=== PATIENT | female | born 1995 | race Caucasian/White ===

== ENCOUNTER 2016-12-03 21:33 | Emergency (ER) | payer BC ==
[2016-12-03] MEDS ORDERED: Ketorolac 60 MG/2 ML SDV IM ONE (21:40)
--- NOTE | 2016-12-03 21:54 | EDM.PDOC ---
ED HPI Trauma - General Chief Complaint: Upper Extremity Injury/Pain Stated Complaint: POSS DISLOCATED L SHOULDER Time Seen by Provider: 12/03/16 21:54 Source: Reports: Patient History Limitations: Reports: No limitations - History of Present Illness INITIAL COMMENTS - FREE TEXT/NARRATIVE: History of present illness: [21-year-old female comes in complaining of acute pain in left shoulder. Patient indicates she was cleaning her bedroom and spontaneously she felt her arm dislocate and now is very painful in the axilla area and into her chest wall. She is certain it's dislocated in February to have it x-rayed.] Review of systems: As per history of present illness and below otherwise all systems reviewed and negative. Past medical history: As per history of present illness and as reviewed below otherwise noncontributory. Surgical history: As per history of present illness and as reviewed below otherwise noncontributory. Social history: No reported history of drug or alcohol abuse. Family history: As per history of present illness and as reviewed below otherwise noncontributory. Physical exam: HEENT: Atraumatic, normocephalic, pupils reactive, negative for conjunctival pallor or scleral icterus, mucous membranes moist, throat clear, neck supple, nontender, trachea midline. Lungs: Clear to auscultation, breath sounds equal bilaterally, chest nontender. Heart: S1S2, regular, negative for clicks, rubs, or JVD. Abdomen: Soft, nondistended, nontender. Negative for masses or hepatosplenomegaly. Negative for costovertebral tenderness. Pelvis: Stable nontender. Genitourinary: Deferred. Rectal: Deferred. Extremities: Atraumatic, negative for cords or calf pain. Neurovascular unremarkable. Neuro: Awake, alert, oriented. Cranial nerves II through XII unremarkable. Cerebellum unremarkable. Motor and sensory unremarkable throughout. Exam nonfocal. Diagnostics: [X-ray] Therapeutics: [] Impression: [Shoulder pain] Plan: [Muscle relaxers anti-inflammatories] Definitive disposition and diagnosis as appropriate pending reevaluation and review of above. Allergies/ADRs: Allergies No Known Allergies Allergy (Verified 12/03/16 21:35) Home Medications: Ambulatory Orders medroxyPROGESTERone [Depo-Provera Contraceptive] 150 mg IM ASDIRECTED 04/23/15 [ Confirmed 07/08/15] Ketorolac [Toradol] 10 mg PO Q6H 07/08/15 [Confirmed 07/08/15] Past Medical History - Past Health History Medical/Surgical History: Denies Medical/Surgical History - Past Surgical History Female Surgical History: Reports: section Other Musculoskeletal Surgeries/Procedures:: right bunionectomy Social & Family History - Tobacco Use Smoking Status *Q: Current Every Day Smoker Years of Tobacco use: 8 Packs/Tins Daily: 0.4 Used Tobacco, but Quit: No Second Hand Smoke Exposure: Yes - Alcohol Use Days Per Week of Alcohol Use: 0 - Recreational Drug Use Recreational Drug Use: No Review of Systems - Review of Systems Review Of Systems: See Below (See history of present illness) Trauma Exam - Physical Exam Exam: See Below (History of present illness) Course - Vital Signs Last Recorded V/S: Last Vital Signs Temp 37.1 C 12/03/16 21:36 Pulse 120 H 12/03/16 21:36 Resp 16 12/03/16 21:36 BP 125/75 12/03/16 21:36 Pulse Ox 99 12/03/16 21:36 - Orders/Labs/Meds Orders: Active Orders 24 hr Category Date Time Status Shoulder Comp Lt [CR] Stat Exams 12/03/16 21:39 Ordered Meds: Medications Discontinued Medications Generic Name Dose Route Start Last Admin Trade Name Irasema PRN Reason Stop Dose Admin Ketorolac Tromethamine 60 mg 12/03/16 21:40 12/03/16 22:15 Toradol IM 12/03/16 21:41 60 mg ONETIME ONE Administration Departure - Departure Time of Disposition: 22:31 Disposition: Home, Self-Care 01 Condition: good Clinical Impression: Shoulder pain, left Forms: ED Department Discharge Additional Instructions: The following information is given to patients seen in the emergency department who are being discharged to home. This information is to outline your options for follow-up care. We provide all patients seen in our emergency department with a follow-up referral. The need for follow-up, as well as the timing and circumstances, are variable depending upon the specifics of your emergency department visit. If you don't have a primary care physician on staff, we will provide you with a referral. We always advise you to contact your personal physician following an emergency department visit to inform them of the circumstance of the visit and for follow-up with them and/or the need for any referrals to a consulting specialist. The emergency department will also refer you to a specialist when appropriate. This referral assures that you have the opportunity for follow-up care with a specialist. All of these measure are taken in an effort to provide you with optimal care, which includes your follow-up. Under all circumstances we always encourage you to contact your private physician who remains a resource for coordinating your care. When calling for follow-up care, please make the office aware that this follow-up is from your recent emergency room visit. If for any reason you are refused follow-up, please contact the [facility] Emergency Department at and asked to speak to the emergency department charge nurse. Take medication as directed Followup with primary care provider one to 2 day Return to ED as needed as discussed - My Orders Last 24 Hours: My Active Orders 12/03/16 21:39 Shoulder Comp Lt [CR] Stat - Assessment/Plan Last 24 Hours: My Active Orders 12/03/16 21:39 Shoulder Comp Lt [CR] Stat
[2016-12-04 01:05] VITALS: BP 119/71
--- NOTE | 2016-12-04 11:17 | CR ---
EXAM DATE: 12/03/16 PATIENT'S AGE: 21 Patient: LENA CUMMINS Facility: [place], [place] Site . Site : 1995 Study: XRay Shoulder Left [id number] 10:08:47 PM Ordering Physician: Doctor Sierra Final Report: INDICATION: shoulder pain x2 days TECHNIQUE: Shoulder radiograph 2 views left COMPARISON: None FINDINGS: Bones: Alignment is normal. No acute fractures or aggressive bone lesions identified. Joint spaces: The glenohumeral joint is unremarkable in appearance. The acromioclavicular (AC) joint is unremarkable. No radiographic evidence of a shoulder effusion is seen. Soft tissues: The visualized hemithorax is unremarkable. No radiopaque foreign bodies are seen. IMPRESSION: 1. No acute osseous injuries are noted. Dictated by: Arnold Arce MD @ 12/03/2016 22:24:51 (Electronic Signature) Report Signed by Proxy and Original Signed Document filed in the Medical Record. MTDD
== END 2016-12-03 22:46 | disposition home or self-care (01) ==
LOC: MW.ED 21:33
DX: M25.512 Pain in left shoulder (principal); F17.210 Nicotine dependence, cigarettes, uncomplicated
CPT/HCPCS: 73030; 96372; 99283; J1885

== ENCOUNTER 2020-06-02 19:33 | Emergency (ER) | payer BC, OTHER ==
[2020-06-02] MEDS ORDERED: Diphtheria,Pertussis(Acell),Tetanus Vaccine 0.5 ML Syringe IM ONE (19:56)
[2020-06-02] MEDS ORDERED: Diazepam 2 MG Tab PO ONE (19:57)
[2020-06-02] MEDS ORDERED: Bacitracin Oint 1 GM U/D Packet TOP ONE (20:02)
--- NOTE | 2020-06-02 20:17 | EDM.PDOCBH ---
ED HPI GENERAL MEDICAL PROBLEM - General Chief Complaint: Behavioral/Psych Stated Complaint: suicidal ideation Time Seen by Provider: 06/02/20 19:36 - History of Present Illness INITIAL COMMENTS - FREE TEXT/NARRATIVE: HISTORY AND PHYSICAL: History of present illness: This 24-year old female with a past medical history of previous opioid dependence, depression, anxiety and cutting behavior in the distant past presents emergency department after being locked out from her home and having difficulty with her boyfriend/roommate. The Police Department has brought her to the emergency department on a mental health/legal hold for evaluation because she is a danger to herself. Per the report of the border police and the patient it appears that she was locked out of the house today and has had several days of struggle. The border police showed me the text messages from the mother where the patient has made clear and distinct self harming threats. She states for the last several weeks she has been contemplating suicide and decided to try it today. The cutting behavior was done today after she had difficulties with her roommate. She denies any overdose. After she began cutting herself she states she decided she did not want to . She has an unstable home environment where she may not be welcome back. She is not welcome at her home with her mother per her report. She no longer has custody of her child. Given all of these factors, the direct self harming behavior, the statements to her mother recorded in text message to the border police, I feel the patient is a danger to herself and will require admission to the hospital for psychiatric care. Review of systems: A 10-point review of systems, other than pertinent positives and negatives as stated per HPI, is otherwise negative. Past medical history: As per history of present illness and as reviewed below otherwise noncontributory. Surgical history: As per history of present illness and as reviewed below otherwise noncontributory. Social history: No reported history of drug or alcohol abuse. Family history: As per history of present illness and as reviewed below otherwise noncontributory. Physical exam: VITAL SIGNS: Reviewed. GENERAL: Intermittently crying. Her left forearm has several hesitation cat that are superficial and do not require repair HEAD: No signs of head trauma. EYES: Pupils are equal. Extraocular motions intact. EARS: Hearing grossly intact. MOUTH: Oropharynx is normal. NECK: No adenopathy, no JVD. CHEST: Chest with clear breath sounds bilaterally. No wheezes, rales, or rhonchi. CARDIAC: Regular rate and rhythm. Normal S1 and S2, without murmurs, gallops, or rubs. VASCULAR: Peripheral pulses normal and equal in all extremities. ABDOMEN: Soft, without detectable tenderness. No sign of distention. No rebound or guarding, and no masses palpated. MUSCULOSKELETAL: Good range of motion of all major joints. Extremities without clubbing, cyanosis or edema. NEUROLOGIC EXAM: Alert and oriented x 3. No focal sensory or motor deficits. Speech normal. Follows commands. PSYCHIATRIC: Intermittently crying. Feeling depressed. SKIN: Multiple hesitation cat. They do not require repair. Distal neurovascular function is intact. Initial Differential Diagnosis & Plan: Depression, suicide, hesitation cat, self harming behavior I have completed the application for evaluation and emergency admission ([id number]) [place] Suicide Severity Rating Scale (C-SSRS Screener) from [employer] on 06/02/2020 RESULT SUMMARY: High risk Immediate notification of physician and/or behavioral health and patient safety precautions INPUTS: Select most severe in the past month > 4 = 4. Active suicidal ideation with some intent to act, without specific plan Select most severe in lifetime > 3 = 3. Aborted attempt or self-interrupted attempt (takes steps toward suicide attempt but stops self before engaging in actual self-destructive behavior) Was this behavior within the past three months? > 1 = Yes For part 2 she could also receive a score of 4. Either way the patient has high risk. Definitive disposition and diagnosis as appropriate pending reevaluation and review of above. - Related Data Allergies Allergy/AdvReac Type Severity Reaction Status Date / Time No Known Allergies Allergy Verified 06/02/20 19:55 Home Meds: Home Meds . [No Known Home Meds] 06/02/20 [History] Past Medical History - Past Health History Medical/Surgical History: Denies Medical/Surgical History Psychiatric History: Reports: Anxiety, Depression - Infectious Disease History Infectious Disease History: Reports: Chicken Pox - Past Surgical History Female Surgical History: Reports: Section Other Musculoskeletal Surgeries/Procedures:: right bunionectomy Social & Family History - Tobacco Use Tobacco Use Status *Q: Current Every Day Tobacco User Years of Tobacco use: 10 Packs/Tins Daily: 0.5 - Recreational Drug Use Recreational Drug Use: Yes Recreational Drug Type: Reports: Heroin Recreational Drug Use Frequency: Not Used In Over 6 Months ED ROS GENERAL - Review of Systems Review Of Systems: See Below (noted) ED EXAM, BEHAVIORAL HEALTH - Physical Exam Exam: See Below (noted) #1 Interpretation EKG Interpretation Comments: 12 lead EKG interpretation Obtained: June 02, 2020 at 2018 hrs. Rhythm: Sinus Rate: 96 [place]: Normal Intervals: Normal ST/T Segments: No acute ischemic changes Interpretation: Sinus Rhythm COURSE, BEHAVIORAL HEALTH COMP - Course Vital Signs: Last Vital Signs Temp Pulse 95 06/02/20 19:45 Resp 17 06/02/20 19:45 BP 136/102 H 06/02/20 19:45 Pulse Ox 99 06/02/20 19:45 Orders, Labs, Meds: Active Orders 24 hr Category Date Time Status EKG Documentation Completion [RC] STAT Care 06/02/20 19:56 Active Vaccines to be Administered [RC] PER UNIT ROUTINE Care 06/02/20 19:56 Active Regular Diet [DIET] Diet 06/03/20 Breakfast Active COMPREHENSIVE METABOLIC PN,CMP [CHEM] Stat Lab 06/02/20 20:18 Received CORONAVIRUS COVID-19 PCR PHL Stat Lab 06/02/20 19:58 Ordered DRUG SCREEN, URINE [URCHEM] Stat Lab 06/02/20 20:51 Ordered ETHANOL BLOOD MEDICAL [CHEM] Stat Lab 06/02/20 20:18 Received HCG QUALITATIVE,URINE [URCHEM] Stat Lab 06/02/20 20:51 Ordered UA W/MICROSCOPIC [URIN] Stat Lab 06/02/20 20:51 Ordered Laboratory Tests 06/02/20 Range/Units 20:18 WBC 15.58 H (4.0-11.0) K/uL RBC 4.35 (4.30-5.90) M/uL Hgb 13.5 (12.0-16.0) g/dL Hct 38.5 (36.0-46.0) % MCV 88.5 (80.0-98.0) fL MCH 31.0 (27.0-32.0) pg MCHC 35.1 (31.0-37.0) g/dL RDW Std Deviation 40.2 (28.0-62.0) fl RDW Coeff of Idalmis 13 (11.0-15.0) % Plt Count 295 (150-400) K/uL MPV 9.10 (7.40-12.00) fL Neut % (Auto) 74.4 (48.0-80.0) % Lymph % (Auto) 15.8 L (16.0-40.0) % [place] % (Auto) 9.2 (0.0-15.0) % Eos % (Auto) 0.4 (0.0-7.0) % Baso % (Auto) 0.2 (0.0-1.5) % Neut # (Auto) 11.6 H (1.4-5.7) K/uL Lymph # (Auto) 2.5 H (0.6-2.4) K/uL [place] # (Auto) 1.4 H (0.0-0.8) K/uL Eos # (Auto) 0.1 (0.0-0.7) K/uL Baso # (Auto) 0.0 (0.0-0.1) K/uL Nucleated RBC % 0.0 /100WBC Nucleated RBCs # 0 K/uL Medications Discontinued Medications Generic Name Dose Route Start Last Admin Trade Name Freq PRN Reason Stop Dose Admin Bacitracin 1 dose 06/02/20 20:02 06/02/20 20:11 Bacitracin Oint 1 Gm TOP 06/02/20 20:03 1 dose ONETIME ONE Administration Diazepam 10 mg 06/02/20 19:57 Valium PO 06/02/20 19:58 ONETIME ONE Diphtheria/Tetanus/Acell Pertussis 0.5 ml 06/02/20 19:56 Adacel IM 06/02/20 19:57 .ONCE ONE Medical Clearance: 06/02/20 20:55 Accepted at [facility]. There is no stigmata of illicit drug use. The patient is not significantly tachycardic. She does not have track cat on her upper extremities. She does not have any signs or symptoms of delirium or encephalopathy. I feel she is medically fit for psychiatric admission. Covid testing given pandemic COVID-19 in the area. This is secondary to disposition requirement not because of symptoms. Other labs as a courtesy to the admitting facility. Dr. Garcia, psychiatry, is excepting. We will arrange for transfer via BLS ambulance My diagnostic impression: 1. Suicidal ideations with suicidal gesture 2. History of depressive disorder 3. History of anxiety disorder 4. Unstable social/home situation 5. Recovering narcotic dependence Departure - Departure Time of Disposition: 20:57 Disposition: DC/Tfer to Psych Hosp/Unit 65 Clinical Impression: Self-harm - Discharge Information *PRESCRIPTION DRUG MONITORING PROGRAM REVIEWED*: Not Applicable *COPY OF PRESCRIPTION DRUG MONITORING REPORT IN PATIENT JOAQUIN: Not Applicable Instructions: Self-Harming Behavior Information Referrals: PCP,None [Primary Care Provider] - Forms: ED Department Discharge Sepsis Event Note (ED) - Evaluation Sepsis Screening Result: No Definite Risk - Focused Exam Vital Signs: Vital Signs Pulse Resp BP Pulse Ox 06/02/20 19:45 95 17 136/102 H 99 - My Orders Last 24 Hours: My Active Orders 06/02/20 19:56 EKG Documentation Completion [RC] STAT Vaccines to be Administered [RC] PER UNIT ROUTINE 06/02/20 19:58 CORONAVIRUS COVID-19 PCR PHL Stat 06/02/20 20:18 COMPREHENSIVE METABOLIC PN,CMP [CHEM] Stat ETHANOL BLOOD MEDICAL [CHEM] Stat 06/02/20 20:51 DRUG SCREEN, URINE [URCHEM] Stat HCG QUALITATIVE,URINE [URCHEM] Stat UA W/MICROSCOPIC [URIN] Stat 06/03/20 Breakfast Regular Diet [DIET] - Assessment/Plan Last 24 Hours: My Active Orders 06/02/20 19:56 EKG Documentation Completion [RC] STAT Vaccines to be Administered [RC] PER UNIT ROUTINE 06/02/20 19:58 CORONAVIRUS COVID-19 PCR PHL Stat 06/02/20 20:18 COMPREHENSIVE METABOLIC PN,CMP [CHEM] Stat ETHANOL BLOOD MEDICAL [CHEM] Stat 06/02/20 20:51 DRUG SCREEN, URINE [URCHEM] Stat HCG QUALITATIVE,URINE [URCHEM] Stat UA W/MICROSCOPIC [URIN] Stat 06/03/20 Breakfast Regular Diet [DIET]
[2020-06-02 21:13] LABS: CARBON DIOXIDE,CO2 21.6 mmol/L (21.0-32.0); CHLORIDE,CL 104 mmol/L (98-107); POTASSIUM,K 4.5 mmol/L (3.5-5.1); SODIUM,NA 137 mmol/L (136-145)
[2020-06-02 21:24] LABS: BLOOD UREA NITROGEN,BUN 17 mg/dL (7.0-18.0); GLUCOSE RANDOM 89 mg/dL (74-106)
[2020-06-02 21:35] VITALS: BP 130/84; PULSE 101
[2020-06-02] MEDS ORDERED: Haloperidol Lactate 5 MG/ML SDV IM ONE (21:48)
[2020-06-02] MEDS ORDERED: Haloperidol Lactate 5 MG/ML SDV ONE (21:50)
== END 2020-06-02 22:52 ==
LOC: MW.ED 19:33
DX: R45.851 Suicidal ideations (principal); F17.210 Nicotine dependence, cigarettes, uncomplicated; Z20.828 Contact with and (suspected) exposure to other viral communicable diseases
CPT/HCPCS: 36415; 80053; 80305; 80307; 81001; 81025; 85025; 87635; 93005; 96372; 99285; A9270; J1630; 93010; U0002

== ENCOUNTER 2021-02-26 00:23 | Inpatient (IN) | payer SELFPAY ==
[2021-02-26] MEDS ORDERED: Sodium Chloride 0.9% 10 ML Syringe FLUSH PRN (02:00)
[2021-02-26] MEDS ORDERED: Oxytocin/0.9 % Sodium Chloride 30 UNIT/500 ML BAG IV SCH (02:00)
[2021-02-26] MEDS ORDERED: Lactated Ringers 1,000 ML IV SCH (02:00)
[2021-02-26] MEDS ORDERED: Sodium Chloride 0.9% 2.5 ML Syringe FLUSH PRN (02:00)
[2021-02-26] MEDS ORDERED: Sodium Chloride 0.9% 10 ML SDV IV PRN (02:00)
[2021-02-26] MEDS ORDERED: Citric Acid/Sodium Citrate Solution 30 ML Cup PO ONE (02:00)
--- NOTE | 2021-02-26 02:13 | PCM.LDHP ---
L&D History of Present Illness - General Date of Service: 02/26/21 Admit Problem/Dx: Patient Status Order with Admit Dx/Problem 02/26/21 01:05 Patient Status [ADT] Routine Admission Diagnosis/Problem Admission Diagnosis/Problem 02/26/21 02:15 Elisa is a 25 yo at ~ 37+3 weeks gestation (UMM(LMP) 03/16/2021) with C/O LOF since 02/24/2021 am and onset of spontaneous painful contractions ~ 2 hours ago. Amnisure upon arrival positive. Reports adequate movement. Denies vaginal bleeding. C/O "bad swelling to my leg and feet", 2-3+ pitting edema BLE and labia. H/O primary LTCS 2012 re: failure to descend with pushing once complete dilation met. Otherwise unremarkable. Pertinent hx includes: tachycardia and murmur treated with labetolol ([id number]), anxiety, THC use night (last used 1 night ago), no care this . Ax: amoxicillin. See medical, surgical, social, medication history. Source of Information: Patient History Limitations: Reports: No Limitations - History of Present Illness Location, : Reports: Abdomen, Lower back Quality: Reports: Sharp Severity: Moderate Pain Score: 5 Improves with: Reports: Movement Worsens with: Reports: Immobilization Associated Symptoms: Reports: vaginal fluid, moderate amount - Related Data Allergies/Adverse Reactions: Allergies Allergy/AdvReac Type Severity Reaction Status Date / Time amoxicillin Allergy Difficulty Verified 02/26/21 01:19 Breathing Home Medications: Home Meds Pnv #30/Iron Carb&Aspg/Fa/Om3 [OB Complete with DHA Softgel] 02/26/21 [History] Past Medical History - Past Health History Medical/Surgical History: Denies Medical/Surgical History HEENT History: Reports: None Cardiovascular History: Reports: Heart Murmur, Other (See Below) (Tachycardia) Respiratory History: Reports: None Gastrointestinal History: Reports: None Genitourinary History: Reports: None : 2 Para: 1 LMP (Approximate): Other OB/BYN History: H/O PCS re: failure to descend with pushing Musculoskeletal History: Reports: None Neurological History: Reports: None Psychiatric History: Reports: Anxiety, Depression Endocrine/Metabolic History: Reports: None Hematologic History: Reports: None Immunologic History: Reports: None Oncologic (Cancer) History: Reports: None Dermatologic History: Reports: None - Infectious Disease History Infectious Disease History: Reports: Chicken Pox - Past Surgical History Female Surgical History: Reports: Section (Primary LTCS re: failure to descend with pushing) Other Musculoskeletal Surgeries/Procedures:: right bunionectomy Social & Family History - Family History Family Medical History: No Pertinent Family History - Tobacco Use Tobacco Use Status *Q: Current Every Day Tobacco User Tobacco Use Within Last Twelve Months: Cigarettes Packs/Tins Daily: 0.5 - Caffeine Use Caffeine Use: Reports: None - Alcohol Use Alcohol Use History: No - Recreational Drug Use Recreational Drug Use: Yes Drug Use in Last 12 Months: Yes Recreational Drug Type: Reports: Marijuana/Hashish (THC daily) Recreational Drug Use Frequency: Daily Recreational Drug Last Use: "Last night" H&P Review of Systems - Review of Systems: Review Of Systems: Comprehensive ROS is negative, except as noted in HPI. General: Reports: No Symptoms HEENT: Reports: No Symptoms Pulmonary: Reports: No Symptoms Cardiovascular: Reports: No Symptoms Gastrointestinal: Reports: No Symptoms Genitourinary: Reports: No Symptoms Musculoskeletal: Reports: No Symptoms Skin: Reports: No Symptoms Psychiatric: Reports: No Symptoms Neurological: Reports: No Symptoms Hematologic/Lymphatic: Reports: No Symptoms Immunologic: Reports: No Symptoms L&D Exam - Exam Exam: See Below - Vital Signs Vital Signs: VSS, afebrile. Hypertensive 140s-150s/80s-90s. Weight: 165 lb - OB Specific Fundal Height In cm: 38 Contraction Duration (sec): 40-90 Contraction Frequency (min): 1-4 Contraction Intensity: Moderate Movement: Active Heart Tones: Present Heart Tones per Min: 120 Heart Rate (FHR) Variability: Moderate (6-25 bmp) Presentation: Vertex (via handheld TAUS) - Bennett Score Bennett Score Cervix Position: Midposition Bennett Score Consistency: Soft Bennett Score Effacement: 31-50% Bennett Score Dilation: 1-2 cm Bennett Score Infant's Station: -1 ,0 Bennett Score Total: 7 - Exam General: Alert, Oriented, Cooperative, Mild Distress HEENT: Conjunctiva Clear, Hearing Intact, Mucosa Moist & Rock, Normal Nasal Septum, Posterior Pharynx Clear, PERRLA Neck: Supple, Trachea Midline Lungs: Clear to Auscultation, Normal Respiratory Effort Cardiovascular: Regular Rate, Regular Rhythm GI/Abdominal Exam: Normal Bowel Sounds, Soft, Non-Tender, No Organomegaly, No Distention Rectal Exam: Deferred Genitourinary: Normal external exam, Normal bimanual exam, Enlarged uterus (Gravid uterus), Vaginal discharge (+ clear amniotic fluid leakage) Back Exam: Normal Inspection, Full Range of Motion Extremities: Normal Inspection, Normal Range of Motion, Non-Tender, No Pedal Edema, Normal Capillary Refill Skin: Warm, Dry, Intact Neurological: Cranial Nerves Intact, Reflexes Equal Bilateral Psychiatric: Alert, Normal Affect, Normal Mood - Patient Data Lab Results Last 24 hrs: Laboratory Results - last 24 hr 02/26/21 Range/Units 00:50 Membrane Rupture POSITIVE - Problem List (1) Uterine contractions SNOMED Code(s): 453751080 ICD Code: O47.9 - FALSE LABOR, UNSPECIFIED Status: Acute Priority: High Current Visit: Yes (2) 37 weeks gestation of SNOMED Code(s): 84172838 ICD Code: Z3A.37 - 37 WEEKS GESTATION OF Status: Acute Priority: High Current Visit: Yes (3) H/O section SNOMED Code(s): 673951691 ICD Code: Z98.891 - HISTORY OF UTERINE SCAR FROM PREVIOUS SURGERY Status: Acute Priority: High Current Visit: Yes Problem List Initiated/Reviewed/Updated: Yes Orders Last 24hrs: Active Orders 24 hr Category Date Time Status Patient Status [ADT] Routine ADT 02/26/21 01:05 Active Non Stress Test [RC] PER UNIT ROUTINE Care 02/26/21 01:05 Active Notify Provider Vital Signs [RC] PRN Care 02/26/21 02:04 Active Procedure Site Prep Instruct [RC] ASDIRECTED Care 02/26/21 02:01 Active Up ad Jackie [RC] ASDIRECTED Care 02/26/21 01:05 Active Vaginal Exam [RC] Click to Edit Care 02/26/21 01:05 Active Verify Patient Consent Obtain [RC] ASDIRECTED Care 02/26/21 02:01 Active Vital Signs [RC] PER UNIT ROUTINE Care 02/26/21 01:05 Active Nothing Per Oral Diet [DIET] Diet 02/26/21 Dinner Active CBC W/O DIFF,HEMOGRAM [HEME] Stat Lab 02/26/21 02:00 Ordered COMPREHENSIVE METABOLIC PN,CMP [CHEM] Stat Lab 02/26/21 02:00 Ordered DRUG SCREEN, URINE [URCHEM] Urgent Lab 02/26/21 02:00 Ordered GROUP B STREP BY PCR [MOLEC] Routine Lab 02/26/21 02:06 Ordered HEPATITIS B SURFACE AG [CHEM] Routine Lab 02/26/21 02:07 Ordered HEPATITIS C ANTIBODY [CHEM] Routine Lab 02/26/21 02:07 Ordered HIV12 AG/AB 4TH GEN W/REFLEX [CHEM] Routine Lab 02/26/21 02:05 Ordered RPR (SYPHILIS SERO) W/ RFLX [REF] Routine Lab 02/26/21 02:01 Ordered RUBELLA ANTIBODY IGG [CHEM] Routine Lab 02/26/21 02:07 Ordered TYPE AND SCREEN [BBK] Routine Lab 02/26/21 02:01 Ordered Citric Acid/Sodium Citrate [Bicitra Solution] Med 02/26/21 02:00 Once 30 ml PO ONETIME ONE Lactated Ringers [Ringers, Lactated] 1,000 ml Med 02/26/21 02:00 Ordered IV BOLUS Oxytocin/0.9 % Sodium Chloride [Oxytocin 30 Unit/500 ML Med 02/26/21 02:00 Ordered -NS] 30 unit in 500 ml IV TITRATE Sodium Chloride 0.9% [Normal Saline] Med 02/26/21 02:00 Ordered 10 ml IV ASDIRECTED PRN Sodium Chloride 0.9% [Saline Flush] Med 02/26/21 02:00 Ordered 10 ml FLUSH ASDIRECTED PRN Sodium Chloride 0.9% [Saline Flush] Med 02/26/21 02:00 Ordered 2.5 ml FLUSH ASDIRECTED PRN Peripheral IV Insertion Adult [OM.PC] Routine Oth 02/26/21 02:01 Ordered Schedule Procedure [COMM] Per Unit Routine Oth 02/26/21 02:01 Ordered Resuscitation Status Routine Resus Stat 02/26/21 01:02 Ordered Medication Orders Citric Acid/Sodium Citrate (Citric Acid/Sodium Citrate Solution 30 Ml Cup) 30 ml PO ONETIME ONE Stop: 02/26/21 02:01 Lactated Ringer's (Ringers, Lactated) 1,000 mls @ 500 mls/hr IV BOLUS KATHERINE Oxytocin/Sodium Chloride (Oxytocin 30 Unit/500 Ml-Ns) 30 unit in 500 mls @ 250 mls/hr IV TITRATE KATHERINE Sodium Chloride (Sodium Chloride 0.9% 10 Ml Syringe) 10 ml FLUSH ASDIRECTED PRN PRN Reason: Keep Vein Open Sodium Chloride (Sodium Chloride 0.9% 2.5 Ml Syringe) 2.5 ml FLUSH ASDIRECTED PRN PRN Reason: Keep Vein Open Sodium Chloride (Sodium Chloride 0.9% 10 Ml Sdv) 10 ml IV ASDIRECTED PRN PRN Reason: IV Use Assessment/Plan Comment:: Patient presents today with C/O LOF and uterine contractions, + amnisure, vandana every 1-4 min, moderate in intensity, no care. SVE 2/50/- 1, soft, mid-position. Vertex via handheld TAUS. Fundal heights consistent with LMP ~ 37-38 wks gestation. Discussed RBAs of repeat LTCS given all patient factors, not a candidate for TOLAC. Patient verbally consents to repeat LTCS. Dr. Stokes called repeat LTCS ~2:05 am. Anesthesia team called. Operative, anesthesia, and blood consents signed. Pre-op checklist in progress. Plan to administer 2 grams cefazolin IV maria esther-operatively. Patient continues to verbalizes agreement with POC, no questions comments or concerns at this time.
[2021-02-26] MEDS ORDERED: Tranexamic Acid 1,000 MG in Sodium Chloride 0.9% 100 ML IV PRN ×2 (02:31→04:08)
[2021-02-26] MEDS ORDERED: Lidocaine 1% 50 ML MDV INJECT PRN (02:31)
[2021-02-26] MEDS ORDERED: Carboprost Tromethamine 250 MCG/1 ML Amp IM PRN (02:31)
[2021-02-26] MEDS ORDERED: Water For Irrigation,Sterile 1,000 ML Container IRR PRN (02:31)
[2021-02-26] MEDS ORDERED: Misoprostol 200 MCG Tab PO PRN (02:31)
[2021-02-26] MEDS ORDERED: Nalbuphine 10 MG/1 ML Vial IVPUSH PRN ×2 (02:31→04:18)
[2021-02-26] MEDS ORDERED: Methylergonovine 0.2 MG/1 ML Amp IM PRN ×2 (02:31→04:08)
[2021-02-26] MEDS ORDERED: Butorphanol 1 MG/ML SDV IVPUSH PRN (02:31)
[2021-02-26] MEDS ORDERED: fentaNYL 100 MCG/2 ML SDV ONE (02:44)
[2021-02-26] MEDS ORDERED: Morphine PF 10 MG/10 ML SDV ONE (02:45)
[2021-02-26 03:10] LABS: BLOOD UREA NITROGEN,BUN 18 mg/dL (7.0-18.0); CARBON DIOXIDE,CO2 17.4 mmol/L (21.0-32.0); CHLORIDE,CL 107 mmol/L (98-107); GLUCOSE RANDOM 69 mg/dL (74-106); POTASSIUM,K 4.7 mmol/L (3.5-5.1); SODIUM,NA 139 mmol/L (136-145)
[2021-02-26] MEDS ORDERED: Ondansetron 4 MG/2 ML SDV ONE (03:27)
[2021-02-26] MEDS ORDERED: Oxytocin 10 Units/1 ML SDV ONE (03:27)
[2021-02-26] MEDS ORDERED: Ketorolac 30 MG/ML SDV ONE (03:27)
[2021-02-26] MEDS ORDERED: ceFAZolin 1 GM Vial ONE (03:44)
[2021-02-26] MEDS ORDERED: Sodium Chloride 0.9% 20 ML ONE (03:44)
[2021-02-26] MEDS ORDERED: Misoprostol 200 MCG Tab RECTAL PRN (04:08)
[2021-02-26] MEDS ORDERED: Ondansetron 4 MG/2 ML SDV IVPUSH PRN ×2 (04:08→04:18)
[2021-02-26] MEDS ORDERED: Lanolin 100% Cream 7 GM Tube TOP PRN (04:08)
[2021-02-26] MEDS ORDERED: Oxytocin 10 Units/1 ML SDV IM PRN (04:08)
[2021-02-26] MEDS ORDERED: Bisacodyl 10 MG Supp RECTAL PRN (04:08)
--- NOTE | 2021-02-26 04:12 | PCM.OPNOTE ---
- General Post-Op/Procedure Note Date of Surgery/Procedure: 02/26/21 Operative Procedure(s): Repeat C/section, IUP term Post-Op Diagnosis: Same Anesthesia Technique: Spinal Primary Surgeon: Chuckie Stokes Licensed Life And Health Agent: Shama Burgos EBL in mLs: 650 Complications: None Condition: Good
[2021-02-26 04:13] LABS: HIV12 AG/AB 4TH GEN W/REFLEX < 0.1 INDEX (<1.0)
[2021-02-26] MEDS ORDERED: fentaNYL 100 MCG/2 ML SDV IVPUSH PRN (04:18)
[2021-02-26] MEDS ORDERED: Naloxone 0.4 MG/ML Syringe IVPUSH PRN (04:18)
[2021-02-26] MEDS ORDERED: diphenhydrAMINE 50 MG/ML SDV IVPUSH PRN (04:18)
[2021-02-26] MEDS ORDERED: ePHEDrine 50 MG/ML SDV IVPUSH PRN (04:18)
[2021-02-26] MEDS ORDERED: Acetaminophen/oxyCODONE 325-5 MG Tab PO PRN (04:18)
--- NOTE | 2021-02-26 04:18 | PCM.PREANE ---
Preanesthetic Assessment - Anesthesia/Transfusion/Family Hx Anesthesia History: Prior Anesthesia Without Reaction Family History of Anesthesia Reaction: No - Review of Systems General: No Symptoms Pulmonary: No Symptoms Cardiovascular: No Symptoms Gastrointestinal: No Symptoms Neurological: No Symptoms Other: Reports: None - Physical Assessment NPO Status Date: 02/26/21 NPO Status Time: 00:00 Height: 5 ft 3 in Weight: 165 lb ASA Class: 3 Mental Status: Alert & Oriented x3 Airway Class: Mallampati = 3 Dentition: Reports: Normal Dentition ROM/Head Extension: Full Lungs: Clear to Auscultation, Normal Respiratory Effort Cardiovascular: Regular Rate, Regular Rhythm - Lab Values: Laboratory Last Values WBC 19.94 K/uL (4.0-11.0) H 02/26/21 02:20 RBC 3.36 M/uL (4.30-5.90) L 02/26/21 02:20 Hgb 10.2 g/dL (12.0-16.0) L 02/26/21 02:20 Hct 29.2 % (36.0-46.0) L 02/26/21 02:20 MCV 86.9 fL (80.0-98.0) 02/26/21 02:20 MCH 30.4 pg (27.0-32.0) 02/26/21 02:20 MCHC 34.9 g/dL (31.0-37.0) 02/26/21 02:20 RDW Std Deviation 41.3 fl (28.0-62.0) 02/26/21 02:20 RDW Coeff of Idalmis 13 % (11.0-15.0) 02/26/21 02:20 Plt Count 232 K/uL (150-400) 02/26/21 02:20 MPV 10.10 fL (7.40-12.00) 02/26/21 02:20 Nucleated RBC % 0.0 /100WBC 02/26/21 02:20 Nucleated RBCs # 0 K/uL 02/26/21 02:20 Sodium 139 mmol/L (136-145) 02/26/21 02:20 Potassium 4.7 mmol/L (3.5-5.1) 02/26/21 02:20 Chloride 107 mmol/L (98-107) 02/26/21 02:20 Carbon Dioxide 17.4 mmol/L (21.0-32.0) L 02/26/21 02:20 BUN 18 mg/dL (7.0-18.0) 02/26/21 02:20 Creatinine 0.9 mg/dL (0.6-1.0) 02/26/21 02:20 Est Cr Clr Drug Dosing 78.36 mL/min 02/26/21 02:20 Estimated GFR (MDRD) > 60.0 ml/min 02/26/21 02:20 Glucose 69 mg/dL (74-106) L 02/26/21 02:20 Calcium 7.9 mg/dL (8.5-10.1) L 02/26/21 02:20 Total Bilirubin 0.3 mg/dL (0.2-1.0) 02/26/21 02:20 AST 45 IU/L (15-37) H 02/26/21 02:20 ALT 33 IU/L (14-63) 02/26/21 02:20 Alkaline Phosphatase 226 U/L (46-116) H 02/26/21 02:20 Total Protein 5.6 g/dL (6.4-8.2) L 02/26/21 02:20 Albumin 2.2 g/dL (3.4-5.0) L 02/26/21 02:20 Globulin 3.4 g/dL (2.6-4.0) 02/26/21 02:20 Albumin/Globulin Ratio 0.7 (0.9-1.6) L 02/26/21 02:20 Membrane Rupture POSITIVE 02/26/21 00:50 Urine Opiates Screen NEGATIVE (NEGATIVE) 02/26/21 03:10 Ur Oxycodone Screen NEGATIVE (NEGATIVE) 02/26/21 03:10 Urine Methadone Screen NEGATIVE (NEGATIVE) 02/26/21 03:10 Ur Barbiturates Screen NEGATIVE (NEGATIVE) 02/26/21 03:10 Ur Phencyclidine Scrn NEGATIVE (NEGATIVE) 02/26/21 03:10 Ur Amphetamine Screen POSITIVE (NEGATIVE) 02/26/21 03:10 U Methamphetamines Scrn POSITIVE (NEGATIVE) 02/26/21 03:10 U Benzodiazepines Scrn NEGATIVE (NEGATIVE) 02/26/21 03:10 U Cocaine Metab Screen NEGATIVE (NEGATIVE) 02/26/21 03:10 U Marijuana (THC) Screen POSITIVE (NEGATIVE) 02/26/21 03:10 Hep Bs Antigen Index < 0.1 INDEX (<1.0) 02/26/21 02:20 Hep C Ab Index (BONNIE) 0.02 INDEX (<0.8) 02/26/21 02:20 HIV 1&2 Ag/Ab, 4th Gen < 0.1 INDEX (<1.0) 02/26/21 02:20 Rubella IgG Ab Index 305.1 IU/mL 02/26/21 02:20 SARS-CoV-2 RNA (SUSAN) NEGATIVE (NEGATIVE) 02/26/21 02:08 - Allergies Allergies/Adverse Reactions: Allergies Allergy/AdvReac Type Severity Reaction Status Date / Time amoxicillin Allergy Difficulty Verified 02/26/21 01:19 Breathing - Blood Blood Available: Yes Product(s) Available: PRBC - Anesthesia Plan Pre-Op Medication Ordered: None - Acknowledgements Anesthesia Type Planned: Spinal Pt an Appropriate Candidate for the Planned Anesthesia: Yes Alternatives and Risks of Anesthesia Discussed w Pt/Guardian: Yes Pt/Guardian Understands and Agrees with Anesthesia Plan: Yes PreAnesthesia Questionnaire - Past Health History Medical/Surgical History: Denies Medical/Surgical History HEENT History: Reports: None Cardiovascular History: Reports: Heart Murmur, Other (See Below) (Tachycardia) Respiratory History: Reports: None Gastrointestinal History: Reports: None Genitourinary History: Reports: None Other OB/BYN History: H/O PCS re: failure to descend with pushing Musculoskeletal History: Reports: None Neurological History: Reports: None Psychiatric History: Reports: Anxiety, Depression Endocrine/Metabolic History: Reports: None Hematologic History: Reports: None Immunologic History: Reports: None Oncologic (Cancer) History: Reports: None Dermatologic History: Reports: None - Infectious Disease History Infectious Disease History: Reports: Chicken Pox - Past Surgical History Female Surgical History: Reports: Section (Primary LTCS re: failure to descend with pushing) Other Musculoskeletal Surgeries/Procedures:: right bunionectomy - SUBSTANCE USE Tobacco Use Status *Q: Current Every Day Tobacco User Tobacco Use Within Last Twelve Months: Cigarettes Recreational Drug Use History: Yes Recreational Drug Type: Reports: Marijuana/Hashish (THC daily) Recreational Drug Last Use: "Last night" - HOME MEDS Home Medications: Home Meds Pnv #30/Iron Carb&Aspg/Fa/Om3 [OB Complete with DHA Softgel] 02/26/21 [History] - CURRENT (IN HOUSE) MEDS Current Meds: Current Medications Bisacodyl (Bisacodyl 10 Mg Supp) 10 mg RECTAL ONETIME PRN PRN Reason: Constipation Butorphanol Tartrate (Butorphanol 1 Mg/Ml Sdv) 1 mg IVPUSH Q1H PRN PRN Reason: Pain (severe 7-10) Carboprost Tromethamine (Carboprost Tromethamine 250 Mcg/1 Ml Amp) 250 mcg IM ASDIRECTED PRN PRN Reason: Post Hemorrhage Diphenhydramine HCl (Diphenhydramine 50 Mg/Ml Sdv) 25 mg IVPUSH Q6H PRN PRN Reason: Itching or Nausea Docusate Sodium (Docusate Sodium 100 Mg Cap) 100 mg PO BID KATHERINE Emollient Ointment (Lanolin 100% Cream 7 Gm Tube) 0 gm TOP ASDIRECTED PRN PRN Reason: Sore Nipples Lactated Ringer's (Ringers, Lactated) 1,000 mls @ 500 mls/hr IV BOLUS [facility] Oxytocin/Sodium Chloride (Oxytocin 30 Unit/500 Ml-Ns) 30 unit in 500 mls @ 250 mls/hr IV TITRATE KATHERINE Lactated Ringer's (Ringers, Lactated) 1,000 mls @ 150 mls/hr IV ASDIRECTED [facility] Tranexamic Acid 1,000 mg/ (Sodium Chloride) 110 mls @ 660 mls/hr IV ONETIME PRN PRN Reason: Bleeding Lactated Ringer's (Ringers, Lactated) 1,000 mls @ 125 mls/hr IV ASDIRECTED [facility] Tranexamic Acid 1,000 mg/ (Sodium Chloride) 110 mls @ 660 mls/hr IV ONETIME PRN PRN Reason: Bleeding Ibuprofen (Ibuprofen 800 Mg Tab) 800 mg PO Q8H PRN PRN Reason: mild pain or fever Ketorolac Tromethamine (Ketorolac 30 Mg/Ml Sdv) 30 mg IVPUSH Q6H [facility] Stop: 02/27/21 04:01 Lidocaine HCl (Lidocaine 1% 50 Ml Mdv) 50 ml INJECT ONETIME PRN PRN Reason: Laceration repair Methylergonovine Maleate (Methylergonovine 0.2 Mg/1 Ml Amp) 0.2 mg IM ASDIRECTED PRN PRN Reason: Post Hemorrhage Methylergonovine Maleate (Methylergonovine 0.2 Mg/1 Ml Amp) 0.2 mg IM ONETIME PRN PRN Reason: Excessive Vaginal Bleeding Misoprostol (Misoprostol 200 Mcg Tab) 200 mcg PO ONETIME PRN PRN Reason: Post Hemorrhage Misoprostol (Misoprostol 200 Mcg Tab) 1,000 mcg RECTAL ONETIME PRN PRN Reason: excessive bleeding Nalbuphine HCl (Nalbuphine 10 Mg/1 Ml Vial) 10 mg IVPUSH Q1H PRN PRN Reason: Pain (severe 7-10) Ondansetron HCl (Ondansetron 4 Mg/2 Ml Sdv) 4 mg IVPUSH Q4H PRN PRN Reason: Nausea/Vomiting Oxycodone/Acetaminophen (Acetaminophen/Oxycodone 325-5 Mg Tab) 1 tab PO Q4H PRN PRN Reason: Pain (severe 7-10) Oxycodone/Acetaminophen (Acetaminophen/Oxycodone 325-5 Mg Tab) 2 tab PO Q4H PRN PRN Reason: Pain (severe 7-10) Oxytocin (Oxytocin 10 Units/1 Ml Sdv) 10 unit IM ASDIRECTED PRN PRN Reason: Excessive Vaginal Bleeding Sodium Chloride (Sodium Chloride 0.9% 10 Ml Syringe) 10 ml FLUSH ASDIRECTED PRN PRN Reason: Keep Vein Open Sodium Chloride (Sodium Chloride 0.9% 2.5 Ml Syringe) 2.5 ml FLUSH ASDIRECTED PRN PRN Reason: Keep Vein Open Sodium Chloride (Sodium Chloride 0.9% 10 Ml Sdv) 10 ml IV ASDIRECTED PRN PRN Reason: IV Use Sterile Water (Water For Irrigation,Sterile 1,000 Ml Container) 1,000 ml IRR ASDIRECTED PRN PRN Reason: delivery Discontinued Medications Cefazolin Sodium (Cefazolin 1 Gm Vial) Confirm Administered Dose 2 gm .ROUTE .STK-MED ONE Stop: 02/26/21 03:45 Citric Acid/Sodium Citrate (Citric Acid/Sodium Citrate Solution 30 Ml Cup) 30 ml PO ONETIME ONE Stop: 02/26/21 02:01 Fentanyl (Fentanyl 100 Mcg/2 Ml Sdv) Confirm Administered Dose 100 mcg .ROUTE .STK-MED ONE Stop: 02/26/21 02:45 Sodium Chloride (Normal Saline) Confirm Administered Dose 20 mls @ as directed .ROUTE .Chomp-MED ONE Stop: 02/26/21 03:45 Ketorolac Tromethamine (Ketorolac 30 Mg/Ml Sdv) Confirm Administered Dose 30 mg .ROUTE .STBevii-MED ONE Stop: 02/26/21 03:28 Miscellaneous Medication (Phenylephrine Hcl In 0.9% Nacl 1 Mg/10 Ml Syringe) Confirm Administered Dose 1 mg .ROUTE .STBevii-MED ONE Stop: 02/26/21 03:28 Morphine Sulfate (Morphine Pf 10 Mg/10 Ml Sdv) Confirm Administered Dose 10 mg .ROUTE .STBevii-MED ONE Stop: 02/26/21 02:46 Ondansetron HCl (Ondansetron 4 Mg/2 Ml Sdv) Confirm Administered Dose 4 mg .ROUTE .STBevii-MED ONE Stop: 02/26/21 03:28 Oxytocin (Oxytocin 10 Units/1 Ml Sdv) Confirm Administered Dose 30 unit .ROUTE .Chomp-MED ONE Stop: 02/26/21 03:28
[2021-02-26] MEDS ORDERED: Octyl 2-Cyanoacrylate 1 Tube ONE (05:02)
[2021-02-26] MEDS: Lactated Ringers 1,000 ML IV SCH ×3 (05:37→14:43)
--- NOTE | 2021-02-26 06:22 | OR ---
SURGEON: Chuckie Stokes MD DATE OF PROCEDURE: 02/26/2021 PREOPERATIVE DIAGNOSES: Intrauterine , term, and previous section; no care in this ; prolonged rupture of the membrane. POSTOPERATIVE DIAGNOSES: Intrauterine , term, and previous section; no care in this ; prolonged rupture of the membrane. OPERATION PERFORMED: Repeat low transverse section. PRIMARY SURGEON: Chuckie Stokes MD RESPOOLER: Shama Burgos, certified nurse direct entry midwife. ANESTHESIA: Spinal. ESTIMATED BLOOD LOSS: 650 mL. COMPLICATION: None. FINDING: Male fetus, score reported to be 8 and 9. The weight is not available. Normal uterus, tubes, and ovaries. INDICATION FOR SURGERY: This patient is 25. She had a previous section in 2012 for failure to progress. The patient had no care in this and she is term according to a yearly ultrasound done by an clinic. According to her, she had a spontaneous rupture of the membrane 36 to 48 hours earlier, and when she presented to Labor and Delivery, she was vandana. She was afebrile. However, this prolonged rupture of the membrane is concerning. PROCEDURE IN DETAIL: The patient was brought to the OR. After adequate level of spinal anesthesia with a Malhotra catheter in the bladder, the patient properly identified, and the patient was prepped and draped in sterile fashion as usual. Low transverse Pfannenstiel skin incision done. Mica fascia, rectus fascia were opened in direction of the incision. The 2 recti muscles and the peritoneal cavity was entered. Bladder flap was raised in the usual manner pushing the bladder away from the lower uterine segment. Low transverse uterine incision was done, extended manually with the hand. Fetus was in a vertex position, delivered, and cried immediately. The amniotic fluid smelled, probably indicative of chorioamnionitis. The stator winder was notified of that. She was present at the time of the delivery. The placenta delivered spontaneous, complete, and intact. The segment of the tube was sent for a drug screen and possible culture, and then after that, repair of the lower uterine segment was done with 2-0 Vicryl continuous interlocking in 2 layers. Reperitonealization done with 2-0 Vicryl continuous and then the peritoneal cavity evacuated from all blood and blood clot and closed with 3-0 Vicryl continuous. The rectus fascia was closed with #1 PDS double strand continuous. The Mica fascia with 3-0 Vicryl continuous. The skin closed with 3-0 Vicryl on a Axel needle in a subcuticular fashion. Instrument and sponge count was correct. The patient tolerated the procedure well, went to recovery room in stable general condition. LYNN / HEENA /[id number]
[2021-02-26] MEDS: Ketorolac 30 MG/ML SDV IVPUSH SCH ×4 (06:29→22:42)
[2021-02-26] MEDS: Docusate Sodium 100 MG Cap PO SCH ×2 (10:00→22:41)
[2021-02-26] MEDS ORDERED: Clindamycin Phosphate in D5W 900 MG in Premix Bag 1 BAG IV SCH ×2 (15:30)
[2021-02-26] MEDS: Clindamycin Phosphate in D5W 600 MG in Premix Bag 1 BAG IV SCH ×4 (16:19→22:48)
[2021-02-26] MEDS: Hydrochlorothiazide 12.5 MG Cap PO SCH (22:41)
[2021-02-27] MEDS: Lactated Ringers 1,000 ML IV SCH ×2 (02:00→12:54)
[2021-02-27] MEDS: Ketorolac 30 MG/ML SDV IVPUSH SCH (04:10)
[2021-02-27] MEDS: Clindamycin Phosphate in D5W 600 MG in Premix Bag 1 BAG IV SCH ×8 (04:17→20:30)
--- NOTE | 2021-02-27 04:31 | PCM.PNPP ---
- General Info Date of Service: 02/27/21 Admission Dx/Problem (Free Text): Patient Status Order with Admit Dx/Problem 02/26/21 01:05 Patient Status [ADT] Routine Admission Diagnosis/Problem Admission Diagnosis/Problem 02/26/21 02:15 Elisa is a 25 yo current PPD1 s/p repeat LTCS at ~ 37+3 weeks gestation ([facility](LMP) 03/16/2021) without care. A neg/ Rh pos; RhoGam declined by patient last night, "I have never needed that before...". RI, GBS neg. Ax: amoxicillin. Elevation of WBCs noted upon admission, prolonged ROM x 2 days noted. Blanche-operative antibiotics administered. Clindamycin 600 mg IV q [address] Stokes yesterday. Patient C/O severe pain 10/10 and irritability not alleviated with PO/IV analgesias. Severe itching and scratching behaviors noted upon exam, likely related to medication SEs and/or methamphetamine withdrawal. Continued C/O "really bad swelling to my leg and feet", 2-3+ pitting edema BLE and labia. Tachycardia and low urine output noted yesterday evening, EBL ~600 ml during LTCS yesterday; 1000 ml IV LR bolus completed yesterday followed by 12.5 mg HCTZ PO once for BLE pitting edema. Ample clear, yellow urine noted from mendez catheter. Tachycardia and mild hypertension noted, VSs otherwise stable. Plan to repeat CBC, CMP this am, collection pending. Pertinent hx includes: tachycardia and murmur treated with labetolol ([id number]), anxiety, THC use night (last used 1 night ago), methamphetamine use 2 days ago. Social/case work consulted, visited with patient last night, plan still pending. Early US completed in at [facility] as patient was considering at that time; procedure not completed. Otherwise no care this . Ax: amoxicillin. See medical, surgical, social, medication history. Pain Score: 10 (Patient experiencing irritability and hypersensitivity) - Review of Systems General: Reports: No Symptoms HEENT: Reports: No Symptoms Pulmonary: Reports: No Symptoms Cardiovascular: Reports: No Symptoms Gastrointestinal: Reports: No Symptoms Genitourinary: Reports: No Symptoms Musculoskeletal: Reports: No Symptoms Skin: Reports: No Symptoms Neurological: Reports: No Symptoms Psychiatric: Reports: No Symptoms - General Info Date of Service: 02/27/21 - Patient Data Vital Signs - Most Recent: Last Vital Signs Temp 96.7 F L 02/27/21 00:20 Pulse 117 H 02/27/21 02:00 Resp 21 H 02/27/21 02:00 BP 152/81 H 02/27/21 00:20 Pulse Ox 100 02/27/21 02:00 Weight - Most Recent: 165 lb I&O - Last 24 Hours: Intake & Output 02/26/21 02/26/21 02/27/21 14:59 22:59 06:59 Intake Total 1979 Output Total 200 Balance 1978 - Lab Results - Last 24 Hours: Laboratory Results - last 24 hr 02/26/21 02/26/21 02/26/21 Range/Units 02:00 02:20 03:10 Ur Random Creatinine 303.5 mg/dL U Random Total Protein 129.2 H (<11.9) mg/dL Protein/Creatinin Ratio 0.4 Group B Strep (PCR) NEGATIVE (NEGATIVE) Blood Type A NEGATIVE Antibody Screen NEGATIVE Screen (NEGATIVE) RhIG Candidate? Rhogam Indicated 02/26/21 Range/Units 05:00 Ur Random Creatinine mg/dL U Random Total Protein (<11.9) mg/dL Protein/Creatinin Ratio Group B Strep (PCR) (NEGATIVE) Blood Type Antibody Screen Screen NEGATIVE (NEGATIVE) RhIG Candidate? YES Rhogam Indicated YES, BABY RH POS H Med Orders - Current: Current Medications Bisacodyl (Bisacodyl 10 Mg Supp) 10 mg RECTAL ONETIME PRN PRN Reason: Constipation Butorphanol Tartrate (Butorphanol 1 Mg/Ml Sdv) 1 mg IVPUSH Q1H PRN PRN Reason: Pain (severe 7-10) Carboprost Tromethamine (Carboprost Tromethamine 250 Mcg/1 Ml Amp) 250 mcg IM ASDIRECTED PRN PRN Reason: Post Hemorrhage Diphenhydramine HCl (Diphenhydramine 50 Mg/Ml Sdv) 25 mg IVPUSH Q6H PRN PRN Reason: Itching or Nausea Diphenhydramine HCl (Diphenhydramine 50 Mg/Ml Sdv) 12.5 mg IVPUSH Q2H PRN PRN Reason: Itching Docusate Sodium (Docusate Sodium 100 Mg Cap) 100 mg PO BID [facility] Last Admin: 02/26/21 22:41 Dose: 100 mg Documented by: Emollient Ointment (Lanolin 100% Cream 7 Gm Tube) 0 gm TOP ASDIRECTED PRN PRN Reason: Sore Nipples Ephedrine Sulfate (Ephedrine 50 Mg/Ml Sdv) 10 mg IVPUSH Q5M PRN PRN Reason: Hypotension Fentanyl (Fentanyl 100 Mcg/2 Ml Sdv) 50 mcg IVPUSH Q1H PRN PRN Reason: Pain (severe 7-10) Hydrochlorothiazide (Hydrochlorothiazide 12.5 Mg Cap) 12.5 mg PO BEDTIME [facility] Last Admin: 02/26/21 22:41 Dose: 12.5 mg Documented by: Lactated Ringer's (Ringers, Lactated) 1,000 mls @ 500 mls/hr IV BOLUS [facility] Last Admin: 02/26/21 02:20 Dose: 500 mls/hr Documented by: Oxytocin/Sodium Chloride (Oxytocin 30 Unit/500 Ml-Ns) 30 unit in 500 mls @ 250 mls/hr IV TITRATE [facility] Lactated Ringer's (Ringers, Lactated) 1,000 mls @ 150 mls/hr IV ASDIRECTED [facility] Tranexamic Acid 1,000 mg/ (Sodium Chloride) 110 mls @ 660 mls/hr IV ONETIME PRN PRN Reason: Bleeding Lactated Ringer's (Ringers, Lactated) 1,000 mls @ 125 mls/hr IV ASDIRECTED [facility] Last Admin: 02/27/21 02:00 Dose: 125 mls/hr Documented by: Tranexamic Acid 1,000 mg/ (Sodium Chloride) 110 mls @ 660 mls/hr IV ONETIME PRN PRN Reason: Bleeding Clindamycin Phosphate 600 mg/ (Premix) 50 mls @ 100 mls/hr IV Q6H [facility] Last Admin: 02/27/21 04:17 Dose: 100 mls/hr Documented by: Ibuprofen (Ibuprofen 800 Mg Tab) 800 mg PO Q8H PRN PRN Reason: mild pain or fever Lidocaine HCl (Lidocaine 1% 50 Ml Mdv) 50 ml INJECT ONETIME PRN PRN Reason: Laceration repair Methylergonovine Maleate (Methylergonovine 0.2 Mg/1 Ml Amp) 0.2 mg IM ASDIRECTED PRN PRN Reason: Post Hemorrhage Methylergonovine Maleate (Methylergonovine 0.2 Mg/1 Ml Amp) 0.2 mg IM ONETIME PRN PRN Reason: Excessive Vaginal Bleeding Misoprostol (Misoprostol 200 Mcg Tab) 200 mcg PO ONETIME PRN PRN Reason: Post Hemorrhage Misoprostol (Misoprostol 200 Mcg Tab) 1,000 mcg RECTAL ONETIME PRN PRN Reason: excessive bleeding Nalbuphine HCl (Nalbuphine 10 Mg/1 Ml Vial) 10 mg IVPUSH Q1H PRN PRN Reason: Pain (severe 7-10) Nalbuphine HCl (Nalbuphine 10 Mg/1 Ml Vial) 5 mg IVPUSH ASDIRECTED PRN PRN Reason: Itching Ondansetron HCl (Ondansetron 4 Mg/2 Ml Sdv) 4 mg IVPUSH Q4H PRN PRN Reason: Nausea/Vomiting Ondansetron HCl (Ondansetron 4 Mg/2 Ml Sdv) 4 mg IVPUSH Q6H PRN PRN Reason: Nausea Oxycodone/Acetaminophen (Acetaminophen/Oxycodone 325-5 Mg Tab) 1 tab PO Q4H PRN PRN Reason: Pain (severe 7-10) Oxycodone/Acetaminophen (Acetaminophen/Oxycodone 325-5 Mg Tab) 2 tab PO Q4H PRN PRN Reason: Pain (severe 7-10) Oxycodone/Acetaminophen (Acetaminophen/Oxycodone 325-5 Mg Tab) 2 tab PO Q6H PRN PRN Reason: Pain (moderate 4-6) Last Admin: 02/26/21 06:53 Dose: 2 tab Documented by: Oxytocin (Oxytocin 10 Units/1 Ml Sdv) 10 unit IM ASDIRECTED PRN PRN Reason: Excessive Vaginal Bleeding Sodium Chloride (Sodium Chloride 0.9% 10 Ml Syringe) 10 ml FLUSH ASDIRECTED PRN PRN Reason: Keep Vein Open Sodium Chloride (Sodium Chloride 0.9% 2.5 Ml Syringe) 2.5 ml FLUSH ASDIRECTED PRN PRN Reason: Keep Vein Open Sodium Chloride (Sodium Chloride 0.9% 10 Ml Sdv) 10 ml IV ASDIRECTED PRN PRN Reason: IV Use Sterile Water (Water For Irrigation,Sterile 1,000 Ml Container) 1,000 ml IRR ASDIRECTED PRN PRN Reason: delivery Discontinued Medications Cefazolin Sodium (Cefazolin 1 Gm Vial) Confirm Administered Dose 2 gm .ROUTE .STK-MED ONE Stop: 02/26/21 03:45 Citric Acid/Sodium Citrate (Citric Acid/Sodium Citrate Solution 30 Ml Cup) 30 ml PO ONETIME ONE Stop: 02/26/21 02:01 Last Admin: 02/26/21 05:17 Dose: Not Given Documented by: Fentanyl (Fentanyl 100 Mcg/2 Ml Sdv) Confirm Administered Dose 100 mcg .ROUTE .STK-MED ONE Stop: 02/26/21 02:45 Sodium Chloride (Normal Saline) Confirm Administered Dose 20 mls @ as directed .ROUTE .STK-MED ONE Stop: 02/26/21 03:45 Clindamycin Phosphate 600 mg/ (Sodium Chloride) 54 mls @ 100 mls/hr IV Q6H KATHERINE Clindamycin Phosphate 900 mg/ (Premix) 75 mls @ 150 mls/hr IV Q6H KATHERINE Ketorolac Tromethamine (Ketorolac 30 Mg/Ml Sdv) Confirm Administered Dose 30 mg .ROUTE .STK-MED ONE Stop: 02/26/21 03:28 Ketorolac Tromethamine (Ketorolac 30 Mg/Ml Sdv) 30 mg IVPUSH Q6H [facility] Stop: 02/27/21 04:01 Last Admin: 02/27/21 04:10 Dose: 30 mg Documented by: Miscellaneous Medication (Phenylephrine Hcl In 0.9% Nacl 1 Mg/10 Ml Syringe) Confirm Administered Dose 1 mg .ROUTE .STK-MED ONE Stop: 02/26/21 03:28 Morphine Sulfate (Morphine Pf 10 Mg/10 Ml Sdv) Confirm Administered Dose 10 mg .ROUTE .STK-MED ONE Stop: 02/26/21 02:46 Naloxone HCl (Naloxone 0.4 Mg/Ml Syringe) 0.1 mg IVPUSH ONETIME PRN PRN Reason: Respiratory Depression Stop: 02/27/21 04:19 Octyl Cyanoacrylate (Octyl 2-Cyanoacrylate 1 Tube) Confirm Administered Dose 1 applic .ROUTE .STK-MED ONE Stop: 02/26/21 05:03 Ondansetron HCl (Ondansetron 4 Mg/2 Ml Sdv) Confirm Administered Dose 4 mg .ROUTE .STK-MED ONE Stop: 02/26/21 03:28 Oxytocin (Oxytocin 10 Units/1 Ml Sdv) Confirm Administered Dose 30 unit .ROUTE .STK-MED ONE Stop: 02/26/21 03:28 - Interaction Infant Disposition, : [place] to Nursery Infant Interaction: Not Interacting Feeding: Bottle Fed Support Person: Significant Other (Not present at bedside.) - Recovery Exam Fundal Tone: Firm Fundal Level: 2 Fingerbreadths Below Umbilicus Fundal Placement: Midline Lochia Amount: Small Lochia Color: Rubra/Red Perineum Description: Intact, Minimal Bruising/Swelling Episiotomy/Laceration: None Bladder Status: Nonpalpable, Indwelling Catheter in Place Urinary Elimination: Indwelling Catheter - Exam General: Alert, Oriented, Cooperative, Moderate Distress, Lethargic HEENT: Pupils Equal, Pupils Reactive, Mucous Membr. Moist/[place] Neck: Supple Lungs: Clear to Auscultation, Normal Respiratory Effort Cardiovascular: Regular Rate, Regular Rhythm GI/Abdominal Exam: Normal Bowel Sounds, Soft, No Organomegaly, Distended, Tender Extremities: Normal Inspection, Normal Range of Motion, Non-Tender, Normal Capillary Refill, Pedal Edema (Bilateral 1-2+ pitting edema) Skin: Warm, Dry, Intact Wound/Incisions: Dressing Dry and Intact (Dressing partly removed, patient not well tolerated. Incision appears clean, dry, approximated.) Neurological: No New Focal Deficit Psy/Mental Status: Alert, Normal Affect, Normal Mood - Problem List & Annotations (1) Status post repeat low transverse section SNOMED Code(s): 186742621, 98725589, 121457980, 241673781, 165739743 Code(s): Z98.891 - HISTORY OF UTERINE SCAR FROM PREVIOUS SURGERY Status: Acute Priority: High Current Visit: Yes (2) Elevated WBC count SNOMED Code(s): 726370410, 082187822 Code(s): D72.829 - ELEVATED WHITE BLOOD CELL COUNT, UNSPECIFIED Status: Acute Priority: High Current Visit: Yes (3) Methamphetamine abuse SNOMED Code(s): 266143468 Code(s): F15.10 - OTHER STIMULANT ABUSE, UNCOMPLICATED Status: Acute Priority: High Current Visit: Yes - Problem List Review Problem List Initiated/Reviewed/Updated: Yes - My Orders Last 24 Hours: My Active Orders 02/26/21 04:51 Consult to Case Management/Mechanic Helper [CONS] Routine 02/26/21 05:00 SCREEN [BBK] Routine RH IMMUNE GLOBULIN [BBK] Routine RHIG WORKUP, [BBK] Routine 02/26/21 Dinner Nothing Per Oral Diet [DIET] 02/26/21 21:00 hydroCHLOROthiazide 12.5 mg PO BEDTIME 02/27/21 05:00 CMP [COMPREHENSIVE METABOLIC PN,CMP] [CHEM] Routine - Plan Plan:: Continue with inpatient route of care. [place] care is exclusively in nursery, + methamphetamines and THC with prolonged ROM; bottle fed, IV antibiotics infusing. Social/case work at bedside for consult yesterday evening per RN, discussed POC for mom and baby including substance abuse treatment routes and adoption; considering. Discussed importance of IS and ambulation post-surgery. BLE SCDs in place at this time, plan to elevate BLE and continue to hydrate adequately; plan to ambulate 3-5 times per day. Once ambulation well achieved, plan to D/C mendez catheter. May consider repeat 12.5 HCTZ this afternoon. CBC/CMP to be drawn at 5 am today, collection pending. Continue clindamycin 600 mg IV q 6 hours. Discussed RBAs of RhoGam administration, plan to administer RhoGam today. LTCS incision dressing clean, dry, and intact; partially removed to view incision, patient not well tolerated. Dr. Stokes to present to bedside this am for assessment and management. Patient verbalized understanding, no questions at this time.
[2021-02-27 07:31] LABS: CARBON DIOXIDE,CO2 19.5 mmol/L (21.0-32.0); POTASSIUM,K 4.3 mmol/L (3.5-5.1)
[2021-02-27] MEDS: Acetaminophen/oxyCODONE 325-5 MG Tab PO PRN ×2 (08:09→23:35)
[2021-02-27] MEDS: Docusate Sodium 100 MG Cap PO SCH ×2 (08:09→20:15)
[2021-02-27] MEDS ORDERED: Furosemide 20 MG/2 ML VIAL IVPUSH ONE (09:01)
[2021-02-27] MEDS ORDERED: Ibuprofen 800 MG Tab PO PRN (10:00)
--- NOTE | 2021-02-27 12:19 | PCM.PR.CLI ---
Central Line Insertion - Central Line Insertion Site: internal jugular (L) Prep: CDC/MBT Guidelines, Sterile Drapes, Chlorhexidine Lumen: triple Gauge: 7Fr Local Anesthesia - Lidocaine (Xylocaine): 1% Plain Local Anesthetic Volume: 5cc Ultrasound guided: No Micropuncture kit used: No CL Complications: No Secured with suture: Yes Post placement confirmation: CXR, all ports aspirated, all ports flushed CXR post-procedure: no pneumothorax Dressing applied: by provider, chlorhexidine disc used, op-site dressing Central line comment: Left IJ placed under sterile conditions using seldinger technique and 22g finder needle. No complications. All ports flushed easily and catheter was secured at 15cm depth
--- NOTE | 2021-02-27 12:53 | PN ---
THC Physician - Brief Progress MdscQTOPTURYH08/18/2021 12:51[facility] Lonny donohue, [place] - ROBIN (WILDER) - ROBIN PLATALENA CUMMINSLisaDate of Service 02/27/2021 12:51HPI/Sharee nts of Note eICU Admission [id number] PPD2 with PMH of substance abuse including THC and amphetamin es. History obtained from review of EMR, limited as admitting team documentation as for reason for IC U transfer not available during time of evaluation.Camera exam: Laying in bed. Vitals monitor reviewe d. eICU Recommendations:Should clinical presentation (tachycardia, scratching behaviors) be attribute d to methamphetamine intoxication:Suggest initial management of agitation, tachycardia, hypertension, or hyperthermia with IV benzodiazepines, such as lorazepam (2-4 mg) or diazepam (5-10 mg) q 8-10min as needed. Should patient remain agitated despite the above, consider use of adjunctive antipsychotic therapy (ie haloperidol 5-10mg IV if QTc within normal limits) Should patient have hypertension refr actory to benzodiazepine therapy, consider use of vasodilator therapy (ie nitroglycerin)Avoid beta bl ockers for management of tachycardia or hypertensionUncertain as to utility of concomitant IV fluid a nd diuretic administration, defer this to bedside service.Defer antibiotics to bedside service, consi jaciel infectious work up including urinalysis, CXR, blood cultures (if not already done)Suggest EKG to determine underlying rhythm of tachycardiaDVT and GI prophylaxis as appropriate.Thank you for allowin g us to participate in the care of this patient.Unless otherwise specified, defer implementation of a dg recommendations to discretion of bedside provider. Please do not hesitate to contact the eICU se rvice for questions, clarification, or assistance with implementation.The above note transcribed with the assistance of dictation software. Please excuse any errors.Interventions Major-Arrhythmia - eval uation and management, Delirium, psychosis, severe agitation - evaluation and managementElectronicall y Signed by: TRUDI GIFFORD) on 02/27/2021 12:53
--- NOTE | 2021-02-27 13:36 | CR ---
Indication: Central line confirmation. Technique: AP portable view of the chest. Comparison: None Findings: A left internal jugular central venous catheter is identified with the tip overlying the distal SVC. The heart is normal in size. Coarse interstitial opacities are identified bilaterally. Impression: Left internal jugular central venous catheter with the tip overlying the distal SVC Dictated by Selena Capps MD @ 02/27/2021 1:35:[address] Selena Capps @ Feb 27 2021 1:35PM
[2021-02-27] MEDS: ceFAZolin 1 GM in Premix Bag 1 BAG IV SCH ×2 (13:52→21:30)
--- NOTE | 2021-02-27 17:43 | PCM.PNPP ---
- General Info Date of Service: 02/27/21 Functional Status: Reports: Pain Controlled - Review of Systems General: Reports: No Symptoms HEENT: Reports: No Symptoms Pulmonary: Reports: No Symptoms Cardiovascular: Reports: No Symptoms Gastrointestinal: Reports: No Symptoms Genitourinary: Reports: No Symptoms Musculoskeletal: Reports: No Symptoms Skin: Reports: No Symptoms Neurological: Reports: No Symptoms Psychiatric: Reports: No Symptoms - General Info Date of Service: 02/27/21 - Patient Data Vital Signs - Most Recent: Last Vital Signs Temp 36.6 C 02/27/21 16:31 Pulse 102 H 02/27/21 16:31 Resp 14 02/27/21 16:31 BP 140/83 02/27/21 16:31 Pulse Ox 100 02/27/21 15:04 Weight - Most Recent: 74.843 kg I&O - Last 24 Hours: Intake & Output 02/27/21 02/27/21 02/27/21 06:59 14:59 22:59 Intake Total 925 15 282 Output Total 650 1000 1700 Balance 275 -[phone] -[id number] Lab Results - Last 24 Hours: Laboratory Results - last 24 hr 02/26/21 02/26/21 02/26/21 Range/Units 02:00 02:20 05:00 WBC (4.0-11.0) K/uL RBC (4.30-5.90) M/uL Hgb (12.0-16.0) g/dL Hct (36.0-46.0) % MCV (80.0-98.0) fL MCH (27.0-32.0) pg MCHC (31.0-37.0) g/dL RDW Std Deviation (28.0-62.0) fl RDW Coeff of Idalmis (11.0-15.0) % Plt Count (150-400) K/uL MPV (7.40-12.00) fL Nucleated RBC % /100WBC Nucleated RBCs # K/uL Sodium (136-145) mmol/L Potassium (3.5-5.1) mmol/L Chloride (98-107) mmol/L Carbon Dioxide (21.0-32.0) mmol/L BUN (7.0-18.0) mg/dL Creatinine (0.6-1.0) mg/dL Est Cr Clr Drug Dosing mL/min Estimated GFR (MDRD) ml/min Glucose (74-106) mg/dL Lactic Acid (0.4-2.0) mmol/L Calcium (8.5-10.1) mg/dL Total Bilirubin (0.2-1.0) mg/dL AST (15-37) IU/L ALT (14-63) IU/L Alkaline Phosphatase (46-116) U/L Total Protein (6.4-8.2) g/dL Albumin (3.4-5.0) g/dL Globulin (2.6-4.0) g/dL Albumin/Globulin Ratio (0.9-1.6) Group B Strep (PCR) NEGATIVE (NEGATIVE) Blood Type A NEGATIVE Antibody Screen NEGATIVE Crossmatch See Detail See Detail 02/27/21 02/27/21 02/27/21 Range/Units 06:46 06:46 12:17 WBC 15.94 H (4.0-11.0) K/uL RBC 2.32 L (4.30-5.90) M/uL Hgb 6.8 L (12.0-16.0) g/dL Hct 20.2 L (36.0-46.0) % MCV 87.1 (80.0-98.0) fL MCH 29.3 (27.0-32.0) pg MCHC 33.7 (31.0-37.0) g/dL RDW Std Deviation 43.4 (28.0-62.0) fl RDW Coeff of Idalmis 14 (11.0-15.0) % Plt Count 179 (150-400) K/uL MPV 9.10 (7.40-12.00) fL Nucleated RBC % 0.0 /100WBC Nucleated RBCs # 0 K/uL Sodium 135 L (136-145) mmol/L Potassium 4.3 (3.5-5.1) mmol/L Chloride 104 (98-107) mmol/L Carbon Dioxide 19.5 L (21.0-32.0) mmol/L BUN 15 (7.0-18.0) mg/dL Creatinine 1.2 H (0.6-1.0) mg/dL Est Cr Clr Drug Dosing 58.77 mL/min Estimated GFR (MDRD) 54.3 ml/min Glucose 67 L (74-106) mg/dL Lactic Acid 0.9 (0.4-2.0) mmol/L Calcium 7.1 L (8.5-10.1) mg/dL Total Bilirubin 0.3 (0.2-1.0) mg/dL AST 43 H (15-37) IU/L ALT 28 (14-63) IU/L Alkaline Phosphatase 142 H (46-116) U/L Total Protein 4.7 L (6.4-8.2) g/dL Albumin 1.6 L (3.4-5.0) g/dL Globulin 3.1 (2.6-4.0) g/dL Albumin/Globulin Ratio 0.5 L (0.9-1.6) Group B Strep (PCR) (NEGATIVE) Blood Type Antibody Screen Crossmatch Med Orders - Current: Current Medications Bisacodyl (Bisacodyl 10 Mg Supp) 10 mg RECTAL ONETIME PRN PRN Reason: Constipation Butorphanol Tartrate (Butorphanol 1 Mg/Ml Sdv) 1 mg IVPUSH Q1H PRN PRN Reason: Pain (severe 7-10) Carboprost Tromethamine (Carboprost Tromethamine 250 Mcg/1 Ml Amp) 250 mcg IM ASDIRECTED PRN PRN Reason: Post Hemorrhage Diphenhydramine HCl (Diphenhydramine 50 Mg/Ml Sdv) 25 mg IVPUSH Q6H PRN PRN Reason: Itching or Nausea Diphenhydramine HCl (Diphenhydramine 50 Mg/Ml Sdv) 12.5 mg IVPUSH Q2H PRN PRN Reason: Itching Docusate Sodium (Docusate Sodium 100 Mg Cap) 100 mg PO BID [facility] Last Admin: 02/27/21 08:09 Dose: 100 mg Documented by: Emollient Ointment (Lanolin 100% Cream 7 Gm Tube) 0 gm TOP ASDIRECTED PRN PRN Reason: Sore Nipples Ephedrine Sulfate (Ephedrine 50 Mg/Ml Sdv) 10 mg IVPUSH Q5M PRN PRN Reason: Hypotension Fentanyl (Fentanyl 100 Mcg/2 Ml Sdv) 50 mcg IVPUSH Q1H PRN PRN Reason: Pain (severe 7-10) Hydrochlorothiazide (Hydrochlorothiazide 12.5 Mg Cap) 12.5 mg PO BEDTIME [facility] Last Admin: 02/26/21 22:41 Dose: 12.5 mg Documented by: Lactated Ringer's (Ringers, Lactated) 1,000 mls @ 500 mls/hr IV BOLUS [facility] Last Admin: 02/26/21 02:20 Dose: 500 mls/hr Documented by: Oxytocin/Sodium Chloride (Oxytocin 30 Unit/500 Ml-Ns) 30 unit in 500 mls @ 250 mls/hr IV TITRATE [facility] Lactated Ringer's (Ringers, Lactated) 1,000 mls @ 150 mls/hr IV ASDIRECTED [facility] Last Admin: 02/27/21 12:54 Dose: 150 mls/hr Documented by: Tranexamic Acid 1,000 mg/ (Sodium Chloride) 110 mls @ 660 mls/hr IV ONETIME PRN PRN Reason: Bleeding Lactated Ringer's (Ringers, Lactated) 1,000 mls @ 125 mls/hr IV ASDIRECTED [facility] Last Infusion: 02/27/21 09:10 Dose: 150 mls/hr Documented by: Tranexamic Acid 1,000 mg/ (Sodium Chloride) 110 mls @ 660 mls/hr IV ONETIME PRN PRN Reason: Bleeding Clindamycin Phosphate 600 mg/ (Premix) 50 mls @ 100 mls/hr IV Q6H [facility] Last Admin: 02/27/21 14:59 Dose: 100 mls/hr Documented by: Cefazolin Sodium/Dextrose 1 gm (/ Premix) 50 mls @ 100 mls/hr IV Q8H [facility] Last Admin: 02/27/21 13:52 Dose: 100 mls/hr Documented by: Ibuprofen (Ibuprofen 800 Mg Tab) 800 mg PO Q8H PRN PRN Reason: mild pain or fever Lidocaine HCl (Lidocaine 1% 50 Ml Mdv) 50 ml INJECT ONETIME PRN PRN Reason: Laceration repair Methylergonovine Maleate (Methylergonovine 0.2 Mg/1 Ml Amp) 0.2 mg IM ASDIRECTED PRN PRN Reason: Post Hemorrhage Methylergonovine Maleate (Methylergonovine 0.2 Mg/1 Ml Amp) 0.2 mg IM ONETIME PRN PRN Reason: Excessive Vaginal Bleeding Misoprostol (Misoprostol 200 Mcg Tab) 200 mcg PO ONETIME PRN PRN Reason: Post Hemorrhage Misoprostol (Misoprostol 200 Mcg Tab) 1,000 mcg RECTAL ONETIME PRN PRN Reason: excessive bleeding Morphine Sulfate (Morphine 4 Mg/Ml Syringe) 4 mg IVPUSH Q4H PRN PRN Reason: Pain (moderate 4-6) Nalbuphine HCl (Nalbuphine 10 Mg/1 Ml Vial) 10 mg IVPUSH Q1H PRN PRN Reason: Pain (severe 7-10) Nalbuphine HCl (Nalbuphine 10 Mg/1 Ml Vial) 5 mg IVPUSH ASDIRECTED PRN PRN Reason: Itching Ondansetron HCl (Ondansetron 4 Mg/2 Ml Sdv) 4 mg IVPUSH Q4H PRN PRN Reason: Nausea/Vomiting Ondansetron HCl (Ondansetron 4 Mg/2 Ml Sdv) 4 mg IVPUSH Q6H PRN PRN Reason: Nausea Oxycodone/Acetaminophen (Acetaminophen/Oxycodone 325-5 Mg Tab) 1 tab PO Q4H PRN PRN Reason: Pain (severe 7-10) Oxycodone/Acetaminophen (Acetaminophen/Oxycodone 325-5 Mg Tab) 2 tab PO Q4H PRN PRN Reason: Pain (severe 7-10) Last Admin: 02/27/21 08:09 Dose: 2 tab Documented by: Oxytocin (Oxytocin 10 Units/1 Ml Sdv) 10 unit IM ASDIRECTED PRN PRN Reason: Excessive Vaginal Bleeding Sodium Chloride (Sodium Chloride 0.9% 10 Ml Syringe) 10 ml FLUSH ASDIRECTED PRN PRN Reason: Keep Vein Open Sodium Chloride (Sodium Chloride 0.9% 2.5 Ml Syringe) 2.5 ml FLUSH ASDIRECTED PRN PRN Reason: Keep Vein Open Sodium Chloride (Sodium Chloride 0.9% 10 Ml Sdv) 10 ml IV ASDIRECTED PRN PRN Reason: IV Use Sterile Water (Water For Irrigation,Sterile 1,000 Ml Container) 1,000 ml IRR ASDIRECTED PRN PRN Reason: delivery Discontinued Medications Cefazolin Sodium (Cefazolin 1 Gm Vial) Confirm Administered Dose 2 gm .ROUTE .STK-MED ONE Stop: 02/26/21 03:45 Citric Acid/Sodium Citrate (Citric Acid/Sodium Citrate Solution 30 Ml Cup) 30 ml PO ONETIME ONE Stop: 02/26/21 02:01 Last Admin: 02/26/21 05:17 Dose: Not Given Documented by: Fentanyl (Fentanyl 100 Mcg/2 Ml Sdv) Confirm Administered Dose 100 mcg .ROUTE .STK-MED ONE Stop: 02/26/21 02:45 Furosemide (Furosemide 20 Mg/2 Ml Vial) 40 mg IVPUSH NOW ONE Stop: 02/27/21 09:02 Last Admin: 02/27/21 09:17 Dose: 40 mg Documented by: Sodium Chloride (Normal Saline) Confirm Administered Dose 20 mls @ as directed .ROUTE .STK-[facility] ONE Stop: 02/26/21 03:45 Clindamycin Phosphate 600 mg/ (Sodium Chloride) 54 mls @ 100 mls/hr IV Q6H KATHERINE Clindamycin Phosphate 900 mg/ (Premix) 75 mls @ 150 mls/hr IV Q6H [facility] Ketorolac Tromethamine (Ketorolac 30 Mg/Ml Sdv) Confirm Administered Dose 30 mg .ROUTE .STK-MED ONE Stop: 02/26/21 03:28 Ketorolac Tromethamine (Ketorolac 30 Mg/Ml Sdv) 30 mg IVPUSH Q6H [facility] Stop: 02/27/21 04:01 Last Admin: 02/27/21 04:10 Dose: 30 mg Documented by: Miscellaneous Medication (Phenylephrine Hcl In 0.9% Nacl 1 Mg/10 Ml Syringe) Confirm Administered Dose 1 mg .ROUTE .STK-MED ONE Stop: 02/26/21 03:28 Morphine Sulfate (Morphine Pf 10 Mg/10 Ml Sdv) Confirm Administered Dose 10 mg .ROUTE .STK-MED ONE Stop: 02/26/21 02:46 Naloxone HCl (Naloxone 0.4 Mg/Ml Syringe) 0.1 mg IVPUSH ONETIME PRN PRN Reason: Respiratory Depression Stop: 02/27/21 04:19 Octyl Cyanoacrylate (Octyl 2-Cyanoacrylate 1 Tube) Confirm Administered Dose 1 applic .ROUTE .STK-MED ONE Stop: 02/26/21 05:03 Ondansetron HCl (Ondansetron 4 Mg/2 Ml Sdv) Confirm Administered Dose 4 mg .ROUTE .STK-MED ONE Stop: 02/26/21 03:28 Oxycodone/Acetaminophen (Acetaminophen/Oxycodone 325-5 Mg Tab) 2 tab PO Q6H PRN PRN Reason: Pain (moderate 4-6) Last Admin: 02/26/21 06:53 Dose: 2 tab Documented by: Oxytocin (Oxytocin 10 Units/1 Ml Sdv) Confirm Administered Dose 30 unit .ROUTE .STK-MED ONE Stop: 02/26/21 03:28 - Interaction Disposition, : to Nursery Interaction: Not Interacting Feeding: Bottle Fed Infant Support Person: Significant Other (Not present at bedside.) - Recovery Exam Fundal Tone: Firm Fundal Level: At Umbilicus Fundal Placement: Midline Lochia Amount: Scant, Small Lochia Color: Rubra/Red Perineum Description: Intact, Minimal Bruising/Swelling Episiotomy/Laceration: None Bladder Status: Indwelling Catheter in Place Urinary Elimination: Indwelling Catheter - Exam General: Alert, Oriented HEENT: Pupils Equal Neck: Supple Lungs: Clear to Auscultation, Normal Respiratory Effort Cardiovascular: Regular Rate, Regular Rhythm GI/Abdominal Exam: Normal Bowel Sounds, Soft, Non-Tender, No Organomegaly, No Distention, No Abnormal Bruit, No Mass, Pelvis Stable Extremities: Normal Inspection, Normal Range of Motion, Non-Tender, No Pedal Edema, Normal Capillary Refill Skin: Warm, Dry, Intact Wound/Incisions: Healing Well Neurological: No New Focal Deficit Psy/Mental Status: Alert, Normal Affect, Normal Mood - Problem List Review Problem List Initiated/Reviewed/Updated: Yes - My Orders Last 24 Hours: My Active Orders 02/27/21 09:02 Transfuse PRBC [Transfuse Red Blood Cells] [COMM] Stat 02/27/21 10:00 Ibuprofen [Motrin] 800 mg PO Q8H PRN 02/27/21 11:48 Cardiac Monitoring [RC] Q8H 02/27/21 11:50 Admission Status [Patient Status] [ADT] Routine 02/27/21 12:00 Morphine 4 mg IVPUSH Q4H PRN 02/27/21 14:00 ceFAZolin [Ancef 1 GM/50 ML] 1 gm Premix Bag 1 bag IV Q8H - Assessment Assessment:: S/P C/section with prolong rapture of thev membranes complicated with Endometritis and Anemia. I am planinng to start her on antibiotic, have Anesthesia place a central line for blood transfusion. I am also given the Pt. Larix. - Plan Plan:: Continue with inpatient route of care. care is exclusively in nursery, + methamphetamines and THC with prolonged ROM; bottle fed, IV antibiotics infusing. Social/case work at bedside for consult yesterday evening per RN, discussed POC for mom and baby including substance abuse treatment routes and adoption; considering. Discussed importance of IS and ambulation post-surgery. BLE SCDs in place at this time, plan to elevate BLE and continue to hydrate adequately; plan to ambulate 3-5 times per day. Once ambulation well achieved, plan to D/C mendez catheter. May consider repeat 12.5 HCTZ this afternoon. CBC/CMP to be drawn at 5 am today, collection pending. Continue clindamycin 600 mg IV q 6 hours. Discussed RBAs of RhoGam administration, plan to administer RhoGam today. LTCS incision dressing clean, dry, and intact; partially removed to view incision, patient not well tolerated. Dr. Stokes to present to bedside this am for assessment and management. Patient verbalized understanding, no questions at this time.
[2021-02-27] MEDS: Hydrochlorothiazide 12.5 MG Cap PO SCH (20:15)
[2021-02-27] MEDS: Morphine 4 MG/ML Syringe IVPUSH PRN (20:15)
[2021-02-27] MEDS ORDERED: Hydrochlorothiazide 12.5 MG Cap PO SCH (21:00)
[2021-02-28] MEDS: Lactated Ringers 1,000 ML IV SCH ×3 (01:45→08:15)
[2021-02-28] MEDS: Clindamycin Phosphate in D5W 600 MG in Premix Bag 1 BAG IV SCH ×8 (03:19→20:37)
[2021-02-28] MEDS: ceFAZolin 1 GM in Premix Bag 1 BAG IV SCH ×3 (05:01→21:06)
[2021-02-28 05:55] LABS: CARBON DIOXIDE,CO2 23.1 mmol/L (21.0-32.0)
[2021-02-28] MEDS: Acetaminophen/oxyCODONE 325-5 MG Tab PO PRN ×3 (08:13→19:59)
[2021-02-28] MEDS: Docusate Sodium 100 MG Cap PO SCH ×2 (08:14→20:47)
[2021-02-28] MEDS ORDERED: Lactated Ringers 1,000 ML IV SCH (08:45)
--- NOTE | 2021-02-28 11:10 | PCM.PNPP ---
- General Info Date of Service: 02/28/21 Functional Status: Reports: Pain Controlled - Review of Systems General: Reports: No Symptoms HEENT: Reports: No Symptoms Pulmonary: Reports: No Symptoms Cardiovascular: Reports: No Symptoms Gastrointestinal: Reports: No Symptoms, Abdominal Pain Genitourinary: Reports: No Symptoms Musculoskeletal: Reports: No Symptoms Skin: Reports: No Symptoms Neurological: Reports: No Symptoms Psychiatric: Reports: No Symptoms - General Info Date of Service: 02/28/21 - Patient Data Vital Signs - Most Recent: Last Vital Signs Temp 37.0 C 02/28/21 08:00 Pulse 103 H 02/28/21 06:58 Resp 13 02/28/21 11:00 BP 145/95 H 02/28/21 11:00 Pulse Ox 93 L 02/28/21 11:00 Weight - Most Recent: 74.843 kg I&O - Last 24 Hours: Intake & Output 02/27/21 02/28/21 02/28/21 22:59 06:59 14:59 Intake Total 622 1544 30 Output Total 1700 1300 200 Balance -1078 244 -170 Lab Results - Last 24 Hours: Laboratory Results - last 24 hr 02/26/21 02/26/21 02/27/21 Range/Units 02:20 05:00 12:17 WBC (4.0-11.0) K/uL RBC (4.30-5.90) M/uL Hgb (12.0-16.0) g/dL Hct (36.0-46.0) % MCV (80.0-98.0) fL MCH (27.0-32.0) pg MCHC (31.0-37.0) g/dL RDW Std Deviation (28.0-62.0) fl RDW Coeff of Idalmis (11.0-15.0) % Plt Count (150-400) K/uL MPV (7.40-12.00) fL Add Manual Diff Neutrophils % (Manual) (48.0-80.0) % Band Neutrophils % % Lymphocytes % (Manual) (16.0-40.0) % Monocytes % (Manual) (0.0-15.0) % Eosinophils % (Manual) (0.0-7.0) % Metamyelocytes % % Nucleated RBC % /100WBC Absolute Seg Neuts (1.4-5.7) Band Neutrophils # Lymphocytes # (Manual) (0.6-2.4) Monocytes # (Manual) (0.0-0.8) Eosinophils # (Manual) (0.0-0.7) Absolute Metamyelocyte Nucleated RBCs # K/uL Sodium (136-145) mmol/L Potassium (3.5-5.1) mmol/L Chloride (98-107) mmol/L Carbon Dioxide (21.0-32.0) mmol/L BUN (7.0-18.0) mg/dL Creatinine (0.6-1.0) mg/dL Est Cr Clr Drug Dosing mL/min Estimated GFR (MDRD) ml/min Glucose (74-106) mg/dL Lactic Acid 0.9 (0.4-2.0) mmol/L Calcium (8.5-10.1) mg/dL Total Bilirubin (0.2-1.0) mg/dL AST (15-37) IU/L ALT (14-63) IU/L Alkaline Phosphatase (46-116) U/L Total Protein (6.4-8.2) g/dL Albumin (3.4-5.0) g/dL Globulin (2.6-4.0) g/dL Albumin/Globulin Ratio (0.9-1.6) Blood Type A NEGATIVE Antibody Screen NEGATIVE Screen NEGATIVE (NEGATIVE) RhIG Candidate? YES Rhogam Indicated YES, BABY RH POS H Crossmatch See Detail See Detail 02/27/21 02/28/21 02/28/21 Range/Units 20:03 05:10 05:10 WBC 17.16 H 15.58 H (4.0-11.0) K/uL RBC 2.90 L 2.76 L (4.30-5.90) M/uL Hgb 8.8 L 8.2 L (12.0-16.0) g/dL Hct 24.9 L 23.4 L (36.0-46.0) % MCV 85.9 84.8 (80.0-98.0) fL MCH 30.3 29.7 (27.0-32.0) pg MCHC 35.3 35.0 (31.0-37.0) g/dL RDW Std Deviation 43.8 45.6 (28.0-62.0) fl RDW Coeff of Idalmis 14 15 (11.0-15.0) % Plt Count 185 182 (150-400) K/uL MPV 9.30 9.50 (7.40-12.00) fL Add Manual Diff YES YES Neutrophils % (Manual) 84 H 77 (48.0-80.0) % Band Neutrophils % 5 15 % Lymphocytes % (Manual) 5 L 3 L (16.0-40.0) % Monocytes % (Manual) 4 4 (0.0-15.0) % Eosinophils % (Manual) 1 1 (0.0-7.0) % Metamyelocytes % 1 % Nucleated RBC % 0.0 0.1 /100WBC Absolute Seg Neuts 14.4 H 12.0 H (1.4-5.7) Band Neutrophils # 0.9 2.3 Lymphocytes # (Manual) 0.9 0.5 L (0.6-2.4) Monocytes # (Manual) 0.7 0.6 (0.0-0.8) Eosinophils # (Manual) 0.2 0.2 (0.0-0.7) Absolute Metamyelocyte 0.2 Nucleated RBCs # 0 0 K/uL Sodium (136-145) mmol/L Potassium (3.5-5.1) mmol/L Chloride (98-107) mmol/L Carbon Dioxide (21.0-32.0) mmol/L BUN (7.0-18.0) mg/dL Creatinine (0.6-1.0) mg/dL Est Cr Clr Drug Dosing mL/min Estimated GFR (MDRD) ml/min Glucose (74-106) mg/dL Lactic Acid 0.7 (0.4-2.0) mmol/L Calcium (8.5-10.1) mg/dL Total Bilirubin (0.2-1.0) mg/dL AST (15-37) IU/L ALT (14-63) IU/L Alkaline Phosphatase (46-116) U/L Total Protein (6.4-8.2) g/dL Albumin (3.4-5.0) g/dL Globulin (2.6-4.0) g/dL Albumin/Globulin Ratio (0.9-1.6) Blood Type Antibody Screen Screen (NEGATIVE) RhIG Candidate? Rhogam Indicated Crossmatch 02/28/21 Range/Units 05:10 WBC (4.0-11.0) K/uL RBC (4.30-5.90) M/uL Hgb (12.0-16.0) g/dL Hct (36.0-46.0) % MCV (80.0-98.0) fL MCH (27.0-32.0) pg MCHC (31.0-37.0) g/dL RDW Std Deviation (28.0-62.0) fl RDW Coeff of Idalmis (11.0-15.0) % Plt Count (150-400) K/uL MPV (7.40-12.00) fL Add Manual Diff Neutrophils % (Manual) (48.0-80.0) % Band Neutrophils % % Lymphocytes % (Manual) (16.0-40.0) % Monocytes % (Manual) (0.0-15.0) % Eosinophils % (Manual) (0.0-7.0) % Metamyelocytes % % Nucleated RBC % /100WBC Absolute Seg Neuts (1.4-5.7) Band Neutrophils # Lymphocytes # (Manual) (0.6-2.4) Monocytes # (Manual) (0.0-0.8) Eosinophils # (Manual) (0.0-0.7) Absolute Metamyelocyte Nucleated RBCs # K/uL Sodium 139 (136-145) mmol/L Potassium 4.0 (3.5-5.1) mmol/L Chloride 103 (98-107) mmol/L Carbon Dioxide 23.1 (21.0-32.0) mmol/L BUN 18 (7.0-18.0) mg/dL Creatinine 1.3 H (0.6-1.0) mg/dL Est Cr Clr Drug Dosing 54.25 mL/min Estimated GFR (MDRD) 49.5 ml/min Glucose 63 L (74-106) mg/dL Lactic Acid (0.4-2.0) mmol/L Calcium 7.2 L (8.5-10.1) mg/dL Total Bilirubin 0.3 (0.2-1.0) mg/dL AST 39 H (15-37) IU/L ALT 25 (14-63) IU/L Alkaline Phosphatase 148 H (46-116) U/L Total Protein 4.3 L (6.4-8.2) g/dL Albumin 1.5 L (3.4-5.0) g/dL Globulin 2.8 (2.6-4.0) g/dL Albumin/Globulin Ratio 0.5 L (0.9-1.6) Blood Type Antibody Screen Screen (NEGATIVE) RhIG Candidate? Rhogam Indicated Crossmatch Med Orders - Current: Current Medications Bisacodyl (Bisacodyl 10 Mg Supp) 10 mg RECTAL ONETIME PRN PRN Reason: Constipation Butorphanol Tartrate (Butorphanol 1 Mg/Ml Sdv) 1 mg IVPUSH Q1H PRN PRN Reason: Pain (severe 7-10) Carboprost Tromethamine (Carboprost Tromethamine 250 Mcg/1 Ml Amp) 250 mcg IM ASDIRECTED PRN PRN Reason: Post Hemorrhage Diphenhydramine HCl (Diphenhydramine 50 Mg/Ml Sdv) 25 mg IVPUSH Q6H PRN PRN Reason: Itching or Nausea Diphenhydramine HCl (Diphenhydramine 50 Mg/Ml Sdv) 12.5 mg IVPUSH Q2H PRN PRN Reason: Itching Docusate Sodium (Docusate Sodium 100 Mg Cap) 100 mg PO BID [facility] Last Admin: 02/28/21 08:14 Dose: 100 mg Documented by: Emollient Ointment (Lanolin 100% Cream 7 Gm Tube) 0 gm TOP ASDIRECTED PRN PRN Reason: Sore Nipples Ephedrine Sulfate (Ephedrine 50 Mg/Ml Sdv) 10 mg IVPUSH Q5M PRN PRN Reason: Hypotension Fentanyl (Fentanyl 100 Mcg/2 Ml Sdv) 50 mcg IVPUSH Q1H PRN PRN Reason: Pain (severe 7-10) Hydrochlorothiazide (Hydrochlorothiazide 12.5 Mg Cap) 12.5 mg PO BEDTIME [facility] Last Admin: 02/27/21 20:15 Dose: 12.5 mg Documented by: Lactated Ringer's (Ringers, Lactated) 1,000 mls @ 500 mls/hr IV BOLUS [facility] Last Admin: 02/26/21 02:20 Dose: 500 mls/hr Documented by: Oxytocin/Sodium Chloride (Oxytocin 30 Unit/500 Ml-Ns) 30 unit in 500 mls @ 250 mls/hr IV TITRATE [facility] Tranexamic Acid 1,000 mg/ (Sodium Chloride) 110 mls @ 660 mls/hr IV ONETIME PRN PRN Reason: Bleeding Tranexamic Acid 1,000 mg/ (Sodium Chloride) 110 mls @ 660 mls/hr IV ONETIME PRN PRN Reason: Bleeding Clindamycin Phosphate 600 mg/ (Premix) 50 mls @ 100 mls/hr IV Q6H [facility] Last Admin: 02/28/21 09:22 Dose: 100 mls/hr Documented by: Cefazolin Sodium/Dextrose 1 gm (/ Premix) 50 mls @ 100 mls/hr IV Q8H [facility] Last Admin: 02/28/21 05:01 Dose: 100 mls/hr Documented by: Lactated Ringer's (Ringers, Lactated) 1,000 mls @ 50 mls/hr IV ASDIRECTED [facility] Ibuprofen (Ibuprofen 800 Mg Tab) 800 mg PO Q8H PRN PRN Reason: mild pain or fever Lidocaine HCl (Lidocaine 1% 50 Ml Mdv) 50 ml INJECT ONETIME PRN PRN Reason: Laceration repair Methylergonovine Maleate (Methylergonovine 0.2 Mg/1 Ml Amp) 0.2 mg IM ASDIRECTED PRN PRN Reason: Post Hemorrhage Methylergonovine Maleate (Methylergonovine 0.2 Mg/1 Ml Amp) 0.2 mg IM ONETIME PRN PRN Reason: Excessive Vaginal Bleeding Misoprostol (Misoprostol 200 Mcg Tab) 200 mcg PO ONETIME PRN PRN Reason: Post Hemorrhage Misoprostol (Misoprostol 200 Mcg Tab) 1,000 mcg RECTAL ONETIME PRN PRN Reason: excessive bleeding Morphine Sulfate (Morphine 4 Mg/Ml Syringe) 4 mg IVPUSH Q4H PRN PRN Reason: Pain (moderate 4-6) Last Admin: 02/27/21 20:15 Dose: 4 mg Documented by: Nalbuphine HCl (Nalbuphine 10 Mg/1 Ml Vial) 10 mg IVPUSH Q1H PRN PRN Reason: Pain (severe 7-10) Nalbuphine HCl (Nalbuphine 10 Mg/1 Ml Vial) 5 mg IVPUSH ASDIRECTED PRN PRN Reason: Itching Ondansetron HCl (Ondansetron 4 Mg/2 Ml Sdv) 4 mg IVPUSH Q4H PRN PRN Reason: Nausea/Vomiting Ondansetron HCl (Ondansetron 4 Mg/2 Ml Sdv) 4 mg IVPUSH Q6H PRN PRN Reason: Nausea Oxycodone/Acetaminophen (Acetaminophen/Oxycodone 325-5 Mg Tab) 1 tab PO Q4H PRN PRN Reason: Pain (severe 7-10) Oxycodone/Acetaminophen (Acetaminophen/Oxycodone 325-5 Mg Tab) 2 tab PO Q4H PRN PRN Reason: Pain (severe 7-10) Last Admin: 02/28/21 08:13 Dose: 2 tab Documented by: Oxytocin (Oxytocin 10 Units/1 Ml Sdv) 10 unit IM ASDIRECTED PRN PRN Reason: Excessive Vaginal Bleeding Sodium Chloride (Sodium Chloride 0.9% 10 Ml Syringe) 10 ml FLUSH ASDIRECTED PRN PRN Reason: Keep Vein Open Sodium Chloride (Sodium Chloride 0.9% 2.5 Ml Syringe) 2.5 ml FLUSH ASDIRECTED PRN PRN Reason: Keep Vein Open Sodium Chloride (Sodium Chloride 0.9% 10 Ml Sdv) 10 ml IV ASDIRECTED PRN PRN Reason: IV Use Sterile Water (Water For Irrigation,Sterile 1,000 Ml Container) 1,000 ml IRR ASDIRECTED PRN PRN Reason: delivery Discontinued Medications Cefazolin Sodium (Cefazolin 1 Gm Vial) Confirm Administered Dose 2 gm .ROUTE .STK-MED ONE Stop: 02/26/21 03:45 Citric Acid/Sodium Citrate (Citric Acid/Sodium Citrate Solution 30 Ml Cup) 30 ml PO ONETIME ONE Stop: 02/26/21 02:01 Last Admin: 02/26/21 05:17 Dose: Not Given Documented by: Fentanyl (Fentanyl 100 Mcg/2 Ml Sdv) Confirm Administered Dose 100 mcg .ROUTE .STK-MED ONE Stop: 02/26/21 02:45 Furosemide (Furosemide 20 Mg/2 Ml Vial) 40 mg IVPUSH NOW ONE Stop: 02/27/21 09:02 Last Admin: 02/27/21 09:17 Dose: 40 mg Documented by: Lactated Ringer's (Ringers, Lactated) 1,000 mls @ 150 mls/hr IV ASDIRECTED KATHERINE Last Infusion: 02/28/21 08:50 Dose: 50 mls/hr Documented by: Sodium Chloride (Normal Saline) Confirm Administered Dose 20 mls @ as directed .ROUTE .STK-MED ONE Stop: 02/26/21 03:45 Lactated Ringer's (Ringers, Lactated) 1,000 mls @ 125 mls/hr IV ASDIRECTED [facility] Last Infusion: 02/28/21 01:00 Dose: Infused Documented by: Clindamycin Phosphate 600 mg/ (Sodium Chloride) 54 mls @ 100 mls/hr IV Q6H [facility] Clindamycin Phosphate 900 mg/ (Premix) 75 mls @ 150 mls/hr IV Q6H [facility] Ketorolac Tromethamine (Ketorolac 30 Mg/Ml Sdv) Confirm Administered Dose 30 mg .ROUTE .STK-MED ONE Stop: 02/26/21 03:28 Ketorolac Tromethamine (Ketorolac 30 Mg/Ml Sdv) 30 mg IVPUSH Q6H [facility] Stop: 02/27/21 04:01 Last Admin: 02/27/21 04:10 Dose: 30 mg Documented by: Miscellaneous Medication (Phenylephrine Hcl In 0.9% Nacl 1 Mg/10 Ml Syringe) Confirm Administered Dose 1 mg .ROUTE .STK-MED ONE Stop: 02/26/21 03:28 Morphine Sulfate (Morphine Pf 10 Mg/10 Ml Sdv) Confirm Administered Dose 10 mg .ROUTE .STK-MED ONE Stop: 02/26/21 02:46 Naloxone HCl (Naloxone 0.4 Mg/Ml Syringe) 0.1 mg IVPUSH ONETIME PRN PRN Reason: Respiratory Depression Stop: 02/27/21 04:19 Octyl Cyanoacrylate (Octyl 2-Cyanoacrylate 1 Tube) Confirm Administered Dose 1 applic .ROUTE .STK-MED ONE Stop: 02/26/21 05:03 Ondansetron HCl (Ondansetron 4 Mg/2 Ml Sdv) Confirm Administered Dose 4 mg .ROUTE .STK-MED ONE Stop: 02/26/21 03:28 Oxycodone/Acetaminophen (Acetaminophen/Oxycodone 325-5 Mg Tab) 2 tab PO Q6H PRN PRN Reason: Pain (moderate 4-6) Last Admin: 02/26/21 06:53 Dose: 2 tab Documented by: Oxytocin (Oxytocin 10 Units/1 Ml Sdv) Confirm Administered Dose 30 unit .ROUTE .STK-MED ONE Stop: 02/26/21 03:28 - Interaction Infant Disposition, : to Nursery Interaction: Not Interacting Feeding: Bottle Fed Infant Support Person: Significant Other (Not present at bedside.) - Recovery Exam Fundal Tone: Firm Fundal Level: 1 Fingerbreadths Below Umbilicus Fundal Placement: Midline Lochia Amount: Scant Lochia Color: Rubra/Red Perineum Description: Intact, Minimal Bruising/Swelling Episiotomy/Laceration: None Bladder Status: Indwelling Catheter in Place Urinary Elimination: Indwelling Catheter - Exam General: Alert, Oriented HEENT: Pupils Equal Neck: Supple Lungs: Clear to Auscultation, Normal Respiratory Effort Cardiovascular: Regular Rate, Regular Rhythm GI/Abdominal Exam: Normal Bowel Sounds, Soft, Non-Tender, No Organomegaly, No Distention, No Abnormal Bruit, No Mass, Pelvis Stable Extremities: Normal Inspection, Normal Range of Motion, Non-Tender, No Pedal Edema, Normal Capillary Refill Skin: Warm, Dry, Intact Wound/Incisions: Healing Well Neurological: No New Focal Deficit Psy/Mental Status: Alert, Normal Affect, Normal Mood - Problem List Review Problem List Initiated/Reviewed/Updated: Yes - My Orders Last 24 Hours: My Active Orders 02/27/21 11:48 Cardiac Monitoring [RC] Q8H 02/27/21 11:50 Admission Status [Patient Status] [ADT] Routine 02/27/21 12:00 Morphine 4 mg IVPUSH Q4H PRN 02/27/21 14:00 ceFAZolin [Ancef 1 GM/50 ML] 1 gm Premix Bag 1 bag IV Q8H 02/28/21 Breakfast Clear Liquid Diet [DIET] 02/28/21 08:45 Lactated Ringers [Ringers, Lactated] 1,000 ml IV ASDIRECTED - Assessment Assessment:: S/P C/section with prolong rapture of thev membranes complicated with Endometritis and Anemia. I am planinng to start her on antibiotic, have Anesthesia place a central line for blood transfusion. I am also given the Pt. Larix. 02/28/21 The patient condition is improving she is continued to be afebrile her heart rate is coming down she continued to diurese her leg and hand edema is decreasing. Her hemoglobin improved to 8.6 after 2 units of blood transfusion her white count is trending down. Abdominal examination is the abdomen is less tender, was present and the patient is passing day's and she is expressed her desire to have some food I'm planning to start her on liquid diet today. Her IV fluid intake is diminished to 50 mL per hour to keep the vein open to continue the IV antibiotic. Head endometritis is resolving her white count is trending down we will continue the IV antibiotic finding to keep her in the unit tomorrow. - Plan Plan:: Continue with inpatient route of care. [facility] care is exclusively in nursery, + methamphetamines and THC with prolonged ROM; bottle fed, IV antibiotics infusing. Social/case work at bedside for consult yesterday evening per RN, discussed POC for mom and baby including substance abuse treatment routes and adoption; considering. Discussed importance of IS and ambulation post-surgery. BLE SCDs in place at this time, plan to elevate BLE and continue to hydrate adequately; plan to ambulate 3-5 times per day. Once ambulation well achieved, plan to D/C mendez catheter. May consider repeat 12.5 HCTZ this afternoon. CBC/CMP to be drawn at 5 am today, collection pending. Continue clindamycin 600 mg IV q 6 hours. Discussed RBAs of RhoGam administration, plan to administer RhoGam today. LTCS incision dressing clean, dry, and intact; partially removed to view incision, patient not well tolerated. Dr. Stokes to present to bedside this am for assessment and management. Patient verbalized understanding, no questions at this time. 02/28/21 IV antibiotic start her on liquid diet today the patient is passing gas and she have a good bowel sounds planning to keep her in the intensive care for another day
[2021-02-28 14:07] LABS: C.TRACHOMATIS BY TMA Negative (Negative); N.GONORRHOEAE BY TMA Negative (Negative)
[2021-02-28] MEDS: Labetalol 100 MG Tab PO SCH (14:25)
[2021-02-28] MEDS: Hydrochlorothiazide 12.5 MG Cap PO SCH (20:00)
[2021-02-28] MEDS: Morphine 4 MG/ML Syringe IVPUSH PRN (21:31)
[2021-03-01] MEDS: Acetaminophen/oxyCODONE 325-5 MG Tab PO PRN ×4 (00:12→19:52)
[2021-03-01] MEDS: Morphine 4 MG/ML Syringe IVPUSH PRN ×2 (03:21→23:24)
[2021-03-01] MEDS: Clindamycin Phosphate in D5W 600 MG in Premix Bag 1 BAG IV SCH ×6 (03:21→15:53)
[2021-03-01] MEDS: ceFAZolin 1 GM in Premix Bag 1 BAG IV SCH ×2 (05:00→14:00)
[2021-03-01] MEDS ORDERED: Lactated Ringers 1,000 ML IV SCH (08:30)
[2021-03-01] MEDS: Labetalol 100 MG Tab PO SCH (08:48)
[2021-03-01] MEDS: Docusate Sodium 100 MG Cap PO SCH ×2 (08:48→20:00)
[2021-03-01] MEDS: Albuterol/Ipratropium 3.0-0.5 MG/3 ML Neb Soln NEB PRN ×2 (09:27→17:14)
--- NOTE | 2021-03-01 10:07 | CR ---
HISTORY: Hypoxia. TECHNIQUE: Portable frontal view of the chest. COMPARISON: Chest x-ray 02/27/2021. FINDINGS: Left IJ central venous catheter is unchanged. Moderately extensive bilateral airspace consolidation has progressed. No moderate or large pleural effusion. No pneumothorax. Cardiomediastinal silhouette is unchanged. IMPRESSION: Progression of bilateral airspace disease. Dictated by Jose Ho MD @ 03/01/2021 10:05:[address] Jose Ho @ Mar 01 2021 10:05AM
--- NOTE | 2021-03-01 10:23 | PN ---
THC Physician - Brief Progress [id number]/20/2021 10:20[facility] Andino Lonny donohue, KIRBY - ROBIN (WILDER) - ROBIN LENA MILLERLisaDate of Service 03/01/2021 10:20HPI/Sharee nts of Note eICU Progress [id number] admitted for tachycardia and respiratory failure post- in the setting of methamphetamine and substance use. Peripartum course had been complicated by prolonged ru pture of membranes with suspected endometritis and anemia. History obtained primarily from review of EMR, as well as discussion with bedside physician Dr. Stokes, and bedside RN over telephone.Notable ev ents: Course has been complicated by worsening oxygen requirements - from review of meds patient was on 2L at around 7AM saturating 90%, now on 8L simple mask. Per discussion with bedside RN I/O - 2900/ 2175 (per report oral fluids 1650 intake, rest is IV meds). CXR demonstrates bilateral infiltrates mo re pronounced in lower lung horn, suggestive of pulmonary edema.Camera exam: Sitting in chair. Mer ls monitor reviewed.eICU Recommendations:CXR demonstrates bilateral infiltrates, given history I susp ect likely related to pulmonary edema. Given reports of lower extremity swelling in the setting of me thamphetamine use I wonder if there may be a cardiogenic component (ie heart failure, endocarditis) - accordingly will order TTE, EKG (to assess underlying rhythm), BNP (recognizing it may be elevated p urely from impaired GFR), troponin, ABG, magnesium.Would obtain daily weights, will change diet to so dium restrictedGiven ANISH and reported history of diuresis, intravascular volume status is unclear to me - will order urine lytes, would hold diuretics in interim and monitor urine output. Reasonable to continue mendez given ANISH and uncertain fluid status. Will given history of methamphetamine use will t rial a small dose of lorazepam and assess effects on hemodynamics and heart rate. Per discussion with RN patient had already received labetalol, which likely explains downtrend in heart rate to 90s on m y exam. Leukocytosis likely explained by recent and endometritis - defer antibiotic selecti on to Ob service, I believe current regimen is likely adequate. Blood cultures order placed, patient meets positive SIRS criteria, defer label of sepsis to bedside service.DVT and GI prophylaxis as appr opriate.Thank you for allowing us to participate in the care of this patient.Unless otherwise specifi ed, defer implementation of above recommendations to discretion of bedside provider. Please do not he sitate to contact the eICU service for questions, clarification, or assistance with implementation.Th e above note transcribed with the assistance of dictation software. Please excuse any errors.Interven tions Major-Arrhythmia - evaluation and management, Infection - evaluation and management, Respirator y failure - evaluation and management 10: 22
[2021-03-01] MEDS ORDERED: LORazepam 2 MG/ML SDV IVPUSH ONE (11:14)
--- NOTE | 2021-03-01 11:16 | PN ---
THC Physician - Brief Progress [id number]/20/2021 11:16[facility] jayde MinsterKIRBY - ROBIN (WILDER) - LENA GEORGEDate of Service 03/01/2021 11:16HPI/Sharee nts of Note eICU Update NoteNotified oxygenation improved, now on 3Lpm nasal cannula. Will hold off o n ABG.Interventions Major-Respiratory failure - evaluation and management
[2021-03-01] MEDS ORDERED: Magnesium Sulfate/Water 2 GM in Premix Bag 1 BAG IV ONE (11:24)
--- NOTE | 2021-03-01 11:26 | PN ---
THC Physician - Brief Progress [id number]/20/2021 11:25[facility] jayde Rogers, [place] - ROBIN (WILDER) - LENA GEORGEDate of Service 03/01/2021 11:25HPI/Sharee nts of Note eICU Update NoteTroponin noted to be elevated, likely related to demand ischemia given ta chycardia (rather than ACS), will order repeat.Magnesium replacement ordered.Interventions Major-Elec trolyte abnormality - evaluation and managementElectronically Signed by: TRUDI GIFFORD) on 02/11 11:25
[2021-03-01] MEDS ORDERED: Furosemide 40 MG/4 ML VIAL IVPUSH ONE (15:42)
--- NOTE | 2021-03-01 16:33 | PCM.CONS ---
H&P History of Present Illness - General Date of Service: 03/01/21 Admit Problem/Dx: Patient Status Order with Admit Dx/Problem 02/26/21 01:05 Patient Status [ADT] Routine Admission Diagnosis/Problem Admission Diagnosis/Problem 02/26/21 02:15 Elisa is a 25 yo current PPD1 s/p repeat LTCS at ~ 37+3 weeks gestation ([facility]) 03/16/2021) without care. A neg/ Rh pos; RhoGam declined by patient last night, "I have never needed that before...". RI, GBS neg. Ax: amoxicillin. Elevation of WBCs noted upon admission, prolonged ROM x 2 days noted. Blanche-operative antibiotics administered. Clindamycin 600 mg IV q [address] Stokes yesterday. Patient C/O severe pain 10/10 and irritability not alleviated with PO/IV analgesias. Severe itching and scratching behaviors noted upon exam, likely related to medication SEs and/or methamphetamine withdrawal. Continued C/O "really bad swelling to my leg and feet", 2-3+ pitting edema BLE and labia. Tachycardia and low urine output noted yesterday evening, EBL ~600 ml during LTCS yesterday; 1000 ml IV LR bolus completed yesterday followed by 12.5 mg HCTZ PO once for BLE pitting edema. Ample clear, yellow urine noted from mendez catheter. Tachycardia and mild hypertension noted, VSs otherwise stable. Plan to repeat CBC, CMP this am, collection pending. Pertinent hx includes: tachycardia and murmur treated with labetolol ([id number]), anxiety, THC use night (last used 1 night ago), methamphetamine use 2 days ago. Social/case work consulted, visited with patient last night, plan still pending. Early US completed in at [facility] as patient was considering at that time; procedure not completed. Otherwise no care this . Ax: amoxicillin. See medical, surgical, social, medication history. - History of Present Illness Initial Comments - Free Text/Narative: Patient is a 25-year-old female who was originally admitted for section, patient had history of prolonged rupture of membranes with no care. She has history of methamphetamine abuse and reportedly had used meth just before coming to the hospital. Postop patient's hemoglobin dropped and she received blood transfusions. Over the next 2 days patient started having generalized swelling which was getting worse. Her oxygen requirement also sign ificantly got higher from 2L to 8 L via simple mask. Chest x-ray showed bilateral airspace opacities concerning for pulmonary edema. Patient received some as needed Lasix doses. Eventually the oxygen requirement did come down. 2D echo was obtained which showed significant LV dysfunction with left ventricular ejection fraction of 30 to 35%. The mitral valve is normal in structure, there was moderate mitral valve regurgitation visualized, the tricuspid valve is also normal in structure there is trace tricuspid valve regurgitation visualized. The right ventricular systolic pressure was not able to be determined. Patient was also started on IV antibiotics , IV cefazolin and IV clindamycin due to concerns of endometritis causing sepsis due to prolonged rupture of membranes. Central line was also placed, blood cultures were drawn this morning, patient also had elevated troponin which was attributed to type II leak, repeat troponin was negative, BNP was elevated. Patient received another dose of Lasix 40 mg today which resulted in adequate urine output further decrease in oxygen requirement. Currently patient is still in sepsis with elevated white count as well as intermittent tachycardia, she had generalized anasarca with 3+ pitting edema. She is also undergoing opioid withdrawal with irritability, itching and anxiety. Internal medicine was consulted secondary to patient's complex medical condition. Incisional Pain Score (Numeric/FACES): 8 - Related Data Allergies/Adverse Reactions: Allergies Allergy/AdvReac Type Severity Reaction Status Date / Time amoxicillin Allergy Difficulty Verified 02/26/21 01:19 Breathing Home Medications: Home Meds Pnv #30/Iron Carb&Aspg/Fa/Om3 [OB Complete with DHA Softgel] 02/26/21 [History] Past Medical History - Past Health History Medical/Surgical History: Denies Medical/Surgical History HEENT History: Reports: None Cardiovascular History: Reports: Heart Murmur, Other (See Below) (Tachycardia) Respiratory History: Reports: None Gastrointestinal History: Reports: None Genitourinary History: Reports: None Other OB/BYN History: H/O PCS re: failure to descend with pushing Musculoskeletal History: Reports: None Neurological History: Reports: None Psychiatric History: Reports: Anxiety, Depression Endocrine/Metabolic History: Reports: None Hematologic History: Reports: None Immunologic History: Reports: None Oncologic (Cancer) History: Reports: None Dermatologic History: Reports: None - Infectious Disease History Infectious Disease History: Reports: Chicken Pox - Past Surgical History Female Surgical History: Reports: Section (Primary LTCS re: failure to descend with pushing) Other Musculoskeletal Surgeries/Procedures:: right bunionectomy Social & Family History - Family History Family Medical History: No Pertinent Family History - Tobacco Use Tobacco Use Status *Q: Current Every Day Tobacco User Years of Tobacco use: 13 Packs/Tins Daily: 0.5 Second Hand Smoke Exposure: Yes - Caffeine Use Caffeine Use: Reports: None - Recreational Drug Use Recreational Drug Use: Yes Drug Use in Last 12 Months: Yes Recreational Drug Type: Reports: Marijuana/Hashish (THC daily) Recreational Drug Use Frequency: Daily Recreational Drug Last Use: "Last night" H&P Review of Systems - Review of Systems: Review Of Systems: See Below General: Reports: Malaise, Weakness, Fatigue. Denies: Fever, Chills HEENT: Denies: Contact Lenses, Dysphasia Pulmonary: Denies: Shortness of Breath, Wheezing Cardiovascular: Reports: Dyspnea on Exertion, Orthopnea. Denies: Chest Pain, Palpitations Gastrointestinal: Reports: Abdominal Pain, Flatus. Denies: Anorexia, Black Stool, Constipation, Diarrhea, Decreased Appetite, Distension, Melena, Mucous in Stool, Nausea Genitourinary: Denies: Dysuria, Frequency, Burning Musculoskeletal: Denies: Neck Pain, Shoulder Pain Skin: Denies: Cyanosis, Jaundice, Mottled Psychiatric: Denies: Confusion, Depression Neurological: Denies: Confusion, Dizziness Hematologic/Lymphatic: Denies: Anemia, Easy Bleeding Exam - Exam Exam: See Below - Vital Signs Vital Signs: Last Vital Signs Temp 37 C 03/01/21 14:00 Pulse 119 H 03/01/21 08:48 Resp 24 H 03/01/21 16:00 BP 156/111 H 03/01/21 16:00 Pulse Ox 91 L 03/01/21 16:00 Weight: 74.843 kg - Exam Quality Assessment: Supplemental Oxygen Neck: Supple Lungs: Normal Respiratory Effort, Crackles, Rales Cardiovascular: Regular Rate, Tachycardia, Diastolic Murmur GI/Abdominal Exam: Normal Bowel Sounds, Soft, Tender - Patient Data Lab Results Last 24 hrs: Laboratory Results - last 24 hr 03/01/21 03/01/21 03/01/21 Range/Units 05:25 10:40 10:40 WBC 15.83 H (4.0-11.0) K/uL RBC 2.92 L (4.30-5.90) M/uL Hgb 8.6 L (12.0-16.0) g/dL Hct 24.5 L (36.0-46.0) % MCV 83.9 (80.0-98.0) fL MCH 29.5 (27.0-32.0) pg MCHC 35.1 (31.0-37.0) g/dL RDW Std Deviation 45.7 (28.0-62.0) fl RDW Coeff of Idalmis 15 (11.0-15.0) % Plt Count 219 (150-400) K/uL MPV 9.40 (7.40-12.00) fL Add Manual Diff YES Neutrophils % (Manual) 88 H (48.0-80.0) % Band Neutrophils % 1 % Lymphocytes % (Manual) 4 L (16.0-40.0) % Monocytes % (Manual) 5 (0.0-15.0) % Eosinophils % (Manual) 1 (0.0-7.0) % Myelocytes % 1 % Nucleated RBC % 0.0 /100WBC Absolute Seg Neuts 13.9 H (1.4-5.7) Band Neutrophils # 0.2 Lymphocytes # (Manual) 0.6 (0.6-2.4) Monocytes # (Manual) 0.8 (0.0-0.8) Eosinophils # (Manual) 0.2 (0.0-0.7) Absolute Myelocytes 0.2 Nucleated RBCs # 0 K/uL Magnesium 1.7 L (1.8-2.4) mg/dL Troponin I 0.093 H* (0.000-0.056) ng/mL B-Natriuretic Peptide 1164 H (<100) PG/ML Ur Random Creatinine mg/dL Ur Random Sodium (40.0-220.0) mmol/L 03/01/21 Range/Units 11:30 WBC (4.0-11.0) K/uL RBC (4.30-5.90) M/uL Hgb (12.0-16.0) g/dL Hct (36.0-46.0) % MCV (80.0-98.0) fL MCH (27.0-32.0) pg MCHC (31.0-37.0) g/dL RDW Std Deviation (28.0-62.0) fl RDW Coeff of Idalmis (11.0-15.0) % Plt Count (150-400) K/uL MPV (7.40-12.00) fL Add Manual Diff Neutrophils % (Manual) (48.0-80.0) % Band Neutrophils % % Lymphocytes % (Manual) (16.0-40.0) % Monocytes % (Manual) (0.0-15.0) % Eosinophils % (Manual) (0.0-7.0) % Myelocytes % % Nucleated RBC % /100WBC Absolute Seg Neuts (1.4-5.7) Band Neutrophils # Lymphocytes # (Manual) (0.6-2.4) Monocytes # (Manual) (0.0-0.8) Eosinophils # (Manual) (0.0-0.7) Absolute Myelocytes Nucleated RBCs # K/uL Magnesium (1.8-2.4) mg/dL Troponin I (0.000-0.056) ng/mL B-Natriuretic Peptide (<100) PG/ML Ur Random Creatinine 98.9 mg/dL Ur Random Sodium 45.0 (40.0-220.0) mmol/L Result Diagrams: 03/01/21 05:25 02/28/21 05:10 Sepsis Event Note - Evaluation Sepsis Screening Result: Sepsis Risk - Focused Exam Vital Signs: Vital Signs Temp Pulse Resp BP BP Pulse Ox 03/01/21 16:00 24 H 156/111 H 91 L 03/01/21 15:00 21 H 156/105 H 91 L 03/01/21 14:00 37 C 21 H 152/101 H 91 L 03/01/21 13:00 18 144/100 H 92 L 03/01/21 12:00 36.9 C 18 142/99 H 93 L 03/01/21 11:00 16 125/82 91 L 03/01/21 10:00 12 127/86 91 L 03/01/21 09:00 30 H 151/100 H 89 L 03/01/21 08:48 119 H 156/103 H 03/01/21 08:00 37.1 C 26 H 161/100 H 83 L 03/01/21 07:00 19 153/105 H 90 L 03/01/21 06:00 18 140/94 H 94 L 03/01/21 04:58 15 143/95 H 93 L Consult PN Assessment/Plan Procedures: Procedures ASSAY THYROID STIM HORMONE (02/29/16) C-REACTIVE PROTEIN (07/07/15) COMPLETE CBC AUTOMATED (02/29/16) COMPLETE CBC W/AUTO DIFF WBC (06/02/20) COMPREHEN METABOLIC PANEL (06/02/20) CT ABD & PELV W/CONTRAST (07/07/15) CULTURE OTHR SPECIMN AEROBIC (03/03/14) DRAINAGE OF SKIN ABSCESS (03/03/14) DRUG TEST PRSMV CHEM ANLYZR (06/02/20) DRUG TEST PRSMV DIR OPT OBS (06/02/20) ELECTROCARDIOGRAM TRACING (06/02/20) EMERGENCY DEPT VISIT (06/02/20) EMERGENCY DEPT VISIT (12/03/16) EMERGENCY DEPT VISIT (07/08/15) EMERGENCY DEPT VISIT (07/07/15) EMERGENCY DEPT VISIT (06/01/15) EMERGENCY DEPT VISIT (02/16/15) EMERGENCY DEPT VISIT (09/10/14) EMERGENCY DEPT VISIT (03/03/14) HYDRATE IV INFUSION ADD-ON (07/07/15) ROUTINE VENIPUNCTURE (06/02/20) SARS-COV-2 COVID-19 AMP PRB (06/02/20) THER/PROPH/DIAG INJ IV PUSH (07/07/15) THER/PROPH/DIAG INJ SC/IM (06/02/20) TX/PRO/DX INJ NEW DRUG ADDON (07/07/15) TX/PRO/DX INJ SAME DRUG LOCOMOTIVE INSPECTOR (07/07/15) URINALYSIS AUTO W/SCOPE (06/02/20) URINE TEST (06/02/20) X-RAY EXAM OF FOOT (02/11/15) X-RAY EXAM OF SHOULDER (12/03/16) (1) Sepsis SNOMED Code(s): 35515896 Code(s): A41.9 - SEPSIS, UNSPECIFIED ORGANISM Current Visit: Yes (2) Prolonged rupture of membranes SNOMED Code(s): 02060367 Code(s): O42.90 - MIRIAN ROM, 7TH0 BETW RUPT & ONST LABR, UNSP WEEKS OF GEST Current Visit: Yes (3) Cardiomyopathy SNOMED Code(s): 82459646 Code(s): I42.9 - CARDIOMYOPATHY, UNSPECIFIED Current Visit: Yes (4) Drug abuse, amphetamine type SNOMED Code(s): 75329786 Code(s): F15.10 - OTHER STIMULANT ABUSE, UNCOMPLICATED Current Visit: Yes (5) Anxiety SNOMED Code(s): 41557365 Code(s): F41.9 - ANXIETY DISORDER, UNSPECIFIED Current Visit: Yes (6) Status post repeat low transverse section SNOMED Code(s): 200775381, 68287757, 933619616, 190110650, 745412315 Code(s): Z98.891 - HISTORY OF UTERINE SCAR FROM PREVIOUS SURGERY Priority: High Current Visit: Yes (7) Acute systolic heart failure SNOMED Code(s): 417985379 Code(s): I50.21 - ACUTE SYSTOLIC (CONGESTIVE) HEART FAILURE Current Visit: Yes (8) Acute respiratory failure with hypoxia SNOMED Code(s): 07667467, 257593467 Code(s): J96.01 - ACUTE RESPIRATORY FAILURE WITH HYPOXIA Current Visit: Yes Problem List Initiated/Reviewed/Updated: Yes My Orders Last 24 Hours: My Active Orders 03/01/21 16:30 Meropenem [Merrem] 1 gm Sodium Chloride 0.9% [Normal Saline] 100 ml IV Q8H Metoprolol Tartrate [Lopressor] 25 mg PO Q12H Pharmacy to Dose - Vancomycin See Dose Instructions .XX ASDIRECTED 03/02/21 05:11 MAGNESIUM [CHEM] AM PHOSPHORUS [CHEM] AM 03/02/21 09:00 lisinopriL [Prinivil] 5 mg PO DAILY Plan: 25-year-old female currently admitted in ICU secondary to sepsis, acute systolic heart failure resulting in acute hypoxic respiratory failure Continue supportive care with oxygen to keep pulse ox more than 92% Patient is currently in acute CHF exacerbation, underlying cardiomyopathy could be secondary to patient's history of drug abuse Patient already received IV Lasix today with a good urinary output, will continue IV Lasix based on patient's volume status assessment daily After patient's renal status is optimized patient needs to be started on appropriate cardiac regimen including a beta-rodriguez, PHILOMENA inhibitor and daily Lasix Patient is in sepsis, will broaden the coverage with IV vancomycin and Zosyn until sepsis resolves We will follow up on blood cultures If white count does not improve will obtain a CAT scan of the abdomen IV Ativan as needed for withdrawal symptoms, anxiety every 4 hours Continue IV Benadryl for itching Patient is having significant abdominal pain at the site of section, currently on oral opioids Patient will need a close follow-up with cardiology upon discharge Encourage incentive spirometry Continue duo nebs as needed Out of bed to chair as tolerated
[2021-03-01] MEDS: Meropenem Premix 1 GM in Premix Bag 1 BAG IV SCH ×2 (16:48→23:50)
[2021-03-01] MEDS ORDERED: Furosemide 40 MG in Sodium Chloride 0.9% 50 ML IV SCH (17:15)
[2021-03-01] MEDS ORDERED: Metoprolol Tartrate 25 MG Tab PO SCH (21:00)
[2021-03-01] MEDS ORDERED: Furosemide 20 MG/2 ML VIAL IVPUSH ONE (23:39)
[2021-03-02] MEDS: LORazepam 2 MG/ML SDV IVPUSH PRN ×3 (00:13→21:20)
[2021-03-02] MEDS ORDERED: LORazepam 2 MG/ML SDV IVPUSH ONE (00:14)
--- NOTE | 2021-03-02 01:03 | PCM.SN.2 ---
- Free Text/Narrative Note: patients oxygen requirement went up this evening, she was put on simple mask 8ls. Nurse was unable to wean her off, patient continued to be tachycardic, tachypneic, given worsening hypoxia, tachycardia, recent and surgery, patient is high risk for PE. Willl order CTA chest and add CT abdomen as patient is c/o new right uppper quad pain. Will start on Bipap if patient tolerates, 20 mg IV lasix May need IV Ativan for agitation sec. to opioid withdrawal will continue to monitor closely
--- NOTE | 2021-03-02 02:16 | CT ---
For Patients: As a result of the Cures Act, medical imaging exams and procedure reports are released immediately into your electronic medical record. You may view this report before your referring provider. If you have questions, please contact your health care provider. INDICATION: Hypoxia, tachycardia TECHNIQUE: CT chest without i.v. contrast. Coronal and sagittal reformats were obtained. COMPARISON: 07/07/2015 FINDINGS: Moderate to severe image quality degradation noted due to beam hardening artifacts from scanning with the arms by the patient`s side. Cardiovascular: The heart has an unremarkable appearance and size. The pulmonary arteries are unremarkable in appearance. No sign of aneurysm seen in the thoracic aorta. The presence of aortic dissection cannot be evaluated without the use of intravenous contrast. And left IJ line is present with the tip in the SVC. Mediastinum: No mass or adenopathy seen. Lung: Severe nodular airspace consolidation with air bronchograms are present bilaterally. Mild central ground-glass opacities are present within the lower lobes. Pleura and pericardium: Large bilateral pleural effusions are present with the right slightly larger than the left. No significant pericardial effusion is present. Chest wall and axilla: No mass or adenopathy seen. Bone: Unremarkable for age. IMPRESSIONS: 1. Large bilateral pleural effusions are present with the right slightly larger than the left. 2. Severe nodular airspace consolidation with air bronchograms are present bilaterally. Mild central ground-glass opacities are present within the lower lobes. The differential diagnosis includes pulmonary edema or bronchopneumonia. Dictated by Arnold Arce MD @ 03/02/2021 2:15:35 AM Please note that all CT scans at this facility use dose modulation, iterative reconstruction, and/or weight-based dosing when appropriate to reduce radiation dose to as low as reasonably achievable. Dictated by: Arnold Arce MD @ 03/02/2021 02:15:40 (Electronically Signed)
--- NOTE | 2021-03-02 02:22 | CT ---
For Patients: As a result of the Century Cures Act, medical imaging exams and procedure reports are released immediately into your electronic medical record. You may view this report before your referring provider. If you have questions, please contact your health care provider. INDICATION: Right upper quadrant pain TECHNIQUE: CT Abdomen with i.v. contrast. Coronal and sagittal reformats were obtained. CONTRAST: 100 mL Omnipaque 350 COMPARISON: 07/07/2015 FINDINGS: Moderate to severe image quality degradation noted due to beam hardening artifacts from scanning with the arms by the patient`s side. Lower chest: Bilateral pleural effusions, ground-glass infiltrates, perihilar consolidation seen. Liver: Unremarkable. Spleen: Unremarkable. Pancreas: Unremarkable. Gallbladder: Mild nonspecific gallbladder distention is present with trace layering densities which may be due to sludge or gallstones. Kidney: There punctate intrarenal stones present within the right kidney and left lower pole with no evidence of ureteral obstruction or calculi seen in the visualized ureters. Adrenal: Unremarkable. Bowel: Unremarkable. The appendix is not identified. Vascular: Unremarkable. Lymph: Unremarkable. Peritoneum: Unremarkable. No pneumoperitoneum is seen. No significant ascites is noted. Soft tissue: There is heterogeneous enlargement of the left rectus abdominus muscle noted and contains scattered foci of gas. The inferior margin of the hematoma is not included but at its largest extent, it measures 10.3 x 3.8 cm. Moderate subcutaneous edema is present within the abdominal wall. Bone: Unremarkable for age. Miscellaneous: A large heterogeneous uterus is partially visualized which may be related to recent state. IMPRESSIONS: 1. There is heterogeneous enlargement of the left rectus abdominus muscle noted and contains scattered foci of gas. This may be due to a rectus sheath hematoma with gas from recent surgery. 2. Mild nonspecific gallbladder distention is present with trace layering densities which may be due to sludge or gallstones. 3. Bilateral pleural effusions, ground-glass infiltrates, perihilar consolidation seen. Findings may be due to pulmonary edema but clinical correlation is recommended to exclude amniotic fluid emboli. Dictated by Arnold Arce MD @ 03/02/2021 2:21:33 AM Please note that all CT scans at this facility use dose modulation, iterative reconstruction, and/or weight-based dosing when appropriate to reduce radiation dose to as low as reasonably achievable. Dictated by: Arnold Arce MD @ 03/02/2021 02:21:44 (Electronically Signed)
[2021-03-02 06:50] LABS: BLOOD UREA NITROGEN,BUN 12 mg/dL (7.0-18.0); CHLORIDE,CL 103 mmol/L (98-107); GLUCOSE RANDOM 83 mg/dL (74-106); POTASSIUM,K 3.7 mmol/L (3.5-5.1); SODIUM,NA 138 mmol/L (136-145)
[2021-03-02] MEDS: Meropenem Premix 1 GM in Premix Bag 1 BAG IV SCH ×2 (08:29→15:50)
[2021-03-02] MEDS ORDERED: Lisinopril 5 MG Tab PO SCH (09:00)
[2021-03-02] MEDS ORDERED: Furosemide 40 MG/4 ML VIAL IVPUSH SCH (09:00)
--- NOTE | 2021-03-02 09:25 | PCM.PNPP ---
- General Info Date of Service: 03/01/21 Functional Status: Reports: Pain Controlled - Review of Systems General: Reports: No Symptoms HEENT: Reports: No Symptoms Pulmonary: Reports: No Symptoms Cardiovascular: Reports: No Symptoms Gastrointestinal: Reports: No Symptoms Genitourinary: Reports: No Symptoms Musculoskeletal: Reports: No Symptoms Skin: Reports: No Symptoms Neurological: Reports: No Symptoms Psychiatric: Reports: No Symptoms - General Info Date of Service: 03/01/21 - Patient Data Vital Signs - Most Recent: Last Vital Signs Temp 37.0 C 03/02/21 06:00 Pulse 116 H 03/02/21 01:00 Resp 25 H 03/02/21 08:00 BP 145/99 H 03/02/21 08:00 Pulse Ox 98 03/02/21 08:00 Weight - Most Recent: 78.063 kg I&O - Last 24 Hours: Intake & Output 03/01/21 03/02/21 03/02/21 22:59 06:59 14:59 Intake Total 580 0 0 Output Total 3400 2700 950 Balance -2820 -2700 -950 Lab Results - Last 24 Hours: Laboratory Results - last 24 hr 03/01/21 03/01/21 03/01/21 Range/Units 10:40 10:40 11:30 WBC (4.0-11.0) K/uL RBC (4.30-5.90) M/uL Hgb (12.0-16.0) g/dL Hct (36.0-46.0) % MCV (80.0-98.0) fL MCH (27.0-32.0) pg MCHC (31.0-37.0) g/dL RDW Std Deviation (28.0-62.0) fl RDW Coeff of Idalmis (11.0-15.0) % Plt Count (150-400) K/uL MPV (7.40-12.00) fL Add Manual Diff Neutrophils % (Manual) (48.0-80.0) % Band Neutrophils % % Lymphocytes % (Manual) (16.0-40.0) % Monocytes % (Manual) (0.0-15.0) % Nucleated RBC % /100WBC Absolute Seg Neuts (1.4-5.7) Band Neutrophils # Lymphocytes # (Manual) (0.6-2.4) Monocytes # (Manual) (0.0-0.8) Nucleated RBCs # K/uL Sodium (136-145) mmol/L Potassium (3.5-5.1) mmol/L Chloride (98-107) mmol/L Carbon Dioxide (21.0-32.0) mmol/L BUN (7.0-18.0) mg/dL Creatinine (0.6-1.0) mg/dL Est Cr Clr Drug Dosing mL/min Estimated GFR (MDRD) ml/min Glucose (74-106) mg/dL Calcium (8.5-10.1) mg/dL Phosphorus (2.6-4.7) mg/dL Magnesium 1.7 L (1.8-2.4) mg/dL Total Bilirubin (0.2-1.0) mg/dL AST (15-37) IU/L ALT (14-63) IU/L Alkaline Phosphatase (46-116) U/L Troponin I 0.093 H* (0.000-0.056) ng/mL B-Natriuretic Peptide 1164 H (<100) PG/ML Total Protein (6.4-8.2) g/dL Albumin (3.4-5.0) g/dL Globulin (2.6-4.0) g/dL Albumin/Globulin Ratio (0.9-1.6) Ur Random Creatinine 98.9 mg/dL Ur Random Sodium 45.0 (40.0-220.0) mmol/L Ur Urea Nitrogen Conc mg/dL 03/01/21 03/01/21 03/02/21 Range/Units 11:30 16:30 05:50 WBC 23.04 H (4.0-11.0) K/uL RBC 3.25 L (4.30-5.90) M/uL Hgb 9.6 L (12.0-16.0) g/dL Hct 27.2 L (36.0-46.0) % MCV 83.7 (80.0-98.0) fL MCH 29.5 (27.0-32.0) pg MCHC 35.3 (31.0-37.0) g/dL RDW Std Deviation 45.6 (28.0-62.0) fl RDW Coeff of Idalmis 15 (11.0-15.0) % Plt Count 262 (150-400) K/uL MPV 9.10 (7.40-12.00) fL Add Manual Diff YES Neutrophils % (Manual) 80 (48.0-80.0) % Band Neutrophils % 10 % Lymphocytes % (Manual) 8 L (16.0-40.0) % Monocytes % (Manual) 2 (0.0-15.0) % Nucleated RBC % 0.0 /100WBC Absolute Seg Neuts 18.4 H (1.4-5.7) Band Neutrophils # 2.3 Lymphocytes # (Manual) 1.8 (0.6-2.4) Monocytes # (Manual) 0.5 (0.0-0.8) Nucleated RBCs # 0 K/uL Sodium (136-145) mmol/L Potassium (3.5-5.1) mmol/L Chloride (98-107) mmol/L Carbon Dioxide (21.0-32.0) mmol/L BUN (7.0-18.0) mg/dL Creatinine (0.6-1.0) mg/dL Est Cr Clr Drug Dosing mL/min Estimated GFR (MDRD) ml/min Glucose (74-106) mg/dL Calcium (8.5-10.1) mg/dL Phosphorus (2.6-4.7) mg/dL Magnesium (1.8-2.4) mg/dL Total Bilirubin (0.2-1.0) mg/dL AST (15-37) IU/L ALT (14-63) IU/L Alkaline Phosphatase (46-116) U/L Troponin I < 0.050 (0.000-0.056) ng/mL B-Natriuretic Peptide (<100) PG/ML Total Protein (6.4-8.2) g/dL Albumin (3.4-5.0) g/dL Globulin (2.6-4.0) g/dL Albumin/Globulin Ratio (0.9-1.6) Ur Random Creatinine mg/dL Ur Random Sodium (40.0-220.0) mmol/L Ur Urea Nitrogen Conc 389 mg/dL 03/02/21 03/02/21 03/02/21 Range/Units 05:50 05:50 05:50 WBC (4.0-11.0) K/uL RBC (4.30-5.90) M/uL Hgb (12.0-16.0) g/dL Hct (36.0-46.0) % MCV (80.0-98.0) fL MCH (27.0-32.0) pg MCHC (31.0-37.0) g/dL RDW Std Deviation (28.0-62.0) fl RDW Coeff of Idalmis (11.0-15.0) % Plt Count (150-400) K/uL MPV (7.40-12.00) fL Add Manual Diff Neutrophils % (Manual) (48.0-80.0) % Band Neutrophils % % Lymphocytes % (Manual) (16.0-40.0) % Monocytes % (Manual) (0.0-15.0) % Nucleated RBC % /100WBC Absolute Seg Neuts (1.4-5.7) Band Neutrophils # Lymphocytes # (Manual) (0.6-2.4) Monocytes # (Manual) (0.0-0.8) Nucleated RBCs # K/uL Sodium 138 (136-145) mmol/L Potassium 3.7 (3.5-5.1) mmol/L Chloride 103 (98-107) mmol/L Carbon Dioxide 23.0 (21.0-32.0) mmol/L BUN 12 (7.0-18.0) mg/dL Creatinine 1.1 H (0.6-1.0) mg/dL Est Cr Clr Drug Dosing 64.11 mL/min Estimated GFR (MDRD) > 60.0 ml/min Glucose 83 (74-106) mg/dL Calcium 7.6 L (8.5-10.1) mg/dL Phosphorus 5.0 H (2.6-4.7) mg/dL Magnesium 1.8 (1.8-2.4) mg/dL Total Bilirubin 0.6 (0.2-1.0) mg/dL AST 25 (15-37) IU/L ALT 14 (14-63) IU/L Alkaline Phosphatase 155 H (46-116) U/L Troponin I (0.000-0.056) ng/mL B-Natriuretic Peptide 2364 H (<100) PG/ML Total Protein 5.2 L (6.4-8.2) g/dL Albumin 1.4 L (3.4-5.0) g/dL Globulin 3.8 (2.6-4.0) g/dL Albumin/Globulin Ratio 0.4 L (0.9-1.6) Ur Random Creatinine mg/dL Ur Random Sodium (40.0-220.0) mmol/L Ur Urea Nitrogen Conc mg/dL Med Orders - Current: Current Medications Albuterol/Ipratropium (Albuterol/Ipratropium 3.0-0.5 Mg/3 Ml Neb Soln) 3 ml NEB Q4HRRT PRN PRN Reason: Wheezing Last Admin: 03/01/21 17:14 Dose: 3 ml Documented by: Bisacodyl (Bisacodyl 10 Mg Supp) 10 mg RECTAL ONETIME PRN PRN Reason: Constipation Diphenhydramine HCl (Diphenhydramine 50 Mg/Ml Sdv) 25 mg IVPUSH Q6H PRN PRN Reason: Itching or Nausea Docusate Sodium (Docusate Sodium 100 Mg Cap) 100 mg PO BID [facility] Last Admin: 03/01/21 20:00 Dose: 100 mg Documented by: Furosemide (Furosemide 40 Mg/4 Ml Vial) 40 mg IVPUSH DAILY [facility] Tranexamic Acid 1,000 mg/ (Sodium Chloride) 110 mls @ 660 mls/hr IV ONETIME PRN PRN Reason: Bleeding Meropenem/Sodium Chloride 1 gm (/ Premix) 50 mls @ 100 mls/hr IV Q8H [facility] Last Admin: 03/02/21 08:29 Dose: 100 mls/hr Documented by: Vancomycin HCl 1.25 gm/ Sodium (Chloride) 250 mls @ 166.667 mls/hr IV Q12H [facility] Last Admin: 03/02/21 04:00 Dose: 166.667 mls/hr Documented by: Ibuprofen (Ibuprofen 800 Mg Tab) 800 mg PO Q8H PRN PRN Reason: mild pain or fever Lorazepam (Lorazepam 2 Mg/Ml Sdv) 1 mg IVPUSH Q4H PRN PRN Reason: Withdrawal Symptoms Last Admin: 03/02/21 00:13 Dose: 1 mg Documented by: Methylergonovine Maleate (Methylergonovine 0.2 Mg/1 Ml Amp) 0.2 mg IM ONETIME PRN PRN Reason: Excessive Vaginal Bleeding Morphine Sulfate (Morphine 2 Mg/Ml Syringe) 2 mg IVPUSH Q4H PRN PRN Reason: Pain (moderate 4-6) Nalbuphine HCl (Nalbuphine 10 Mg/1 Ml Vial) 10 mg IVPUSH Q1H PRN PRN Reason: Pain (severe 7-10) Ondansetron HCl (Ondansetron 4 Mg/2 Ml Sdv) 4 mg IVPUSH Q4H PRN PRN Reason: Nausea/Vomiting Oxycodone/Acetaminophen (Acetaminophen/Oxycodone 325-5 Mg Tab) 1 tab PO Q4H PRN PRN Reason: Pain (severe 7-10) Oxycodone/Acetaminophen (Acetaminophen/Oxycodone 325-5 Mg Tab) 2 tab PO Q4H PRN PRN Reason: Pain (severe 7-10) Last Admin: 03/01/21 19:52 Dose: 2 tab Documented by: Sodium Chloride (Sodium Chloride 0.9% 10 Ml Syringe) 10 ml FLUSH ASDIRECTED PRN PRN Reason: Keep Vein Open Sodium Chloride (Sodium Chloride 0.9% 2.5 Ml Syringe) 2.5 ml FLUSH ASDIRECTED PRN PRN Reason: Keep Vein Open Vancomycin HCl (Pharmacy To Dose - Vancomycin) 0 dose .XX ASDIRECTED KATHERINE Discontinued Medications Butorphanol Tartrate (Butorphanol 1 Mg/Ml Sdv) 1 mg IVPUSH Q1H PRN PRN Reason: Pain (severe 7-10) Carboprost Tromethamine (Carboprost Tromethamine 250 Mcg/1 Ml Amp) 250 mcg IM ASDIRECTED PRN PRN Reason: Post Hemorrhage Cefazolin Sodium (Cefazolin 1 Gm Vial) Confirm Administered Dose 2 gm .ROUTE .STK-MED ONE Stop: 02/26/21 03:45 Citric Acid/Sodium Citrate (Citric Acid/Sodium Citrate Solution 30 Ml Cup) 30 ml PO ONETIME ONE Stop: 02/26/21 02:01 Last Admin: 02/26/21 05:17 Dose: Not Given Documented by: Diphenhydramine HCl (Diphenhydramine 50 Mg/Ml Sdv) 12.5 mg IVPUSH Q2H PRN PRN Reason: Itching Emollient Ointment (Lanolin 100% Cream 7 Gm Tube) 0 gm TOP ASDIRECTED PRN PRN Reason: Sore Nipples Ephedrine Sulfate (Ephedrine 50 Mg/Ml Sdv) 10 mg IVPUSH Q5M PRN PRN Reason: Hypotension Fentanyl (Fentanyl 100 Mcg/2 Ml Sdv) Confirm Administered Dose 100 mcg .ROUTE .K-MED ONE Stop: 02/26/21 02:45 Fentanyl (Fentanyl 100 Mcg/2 Ml Sdv) 50 mcg IVPUSH Q1H PRN PRN Reason: Pain (severe 7-10) Furosemide (Furosemide 20 Mg/2 Ml Vial) 40 mg IVPUSH NOW ONE Stop: 02/27/21 09:02 Last Admin: 02/27/21 09:17 Dose: 40 mg Documented by: Furosemide (Furosemide 40 Mg/4 Ml Vial) 40 mg IVPUSH NOW ONE Stop: 03/01/21 15:43 Last Admin: 03/01/21 15:53 Dose: 40 mg Documented by: Furosemide (Furosemide 20 Mg/2 Ml Vial) 20 mg IVPUSH NOW ONE Stop: 03/01/21 23:40 Last Admin: 03/01/21 23:50 Dose: 20 mg Documented by: Hydrochlorothiazide (Hydrochlorothiazide 12.5 Mg Cap) 12.5 mg PO BEDTIME KATHERINE Last Admin: 02/28/21 20:00 Dose: 12.5 mg Documented by: Lactated Ringer's (Ringers, Lactated) 1,000 mls @ 500 mls/hr IV BOLUS [facility] Last Admin: 02/26/21 02:20 Dose: 500 mls/hr Documented by: Oxytocin/Sodium Chloride (Oxytocin 30 Unit/500 Ml-Ns) 30 unit in 500 mls @ 250 mls/hr IV TITRATE KATHERINE Lactated Ringer's (Ringers, Lactated) 1,000 mls @ 150 mls/hr IV ASDIRECTED [facility] Last Infusion: 02/28/21 08:50 Dose: 50 mls/hr Documented by: Sodium Chloride (Normal Saline) Confirm Administered Dose 20 mls @ as directed .ROUTE .STK-MED ONE Stop: 02/26/21 03:45 Lactated Ringer's (Ringers, Lactated) 1,000 mls @ 125 mls/hr IV ASDIRECTED [facility] Last Infusion: 02/28/21 01:00 Dose: Infused Documented by: Tranexamic Acid 1,000 mg/ (Sodium Chloride) 110 mls @ 660 mls/hr IV ONETIME PRN PRN Reason: Bleeding Clindamycin Phosphate 600 mg/ (Sodium Chloride) 54 mls @ 100 mls/hr IV Q6H [facility] Clindamycin Phosphate 900 mg/ (Premix) 75 mls @ 150 mls/hr IV Q6H [facility] Clindamycin Phosphate 600 mg/ (Premix) 50 mls @ 100 mls/hr IV Q6H [facility] Last Admin: 03/01/21 15:53 Dose: 100 mls/hr Documented by: Cefazolin Sodium/Dextrose 1 gm (/ Premix) 50 mls @ 100 mls/hr IV Q8H [facility] Last Admin: 03/01/21 14:00 Dose: 100 mls/hr Documented by: Lactated Ringer's (Ringers, Lactated) 1,000 mls @ 50 mls/hr IV ASDIRECTED [facility] Last Infusion: 03/01/21 08:30 Dose: 10 mls/hr Documented by: Lactated Ringer's (Ringers, Lactated) 1,000 mls @ 10 mls/hr IV ASDIRECTED [facility] Magnesium Sulfate 2 gm/ Premix 50 mls @ 12.5 mls/hr IV ONETIME ONE Stop: 03/01/21 15:23 Last Admin: 03/01/21 11:43 Dose: 12.5 mls/hr Documented by: Furosemide 40 mg/ Sodium (Chloride) 54 mls @ 100 mls/hr IV Q12H [facility] Last Admin: 03/01/21 17:30 Dose: Not Given Documented by: Ketorolac Tromethamine (Ketorolac 30 Mg/Ml Sdv) Confirm Administered Dose 30 mg .ROUTE .STK-MED ONE Stop: 02/26/21 03:28 Ketorolac Tromethamine (Ketorolac 30 Mg/Ml Sdv) 30 mg IVPUSH Q6H [facility] Stop: 02/27/21 04:01 Last Admin: 02/27/21 04:10 Dose: 30 mg Documented by: Labetalol HCl (Labetalol 100 Mg Tab) 200 mg PO DAILY [facility] Last Admin: 03/01/21 08:48 Dose: 200 mg Documented by: Lidocaine HCl (Lidocaine 1% 50 Ml Mdv) 50 ml INJECT ONETIME PRN PRN Reason: Laceration repair Lisinopril (Lisinopril 5 Mg Tab) 5 mg PO DAILY [facility] Lorazepam (Lorazepam 2 Mg/Ml Sdv) 1 mg IVPUSH ONETIME ONE Stop: 03/01/21 11:15 Last Admin: 03/01/21 11:44 Dose: 1 mg Documented by: Lorazepam (Lorazepam 2 Mg/Ml Sdv) 2 mg IVPUSH ONETIME ONE Stop: 03/02/21 00:15 Last Admin: 03/02/21 00:25 Dose: 2 mg Documented by: Metoprolol Tartrate (Metoprolol Tartrate 25 Mg Tab) 25 mg PO BID [facility] Miscellaneous Medication (Phenylephrine Hcl In 0.9% Nacl 1 Mg/10 Ml Syringe) Confirm Administered Dose 1 mg .ROUTE .STK-MED ONE Stop: 02/26/21 03:28 Misoprostol (Misoprostol 200 Mcg Tab) 200 mcg PO ONETIME PRN PRN Reason: Post Hemorrhage Misoprostol (Misoprostol 200 Mcg Tab) 1,000 mcg RECTAL ONETIME PRN PRN Reason: excessive bleeding Morphine Sulfate (Morphine Pf 10 Mg/10 Ml Sdv) Confirm Administered Dose 10 mg .ROUTE .STK-MED ONE Stop: 02/26/21 02:46 Morphine Sulfate (Morphine 4 Mg/Ml Syringe) 4 mg IVPUSH Q4H PRN PRN Reason: Pain (moderate 4-6) Last Admin: 03/01/21 23:24 Dose: 4 mg Documented by: Nalbuphine HCl (Nalbuphine 10 Mg/1 Ml Vial) 5 mg IVPUSH ASDIRECTED PRN PRN Reason: Itching Naloxone HCl (Naloxone 0.4 Mg/Ml Syringe) 0.1 mg IVPUSH ONETIME PRN PRN Reason: Respiratory Depression Stop: 02/27/21 04:19 Octyl Cyanoacrylate (Octyl 2-Cyanoacrylate 1 Tube) Confirm Administered Dose 1 applic .ROUTE .STK-MED ONE Stop: 02/26/21 05:03 Ondansetron HCl (Ondansetron 4 Mg/2 Ml Sdv) Confirm Administered Dose 4 mg .ROUTE .STK-MED ONE Stop: 02/26/21 03:28 Ondansetron HCl (Ondansetron 4 Mg/2 Ml Sdv) 4 mg IVPUSH Q6H PRN PRN Reason: Nausea Oxycodone/Acetaminophen (Acetaminophen/Oxycodone 325-5 Mg Tab) 2 tab PO Q6H PRN PRN Reason: Pain (moderate 4-6) Last Admin: 02/26/21 06:53 Dose: 2 tab Documented by: Oxytocin (Oxytocin 10 Units/1 Ml Sdv) Confirm Administered Dose 30 unit .ROUTE .STK-MED ONE Stop: 02/26/21 03:28 Oxytocin (Oxytocin 10 Units/1 Ml Sdv) 10 unit IM ASDIRECTED PRN PRN Reason: Excessive Vaginal Bleeding Sterile Water (Water For Irrigation,Sterile 1,000 Ml Container) 1,000 ml IRR ASDIRECTED PRN PRN Reason: delivery - Interaction Infant Disposition, : to Nursery Interaction: Not Interacting Feeding: Bottle Fed Infant Support Person: Significant Other (Not present at bedside.) - Recovery Exam Fundal Tone: Firm Fundal Level: 2 Fingerbreadths Below Umbilicus Fundal Placement: Midline Lochia Amount: Scant Lochia Color: Rubra/Red Perineum Description: Intact, Minimal Bruising/Swelling Episiotomy/Laceration: None Bladder Status: Indwelling Catheter in Place Urinary Elimination: Indwelling Catheter - Exam General: Alert, Oriented HEENT: Pupils Equal Neck: Supple Lungs: Clear to Auscultation, Normal Respiratory Effort Cardiovascular: Regular Rate, Regular Rhythm GI/Abdominal Exam: Normal Bowel Sounds, Soft, Non-Tender, No Organomegaly, No Distention, No Abnormal Bruit, No Mass, Pelvis Stable Extremities: Normal Inspection, Normal Range of Motion, Non-Tender, No Pedal Edema, Normal Capillary Refill Skin: Warm, Dry, Intact Wound/Incisions: Healing Well Neurological: No New Focal Deficit Psy/Mental Status: Alert, Normal Affect, Normal Mood - Problem List Review Problem List Initiated/Reviewed/Updated: Yes - My Orders Last 24 Hours: My Active Orders 03/01/21 09:20 Albuterol/Ipratropium [DuoNeb 3.0-0.5 MG/3 ML] 3 ml NEB Q4HRRT PRN 03/01/21 09:21 RT Aerosol Therapy [RC] ASDIRECTED 03/01/21 15:29 Consult to Physician [CONS] Routine 03/01/21 15:31 Notify Provider Consults [RC] ASDIRECTED - Assessment Assessment:: S/P C/section with prolong rapture of thev membranes complicated with Endometritis and Anemia. I am planinng to start her on antibiotic, have Anesthesia place a central line for blood transfusion. I am also given the Pt. Larix. 02/28/21 The patient condition is improving she is continued to be afebrile her heart rate is coming down she continued to diurese her leg and hand edema is decreasing. Her hemoglobin improved to 8.6 after 2 units of blood transfusion her white count is trending down. Abdominal examination is the abdomen is less tender, was present and the patient is passing day's and she is expressed her desire to have some food I'm planning to start her on liquid diet today. Her IV fluid intake is diminished to 50 mL per hour to keep the vein open to continue the IV antibiotic. Head endometritis is resolving her white count is trending down we will continue the IV antibiotic finding to keep her in the unit tomorrow. 03/01/21 The patient according to the echocardiograms and chest x-ray she is in pulmonary edema and most likely in a congestive heart failure due to her F amphetamine abuse I consulted with the hospitalist and the eICU photographic laboratory technician and is to give her diuretic to diurese the patient and his her issue is the mostly is medical now I am going to 2 minutes the hospitalist and the EEG ICU photographic laboratory technician sap basis consultant to manage a patient at this time. - Plan Plan:: Continue with inpatient route of care. [place] care is exclusively in nursery, + methamphetamines and THC with prolonged ROM; bottle fed, IV antibiotics infusing. Social/case work at bedside for consult yesterday evening per RN, discussed POC for mom and baby including substance abuse treatment routes and adoption; considering. Discussed importance of IS and ambulation post-surgery. BLE SCDs in place at this time, plan to elevate BLE and continue to hydrate adequately; plan to ambulate 3-5 times per day. Once ambulation well achieved, plan to D/C mendez catheter. May consider repeat 12.5 HCTZ this afternoon. CBC/CMP to be drawn at 5 am today, collection pending. Continue clindamycin 600 mg IV q 6 hours. Discussed RBAs of RhoGam administration, plan to administer RhoGam today. LTCS incision dressing clean, dry, and intact; partially removed to view incision, patient not well tolerated. Dr. Stokes to present to bedside this am for assessment and management. Patient verbalized understanding, no questions at this time. 02/28/21 IV antibiotic start her on liquid diet today the patient is passing gas and she have a good bowel sounds planning to keep her in the intensive care for another day
[2021-03-02] MEDS: Docusate Sodium 100 MG Cap PO SCH ×2 (09:35→20:23)
[2021-03-02] MEDS: Acetaminophen/oxyCODONE 325-5 MG Tab PO PRN ×3 (09:35→21:07)
[2021-03-02] MEDS: Azithromycin 500 MG in Sodium Chloride 0.9% 250 ML IV SCH (09:57)
--- NOTE | 2021-03-02 13:08 | PN ---
THC Physician - Brief Progress [id number]/21/2021 13:06[facility] Lonny Ramirez, KIRBY - OANHN [facility] - MWN SHERLYNLENA CUMMINSLisaDate of Service 03/02/2021 13:06HPI/Sharee nts of Note eICU Progress [id number] admitted for respiratory failure and tachycardia post-. Histo ry obtained primarily from review of EMR.Notable events: Was placed on BPAP overnight due to worsenin g hypoxia, now on room air. Hospitalist service consulted, antibiotics broadened.Camera exam: SItting in chair. Vitals monitor reviewed.eICU Recommendations:Agree with broadening of antibioticsGiven per sistent tachycardia, I believe CTA chest is reasonable to rule out VTEDiuresis to target euvolemiaSho uld patient deteriorate/fail to improve reasonable to transfer to higher level of care for thoracente sis, cardiology evaluationeICU will continue to follow and assist as desiredDVT and GI prophylaxis as appropriate.Thank you for allowing us to participate in the care of this patient.Unless otherwise sp ecified, defer implementation of above recommendations to discretion of bedside provider. Please do n ot hesitate to contact the eICU service for questions, clarification, or assistance with implementati on.The above note transcribed with the assistance of dictation software. Please excuse any errors.Int erventions Major-Respiratory failure - evaluation and management
[2021-03-02] MEDS ORDERED: Iopamidol 755 MG/ML 500 ML Multipack Bottle IVPUSH STA (13:46)
[2021-03-02] MEDS: Morphine 2 MG/ML SYRINGE IVPUSH PRN (13:49)
[2021-03-02] MEDS: Furosemide 40 MG/4 ML VIAL IVPUSH SCH ×3 (13:57→16:53)
[2021-03-02] MEDS ORDERED: Polyethylene Glycol 3350 Powder 17 GM Packet PO ONE (14:17)
--- NOTE | 2021-03-02 14:20 | PCM.PN ---
- General Info Date of Service: 03/02/21 Admission Dx/Problem (Free Text): Patient Status Order with Admit Dx/Problem 02/26/21 01:05 Patient Status [ADT] Routine Admission Diagnosis/Problem Admission Diagnosis/Problem 02/26/21 02:15 Elisa is a 25 yo current PPD1 s/p repeat LTCS at ~ 37+3 weeks gestation (UMM(LMP) 03/16/2021) without care. A neg/ Rh pos; RhoGam declined by patient last night, "I have never needed that before...". RI, GBS neg. Ax: amoxicillin. Elevation of WBCs noted upon admission, prolonged ROM x 2 days noted. Blanche-operative antibiotics administered. Clindamycin 600 mg IV q [address] Stokes yesterday. Patient C/O severe pain 10/10 and irritability not alleviated with PO/IV analgesias. Severe itching and scratching behaviors noted upon exam, likely related to medication SEs and/or methamphetamine withdrawal. Continued C/O "really bad swelling to my leg and feet", 2-3+ pitting edema BLE and labia. Tachycardia and low urine output noted yesterday evening, EBL ~600 ml during LTCS yesterday; 1000 ml IV LR bolus completed yesterday followed by 12.5 mg HCTZ PO once for BLE pitting edema. Ample clear, yellow urine noted from mendez catheter. Tachycardia and mild hypertension noted, VSs otherwise stable. Plan to repeat CBC, CMP this am, collection pending. Pertinent hx includes: tachycardia and murmur treated with labetolol ([id number]), anxiety, THC use night (last used 1 night ago), methamphetamine use 2 days ago. Social/case work consulted, visited with patient last night, plan still pending. Early US completed in at [facility] as patient was considering at that time; procedure not completed. Otherwise no care this . Ax: amoxicillin. See medical, surgical, social, medication history. Subjective Update: Patient seen and examined at bedside, sitting comfortably on chair is currently on room air, no acute distress. Has some abdominal pain from her section. Mendez in place. Family at bedside. Currently explained the patient's complicated medical issues to the family as well as patient. Functional Status: Reports: Tolerating Diet, Ambulating, Urinating - Review of Systems General: Denies: Fever, Weakness, Fatigue Pulmonary: Reports: Shortness of Breath, Cough. Denies: Pleuritic Chest Pain, Sputum Cardiovascular: Reports: Palpitations, Dyspnea on Exertion, Orthopnea, PND. Denies: Chest Pain Gastrointestinal: Reports: Abdominal Pain, Constipation. Denies: Decreased Appetite, Difficulty Swallowing Genitourinary: Denies: Dysuria, Frequency, Burning Musculoskeletal: Denies: Neck Pain, Shoulder Pain, Arm Pain Skin: Denies: Cyanosis, Jaundice, Mottled Neurological: Denies: Confusion, Dizziness, Headache - Patient Data Vitals - Most Recent: Last Vital Signs Temp 36.5 C 03/02/21 11:00 Pulse 116 H 03/02/21 01:00 Resp 18 03/02/21 11:00 BP 137/93 H 03/02/21 11:00 Pulse Ox 93 L 03/02/21 11:00 Weight - Most Recent: 78.063 kg I&O - Last 24 Hours: Intake & Output 03/01/21 03/02/21 03/02/21 22:59 06:59 14:59 Intake Total 780 0 910 Output Total 3400 2700 2550 Balance -2620 -2700 -1640 Lab Results Last 24 Hours: Laboratory Results - last 24 hr 03/01/21 03/01/21 03/02/21 Range/Units 11:30 16:30 05:50 WBC 23.04 H (4.0-11.0) K/uL RBC 3.25 L (4.30-5.90) M/uL Hgb 9.6 L (12.0-16.0) g/dL Hct 27.2 L (36.0-46.0) % MCV 83.7 (80.0-98.0) fL MCH 29.5 (27.0-32.0) pg MCHC 35.3 (31.0-37.0) g/dL RDW Std Deviation 45.6 (28.0-62.0) fl RDW Coeff of Idalmis 15 (11.0-15.0) % Plt Count 262 (150-400) K/uL MPV 9.10 (7.40-12.00) fL Add Manual Diff YES Neutrophils % (Manual) 80 (48.0-80.0) % Band Neutrophils % 10 % Lymphocytes % (Manual) 8 L (16.0-40.0) % Monocytes % (Manual) 2 (0.0-15.0) % Nucleated RBC % 0.0 /100WBC Absolute Seg Neuts 18.4 H (1.4-5.7) Band Neutrophils # 2.3 Lymphocytes # (Manual) 1.8 (0.6-2.4) Monocytes # (Manual) 0.5 (0.0-0.8) Nucleated RBCs # 0 K/uL Sodium (136-145) mmol/L Potassium (3.5-5.1) mmol/L Chloride (98-107) mmol/L Carbon Dioxide (21.0-32.0) mmol/L BUN (7.0-18.0) mg/dL Creatinine (0.6-1.0) mg/dL Est Cr Clr Drug Dosing mL/min Estimated GFR (MDRD) ml/min Glucose (74-106) mg/dL Calcium (8.5-10.1) mg/dL Phosphorus (2.6-4.7) mg/dL Magnesium (1.8-2.4) mg/dL Total Bilirubin (0.2-1.0) mg/dL AST (15-37) IU/L ALT (14-63) IU/L Alkaline Phosphatase (46-116) U/L Troponin I < 0.050 (0.000-0.056) ng/mL B-Natriuretic Peptide (<100) PG/ML Total Protein (6.4-8.2) g/dL Albumin (3.4-5.0) g/dL Globulin (2.6-4.0) g/dL Albumin/Globulin Ratio (0.9-1.6) Ur Urea Nitrogen Conc 389 mg/dL 03/02/21 03/02/21 03/02/21 Range/Units 05:50 05:50 05:50 WBC (4.0-11.0) K/uL RBC (4.30-5.90) M/uL Hgb (12.0-16.0) g/dL Hct (36.0-46.0) % MCV (80.0-98.0) fL MCH (27.0-32.0) pg MCHC (31.0-37.0) g/dL RDW Std Deviation (28.0-62.0) fl RDW Coeff of Idalmis (11.0-15.0) % Plt Count (150-400) K/uL MPV (7.40-12.00) fL Add Manual Diff Neutrophils % (Manual) (48.0-80.0) % Band Neutrophils % % Lymphocytes % (Manual) (16.0-40.0) % Monocytes % (Manual) (0.0-15.0) % Nucleated RBC % /100WBC Absolute Seg Neuts (1.4-5.7) Band Neutrophils # Lymphocytes # (Manual) (0.6-2.4) Monocytes # (Manual) (0.0-0.8) Nucleated RBCs # K/uL Sodium 138 (136-145) mmol/L Potassium 3.7 (3.5-5.1) mmol/L Chloride 103 (98-107) mmol/L Carbon Dioxide 23.0 (21.0-32.0) mmol/L BUN 12 (7.0-18.0) mg/dL Creatinine 1.1 H (0.6-1.0) mg/dL Est Cr Clr Drug Dosing 64.11 mL/min Estimated GFR (MDRD) > 60.0 ml/min Glucose 83 (74-106) mg/dL Calcium 7.6 L (8.5-10.1) mg/dL Phosphorus 5.0 H (2.6-4.7) mg/dL Magnesium 1.8 (1.8-2.4) mg/dL Total Bilirubin 0.6 (0.2-1.0) mg/dL AST 25 (15-37) IU/L ALT 14 (14-63) IU/L Alkaline Phosphatase 155 H (46-116) U/L Troponin I (0.000-0.056) ng/mL B-Natriuretic Peptide 2364 H (<100) PG/ML Total Protein 5.2 L (6.4-8.2) g/dL Albumin 1.4 L (3.4-5.0) g/dL Globulin 3.8 (2.6-4.0) g/dL Albumin/Globulin Ratio 0.4 L (0.9-1.6) Ur Urea Nitrogen Conc mg/dL Fabián Results Last 24 Hours: Microbiology 03/01/21 10:30 Aerobic Blood Culture - Preliminary Blood - Venous NO GROWTH AFTER 1 DAY Anaerobic Blood Culture - Preliminary NO GROWTH AFTER 1 DAY 03/01/21 10:40 Aerobic Blood Culture - Preliminary Blood - Venous - Lab Draw NO GROWTH AFTER 1 DAY Anaerobic Blood Culture - Preliminary NO GROWTH AFTER 1 DAY Med Orders - Current: Current Medications Albuterol/Ipratropium (Albuterol/Ipratropium 3.0-0.5 Mg/3 Ml Neb Soln) 3 ml NEB Q4HRRT PRN PRN Reason: Wheezing Last Admin: 03/01/21 17:14 Dose: 3 ml Documented by: Bisacodyl (Bisacodyl 10 Mg Supp) 10 mg RECTAL ONETIME PRN PRN Reason: Constipation Diphenhydramine HCl (Diphenhydramine 50 Mg/Ml Sdv) 25 mg IVPUSH Q6H PRN PRN Reason: Itching or Nausea Docusate Sodium (Docusate Sodium 100 Mg Cap) 100 mg PO BID [facility] Last Admin: 03/02/21 09:35 Dose: 100 mg Documented by: Furosemide (Furosemide 40 Mg/4 Ml Vial) 40 mg IVPUSH Q8H [facility] Tranexamic Acid 1,000 mg/ (Sodium Chloride) 110 mls @ 660 mls/hr IV ONETIME PRN PRN Reason: Bleeding Meropenem/Sodium Chloride 1 gm (/ Premix) 50 mls @ 100 mls/hr IV Q8H [facility] Last Admin: 03/02/21 08:29 Dose: 100 mls/hr Documented by: Vancomycin HCl 1.25 gm/ Sodium (Chloride) 250 mls @ 166.667 mls/hr IV Q12H [facility] Last Admin: 03/02/21 04:00 Dose: 166.667 mls/hr Documented by: Azithromycin 500 mg/ Sodium (Chloride) 250 mls @ 250 mls/hr IV DAILY [facility] Last Admin: 03/02/21 09:57 Dose: 250 mls/hr Documented by: Ibuprofen (Ibuprofen 800 Mg Tab) 800 mg PO Q8H PRN PRN Reason: mild pain or fever Lorazepam (Lorazepam 2 Mg/Ml Sdv) 1 mg IVPUSH Q4H PRN PRN Reason: Withdrawal Symptoms Last Admin: 03/02/21 00:13 Dose: 1 mg Documented by: Methylergonovine Maleate (Methylergonovine 0.2 Mg/1 Ml Amp) 0.2 mg IM ONETIME PRN PRN Reason: Excessive Vaginal Bleeding Morphine Sulfate (Morphine 2 Mg/Ml Syringe) 2 mg IVPUSH Q4H PRN PRN Reason: Pain (moderate 4-6) Last Admin: 03/02/21 13:49 Dose: 2 mg Documented by: Nalbuphine HCl (Nalbuphine 10 Mg/1 Ml Vial) 10 mg IVPUSH Q1H PRN PRN Reason: Pain (severe 7-10) Ondansetron HCl (Ondansetron 4 Mg/2 Ml Sdv) 4 mg IVPUSH Q4H PRN PRN Reason: Nausea/Vomiting Oxycodone/Acetaminophen (Acetaminophen/Oxycodone 325-5 Mg Tab) 1 tab PO Q4H PRN PRN Reason: Pain (severe 7-10) Oxycodone/Acetaminophen (Acetaminophen/Oxycodone 325-5 Mg Tab) 2 tab PO Q4H PRN PRN Reason: Pain (severe 7-10) Last Admin: 03/02/21 09:35 Dose: 2 tab Documented by: Sodium Chloride (Sodium Chloride 0.9% 10 Ml Syringe) 10 ml FLUSH ASDIRECTED PRN PRN Reason: Keep Vein Open Sodium Chloride (Sodium Chloride 0.9% 2.5 Ml Syringe) 2.5 ml FLUSH ASDIRECTED PRN PRN Reason: Keep Vein Open Vancomycin HCl (Pharmacy To Dose - Vancomycin) 0 dose .XX ASDIRECTED KATHERINE Discontinued Medications Butorphanol Tartrate (Butorphanol 1 Mg/Ml Sdv) 1 mg IVPUSH Q1H PRN PRN Reason: Pain (severe 7-10) Carboprost Tromethamine (Carboprost Tromethamine 250 Mcg/1 Ml Amp) 250 mcg IM ASDIRECTED PRN PRN Reason: Post Hemorrhage Cefazolin Sodium (Cefazolin 1 Gm Vial) Confirm Administered Dose 2 gm .ROUTE .STK-MED ONE Stop: 02/26/21 03:45 Citric Acid/Sodium Citrate (Citric Acid/Sodium Citrate Solution 30 Ml Cup) 30 ml PO ONETIME ONE Stop: 02/26/21 02:01 Last Admin: 02/26/21 05:17 Dose: Not Given Documented by: Diphenhydramine HCl (Diphenhydramine 50 Mg/Ml Sdv) 12.5 mg IVPUSH Q2H PRN PRN Reason: Itching Emollient Ointment (Lanolin 100% Cream 7 Gm Tube) 0 gm TOP ASDIRECTED PRN PRN Reason: Sore Nipples Ephedrine Sulfate (Ephedrine 50 Mg/Ml Sdv) 10 mg IVPUSH Q5M PRN PRN Reason: Hypotension Fentanyl (Fentanyl 100 Mcg/2 Ml Sdv) Confirm Administered Dose 100 mcg .ROUTE .STK-MED ONE Stop: 02/26/21 02:45 Fentanyl (Fentanyl 100 Mcg/2 Ml Sdv) 50 mcg IVPUSH Q1H PRN PRN Reason: Pain (severe 7-10) Furosemide (Furosemide 20 Mg/2 Ml Vial) 40 mg IVPUSH NOW ONE Stop: 02/27/21 09:02 Last Admin: 02/27/21 09:17 Dose: 40 mg Documented by: Furosemide (Furosemide 40 Mg/4 Ml Vial) 40 mg IVPUSH NOW ONE Stop: 03/01/21 15:43 Last Admin: 03/01/21 15:53 Dose: 40 mg Documented by: Furosemide (Furosemide 40 Mg/4 Ml Vial) 40 mg IVPUSH DAILY [facility] Last Admin: 03/02/21 09:36 Dose: 40 mg Documented by: Furosemide (Furosemide 20 Mg/2 Ml Vial) 20 mg IVPUSH NOW ONE Stop: 03/01/21 23:40 Last Admin: 03/01/21 23:50 Dose: 20 mg Documented by: Furosemide (Furosemide 40 Mg/4 Ml Vial) 40 mg IVPUSH Q8H [facility] Last Admin: 03/02/21 14:05 Dose: Not Given Documented by: Hydrochlorothiazide (Hydrochlorothiazide 12.5 Mg Cap) 12.5 mg PO BEDTIME [facility] Last Admin: 02/28/21 20:00 Dose: 12.5 mg Documented by: Lactated Ringer's (Ringers, Lactated) 1,000 mls @ 500 mls/hr IV BOLUS [facility] Last Admin: 02/26/21 02:20 Dose: 500 mls/hr Documented by: Oxytocin/Sodium Chloride (Oxytocin 30 Unit/500 Ml-Ns) 30 unit in 500 mls @ 250 mls/hr IV TITRATE [facility] Lactated Ringer's (Ringers, Lactated) 1,000 mls @ 150 mls/hr IV ASDIRECTED [facility] Last Infusion: 02/28/21 08:50 Dose: 50 mls/hr Documented by: Sodium Chloride (Normal Saline) Confirm Administered Dose 20 mls @ as directed .ROUTE .STK-MED ONE Stop: 02/26/21 03:45 Lactated Ringer's (Ringers, Lactated) 1,000 mls @ 125 mls/hr IV ASDIRECTED KATHERINE Last Infusion: 02/28/21 01:00 Dose: Infused Documented by: Tranexamic Acid 1,000 mg/ (Sodium Chloride) 110 mls @ 660 mls/hr IV ONETIME PRN PRN Reason: Bleeding Clindamycin Phosphate 600 mg/ (Sodium Chloride) 54 mls @ 100 mls/hr IV Q6H KATHERINE Clindamycin Phosphate 900 mg/ (Premix) 75 mls @ 150 mls/hr IV Q6H KATHERINE Clindamycin Phosphate 600 mg/ (Premix) 50 mls @ 100 mls/hr IV Q6H [facility] Last Admin: 03/01/21 15:53 Dose: 100 mls/hr Documented by: Cefazolin Sodium/Dextrose 1 gm (/ Premix) 50 mls @ 100 mls/hr IV Q8H [facility] Last Admin: 03/01/21 14:00 Dose: 100 mls/hr Documented by: Lactated Ringer's (Ringers, Lactated) 1,000 mls @ 50 mls/hr IV ASDIRECTED [facility] Last Infusion: 03/01/21 08:30 Dose: 10 mls/hr Documented by: Lactated Ringer's (Ringers, Lactated) 1,000 mls @ 10 mls/hr IV ASDIRECTED [facility] Magnesium Sulfate 2 gm/ Premix 50 mls @ 12.5 mls/hr IV ONETIME ONE Stop: 03/01/21 15:23 Last Admin: 03/01/21 11:43 Dose: 12.5 mls/hr Documented by: Furosemide 40 mg/ Sodium (Chloride) 54 mls @ 100 mls/hr IV Q12H [facility] Last Admin: 03/01/21 17:30 Dose: Not Given Documented by: Iopamidol (Iopamidol 755 Mg/Ml 500 Ml Multipack Bottle) 75 ml IVPUSH ONETIME STA Stop: 03/02/21 13:47 Last Admin: 03/02/21 13:46 Dose: 75 ml Documented by: Ketorolac Tromethamine (Ketorolac 30 Mg/Ml Sdv) Confirm Administered Dose 30 mg .ROUTE .STK-MED ONE Stop: 02/26/21 03:28 Ketorolac Tromethamine (Ketorolac 30 Mg/Ml Sdv) 30 mg IVPUSH Q6H [facility] Stop: 02/27/21 04:01 Last Admin: 02/27/21 04:10 Dose: 30 mg Documented by: Labetalol HCl (Labetalol 100 Mg Tab) 200 mg PO DAILY [facility] Last Admin: 03/01/21 08:48 Dose: 200 mg Documented by: Lidocaine HCl (Lidocaine 1% 50 Ml Mdv) 50 ml INJECT ONETIME PRN PRN Reason: Laceration repair Lisinopril (Lisinopril 5 Mg Tab) 5 mg PO DAILY [facility] Lorazepam (Lorazepam 2 Mg/Ml Sdv) 1 mg IVPUSH ONETIME ONE Stop: 03/01/21 11:15 Last Admin: 03/01/21 11:44 Dose: 1 mg Documented by: Lorazepam (Lorazepam 2 Mg/Ml Sdv) 2 mg IVPUSH ONETIME ONE Stop: 03/02/21 00:15 Last Admin: 03/02/21 00:25 Dose: 2 mg Documented by: Metoprolol Tartrate (Metoprolol Tartrate 25 Mg Tab) 25 mg PO BID [facility] Miscellaneous Medication (Phenylephrine Hcl In 0.9% Nacl 1 Mg/10 Ml Syringe) Con firm Administered Dose 1 mg .ROUTE .STK-MED ONE Stop: 02/26/21 03:28 Misoprostol (Misoprostol 200 Mcg Tab) 200 mcg PO ONETIME PRN PRN Reason: Post Hemorrhage Misoprostol (Misoprostol 200 Mcg Tab) 1,000 mcg RECTAL ONETIME PRN PRN Reason: excessive bleeding Morphine Sulfate (Morphine Pf 10 Mg/10 Ml Sdv) Confirm Administered Dose 10 mg .ROUTE .STK-MED ONE Stop: 02/26/21 02:46 Morphine Sulfate (Morphine 4 Mg/Ml Syringe) 4 mg IVPUSH Q4H PRN PRN Reason: Pain (moderate 4-6) Last Admin: 03/01/21 23:24 Dose: 4 mg Documented by: Nalbuphine HCl (Nalbuphine 10 Mg/1 Ml Vial) 5 mg IVPUSH ASDIRECTED PRN PRN Reason: Itching Naloxone HCl (Naloxone 0.4 Mg/Ml Syringe) 0.1 mg IVPUSH ONETIME PRN PRN Reason: Respiratory Depression Stop: 02/27/21 04:19 Octyl Cyanoacrylate (Octyl 2-Cyanoacrylate 1 Tube) Confirm Administered Dose 1 applic .ROUTE .STK-MED ONE Stop: 02/26/21 05:03 Ondansetron HCl (Ondansetron 4 Mg/2 Ml Sdv) Confirm Administered Dose 4 mg .ROUTE .STK-MED ONE Stop: 02/26/21 03:28 Ondansetron HCl (Ondansetron 4 Mg/2 Ml Sdv) 4 mg IVPUSH Q6H PRN PRN Reason: Nausea Oxycodone/Acetaminophen (Acetaminophen/Oxycodone 325-5 Mg Tab) 2 tab PO Q6H PRN PRN Reason: Pain (moderate 4-6) Last Admin: 02/26/21 06:53 Dose: 2 tab Documented by: Oxytocin (Oxytocin 10 Units/1 Ml Sdv) Confirm Administered Dose 30 unit .ROUTE .STK-MED ONE Stop: 02/26/21 03:28 Oxytocin (Oxytocin 10 Units/1 Ml Sdv) 10 unit IM ASDIRECTED PRN PRN Reason: Excessive Vaginal Bleeding Sterile Water (Water For Irrigation,Sterile 1,000 Ml Container) 1,000 ml IRR ASDIRECTED PRN PRN Reason: delivery - Exam Quality Assessment: No: Supplemental Oxygen Central Line Total Time: 2Days 20Hours Urinary Catheter Total Time: 4Days 4Hours General: Alert, Oriented Neck: Supple Lungs: Normal Respiratory Effort, Decreased Breath Sounds, Crackles, Rales Cardiovascular: Regular Rhythm, Tachycardia, Murmurs GI/Abdominal Exam: Normal Bowel Sounds, Soft, Guarding, Tender. No: Hepatomegaly, Splenomegaly Extremities: Normal Range of Motion, Pedal Edema - Patient Data Lab Results Last 24 hrs: Laboratory Results - last 24 hr 03/01/21 03/01/21 03/02/21 Range/Units 11:30 16:30 05:50 WBC 23.04 H (4.0-11.0) K/uL RBC 3.25 L (4.30-5.90) M/uL Hgb 9.6 L (12.0-16.0) g/dL Hct 27.2 L (36.0-46.0) % MCV 83.7 (80.0-98.0) fL MCH 29.5 (27.0-32.0) pg MCHC 35.3 (31.0-37.0) g/dL RDW Std Deviation 45.6 (28.0-62.0) fl RDW Coeff of Idalmis 15 (11.0-15.0) % Plt Count 262 (150-400) K/uL MPV 9.10 (7.40-12.00) fL Add Manual Diff YES Neutrophils % (Manual) 80 (48.0-80.0) % Band Neutrophils % 10 % Lymphocytes % (Manual) 8 L (16.0-40.0) % Monocytes % (Manual) 2 (0.0-15.0) % Nucleated RBC % 0.0 /100WBC Absolute Seg Neuts 18.4 H (1.4-5.7) Band Neutrophils # 2.3 Lymphocytes # (Manual) 1.8 (0.6-2.4) Monocytes # (Manual) 0.5 (0.0-0.8) Nucleated RBCs # 0 K/uL Sodium (136-145) mmol/L Potassium (3.5-5.1) mmol/L Chloride (98-107) mmol/L Carbon Dioxide (21.0-32.0) mmol/L BUN (7.0-18.0) mg/dL Creatinine (0.6-1.0) mg/dL Est Cr Clr Drug Dosing mL/min Estimated GFR (MDRD) ml/min Glucose (74-106) mg/dL Calcium (8.5-10.1) mg/dL Phosphorus (2.6-4.7) mg/dL Magnesium (1.8-2.4) mg/dL Total Bilirubin (0.2-1.0) mg/dL AST (15-37) IU/L ALT (14-63) IU/L Alkaline Phosphatase (46-116) U/L Troponin I < 0.050 (0.000-0.056) ng/mL B-Natriuretic Peptide (<100) PG/ML Total Protein (6.4-8.2) g/dL Albumin (3.4-5.0) g/dL Globulin (2.6-4.0) g/dL Albumin/Globulin Ratio (0.9-1.6) Ur Urea Nitrogen Conc 389 mg/dL 03/02/21 03/02/21 03/02/21 Range/Units 05:50 05:50 05:50 WBC (4.0-11.0) K/uL RBC (4.30-5.90) M/uL Hgb (12.0-16.0) g/dL Hct (36.0-46.0) % MCV (80.0-98.0) fL MCH (27.0-32.0) pg MCHC (31.0-37.0) g/dL RDW Std Deviation (28.0-62.0) fl RDW Coeff of Idalmis (11.0-15.0) % Plt Count (150-400) K/uL MPV (7.40-12.00) fL Add Manual Diff Neutrophils % (Manual) (48.0-80.0) % Band Neutrophils % % Lymphocytes % (Manual) (16.0-40.0) % Monocytes % (Manual) (0.0-15.0) % Nucleated RBC % /100WBC Absolute Seg Neuts (1.4-5.7) Band Neutrophils # Lymphocytes # (Manual) (0.6-2.4) Monocytes # (Manual) (0.0-0.8) Nucleated RBCs # K/uL Sodium 138 (136-145) mmol/L Potassium 3.7 (3.5-5.1) mmol/L Chloride 103 (98-107) mmol/L Carbon Dioxide 23.0 (21.0-32.0) mmol/L BUN 12 (7.0-18.0) mg/dL Creatinine 1.1 H (0.6-1.0) mg/dL Est Cr Clr Drug Dosing 64.11 mL/min Estimated GFR (MDRD) > 60.0 ml/min Glucose 83 (74-106) mg/dL Calcium 7.6 L (8.5-10.1) mg/dL Phosphorus 5.0 H (2.6-4.7) mg/dL Magnesium 1.8 (1.8-2.4) mg/dL Total Bilirubin 0.6 (0.2-1.0) mg/dL AST 25 (15-37) IU/L ALT 14 (14-63) IU/L Alkaline Phosphatase 155 H (46-116) U/L Troponin I (0.000-0.056) ng/mL B-Natriuretic Peptide 2364 H (<100) PG/ML Total Protein 5.2 L (6.4-8.2) g/dL Albumin 1.4 L (3.4-5.0) g/dL Globulin 3.8 (2.6-4.0) g/dL Albumin/Globulin Ratio 0.4 L (0.9-1.6) Ur Urea Nitrogen Conc mg/dL Result Diagrams: 03/02/21 05:50 03/02/21 05:50 Fabián Results Last 24 hrs: Microbiology 03/01/21 10:30 Aerobic Blood Culture - Preliminary Blood - Venous NO GROWTH AFTER 1 DAY Anaerobic Blood Culture - Preliminary NO GROWTH AFTER 1 DAY 03/01/21 10:40 Aerobic Blood Culture - Preliminary Blood - Venous - Lab Draw NO GROWTH AFTER 1 DAY Anaerobic Blood Culture - Preliminary NO GROWTH AFTER 1 DAY Sepsis Event Note - Evaluation Sepsis Screening Result: Sepsis Risk - Focused Exam Vital Signs: Vital Signs Temp Resp BP Pulse Ox 03/02/21 11:00 36.5 C 18 137/93 H 93 L 03/02/21 10:00 21 H 155/111 H 94 L 03/02/21 09:00 37.7 C 23 H 150/98 H 96 03/02/21 08:00 25 H 145/99 H 98 03/02/21 07:00 24 H 151/107 H 100 03/02/21 06:00 37.0 C 23 H 147/94 H 99 03/02/21 05:00 37.2 C 24 H 140/96 H 98 03/02/21 04:00 37.1 C 25 H 145/91 H 98 03/02/21 03:00 37.6 C 22 H 148/101 H 93 L - Problem List & Annotations (1) Sepsis SNOMED Code(s): 15523040 Code(s): A41.9 - SEPSIS, UNSPECIFIED ORGANISM Status: Acute Current Visit: Yes (2) Prolonged rupture of membranes SNOMED Code(s): 28501327 Code(s): O42.90 - MIRIAN ROM, 7TH0 BETW RUPT & ONST LABR, UNSP WEEKS OF GEST Status: Acute Current Visit: Yes (3) Cardiomyopathy SNOMED Code(s): 19507631 Code(s): I42.9 - CARDIOMYOPATHY, UNSPECIFIED Status: Acute Current Visit: Yes (4) Drug abuse, amphetamine type SNOMED Code(s): 54471155 Code(s): F15.10 - OTHER STIMULANT ABUSE, UNCOMPLICATED Status: Acute Current Visit: Yes (5) Anxiety SNOMED Code(s): 92621216 Code(s): F41.9 - ANXIETY DISORDER, UNSPECIFIED Status: Acute Current Visit: Yes (6) Status post repeat low transverse section SNOMED Code(s): 554591309, 80067724, 480851989, 292015107, 109525410 Code(s): Z98.891 - HISTORY OF UTERINE SCAR FROM PREVIOUS SURGERY Status: Acute Priority: High Current Visit: Yes (7) Acute systolic heart failure SNOMED Code(s): 285210358 Code(s): I50.21 - ACUTE SYSTOLIC (CONGESTIVE) HEART FAILURE Status: Acute Current Visit: Yes (8) Acute respiratory failure with hypoxia SNOMED Code(s): 27565348, 625223458 Code(s): J96.01 - ACUTE RESPIRATORY FAILURE WITH HYPOXIA Status: Acute Current Visit: Yes - Problem List Review Problem List Initiated/Reviewed/Updated: Yes - My Orders Last 24 Hours: My Active Orders 03/01/21 16:30 Meropenem Premix [Meropenem in NS 1 GM/50 ML] 1 gm Premix Bag 1 bag IV Q8H Pharmacy to Dose - Vancomycin See Dose Instructions .XX ASDIRECTED 03/01/21 16:47 LORazepam [Ativan] 1 mg IVPUSH Q4H PRN 03/01/21 17:00 Vancomycin 1.25 gm Sodium Chloride 0.9% [Normal Saline (AdvBag)] 250 ml IV Q12H 03/01/21 23:59 BIPAP [RT BiPAP/CPAP] [RC] ASDIRECTED Morphine 2 mg IVPUSH Q4H PRN 03/02/21 17:00 Furosemide [Lasix] 40 mg IVPUSH Q8H - Assessment Assessment:: S/P C/section with prolong rapture of thev membranes complicated with Endometritis and Anemia. I am planinng to start her on antibiotic, have Anesthesia place a central line for blood transfusion. I am also given the Pt. Larix. 02/28/21 The patient condition is improving she is continued to be afebrile her heart rate is coming down she continued to diurese her leg and hand edema is decreasing. Her hemoglobin improved to 8.6 after 2 units of blood transfusion her white count is trending down. Abdominal examination is the abdomen is less tender, was present and the patient is passing day's and she is expressed her desire to have some food I'm planning to start her on liquid diet today. Her IV fluid intake is diminished to 50 mL per hour to keep the vein open to continue the IV antibiotic. Head endometritis is resolving her white count is trending down we will continue the IV antibiotic finding to keep her in the unit tomorrow. 03/01/21 The patient according to the echocardiograms and chest x-ray she is in pulmonary edema and most likely in a congestive heart failure due to her F amphetamine abuse I consulted with the hospitalist and the eICU custom bow maker and is to give her diuretic to diurese the patient and his her issue is the mostly is medical now I am going to 2 minutes the hospitalist and the EEG ICU custom bow maker salesforce consultant to manage a patient at this time. - Plan Plan:: 25-year-old female currently admitted in ICU secondary to sepsis, acute systolic heart failure resulting in acute hypoxic respiratory failure Continue supportive care with oxygen to keep pulse ox more than 92%, currently on room air Patient is currently in acute CHF exacerbation, underlying cardiomyopathy could be secondary to patient's history of drug abuse versus cardiomyo curtis? We will start scheduled Lasix 40 mg IV every 8 hours After patient's renal status is optimized patient needs to be started on appropriate cardiac regimen including a beta-rodriguez, PHILOMENA inhibitor and daily Lasix Continue broad-spectrum antibiotics with vancomycin and meropenem, We will follow up on blood cultures CT chest and abdomen noted. CT chest significant for possible pneumonia as well as superimposed pulmonary edema and bilateral pleural effusions, right better than the left Currently patient has been weaned off to room air so I do not believe that immediate thoracocentesis is warranted. Currently my suspicion for empyema is low given that patient does have acute systolic heart failure and likely the effusion is transudative due to fluid overload. If patient's white count keeps getting worse or her sepsis does not resolve then will consider transfer to higher level of care for possible thoracentesis and further cardiac work-up will obtain a CTA chest (overnight CTA could not be obtained due to issues with IV) to rule out PE. CT abdomen findings including hematoma and gas discussed with the primary team, Dr. Anderson believes dose of normal postop changes and are not of any immediate concern IV Ativan as needed for withdrawal symptoms, anxiety every 4 hours Continue IV Benadryl for itching Continue morphine and oral opioids for pain control, will wean off morphine as tolerated Patient will need a close follow-up with cardiology upon discharge for further diagnostic work-up of her cardiomyopathy Encourage incentive spirometry Continue duo nebs as needed Out of bed to chair as tolerated Continue with inpatient route of care per primary team.
--- NOTE | 2021-03-02 14:28 | CT ---
Indication: Hypoxia and swelling, recent and history of meth use with heart failure Technique: Volumetric multidetector CT images of the chest were obtained after the administration of IV contrast. 75 cc Isovue 370 low osmolar intravenous contrast Comparison: CT chest without contrast dated March 02, 2021 Findings: The thoracic inlet and thyroid gland are unremarkable. The thoracic aorta is nonaneurysmal. There is no central filling defect to suggest pulmonary embolism. There are mildly reactive appearing mediastinal and hilar lymph nodes. The trachea and bronchi are well aerated without significant bronchiectasis. There are right greater than left basilar pleural effusions with adjacent compressive atelectasis with developing ground-glass and airspace opacities within the upper lobes which may represent developing multifocal infiltrates versus pulmonary edema. There is no evidence of pulmonary mass or suspicious pulmonary nodule. The partially visualized upper abdominal viscera are within normal limits. The thoracic vertebral body heights remain intact alignment without significant degenerative change or acute osseous abnormality. Impression: No evidence of pulmonary embolus. Right greater than left basilar pleural effusions with adjacent compressive atelectasis versus infiltrates with extensive interstitial and airspace opacities of the bilateral hemithoraces likely representing developing pulmonary edema versus multifocal infiltrates. Please note that all CT scans at this facility use dose modulation, iterative reconstruction, and/or weight-based dosing when appropriate to reduce radiation dose to as low as reasonably achievable. Dictated by Malachi Hui MD @ 03/02/2021 2:27:[address] Malachi Hui @ Mar 02 2021 2:27PM
[2021-03-02 18:33] LABS: BLOOD UREA NITROGEN,BUN 12 mg/dL (7.0-18.0); CHLORIDE,CL 99 mmol/L (98-107); GLUCOSE RANDOM 97 mg/dL (74-106); POTASSIUM,K 3.6 mmol/L (3.5-5.1); SODIUM,NA 137 mmol/L (136-145)
[2021-03-02] MEDS: Lisinopril 5 MG Tab PO SCH (19:58)
--- NOTE | 2021-03-02 22:11 | PCM.EKG ---
#1 Interpretation EKG Date: 03/02/21 Rhythm: NSR Rate (Beats/Min): 121 [place]: Normal P-Wave: Present EKG Interpretation Comments: sinus tachycardia, b/l atrial enlargement, non specific T wave abnormalities, no ST/T wave elevations to suggest acute ischemia
[2021-03-03] MEDS: Meropenem Premix 1 GM in Premix Bag 1 BAG IV SCH ×3 (00:08→16:05)
[2021-03-03] MEDS: Furosemide 40 MG/4 ML VIAL IVPUSH SCH ×3 (00:08→16:27)
[2021-03-03] MEDS: LORazepam 2 MG/ML SDV IVPUSH PRN ×2 (03:31→22:33)
[2021-03-03 05:47] LABS: BLOOD UREA NITROGEN,BUN 13 mg/dL (7.0-18.0); CHLORIDE,CL 99 mmol/L (98-107); GLUCOSE RANDOM 93 mg/dL (74-106); POTASSIUM,K 3.4 mmol/L (3.5-5.1); SODIUM,NA 137 mmol/L (136-145)
[2021-03-03] MEDS: Azithromycin 500 MG in Sodium Chloride 0.9% 250 ML IV SCH (08:25)
[2021-03-03] MEDS: Docusate Sodium 100 MG Cap PO SCH ×2 (08:25→20:37)
[2021-03-03] MEDS: Lisinopril 5 MG Tab PO SCH (08:26)
[2021-03-03] MEDS ORDERED: Magnesium Sulfate/Water 4 GM in Premix Bag 1 BAG IV ONE (08:47)
[2021-03-03] MEDS ORDERED: Potassium Chloride 20 MEQ Tab.ER PO ONE (08:47)
[2021-03-03] MEDS: Carvedilol 3.125 MG Tab PO SCH ×2 (11:39→20:37)
[2021-03-03] MEDS: Polyethylene Glycol 3350 Powder 17 GM Packet PO PRN (11:40)
--- NOTE | 2021-03-03 12:09 | PCM.PN ---
- General Info Date of Service: 03/03/21 Admission Dx/Problem (Free Text): Patient Status Order with Admit Dx/Problem 02/26/21 01:05 Patient Status [ADT] Routine Admission Diagnosis/Problem Admission Diagnosis/Problem 02/26/21 02:15 Elisa is a 25 yo current PPD1 s/p repeat LTCS at ~ 37+3 weeks gestation (UMM(LMP) 03/16/2021) without care. A neg/ Rh pos; RhoGam declined by patient last night, "I have never needed that before...". RI, GBS neg. Ax: amoxicillin. Elevation of WBCs noted upon admission, prolonged ROM x 2 days noted. Blanche-operative antibiotics administered. Clindamycin 600 mg IV q [address] Stokes yesterday. Patient C/O severe pain 10/10 and irritability not alleviated with PO/IV analgesias. Severe itching and scratching behaviors noted upon exam, likely related to medication SEs and/or methamphetamine withdrawal. Continued C/O "really bad swelling to my leg and feet", 2-3+ pitting edema BLE and labia. Tachycardia and low urine output noted yesterday evening, EBL ~600 ml during LTCS yesterday; 1000 ml IV LR bolus completed yesterday followed by 12.5 mg HCTZ PO once for BLE pitting edema. Ample clear, yellow urine noted from mendez catheter. Tachycardia and mild hypertension noted, VSs otherwise stable. Plan to repeat CBC, CMP this am, collection pending. Pertinent hx includes: tachycardia and murmur treated with labetolol ([id number]), anxiety, THC use night (last used 1 night ago), methamphetamine use 2 days ago. Social/case work consulted, visited with patient last night, plan still pending. Early US completed in at [facility] as patient was considering at that time; procedure not completed. Otherwise no care this . Ax: amoxicillin. See medical, surgical, social, medication history. Subjective Update: Patient seen at bedside, resting in bed comfortably, mild diaphoresis noted, pain is better controlled, still has not had a bowel movement but is passing gas. Oxygen requirement is 1 to 2 L, heart rate is better. Functional Status: Reports: Pain Controlled, Tolerating Diet, Ambulating, Urinating - Review of Systems General: Reports: Weakness, Fatigue. Denies: Fever Pulmonary: Reports: Shortness of Breath, Cough. Denies: Pleuritic Chest Pain Cardiovascular: Reports: Dyspnea on Exertion. Denies: Chest Pain, Palpitations Gastrointestinal: Reports: Constipation. Denies: Abdominal Pain, Decreased Appetite, Diarrhea, Nausea, Vomiting Genitourinary: Denies: Dysuria, Frequency, Burning Musculoskeletal: Denies: Neck Pain, Shoulder Pain, Arm Pain Neurological: Denies: Confusion, Dizziness, Headache Psychiatric: Reports: Mood Lability. Denies: Confusion, Depression - Patient Data Vitals - Most Recent: Last Vital Signs Temp 37.4 C 03/03/21 11:00 Pulse 107 H 03/03/21 11:39 Resp 23 H 03/03/21 11:00 BP 153/96 H 03/03/21 11:39 Pulse Ox 96 03/03/21 11:00 Weight - Most Recent: 78.063 kg I&O - Last 24 Hours: Intake & Output 03/02/21 03/03/21 03/03/21 22:59 06:59 14:59 Intake Total 1170 120 150 Output Total 2980 1950 Balance -1810 -1830 150 Lab Results Last 24 Hours: Laboratory Results - last 24 hr 03/02/21 03/02/21 03/03/21 Range/Units 17:57 20:58 04:48 WBC 20.84 H (4.0-11.0) K/uL RBC 3.28 L (4.30-5.90) M/uL Hgb 9.5 L (12.0-16.0) g/dL Hct 27.7 L (36.0-46.0) % MCV 84.5 (80.0-98.0) fL MCH 29.0 (27.0-32.0) pg MCHC 34.3 (31.0-37.0) g/dL RDW Std Deviation 46.0 (28.0-62.0) fl RDW Coeff of Idalmis 15 (11.0-15.0) % Plt Count 276 (150-400) K/uL MPV 9.30 (7.40-12.00) fL Add Manual Diff YES Neutrophils % (Manual) 77 (48.0-80.0) % Lymphocytes % (Manual) 13 L (16.0-40.0) % Monocytes % (Manual) 8 (0.0-15.0) % Eosinophils % (Manual) 1 (0.0-7.0) % Metamyelocytes % 1 % Nucleated RBC % 0.0 /100WBC Absolute Seg Neuts 16.0 H (1.4-5.7) Lymphocytes # (Manual) 2.7 H (0.6-2.4) Monocytes # (Manual) 1.7 H (0.0-0.8) Eosinophils # (Manual) 0.2 (0.0-0.7) Absolute Metamyelocyte 0.2 Nucleated RBCs # 0 K/uL Sodium 137 (136-145) mmol/L Potassium 3.6 (3.5-5.1) mmol/L Chloride 99 (98-107) mmol/L Carbon Dioxide 29.0 (21.0-32.0) mmol/L BUN 12 (7.0-18.0) mg/dL Creatinine 1.0 (0.6-1.0) mg/dL Est Cr Clr Drug Dosing 70.52 mL/min Estimated GFR (MDRD) > 60.0 ml/min Glucose 97 (74-106) mg/dL Calcium 8.1 L (8.5-10.1) mg/dL Phosphorus (2.6-4.7) mg/dL Magnesium (1.8-2.4) mg/dL Troponin I 0.060 H* 0.065 H* (0.000-0.056) ng/mL B-Natriuretic Peptide (<100) PG/ML 03/03/21 03/03/21 03/03/21 Range/Units 04:48 04:48 04:48 WBC (4.0-11.0) K/uL RBC (4.30-5.90) M/uL Hgb (12.0-16.0) g/dL Hct (36.0-46.0) % MCV (80.0-98.0) fL MCH (27.0-32.0) pg MCHC (31.0-37.0) g/dL RDW Std Deviation (28.0-62.0) fl RDW Coeff of Idalmis (11.0-15.0) % Plt Count (150-400) K/uL MPV (7.40-12.00) fL Add Manual Diff Neutrophils % (Manual) (48.0-80.0) % Lymphocytes % (Manual) (16.0-40.0) % Monocytes % (Manual) (0.0-15.0) % Eosinophils % (Manual) (0.0-7.0) % Metamyelocytes % % Nucleated RBC % /100WBC Absolute Seg Neuts (1.4-5.7) Lymphocytes # (Manual) (0.6-2.4) Monocytes # (Manual) (0.0-0.8) Eosinophils # (Manual) (0.0-0.7) Absolute Metamyelocyte Nucleated RBCs # K/uL Sodium 137 (136-145) mmol/L Potassium 3.4 L (3.5-5.1) mmol/L Chloride 99 (98-107) mmol/L Carbon Dioxide 28.0 (21.0-32.0) mmol/L BUN 13 (7.0-18.0) mg/dL Creatinine 1.1 H (0.6-1.0) mg/dL Est Cr Clr Drug Dosing 69.74 mL/min Estimated GFR (MDRD) > 60.0 ml/min Glucose 93 (74-106) mg/dL Calcium 7.9 L (8.5-10.1) mg/dL Phosphorus 3.4 (2.6-4.7) mg/dL Magnesium 1.6 L (1.8-2.4) mg/dL Troponin I < 0.050 (0.000-0.056) ng/mL B-Natriuretic Peptide 1275 H (<100) PG/ML Fabián Results Last 24 Hours: Microbiology 03/01/21 10:30 Aerobic Blood Culture - Preliminary Blood - Venous NO GROWTH AFTER 2 DAYS Anaerobic Blood Culture - Preliminary NO GROWTH AFTER 2 DAYS 03/01/21 10:40 Aerobic Blood Culture - Preliminary Blood - Venous - Lab Draw NO GROWTH AFTER 2 DAYS Anaerobic Blood Culture - Preliminary NO GROWTH AFTER 2 DAYS Med Orders - Current: Current Medications Albuterol/Ipratropium (Albuterol/Ipratropium 3.0-0.5 Mg/3 Ml Neb Soln) 3 ml NEB Q4HRRT PRN PRN Reason: Wheezing Last Admin: 03/01/21 17:14 Dose: 3 ml Documented by: Bisacodyl (Bisacodyl 10 Mg Supp) 10 mg RECTAL ONETIME PRN PRN Reason: Constipation Carvedilol (Carvedilol 3.125 Mg Tab) 3.125 mg PO BID [facility] Last Admin: 03/03/21 11:39 Dose: 3.125 mg Documented by: Diphenhydramine HCl (Diphenhydramine 50 Mg/Ml Sdv) 25 mg IVPUSH Q6H PRN PRN Reason: Itching or Nausea Docusate Sodium (Docusate Sodium 100 Mg Cap) 100 mg PO BID [facility] Last Admin: 03/03/21 08:25 Dose: 100 mg Documented by: Furosemide (Furosemide 40 Mg/4 Ml Vial) 40 mg IVPUSH Q8H [facility] Last Admin: 03/03/21 08:25 Dose: 40 mg Documented by: Tranexamic Acid 1,000 mg/ (Sodium Chloride) 110 mls @ 660 mls/hr IV ONETIME PRN PRN Reason: Bleeding Meropenem/Sodium Chloride 1 gm (/ Premix) 50 mls @ 100 mls/hr IV Q8H [facility] Last Admin: 03/03/21 08:24 Dose: 100 mls/hr Documented by: Vancomycin HCl 1.25 gm/ Sodium (Chloride) 250 mls @ 166.667 mls/hr IV Q12H [facility] Last Admin: 03/03/21 04:04 Dose: 166.667 mls/hr Documented by: Azithromycin 500 mg/ Sodium (Chloride) 250 mls @ 250 mls/hr IV DAILY [facility] Last Admin: 03/03/21 08:25 Dose: 250 mls/hr Documented by: Ibuprofen (Ibuprofen 800 Mg Tab) 800 mg PO Q8H PRN PRN Reason: mild pain or fever Lisinopril (Lisinopril 5 Mg Tab) 5 mg PO DAILY [facility] Last Admin: 03/03/21 08:26 Dose: 5 mg Documented by: Lorazepam (Lorazepam 2 Mg/Ml Sdv) 1 mg IVPUSH Q4H PRN PRN Reason: Withdrawal Symptoms Last Admin: 03/03/21 03:31 Dose: 1 mg Documented by: Methylergonovine Maleate (Methylergonovine 0.2 Mg/1 Ml Amp) 0.2 mg IM ONETIME PRN PRN Reason: Excessive Vaginal Bleeding Morphine Sulfate (Morphine 2 Mg/Ml Syringe) 2 mg IVPUSH Q4H PRN PRN Reason: Pain (moderate 4-6) Last Admin: 03/02/21 13:49 Dose: 2 mg Documented by: Nalbuphine HCl (Nalbuphine 10 Mg/1 Ml Vial) 10 mg IVPUSH Q1H PRN PRN Reason: Pain (severe 7-10) Ondansetron HCl (Ondansetron 4 Mg/2 Ml Sdv) 4 mg IVPUSH Q4H PRN PRN Reason: Nausea/Vomiting Oxycodone/Acetaminophen (Acetaminophen/Oxycodone 325-5 Mg Tab) 1 tab PO Q4H PRN PRN Reason: Pain (severe 7-10) Polyethylene Glycol (Polyethylene Glycol 3350 Powder 17 Gm Packet) 17 gm PO DAILY PRN PRN Reason: constipation Last Admin: 03/03/21 11:40 Dose: 17 gm Documented by: Sodium Chloride (Sodium Chloride 0.9% 10 Ml Syringe) 10 ml FLUSH ASDIRECTED PRN PRN Reason: Keep Vein Open Sodium Chloride (Sodium Chloride 0.9% 2.5 Ml Syringe) 2.5 ml FLUSH ASDIRECTED PRN PRN Reason: Keep Vein Open Vancomycin HCl (Pharmacy To Dose - Vancomycin) 0 dose .XX ASDIRECTED KATHERINE Discontinued Medications Butorphanol Tartrate (Butorphanol 1 Mg/Ml Sdv) 1 mg IVPUSH Q1H PRN PRN Reason: Pain (severe 7-10) Carboprost Tromethamine (Carboprost Tromethamine 250 Mcg/1 Ml Amp) 250 mcg IM ASDIRECTED PRN PRN Reason: Post Hemorrhage Cefazolin Sodium (Cefazolin 1 Gm Vial) Confirm Administered Dose 2 gm .ROUTE .STK-MED ONE Stop: 02/26/21 03:45 Citric Acid/Sodium Citrate (Citric Acid/Sodium Citrate Solution 30 Ml Cup) 30 ml PO ONETIME ONE Stop: 02/26/21 02:01 Last Admin: 02/26/21 05:17 Dose: Not Given Documented by: Diphenhydramine HCl (Diphenhydramine 50 Mg/Ml Sdv) 12.5 mg IVPUSH Q2H PRN PRN Reason: Itching Emollient Ointment (Lanolin 100% Cream 7 Gm Tube) 0 gm TOP ASDIRECTED PRN PRN Reason: Sore Nipples Ephedrine Sulfate (Ephedrine 50 Mg/Ml Sdv) 10 mg IVPUSH Q5M PRN PRN Reason: Hypotension Fentanyl (Fentanyl 100 Mcg/2 Ml Sdv) Confirm Administered Dose 100 mcg .ROUTE .STK-MED ONE Stop: 02/26/21 02:45 Fentanyl (Fentanyl 100 Mcg/2 Ml Sdv) 50 mcg IVPUSH Q1H PRN PRN Reason: Pain (severe 7-10) Furosemide (Furosemide 20 Mg/2 Ml Vial) 40 mg IVPUSH NOW ONE Stop: 02/27/21 09:02 Last Admin: 02/27/21 09:17 Dose: 40 mg Documented by: Furosemide (Furosemide 40 Mg/4 Ml Vial) 40 mg IVPUSH NOW ONE Stop: 03/01/21 15:43 Last Admin: 03/01/21 15:53 Dose: 40 mg Documented by: Furosemide (Furosemide 40 Mg/4 Ml Vial) 40 mg IVPUSH DAILY [facility] Last Admin: 03/02/21 09:36 Dose: 40 mg Documented by: Furosemide (Furosemide 20 Mg/2 Ml Vial) 20 mg IVPUSH NOW ONE Stop: 03/01/21 23:40 Last Admin: 03/01/21 23:50 Dose: 20 mg Documented by: Furosemide (Furosemide 40 Mg/4 Ml Vial) 40 mg IVPUSH Q8H [facility] Last Admin: 03/02/21 14:05 Dose: Not Given Documented by: Hydrochlorothiazide (Hydrochlorothiazide 12.5 Mg Cap) 12.5 mg PO BEDTIME [facility] Last Admin: 02/28/21 20:00 Dose: 12.5 mg Documented by: Lactated Ringer's (Ringers, Lactated) 1,000 mls @ 500 mls/hr IV BOLUS [facility] Last Admin: 02/26/21 02:20 Dose: 500 mls/hr Documented by: Oxytocin/Sodium Chloride (Oxytocin 30 Unit/500 Ml-Ns) 30 unit in 500 mls @ 250 mls/hr IV TITRATE KATHERINE Lactated Ringer's (Ringers, Lactated) 1,000 mls @ 150 mls/hr IV ASDIRECTED [facility] Last Infusion: 02/28/21 08:50 Dose: 50 mls/hr Documented by: Sodium Chloride (Normal Saline) Confirm Administered Dose 20 mls @ as directed .ROUTE .STK-MED ONE Stop: 02/26/21 03:45 Lactated Ringer's (Ringers, Lactated) 1,000 mls @ 125 mls/hr IV ASDIRECTED [facility] Last Infusion: 02/28/21 01:00 Dose: Infused Documented by: Tranexamic Acid 1,000 mg/ (Sodium Chloride) 110 mls @ 660 mls/hr IV ONETIME PRN PRN Reason: Bleeding Clindamycin Phosphate 600 mg/ (Sodium Chloride) 54 mls @ 100 mls/hr IV Q6H KATHERINE Clindamycin Phosphate 900 mg/ (Premix) 75 mls @ 150 mls/hr IV Q6H KATHERINE Clindamycin Phosphate 600 mg/ (Premix) 50 mls @ 100 mls/hr IV Q6H [facility] Last Admin: 03/01/21 15:53 Dose: 100 mls/hr Documented by: Cefazolin Sodium/Dextrose 1 gm (/ Premix) 50 mls @ 100 mls/hr IV Q8H [facility] Last Admin: 03/01/21 14:00 Dose: 100 mls/hr Documented by: Lactated Ringer's (Ringers, Lactated) 1,000 mls @ 50 mls/hr IV ASDIRECTED [facility] Last Infusion: 03/01/21 08:30 Dose: 10 mls/hr Documented by: Lactated Ringer's (Ringers, Lactated) 1,000 mls @ 10 mls/hr IV ASDIRECTED [facility] Magnesium Sulfate 2 gm/ Premix 50 mls @ 12.5 mls/hr IV ONETIME ONE Stop: 03/01/21 15:23 Last Admin: 03/01/21 11:43 Dose: 12.5 mls/hr Documented by: Furosemide 40 mg/ Sodium (Chloride) 54 mls @ 100 mls/hr IV Q12H [facility] Last Admin: 03/01/21 17:30 Dose: Not Given Documented by: Magnesium Sulfate 4 gm/ Premix 100 mls @ 50 mls/hr IV ONETIME ONE Stop: 03/03/21 10:46 Last Admin: 03/03/21 09:47 Dose: 50 mls/hr Documented by: Iopamidol (Iopamidol 755 Mg/Ml 500 Ml Multipack Bottle) 75 ml IVPUSH ONETIME STA Stop: 03/02/21 13:47 Last Admin: 03/02/21 13:46 Dose: 75 ml Documented by: Ketorolac Tromethamine (Ketorolac 30 Mg/Ml Sdv) Confirm Administered Dose 30 mg .ROUTE .STK-MED ONE Stop: 02/26/21 03:28 Ketorolac Tromethamine (Ketorolac 30 Mg/Ml Sdv) 30 mg IVPUSH Q6H [facility] Stop: 02/27/21 04:01 Last Admin: 02/27/21 04:10 Dose: 30 mg Documented by: Labetalol HCl (Labetalol 100 Mg Tab) 200 mg PO DAILY [facility] Last Admin: 03/01/21 08:48 Dose: 200 mg Documented by: Lidocaine HCl (Lidocaine 1% 50 Ml Mdv) 50 ml INJECT ONETIME PRN PRN Reason: Laceration repair Lisinopril (Lisinopril 5 Mg Tab) 5 mg PO DAILY [facility] Lorazepam (Lorazepam 2 Mg/Ml Sdv) 1 mg IVPUSH ONETIME ONE Stop: 03/01/21 11:15 Last Admin: 03/01/21 11:44 Dose: 1 mg Documented by: Lorazepam (Lorazepam 2 Mg/Ml Sdv) 2 mg IVPUSH ONETIME ONE Stop: 03/02/21 00:15 Last Admin: 03/02/21 00:25 Dose: 2 mg Documented by: Metoprolol Tartrate (Metoprolol Tartrate 25 Mg Tab) 25 mg PO BID [facility] Miscellaneous Medication (Phenylephrine Hcl In 0.9% Nacl 1 Mg/10 Ml Syringe) Confirm Administered Dose 1 mg .ROUTE .STK-MED ONE Stop: 02/26/21 03:28 Misoprostol (Misoprostol 200 Mcg Tab) 200 mcg PO ONETIME PRN PRN Reason: Post Hemorrhage Misoprostol (Misoprostol 200 Mcg Tab) 1,000 mcg RECTAL ONETIME PRN PRN Reason: excessive bleeding Morphine Sulfate (Morphine Pf 10 Mg/10 Ml Sdv) Confirm Administered Dose 10 mg .ROUTE .STK-MED ONE Stop: 02/26/21 02:46 Morphine Sulfate (Morphine 4 Mg/Ml Syringe) 4 mg IVPUSH Q4H PRN PRN Reason: Pain (moderate 4-6) Last Admin: 03/01/21 23:24 Dose: 4 mg Documented by: Nalbuphine HCl (Nalbuphine 10 Mg/1 Ml Vial) 5 mg IVPUSH ASDIRECTED PRN PRN Reason: Itching Naloxone HCl (Naloxone 0.4 Mg/Ml Syringe) 0.1 mg IVPUSH ONETIME PRN PRN Reason: Respiratory Depression Stop: 02/27/21 04:19 Octyl Cyanoacrylate (Octyl 2-Cyanoacrylate 1 Tube) Confirm Administered Dose 1 applic .ROUTE .STK-MED ONE Stop: 02/26/21 05:03 Ondansetron HCl (Ondansetron 4 Mg/2 Ml Sdv) Confirm Administered Dose 4 mg .ROUTE .STK-MED ONE Stop: 02/26/21 03:28 Ondansetron HCl (Ondansetron 4 Mg/2 Ml Sdv) 4 mg IVPUSH Q6H PRN PRN Reason: Nausea Oxycodone/Acetaminophen (Acetaminophen/Oxycodone 325-5 Mg Tab) 2 tab PO Q4H PRN PRN Reason: Pain (severe 7-10) Last Admin: 03/02/21 21:07 Dose: 2 tab Documented by: Oxycodone/Acetaminophen (Acetaminophen/Oxycodone 325-5 Mg Tab) 2 tab PO Q6H PRN PRN Reason: Pain (moderate 4-6) Last Admin: 02/26/21 06:53 Dose: 2 tab Documented by: Oxytocin (Oxytocin 10 Units/1 Ml Sdv) Confirm Administered Dose 30 unit .ROUTE .STK-MED ONE Stop: 02/26/21 03:28 Oxytocin (Oxytocin 10 Units/1 Ml Sdv) 10 unit IM ASDIRECTED PRN PRN Reason: Excessive Vaginal Bleeding Polyethylene Glycol (Polyethylene Glycol 3350 Powder 17 Gm Packet) 17 gm PO ONETIME ONE Stop: 03/02/21 14:18 Last Admin: 03/02/21 14:53 Dose: 17 gm Documented by: Potassium Chloride (Potassium Chloride 20 Meq Tab.Er) 40 meq PO ONETIME ONE Stop: 03/03/21 08:48 Last Admin: 03/03/21 09:48 Dose: 40 meq Documented by: Sterile Water (Water For Irrigation,Sterile 1,000 Ml Container) 1,000 ml IRR ASDIRECTED PRN PRN Reason: delivery - Exam Quality Assessment: Supplemental Oxygen, Central Line/PICC, Urine Catheter Central Line Total Time: 4Days 0Hours Urinary Catheter Total Time: 5Days 7Hours General: Alert, Oriented Neck: Supple Lungs: Clear to Auscultation, Normal Respiratory Effort Cardiovascular: Regular Rate, Regular Rhythm GI/Abdominal Exam: Normal Bowel Sounds, Soft Back Exam: Normal Inspection, Full Range of Motion Extremities: Normal Range of Motion, Leg Pain. No: Pedal Edema, Joint Swelling, Limited Range of Motion, Increased Warmth, Mottled, Pallor Skin: Warm, Dry Neurological: No New Focal Deficit - Patient Data Lab Results Last 24 hrs: Laboratory Results - last 24 hr 03/02/21 03/02/21 03/03/21 Range/Units 17:57 20:58 04:48 WBC 20.84 H (4.0-11.0) K/uL RBC 3.28 L (4.30-5.90) M/uL Hgb 9.5 L (12.0-16.0) g/dL Hct 27.7 L (36.0-46.0) % MCV 84.5 (80.0-98.0) fL MCH 29.0 (27.0-32.0) pg MCHC 34.3 (31.0-37.0) g/dL RDW Std Deviation 46.0 (28.0-62.0) fl RDW Coeff of Idalmis 15 (11.0-15.0) % Plt Count 276 (150-400) K/uL MPV 9.30 (7.40-12.00) fL Add Manual Diff YES Neutrophils % (Manual) 77 (48.0-80.0) % Lymphocytes % (Manual) 13 L (16.0-40.0) % Monocytes % (Manual) 8 (0.0-15.0) % Eosinophils % (Manual) 1 (0.0-7.0) % Metamyelocytes % 1 % Nucleated RBC % 0.0 /100WBC Absolute Seg Neuts 16.0 H (1.4-5.7) Lymphocytes # (Manual) 2.7 H (0.6-2.4) Monocytes # (Manual) 1.7 H (0.0-0.8) Eosinophils # (Manual) 0.2 (0.0-0.7) Absolute Metamyelocyte 0.2 Nucleated RBCs # 0 K/uL Sodium 137 (136-145) mmol/L Potassium 3.6 (3.5-5.1) mmol/L Chloride 99 (98-107) mmol/L Carbon Dioxide 29.0 (21.0-32.0) mmol/L BUN 12 (7.0-18.0) mg/dL Creatinine 1.0 (0.6-1.0) mg/dL Est Cr Clr Drug Dosing 70.52 mL/min Estimated GFR (MDRD) > 60.0 ml/min Glucose 97 (74-106) mg/dL Calcium 8.1 L (8.5-10.1) mg/dL Phosphorus (2.6-4.7) mg/dL Magnesium (1.8-2.4) mg/dL Troponin I 0.060 H* 0.065 H* (0.000-0.056) ng/mL B-Natriuretic Peptide (<100) PG/ML 03/03/21 03/03/21 03/03/21 Range/Units 04:48 04:48 04:48 WBC (4.0-11.0) K/uL RBC (4.30-5.90) M/uL Hgb (12.0-16.0) g/dL Hct (36.0-46.0) % MCV (80.0-98.0) fL MCH (27.0-32.0) pg MCHC (31.0-37.0) g/dL RDW Std Deviation (28.0-62.0) fl RDW Coeff of Idalmis (11.0-15.0) % Plt Count (150-400) K/uL MPV (7.40-12.00) fL Add Manual Diff Neutrophils % (Manual) (48.0-80.0) % Lymphocytes % (Manual) (16.0-40.0) % Monocytes % (Manual) (0.0-15.0) % Eosinophils % (Manual) (0.0-7.0) % Metamyelocytes % % Nucleated RBC % /100WBC Absolute Seg Neuts (1.4-5.7) Lymphocytes # (Manual) (0.6-2.4) Monocytes # (Manual) (0.0-0.8) Eosinophils # (Manual) (0.0-0.7) Absolute Metamyelocyte Nucleated RBCs # K/uL Sodium 137 (136-145) mmol/L Potassium 3.4 L (3.5-5.1) mmol/L Chloride 99 (98-107) mmol/L Carbon Dioxide 28.0 (21.0-32.0) mmol/L BUN 13 (7.0-18.0) mg/dL Creatinine 1.1 H (0.6-1.0) mg/dL Est Cr Clr Drug Dosing 69.74 mL/min Estimated GFR (MDRD) > 60.0 ml/min Glucose 93 (74-106) mg/dL Calcium 7.9 L (8.5-10.1) mg/dL Phosphorus 3.4 (2.6-4.7) mg/dL Magnesium 1.6 L (1.8-2.4) mg/dL Troponin I < 0.050 (0.000-0.056) ng/mL B-Natriuretic Peptide 1275 H (<100) PG/ML Result Diagrams: 03/03/21 04:48 03/03/21 04:48 Fabián Results Last 24 hrs: Microbiology 03/01/21 10:30 Aerobic Blood Culture - Preliminary Blood - Venous NO GROWTH AFTER 2 DAYS Anaerobic Blood Culture - Preliminary NO GROWTH AFTER 2 DAYS 03/01/21 10:40 Aerobic Blood Culture - Preliminary Blood - Venous - Lab Draw NO GROWTH AFTER 2 DAYS Anaerobic Blood Culture - Preliminary NO GROWTH AFTER 2 DAYS Sepsis Event Note - Evaluation Sepsis Screening Result: Sepsis Risk - Focused Exam Vital Signs: Vital Signs Temp Pulse Resp BP BP Pulse Ox Pulse Ox 03/03/21 11:39 107 H 153/96 H 03/03/21 11:00 37.4 C 23 H 142/95 H 96 03/03/21 10:00 37.4 C 17 147/105 H 96 03/03/21 09:00 37.4 C 24 H 138/92 H 94 L 03/03/21 08:26 133/86 03/03/21 08:00 37.3 C 24 H 133/86 94 L 03/03/21 07:00 37.3 C 23 H 151/95 H 96 03/03/21 06:00 22 H 127/79 94 L 03/03/21 05:28 94 L 03/03/21 05:00 37.3 C 17 145/91 H 93 L 03/03/21 04:00 37.4 C 20 145/94 H 96 03/03/21 03:00 19 141/93 H 97 03/03/21 02:00 15 140/87 97 03/03/21 01:00 15 132/84 97 - Problem List & Annotations (1) Sepsis SNOMED Code(s): 29602238 Code(s): A41.9 - SEPSIS, UNSPECIFIED ORGANISM Status: Acute Current Visit: Yes (2) Prolonged rupture of membranes SNOMED Code(s): 18824855 Code(s): O42.90 - MIRIAN ROM, 7TH0 BETW RUPT & ONST LABR, UNSP WEEKS OF GEST Status: Acute Current Visit: Yes (3) Cardiomyopathy SNOMED Code(s): 97456248 Code(s): I42.9 - CARDIOMYOPATHY, UNSPECIFIED Status: Acute Current Visit: Yes (4) Drug abuse, amphetamine type SNOMED Code(s): 62111026 Code(s): F15.10 - OTHER STIMULANT ABUSE, UNCOMPLICATED Status: Acute Current Visit: Yes (5) Anxiety SNOMED Code(s): 76161256 Code(s): F41.9 - ANXIETY DISORDER, UNSPECIFIED Status: Acute Current Visit: Yes (6) Status post repeat low transverse section SNOMED Code(s): 047160340, 62042116, 683482562, 872680507, 040270912 Code(s): Z98.891 - HISTORY OF UTERINE SCAR FROM PREVIOUS SURGERY Status: Acute Priority: High Current Visit: Yes (7) Acute systolic heart failure SNOMED Code(s): 695924401 Code(s): I50.21 - ACUTE SYSTOLIC (CONGESTIVE) HEART FAILURE Status: Acute Current Visit: Yes (8) Acute respiratory failure with hypoxia SNOMED Code(s): 58152492, 202936329 Code(s): J96.01 - ACUTE RESPIRATORY FAILURE WITH HYPOXIA Status: Acute Current Visit: Yes (9) Hypomagnesemia SNOMED Code(s): 228531682 Code(s): E83.42 - HYPOMAGNESEMIA Status: Acute Current Visit: Yes (10) Hypokalemia SNOMED Code(s): 84045887 Code(s): E87.6 - HYPOKALEMIA Status: Acute Current Visit: Yes - Problem List Review Problem List Initiated/Reviewed/Updated: Yes - My Orders Last 24 Hours: My Active Orders 03/02/21 17:00 Furosemide [Lasix] 40 mg IVPUSH Q8H 03/02/21 17:21 Daily Weight [Height and Weight] [RC] DAILY 03/02/21 18:43 EKG 12 Lead [EKG Documentation Completion] [RC] ROUTINE 03/02/21 19:45 lisinopriL [Prinivil] 5 mg PO DAILY - Assessment Assessment:: S/P C/section with prolong rapture of thev membranes complicated with Endometritis and Anemia. I am planinng to start her on antibiotic, have Anesthes ia place a central line for blood transfusion. I am also given the Pt. Larix. 02/28/21 The patient condition is improving she is continued to be afebrile her heart rate is coming down she continued to diurese her leg and hand edema is decreasing. Her hemoglobin improved to 8.6 after 2 units of blood transfusion her white count is trending down. Abdominal examination is the abdomen is less tender, was present and the patient is passing day's and she is expressed her desire to have some food I'm planning to start her on liquid diet today. Her IV fluid intake is diminished to 50 mL per hour to keep the vein open to continue the IV antibiotic. Head endometritis is resolving her white count is trending down we will continue the IV antibiotic finding to keep her in the unit tomorrow. 03/01/21 The patient according to the echocardiograms and chest x-ray she is in pulmonary edema and most likely in a congestive heart failure due to her F amphetamine abuse I consulted with the hospitalist and the eICU therapeutic strategy lead and is to give her diuretic to diurese the patient and his her issue is the mostly is medical now I am going to 2 minutes the hospitalist and the EEG ICU therapeutic strategy lead it systems analyst consultant to manage a patient at this time. - Plan Plan:: 25-year-old female currently admitted in ICU secondary to sepsis, acute systolic heart failure resulting in acute hypoxic respiratory failure Continue supportive care with oxygen to keep pulse ox more than 92%, currently on 1.5 Lts NC Patient is currently in acute CHF exacerbation, underlying cardiomyopathy could be secondary to patient's history of drug abuse versus cardiomyopathy? Continue Lasix 40 mg IV every 8 hours, patient is in net negative balance, has a good urinary output, anasarca is much better today, lung sounds are better as well There was a concern of tall T waves on telemetry yesterday, EKG was done which did not show tall T waves or any acute ischemic changes, on further in vestigation the gain on the telemetry was increased density waves appeared falsely tall. Patient had no increasing chest pain or shortness of breath, troponin was slightly elevated likely secondary to demand supply ischemia secondary to tachycardia, troponin elevation has resolved now, no concern of acute coronary syndrome. Has been started on lisinopril low-dose, will start on low-dose beta-rodriguez Continue broad-spectrum antibiotics with vancomycin and meropenem, white count is still high slightly better We will follow up on blood cultures, so far negative CT chest and abdomen noted. CT chest significant for possible pneumonia as well as superimposed pulmonary edema and bilateral pleural effusions, right greater than the left, CTA of the chest noted as well, possible ongoing pneumonia on top of CHF, no PE Currently my suspicion for empyema is low given that patient does have acute s ystolic heart failure and likely the effusion is transudative due to fluid overload, continue diuresis to wean off oxygen, if unable to wean off the oxygen completely we will consider thoracentesis If patient's white count keeps getting worse or her sepsis does not resolve then will consider transfer to higher level of care for possible thoracentesis and further cardiac work-up CT abdomen findings including hematoma and gas discussed with the primary team, Dr. Anderson believes these are normal postop changes and are not of any immediate concern IV Ativan as needed for withdrawal symptoms, anxiety every 4 hours Continue IV Benadryl for itching Continue morphine and oral opioids for pain control, will wean off morphine as tolerated Will add MiraLAX as patient has not had a bowel movement yet Patient will need a close follow-up with cardiology upon discharge for further diagnostic work-up of her cardiomyopathy, will try to arrange a close follow-up upon discharge with cardiology Encourage incentive spirometry Continue duo nebs as needed Out of bed to chair as tolerated Monitor and replete electrolytes as needed keep mag more than 2 and potassium more than 4 Continue with inpatient route of care per primary team.
[2021-03-03] MEDS: Acetaminophen/oxyCODONE 325-5 MG Tab PO PRN (19:30)
--- NOTE | 2021-03-03 21:21 | PN ---
THC Physician - Brief Progress [id number]/22/2021 20:26[facility] Andino Lonny donohue, KIRBY - ROBIN (WILDER) - MULU GEORGEIANZAHEER PyaanDate of Service 03/03/2021 20:26HPI/Sharee nts of Note HPI: 25 yo female, complicated by amphetamine abuse, s/p with PROM. He r hemoglobin is improving. WBC finally started trending after antibiotics for endometritis were expan ded. Systolic CHF (according to hospitalist, based on echo) is improving with IV diuresis.OBJECTIVE:V S: 36.6C, 109, 155/108, 13, 94% (1L NC)Gen: Pleasant, comfortable, well nourishedHeart: Sinus tachyca rdia on telemetryLungs: Breathing comfortably on 1L O2 via NC with normal [id number]: Awake, alert, mo ves all 4 limbs spontaneously, no lateralizing deficits are apparentASSESSMENT:Acute systolic CHFPost cardiomyopathy - vs meth-induced CMAcute endometritisSevere sepsis without septic shockAcute p osthemorrhagic anemiaPLAN:Diuresis with IV Lasix per hospitalistStrict I/O, daily weightsCard iologist [id number] echo done, results scannedContinue empiric antibioticsMonitor cultures, temps, WBCFo llow CBC, transfuse PRBC for hgb <7.0S/P with PROMOB recsInterventions Major-Infection - ev aluation and management, Sepsis - evaluation and management
[2021-03-04] MEDS: Meropenem Premix 1 GM in Premix Bag 1 BAG IV SCH ×4 (00:49→23:56)
[2021-03-04] MEDS: Furosemide 40 MG/4 ML VIAL IVPUSH SCH ×3 (01:32→20:41)
[2021-03-04] MEDS: Acetaminophen/oxyCODONE 325-5 MG Tab PO PRN ×3 (05:36→21:16)
[2021-03-04 06:07] LABS: BLOOD UREA NITROGEN,BUN 15 mg/dL (7.0-18.0); CARBON DIOXIDE,CO2 31.4 mmol/L (21.0-32.0); CHLORIDE,CL 97 mmol/L (98-107); GLUCOSE RANDOM 81 mg/dL (74-106); POTASSIUM,K 3.1 mmol/L (3.5-5.1); SODIUM,NA 137 mmol/L (136-145)
[2021-03-04] MEDS: Morphine 2 MG/ML SYRINGE IVPUSH PRN (06:20)
[2021-03-04] MEDS: Lisinopril 5 MG Tab PO SCH (09:01)
[2021-03-04] MEDS: Docusate Sodium 100 MG Cap PO SCH ×2 (09:01→20:41)
[2021-03-04] MEDS: Azithromycin 500 MG in Sodium Chloride 0.9% 250 ML IV SCH (09:01)
[2021-03-04] MEDS: Carvedilol 3.125 MG Tab PO SCH ×2 (09:02→20:41)
--- NOTE | 2021-03-04 09:53 | PCM.PN ---
- General Info Date of Service: 03/04/21 Functional Status: Reports: Pain Controlled - Review of Systems General: Reports: No Symptoms HEENT: Reports: No Symptoms Pulmonary: Reports: No Symptoms Cardiovascular: Reports: No Symptoms Gastrointestinal: Reports: No Symptoms Genitourinary: Reports: No Symptoms Musculoskeletal: Reports: No Symptoms Skin: Reports: No Symptoms Neurological: Reports: No Symptoms Psychiatric: Reports: No Symptoms - Patient Data Vitals - Most Recent: Last Vital Signs Temp 36.6 C 03/04/21 09:00 Pulse 96 03/04/21 09:02 Resp 13 03/04/21 09:00 BP 146/75 H 03/04/21 09:02 Pulse Ox 94 L 03/04/21 09:00 Weight - Most Recent: 60.6 kg I&O - Last 24 Hours: Intake & Output 03/03/21 03/04/21 03/04/21 22:59 06:59 14:59 Intake Total 800 750 150 Output Total 1750 1550 Balance -950 -800 150 Lab Results Last 24 Hours: Laboratory Results - last 24 hr 03/04/21 03/04/21 03/04/21 Range/Units 04:57 04:57 04:57 WBC 20.23 H (4.0-11.0) K/uL RBC 3.47 L (4.30-5.90) M/uL Hgb 10.0 L (12.0-16.0) g/dL Hct 29.8 L (36.0-46.0) % MCV 85.9 (80.0-98.0) fL MCH 28.8 (27.0-32.0) pg MCHC 33.6 (31.0-37.0) g/dL RDW Std Deviation 45.4 (28.0-62.0) fl RDW Coeff of Idalmis 15 (11.0-15.0) % Plt Count 350 (150-400) K/uL MPV 8.90 (7.40-12.00) fL Add Manual Diff YES Neutrophils % (Manual) 79 (48.0-80.0) % Band Neutrophils % 1 % Lymphocytes % (Manual) 8 L (16.0-40.0) % Monocytes % (Manual) 10 (0.0-15.0) % Eosinophils % (Manual) 1 (0.0-7.0) % Metamyelocytes % 1 % Nucleated RBC % 0.0 /100WBC Absolute Seg Neuts 16.0 H (1.4-5.7) Band Neutrophils # 0.2 Lymphocytes # (Manual) 1.6 (0.6-2.4) Monocytes # (Manual) 2.0 H (0.0-0.8) Eosinophils # (Manual) 0.2 (0.0-0.7) Absolute Metamyelocyte 0.2 Nucleated RBCs # 0 K/uL Sodium 137 (136-145) mmol/L Potassium 3.1 L (3.5-5.1) mmol/L Chloride 97 L (98-107) mmol/L Carbon Dioxide 31.4 (21.0-32.0) mmol/L BUN 15 (7.0-18.0) mg/dL Creatinine 0.8 (0.6-1.0) mg/dL Est Cr Clr Drug Dosing 95.89 mL/min Estimated GFR (MDRD) > 60.0 ml/min Glucose 81 (74-106) mg/dL Calcium 8.3 L (8.5-10.1) mg/dL Phosphorus 3.7 (2.6-4.7) mg/dL Magnesium 1.9 (1.8-2.4) mg/dL B-Natriuretic Peptide 707 H (<100) PG/ML Fabián Results Last 24 Hours: Microbiology 03/01/21 10:30 Aerobic Blood Culture - Preliminary Blood - Venous NO GROWTH AFTER 2 DAYS Anaerobic Blood Culture - Preliminary NO GROWTH AFTER 2 DAYS 03/01/21 10:40 Aerobic Blood Culture - Preliminary Blood - Venous - Lab Draw NO GROWTH AFTER 2 DAYS Anaerobic Blood Culture - Preliminary NO GROWTH AFTER 2 DAYS Med Orders - Current: Current Medications Albuterol/Ipratropium (Albuterol/Ipratropium 3.0-0.5 Mg/3 Ml Neb Soln) 3 ml NEB Q4HRRT PRN PRN Reason: Wheezing Last Admin: 03/01/21 17:14 Dose: 3 ml Documented by: Carvedilol (Carvedilol 3.125 Mg Tab) 3.125 mg PO BID KATHERINE Last Admin: 03/04/21 09:02 Dose: 3.125 mg Documented by: Diphenhydramine HCl (Diphenhydramine 50 Mg/Ml Sdv) 25 mg IVPUSH Q6H PRN PRN Reason: Itching or Nausea Docusate Sodium (Docusate Sodium 100 Mg Cap) 100 mg PO BID [facility] Last Admin: 03/04/21 09:01 Dose: 100 mg Documented by: Furosemide (Furosemide 40 Mg/4 Ml Vial) 40 mg IVPUSH Q8H [facility] Last Admin: 03/04/21 09:01 Dose: 40 mg Documented by: Meropenem/Sodium Chloride 1 gm (/ Premix) 50 mls @ 100 mls/hr IV Q8H [facility] Last Admin: 03/04/21 08:58 Dose: 100 mls/hr Documented by: Vancomycin HCl 1.25 gm/ Sodium (Chloride) 250 mls @ 166.667 mls/hr IV Q12H [facility] Last Admin: 03/04/21 04:55 Dose: 166.667 mls/hr Documented by: Azithromycin 500 mg/ Sodium (Chloride) 250 mls @ 250 mls/hr IV DAILY [facility] Last Admin: 03/04/21 09:01 Dose: 250 mls/hr Documented by: Lisinopril (Lisinopril 5 Mg Tab) 5 mg PO DAILY [facility] Last Admin: 03/04/21 09:01 Dose: 5 mg Documented by: Lorazepam (Lorazepam 2 Mg/Ml Sdv) 1 mg IVPUSH Q4H PRN PRN Reason: Withdrawal Symptoms Last Admin: 03/03/21 22:33 Dose: 1 mg Documented by: Morphine Sulfate (Morphine 2 Mg/Ml Syringe) 2 mg IVPUSH Q4H PRN PRN Reason: Pain (moderate 4-6) Last Admin: 03/04/21 06:20 Dose: 2 mg Documented by: Ondansetron HCl (Ondansetron 4 Mg/2 Ml Sdv) 4 mg IVPUSH Q4H PRN PRN Reason: Nausea/Vomiting Oxycodone/Acetaminophen (Acetaminophen/Oxycodone 325-5 Mg Tab) 1 tab PO Q4H PRN PRN Reason: Pain (severe 7-10) Last Admin: 03/04/21 05:36 Dose: 1 tab Documented by: Polyethylene Glycol (Polyethylene Glycol 3350 Powder 17 Gm Packet) 17 gm PO DAILY PRN PRN Reason: constipation Last Admin: 03/03/21 11:40 Dose: 17 gm Documented by: Sodium Chloride (Sodium Chloride 0.9% 10 Ml Syringe) 10 ml FLUSH ASDIRECTED PRN PRN Reason: Keep Vein Open Sodium Chloride (Sodium Chloride 0.9% 2.5 Ml Syringe) 2.5 ml FLUSH ASDIRECTED PRN PRN Reason: Keep Vein Open Vancomycin HCl (Pharmacy To Dose - Vancomycin) 0 dose .XX ASDIRECTED KATHERINE Discontinued Medications Bisacodyl (Bisacodyl 10 Mg Supp) 10 mg RECTAL ONETIME PRN PRN Reason: Constipation Butorphanol Tartrate (Butorphanol 1 Mg/Ml Sdv) 1 mg IVPUSH Q1H PRN PRN Reason: Pain (severe 7-10) Carboprost Tromethamine (Carboprost Tromethamine 250 Mcg/1 Ml Amp) 250 mcg IM ASDIRECTED PRN PRN Reason: Post Hemorrhage Cefazolin Sodium (Cefazolin 1 Gm Vial) Confirm Administered Dose 2 gm .ROUTE .STK-MED ONE Stop: 02/26/21 03:45 Citric Acid/Sodium Citrate (Citric Acid/Sodium Citrate Solution 30 Ml Cup) 30 ml PO ONETIME ONE Stop: 02/26/21 02:01 Last Admin: 02/26/21 05:17 Dose: Not Given Documented by: Diphenhydramine HCl (Diphenhydramine 50 Mg/Ml Sdv) 12.5 mg IVPUSH Q2H PRN PRN Reason: Itching Emollient Ointment (Lanolin 100% Cream 7 Gm Tube) 0 gm TOP ASDIRECTED PRN PRN Reason: Sore Nipples Ephedrine Sulfate (Ephedrine 50 Mg/Ml Sdv) 10 mg IVPUSH Q5M PRN PRN Reason: Hypotension Fentanyl (Fentanyl 100 Mcg/2 Ml Sdv) Confirm Administered Dose 100 mcg .ROUTE .STK-MED ONE Stop: 02/26/21 02:45 Fentanyl (Fentanyl 100 Mcg/2 Ml Sdv) 50 mcg IVPUSH Q1H PRN PRN Reason: Pain (severe 7-10) Furosemide (Furosemide 20 Mg/2 Ml Vial) 40 mg IVPUSH NOW ONE Stop: 02/27/21 09:02 Last Admin: 02/27/21 09:17 Dose: 40 mg Documented by: Furosemide (Furosemide 40 Mg/4 Ml Vial) 40 mg IVPUSH NOW ONE Stop: 03/01/21 15:43 Last Admin: 03/01/21 15:53 Dose: 40 mg Documented by: Furosemide (Furosemide 40 Mg/4 Ml Vial) 40 mg IVPUSH DAILY [facility] Last Admin: 03/02/21 09:36 Dose: 40 mg Documented by: Furosemide (Furosemide 20 Mg/2 Ml Vial) 20 mg IVPUSH NOW ONE Stop: 03/01/21 23:40 Last Admin: 03/01/21 23:50 Dose: 20 mg Documented by: Furosemide (Furosemide 40 Mg/4 Ml Vial) 40 mg IVPUSH Q8H [facility] Last Admin: 03/02/21 14:05 Dose: Not Given Documented by: Hydrochlorothiazide (Hydrochlorothiazide 12.5 Mg Cap) 12.5 mg PO BEDTIME [facility] Last Admin: 02/28/21 20:00 Dose: 12.5 mg Documented by: Lactated Ringer's (Ringers, Lactated) 1,000 mls @ 500 mls/hr IV BOLUS [facility] Last Admin: 02/26/21 02:20 Dose: 500 mls/hr Documented by: Oxytocin/Sodium Chloride (Oxytocin 30 Unit/500 Ml-Ns) 30 unit in 500 mls @ 250 mls/hr IV TITRATE [facility] Lactated Ringer's (Ringers, Lactated) 1,000 mls @ 150 mls/hr IV ASDIRECTED [facility] Last Infusion: 02/28/21 08:50 Dose: 50 mls/hr Documented by: Tranexamic Acid 1,000 mg/ (Sodium Chloride) 110 mls @ 660 mls/hr IV ONETIME PRN PRN Reason: Bleeding Sodium Chloride (Normal Saline) Confirm Administered Dose 20 mls @ as directed .ROUTE .K-MED ONE Stop: 02/26/21 03:45 Lactated Ringer's (Ringers, Lactated) 1,000 mls @ 125 mls/hr IV ASDIRECTED [facility] Last Infusion: 02/28/21 01:00 Dose: Infused Documented by: Tranexamic Acid 1,000 mg/ (Sodium Chloride) 110 mls @ 660 mls/hr IV ONETIME PRN PRN Reason: Bleeding Clindamycin Phosphate 600 mg/ (Sodium Chloride) 54 mls @ 100 mls/hr IV Q6H KATHERINE Clindamycin Phosphate 900 mg/ (Premix) 75 mls @ 150 mls/hr IV Q6H KATHERINE Clindamycin Phosphate 600 mg/ (Premix) 50 mls @ 100 mls/hr IV Q6H [facility] Last Admin: 03/01/21 15:53 Dose: 100 mls/hr Documented by: Cefazolin Sodium/Dextrose 1 gm (/ Premix) 50 mls @ 100 mls/hr IV Q8H [facility] Last Admin: 03/01/21 14:00 Dose: 100 mls/hr Documented by: Lactated Ringer's (Ringers, Lactated) 1,000 mls @ 50 mls/hr IV ASDIRECTED [facility] Last Infusion: 03/01/21 08:30 Dose: 10 mls/hr Documented by: Lactated Ringer's (Ringers, Lactated) 1,000 mls @ 10 mls/hr IV ASDIRECTED [facility] Magnesium Sulfate 2 gm/ Premix 50 mls @ 12.5 mls/hr IV ONETIME ONE Stop: 03/01/21 15:23 Last Admin: 03/01/21 11:43 Dose: 12.5 mls/hr Documented by: Furosemide 40 mg/ Sodium (Chloride) 54 mls @ 100 mls/hr IV Q12H [facility] Last Admin: 03/01/21 17:30 Dose: Not Given Documented by: Magnesium Sulfate 4 gm/ Premix 100 mls @ 50 mls/hr IV ONETIME ONE Stop: 03/03/21 10:46 Last Admin: 03/03/21 09:47 Dose: 50 mls/hr Documented by: Ibuprofen (Ibuprofen 800 Mg Tab) 800 mg PO Q8H PRN PRN Reason: mild pain or fever Iopamidol (Iopamidol 755 Mg/Ml 500 Ml Multipack Bottle) 75 ml IVPUSH ONETIME STA Stop: 03/02/21 13:47 Last Admin: 03/02/21 13:46 Dose: 75 ml Documented by: Ketorolac Tromethamine (Ketorolac 30 Mg/Ml Sdv) Confirm Administered Dose 30 mg .ROUTE .STK-MED ONE Stop: 02/26/21 03:28 Ketorolac Tromethamine (Ketorolac 30 Mg/Ml Sdv) 30 mg IVPUSH Q6H [facility] Stop: 02/27/21 04:01 Last Admin: 02/27/21 04:10 Dose: 30 mg Documented by: Labetalol HCl (Labetalol 100 Mg Tab) 200 mg PO DAILY [facility] Last Admin: 03/01/21 08:48 Dose: 200 mg Documented by: Lidocaine HCl (Lidocaine 1% 50 Ml Mdv) 50 ml INJECT ONETIME PRN PRN Reason: Laceration repair Lisinopril (Lisinopril 5 Mg Tab) 5 mg PO DAILY KATHERINE Lorazepam (Lorazepam 2 Mg/Ml Sdv) 1 mg IVPUSH ONETIME ONE Stop: 03/01/21 11:15 Last Admin: 03/01/21 11:44 Dose: 1 mg Documented by: Lorazepam (Lorazepam 2 Mg/Ml Sdv) 2 mg IVPUSH ONETIME ONE Stop: 03/02/21 00:15 Last Admin: 03/02/21 00:25 Dose: 2 mg Documented by: Methylergonovine Maleate (Methylergonovine 0.2 Mg/1 Ml Amp) 0.2 mg IM ONETIME PRN PRN Reason: Excessive Vaginal Bleeding Metoprolol Tartrate (Metoprolol Tartrate 25 Mg Tab) 25 mg PO BID KATHERINE Miscellaneous Medication (Phenylephrine Hcl In 0.9% Nacl 1 Mg/10 Ml Syringe) Confirm Administered Dose 1 mg .ROUTE .STK-MED ONE Stop: 02/26/21 03:28 Misoprostol (Misoprostol 200 Mcg Tab) 200 mcg PO ONETIME PRN PRN Reason: Post Hemorrhage Misoprostol (Misoprostol 200 Mcg Tab) 1,000 mcg RECTAL ONETIME PRN PRN Reason: excessive bleeding Morphine Sulfate (Morphine Pf 10 Mg/10 Ml Sdv) Confirm Administered Dose 10 mg .ROUTE .STK-MED ONE Stop: 02/26/21 02:46 Morphine Sulfate (Morphine 4 Mg/Ml Syringe) 4 mg IVPUSH Q4H PRN PRN Reason: Pain (moderate 4-6) Last Admin: 03/01/21 23:24 Dose: 4 mg Documented by: Nalbuphine HCl (Nalbuphine 10 Mg/1 Ml Vial) 10 mg IVPUSH Q1H PRN PRN Reason: Pain (severe 7-10) Nalbuphine HCl (Nalbuphine 10 Mg/1 Ml Vial) 5 mg IVPUSH ASDIRECTED PRN PRN Reason: Itching Naloxone HCl (Naloxone 0.4 Mg/Ml Syringe) 0.1 mg IVPUSH ONETIME PRN PRN Reason: Respiratory Depression Stop: 02/27/21 04:19 Octyl Cyanoacrylate (Octyl 2-Cyanoacrylate 1 Tube) Confirm Administered Dose 1 applic .ROUTE .STK-MED ONE Stop: 02/26/21 05:03 Ondansetron HCl (Ondansetron 4 Mg/2 Ml Sdv) Confirm Administered Dose 4 mg .ROUTE .STK-MED ONE Stop: 02/26/21 03:28 Ondansetron HCl (Ondansetron 4 Mg/2 Ml Sdv) 4 mg IVPUSH Q6H PRN PRN Reason: Nausea Oxycodone/Acetaminophen (Acetaminophen/Oxycodone 325-5 Mg Tab) 2 tab PO Q4H PRN PRN Reason: Pain (severe 7-10) Last Admin: 03/02/21 21:07 Dose: 2 tab Documented by: Oxycodone/Acetaminophen (Acetaminophen/Oxycodone 325-5 Mg Tab) 2 tab PO Q6H PRN PRN Reason: Pain (moderate 4-6) Last Admin: 02/26/21 06:53 Dose: 2 tab Documented by: Oxytocin (Oxytocin 10 Units/1 Ml Sdv) Confirm Administered Dose 30 unit .ROUTE .STK-MED ONE Stop: 02/26/21 03:28 Oxytocin (Oxytocin 10 Units/1 Ml Sdv) 10 unit IM ASDIRECTED PRN PRN Reason: Excessive Vaginal Bleeding Polyethylene Glycol (Polyethylene Glycol 3350 Powder 17 Gm Packet) 17 gm PO ONETIME ONE Stop: 03/02/21 14:18 Last Admin: 03/02/21 14:53 Dose: 17 gm Documented by: Potassium Chloride (Potassium Chloride 20 Meq Tab.Er) 40 meq PO ONETIME ONE Stop: 03/03/21 08:48 Last Admin: 03/03/21 09:48 Dose: 40 meq Documented by: Sterile Water (Water For Irrigation,Sterile 1,000 Ml Container) 1,000 ml IRR ASDIRECTED PRN PRN Reason: delivery - Exam Central Line Total Time: 4Days 20Hours Urinary Catheter Total Time: 6Days 5Hours - Patient Data Lab Results Last 24 hrs: Laboratory Results - last 24 hr 03/04/21 03/04/21 03/04/21 Range/Units 04:57 04:57 04:57 WBC 20.23 H (4.0-11.0) K/uL RBC 3.47 L (4.30-5.90) M/uL Hgb 10.0 L (12.0-16.0) g/dL Hct 29.8 L (36.0-46.0) % MCV 85.9 (80.0-98.0) fL MCH 28.8 (27.0-32.0) pg MCHC 33.6 (31.0-37.0) g/dL RDW Std Deviation 45.4 (28.0-62.0) fl RDW Coeff of Idalmis 15 (11.0-15.0) % Plt Count 350 (150-400) K/uL MPV 8.90 (7.40-12.00) fL Add Manual Diff YES Neutrophils % (Manual) 79 (48.0-80.0) % Band Neutrophils % 1 % Lymphocytes % (Manual) 8 L (16.0-40.0) % Monocytes % (Manual) 10 (0.0-15.0) % Eosinophils % (Manual) 1 (0.0-7.0) % Metamyelocytes % 1 % Nucleated RBC % 0.0 /100WBC Absolute Seg Neuts 16.0 H (1.4-5.7) Band Neutrophils # 0.2 Lymphocytes # (Manual) 1.6 (0.6-2.4) Monocytes # (Manual) 2.0 H (0.0-0.8) Eosinophils # (Manual) 0.2 (0.0-0.7) Absolute Metamyelocyte 0.2 Nucleated RBCs # 0 K/uL Sodium 137 (136-145) mmol/L Potassium 3.1 L (3.5-5.1) mmol/L Chloride 97 L (98-107) mmol/L Carbon Dioxide 31.4 (21.0-32.0) mmol/L BUN 15 (7.0-18.0) mg/dL Creatinine 0.8 (0.6-1.0) mg/dL Est Cr Clr Drug Dosing 95.89 mL/min Estimated GFR (MDRD) > 60.0 ml/min Glucose 81 (74-106) mg/dL Calcium 8.3 L (8.5-10.1) mg/dL Phosphorus 3.7 (2.6-4.7) mg/dL Magnesium 1.9 (1.8-2.4) mg/dL B-Natriuretic Peptide 707 H (<100) PG/ML Result Diagrams: 03/04/21 04:57 03/04/21 04:57 Fabián Results Last 24 hrs: Microbiology 03/01/21 10:30 Aerobic Blood Culture - Preliminary Blood - Venous NO GROWTH AFTER 2 DAYS Anaerobic Blood Culture - Preliminary NO GROWTH AFTER 2 DAYS 03/01/21 10:40 Aerobic Blood Culture - Preliminary Blood - Venous - Lab Draw NO GROWTH AFTER 2 DAYS Anaerobic Blood Culture - Preliminary NO GROWTH AFTER 2 DAYS Sepsis Event Note - Evaluation Sepsis Screening Result: Sepsis Risk - Focused Exam Vital Signs: Vital Signs Temp Pulse Pulse Resp BP BP Pulse Ox 03/04/21 09:02 96 146/75 H 03/04/21 09:01 146/75 H 03/04/21 09:00 36.6 C 85 13 146/75 H 94 L 03/04/21 08:00 36.6 C 86 15 141/81 H 94 L 03/04/21 07:00 36.6 C 92 12 133/75 91 L 03/04/21 06:00 36.4 C 14 156/109 H 94 L 03/04/21 05:00 20 128/76 92 L 03/04/21 04:00 18 135/87 95 03/04/21 03:00 16 119/88 97 03/04/21 02:00 36.6 C 17 130/77 95 03/04/21 01:00 16 131/82 97 03/04/21 00:00 16 129/87 96 03/03/21 23:00 94 16 125/77 94 L 03/03/21 22:00 99 16 132/76 94 L - Problem List Review Problem List Initiated/Reviewed/Updated: Yes - Assessment Assessment:: S/P C/section with prolong rapture of thev membranes complicated with Endometritis and Anemia. I am planinng to start her on antibiotic, have Anesthesia place a central line for blood transfusion. I am also given the Pt. Larix. 02/28/21 The patient condition is improving she is continued to be afebrile her heart rate is coming down she continued to diurese her leg and hand edema is decreasing. Her hemoglobin improved to 8.6 after 2 units of blood transfusion her white count is trending down. Abdominal examination is the abdomen is less tender, was present and the patient is passing day's and she is expressed her desire to have some food I'm planning to start her on liquid diet today. Her IV fluid intake is diminished to 50 mL per hour to keep the vein open to continue the IV antibiotic. Head endometritis is resolving her white count is trending down we will continue the IV antibiotic finding to keep her in the unit tomorrow. 03/01/21 The patient according to the echocardiograms and chest x-ray she is in pulmonary edema and most likely in a congestive heart failure due to her F amphetamine abuse I consulted with the hospitalist and the eICU er registrar and is to give her diuretic to diurese the patient and his her issue is the mostly is medical now I am going to 2 minutes the hospitalist and the EEG ICU er registrar sap solution manager consultant to manage a patient at this time. - Plan Plan:: 25-year-old female currently admitted in ICU secondary to sepsis, acute systolic heart failure resulting in acute hypoxic respiratory failure Continue supportive care with oxygen to keep pulse ox more than 92%, currently on 1.5 Lts NC Patient is currently in acute CHF exacerbation, underlying cardiomyopathy could be secondary to patient's history of drug abuse versus cardiomyopathy? Continue Lasix 40 mg IV every 8 hours, patient is in net negative balance, has a good urinary output, anasarca is much better today, lung sounds are better as well There was a concern of tall T waves on telemetry yesterday, EKG was done which did not show tall T waves or any acute ischemic changes, on further investigation the gain on the telemetry was increased density waves appeared falsely tall. Patient had no increasing chest pain or shortness of breath, troponin was slightly elevated likely secondary to demand supply ischemia secondary to tachycardia, troponin elevation has resolved now, no concern of acute coronary syndrome. Has been started on lisinopril low-dose, will start on low-dose beta-rodriguez Continue broad-spectrum antibiotics with vancomycin and meropenem, white count is still high slightly better We will follow up on blood cultures, so far negative CT chest and abdomen noted. CT chest significant for possible pneumonia as well as superimposed pulmonary edema and bilateral pleural effusions, right greater than the left, CTA of the chest noted as well, possible ongoing pneumonia on top of CHF, no PE Currently my suspicion for empyema is low given that patient does have acute systolic heart failure and likely the effusion is transudative due to fluid overload, continue diuresis to wean off oxygen, if unable to wean off the oxygen completely we will consider thoracentesis If patient's white count keeps getting worse or her sepsis does not resolve then will consider transfer to higher level of care for possible thoracentesis and further cardiac work-up CT abdomen findings including hematoma and gas discussed with the primary team, Dr. Anderson believes these are normal postop changes and are not of any im mediate concern IV Ativan as needed for withdrawal symptoms, anxiety every 4 hours Continue IV Benadryl for itching Continue morphine and oral opioids for pain control, will wean off morphine as tolerated Will add MiraLAX as patient has not had a bowel movement yet Patient will need a close follow-up with cardiology upon discharge for further diagnostic work-up of her cardiomyopathy, will try to arrange a close follow-up upon discharge with cardiology Encourage incentive spirometry Continue duo nebs as needed Out of bed to chair as tolerated Monitor and replete electrolytes as needed keep mag more than 2 and potassium more than 4 Continue with inpatient route of care per primary team. As compared to the hospitalist management at this time. Ordering Dulcolax for the patient to have a bowel movement had an skin incision is looking clean and dry
[2021-03-04] MEDS ORDERED: Magnesium Oxide 400 MG Tab PO ONE (10:10)
--- NOTE | 2021-03-04 13:47 | PCM.PN ---
- General Info Date of Service: 03/04/21 Admission Dx/Problem (Free Text): Patient Status Order with Admit Dx/Problem 02/26/21 01:05 Patient Status [ADT] Routine Admission Diagnosis/Problem Admission Diagnosis/Problem 02/26/21 02:15 Elisa is a 25 yo current PPD1 s/p repeat LTCS at ~ 37+3 weeks gestation ([facility](LMP) 03/16/2021) without care. A neg/ Rh pos; RhoGam declined by patient last night, "I have never needed that before...". RI, GBS neg. Ax: amoxicillin. Elevation of WBCs noted upon admission, prolonged ROM x 2 days noted. Blacnhe-operative antibiotics administered. Clindamycin 600 mg IV q [address] Stokes yesterday. Patient C/O severe pain 10/10 and irritability not alleviated with PO/IV analgesias. Severe itching and scratching behaviors noted upon exam, likely related to medication SEs and/or methamphetamine withdrawal. Continued C/O "really bad swelling to my leg and feet", 2-3+ pitting edema BLE and labia. Tachycardia and low urine output noted yesterday evening, EBL ~600 ml during LTCS yesterday; 1000 ml IV LR bolus completed yesterday followed by 12.5 mg HCTZ PO once for BLE pitting edema. Ample clear, yellow urine noted from mendez catheter. Tachycardia and mild hypertension noted, VSs otherwise stable. Plan to repeat CBC, CMP this am, collection pending. Pertinent hx includes: tachycardia and murmur treated with labetolol ([id number]), anxiety, THC use night (last used 1 night ago), methamphetamine use 2 days ago. Social/case work consulted, visited with patient last night, plan still pending. Early US completed in at [facility] as patient was considering at that time; procedure not completed. Otherwise no care this . Ax: amoxicillin. See medical, surgical, social, medication history. Subjective Update: Patient seen at bedside, resting in bed comfortably,, still has not had a bowel movement but is passing gas. Currently on room air, clinically improving Functional Status: Reports: Tolerating Diet, Ambulating, Urinating - Review of Systems General: Reports: Weakness, Fatigue. Denies: Fever, Malaise Pulmonary: Denies: Shortness of Breath, Pleuritic Chest Pain Cardiovascular: Denies: Chest Pain, Palpitations Gastrointestinal: Denies: Abdominal Pain, Constipation, Decreased Appetite Genitourinary: Denies: Dysuria, Frequency, Burning Musculoskeletal: Denies: Neck Pain, Shoulder Pain, Arm Pain Skin: Denies: Cyanosis, Jaundice, Mottled - Patient Data Vitals - Most Recent: Last Vital Signs Temp 36.6 C 03/04/21 13:00 Pulse 96 03/04/21 13:00 Resp 13 03/04/21 13:00 BP 146/89 H 03/04/21 13:00 Pulse Ox 95 03/04/21 13:00 Weight - Most Recent: 60.6 kg I&O - Last 24 Hours: Intake & Output 03/03/21 03/04/21 03/04/21 22:59 06:59 14:59 Intake Total 800 750 300 Output Total 1750 1550 2100 Balance -950 -800 -1800 Lab Results Last 24 Hours: Laboratory Results - last 24 hr 03/04/21 03/04/21 03/04/21 Range/Units 04:57 04:57 04:57 WBC 20.23 H (4.0-11.0) K/uL RBC 3.47 L (4.30-5.90) M/uL Hgb 10.0 L (12.0-16.0) g/dL Hct 29.8 L (36.0-46.0) % MCV 85.9 (80.0-98.0) fL MCH 28.8 (27.0-32.0) pg MCHC 33.6 (31.0-37.0) g/dL RDW Std Deviation 45.4 (28.0-62.0) fl RDW Coeff of Idalmis 15 (11.0-15.0) % Plt Count 350 (150-400) K/uL MPV 8.90 (7.40-12.00) fL Add Manual Diff YES Neutrophils % (Manual) 79 (48.0-80.0) % Band Neutrophils % 1 % Lymphocytes % (Manual) 8 L (16.0-40.0) % Monocytes % (Manual) 10 (0.0-15.0) % Eosinophils % (Manual) 1 (0.0-7.0) % Metamyelocytes % 1 % Nucleated RBC % 0.0 /100WBC Absolute Seg Neuts 16.0 H (1.4-5.7) Band Neutrophils # 0.2 Lymphocytes # (Manual) 1.6 (0.6-2.4) Monocytes # (Manual) 2.0 H (0.0-0.8) Eosinophils # (Manual) 0.2 (0.0-0.7) Absolute Metamyelocyte 0.2 Nucleated RBCs # 0 K/uL Sodium 137 (136-145) mmol/L Potassium 3.1 L (3.5-5.1) mmol/L Chloride 97 L (98-107) mmol/L Carbon Dioxide 31.4 (21.0-32.0) mmol/L BUN 15 (7.0-18.0) mg/dL Creatinine 0.8 (0.6-1.0) mg/dL Est Cr Clr Drug Dosing 95.89 mL/min Estimated GFR (MDRD) > 60.0 ml/min Glucose 81 (74-106) mg/dL Calcium 8.3 L (8.5-10.1) mg/dL Phosphorus 3.7 (2.6-4.7) mg/dL Magnesium 1.9 (1.8-2.4) mg/dL B-Natriuretic Peptide 707 H (<100) PG/ML Fabián Results Last 24 Hours: Microbiology 03/01/21 10:40 Aerobic Blood Culture - Preliminary Blood - Venous - Lab Draw NO GROWTH AFTER 3 DAYS Anaerobic Blood Culture - Preliminary NO GROWTH AFTER 3 DAYS 03/01/21 10:30 Aerobic Blood Culture - Preliminary Blood - Venous NO GROWTH AFTER 3 DAYS Anaerobic Blood Culture - Preliminary NO GROWTH AFTER 3 DAYS Med Orders - Current: Current Medications Albuterol/Ipratropium (Albuterol/Ipratropium 3.0-0.5 Mg/3 Ml Neb Soln) 3 ml NEB Q4HRRT PRN PRN Reason: Wheezing Last Admin: 03/01/21 17:14 Dose: 3 ml Documented by: Carvedilol (Carvedilol 3.125 Mg Tab) 3.125 mg PO BID KATHERINE Last Admin: 03/04/21 09:02 Dose: 3.125 mg Documented by: Diphenhydramine HCl (Diphenhydramine 50 Mg/Ml Sdv) 25 mg IVPUSH Q6H PRN PRN Reason: Itching or Nausea Docusate Sodium (Docusate Sodium 100 Mg Cap) 100 mg PO BID [facility] Last Admin: 03/04/21 09:01 Dose: 100 mg Documented by: Furosemide (Furosemide 40 Mg/4 Ml Vial) 40 mg IVPUSH Q8H [facility] Last Admin: 03/04/21 09:01 Dose: 40 mg Documented by: Meropenem/Sodium Chloride 1 gm (/ Premix) 50 mls @ 100 mls/hr IV Q8H [facility] Last Admin: 03/04/21 08:58 Dose: 100 mls/hr Documented by: Vancomycin HCl 1.25 gm/ Sodium (Chloride) 250 mls @ 166.667 mls/hr IV Q12H [facility] Last Admin: 03/04/21 04:55 Dose: 166.667 mls/hr Documented by: Azithromycin 500 mg/ Sodium (Chloride) 250 mls @ 250 mls/hr IV DAILY [facility] Last Admin: 03/04/21 09:01 Dose: 250 mls/hr Documented by: Lisinopril (Lisinopril 5 Mg Tab) 5 mg PO DAILY [facility] Last Admin: 03/04/21 09:01 Dose: 5 mg Documented by: Lorazepam (Lorazepam 2 Mg/Ml Sdv) 1 mg IVPUSH Q4H PRN PRN Reason: Withdrawal Symptoms Last Admin: 03/03/21 22:33 Dose: 1 mg Documented by: Morphine Sulfate (Morphine 2 Mg/Ml Syringe) 2 mg IVPUSH Q4H PRN PRN Reason: Pain (moderate 4-6) Last Admin: 03/04/21 06:20 Dose: 2 mg Documented by: Ondansetron HCl (Ondansetron 4 Mg/2 Ml Sdv) 4 mg IVPUSH Q4H PRN PRN Reason: Nausea/Vomiting Oxycodone/Acetaminophen (Acetaminophen/Oxycodone 325-5 Mg Tab) 1 tab PO Q4H PRN PRN Reason: Pain (severe 7-10) Last Admin: 03/04/21 05:36 Dose: 1 tab Documented by: Polyethylene Glycol (Polyethylene Glycol 3350 Powder 17 Gm Packet) 17 gm PO DAILY PRN PRN Reason: constipation Last Admin: 03/03/21 11:40 Dose: 17 gm Documented by: Potassium Chloride (Potassium Chloride 20 Meq Tab.Er) 40 meq PO BID@1000,1400 [facility] Stop: 03/05/21 10:01 Sodium Chloride (Sodium Chloride 0.9% 10 Ml Syringe) 10 ml FLUSH ASDIRECTED PRN PRN Reason: Keep Vein Open Sodium Chloride (Sodium Chloride 0.9% 2.5 Ml Syringe) 2.5 ml FLUSH ASDIRECTED PRN PRN Reason: Keep Vein Open Vancomycin HCl (Pharmacy To Dose - Vancomycin) 0 dose .XX ASDIRECTED [facility] Discontinued Medications Bisacodyl (Bisacodyl 10 Mg Supp) 10 mg RECTAL ONETIME PRN PRN Reason: Constipation Butorphanol Tartrate (Butorphanol 1 Mg/Ml Sdv) 1 mg IVPUSH Q1H PRN PRN Reason: Pain (severe 7-10) Carboprost Tromethamine (Carboprost Tromethamine 250 Mcg/1 Ml Amp) 250 mcg IM ASDIRECTED PRN PRN Reason: Post Hemorrhage Cefazolin Sodium (Cefazolin 1 Gm Vial) Confirm Administered Dose 2 gm .ROUTE .STK-MED ONE Stop: 02/26/21 03:45 Citric Acid/Sodium Citrate (Citric Acid/Sodium Citrate Solution 30 Ml Cup) 30 ml PO ONETIME ONE Stop: 02/26/21 02:01 Last Admin: 02/26/21 05:17 Dose: Not Given Documented by: Diphenhydramine HCl (Diphenhydramine 50 Mg/Ml Sdv) 12.5 mg IVPUSH Q2H PRN PRN Reason: Itching Emollient Ointment (Lanolin 100% Cream 7 Gm Tube) 0 gm TOP ASDIRECTED PRN PRN Reason: Sore Nipples Ephedrine Sulfate (Ephedrine 50 Mg/Ml Sdv) 10 mg IVPUSH Q5M PRN PRN Reason: Hypotension Fentanyl (Fentanyl 100 Mcg/2 Ml Sdv) Confirm Administered Dose 100 mcg .ROUTE .STK-MED ONE Stop: 02/26/21 02:45 Fentanyl (Fentanyl 100 Mcg/2 Ml Sdv) 50 mcg IVPUSH Q1H PRN PRN Reason: Pain (severe 7-10) Furosemide (Furosemide 20 Mg/2 Ml Vial) 40 mg IVPUSH NOW ONE Stop: 02/27/21 09:02 Last Admin: 02/27/21 09:17 Dose: 40 mg Documented by: Furosemide (Furosemide 40 Mg/4 Ml Vial) 40 mg IVPUSH NOW ONE Stop: 03/01/21 15:43 Last Admin: 03/01/21 15:53 Dose: 40 mg Documented by: Furosemide (Furosemide 40 Mg/4 Ml Vial) 40 mg IVPUSH DAILY [facility] Last Admin: 03/02/21 09:36 Dose: 40 mg Documented by: Furosemide (Furosemide 20 Mg/2 Ml Vial) 20 mg IVPUSH NOW ONE Stop: 03/01/21 23:40 Last Admin: 03/01/21 23:50 Dose: 20 mg Documented by: Furosemide (Furosemide 40 Mg/4 Ml Vial) 40 mg IVPUSH Q8H [facility] Last Admin: 03/02/21 14:05 Dose: Not Given Documented by: Hydrochlorothiazide (Hydrochlorothiazide 12.5 Mg Cap) 12.5 mg PO BEDTIME [facility] Last Admin: 02/28/21 20:00 Dose: 12.5 mg Documented by: Lactated Ringer's (Ringers, Lactated) 1,000 mls @ 500 mls/hr IV BOLUS [facility] Last Admin: 02/26/21 02:20 Dose: 500 mls/hr Documented by: Oxytocin/Sodium Chloride (Oxytocin 30 Unit/500 Ml-Ns) 30 unit in 500 mls @ 250 mls/hr IV TITRATE [facility] Lactated Ringer's (Ringers, Lactated) 1,000 mls @ 150 mls/hr IV ASDIRECTED [facility] Last Infusion: 02/28/21 08:50 Dose: 50 mls/hr Documented by: Tranexamic Acid 1,000 mg/ (Sodium Chloride) 110 mls @ 660 mls/hr IV ONETIME PRN PRN Reason: Bleeding Sodium Chloride (Normal Saline) Confirm Administered Dose 20 mls @ as directed .ROUTE .STK-MED ONE Stop: 02/26/21 03:45 Lactated Ringer's (Ringers, Lactated) 1,000 mls @ 125 mls/hr IV ASDIRECTED [facility] Last Infusion: 02/28/21 01:00 Dose: Infused Documented by: Tranexamic Acid 1,000 mg/ (Sodium Chloride) 110 mls @ 660 mls/hr IV ONETIME PRN PRN Reason: Bleeding Clindamycin Phosphate 600 mg/ (Sodium Chloride) 54 mls @ 100 mls/hr IV Q6H KATHERINE Clindamycin Phosphate 900 mg/ (Premix) 75 mls @ 150 mls/hr IV Q6H KATHERINE Clindamycin Phosphate 600 mg/ (Premix) 50 mls @ 100 mls/hr IV Q6H [facility] Last Admin: 03/01/21 15:53 Dose: 100 mls/hr Documented by: Cefazolin Sodium/Dextrose 1 gm (/ Premix) 50 mls @ 100 mls/hr IV Q8H [facility] Last Admin: 03/01/21 14:00 Dose: 100 mls/hr Documented by: Lactated Ringer's (Ringers, Lactated) 1,000 mls @ 50 mls/hr IV ASDIRECTED [facility] Last Infusion: 03/01/21 08:30 Dose: 10 mls/hr Documented by: Lactated Ringer's (Ringers, Lactated) 1,000 mls @ 10 mls/hr IV ASDIRECTED [facility] Magnesium Sulfate 2 gm/ Premix 50 mls @ 12.5 mls/hr IV ONETIME ONE Stop: 03/01/21 15:23 Last Admin: 03/01/21 11:43 Dose: 12.5 mls/hr Documented by: Furosemide 40 mg/ Sodium (Chloride) 54 mls @ 100 mls/hr IV Q12H [facility] Last Admin: 03/01/21 17:30 Dose: Not Given Documented by: Magnesium Sulfate 4 gm/ Premix 100 mls @ 50 mls/hr IV ONETIME ONE Stop: 03/03/21 10:46 Last Admin: 03/03/21 09:47 Dose: 50 mls/hr Documented by: Ibuprofen (Ibuprofen 800 Mg Tab) 800 mg PO Q8H PRN PRN Reason: mild pain or fever Iopamidol (Iopamidol 755 Mg/Ml 500 Ml Multipack Bottle) 75 ml IVPUSH ONETIME STA Stop: 03/02/21 13:47 Last Admin: 03/02/21 13:46 Dose: 75 ml Documented by: Ketorolac Tromethamine (Ketorolac 30 Mg/Ml Sdv) Confirm Administered Dose 30 mg .ROUTE .STK-MED ONE Stop: 02/26/21 03:28 Ketorolac Tromethamine (Ketorolac 30 Mg/Ml Sdv) 30 mg IVPUSH Q6H [facility] Stop: 02/27/21 04:01 Last Admin: 02/27/21 04:10 Dose: 30 mg Documented by: Labetalol HCl (Labetalol 100 Mg Tab) 200 mg PO DAILY [facility] Last Admin: 03/01/21 08:48 Dose: 200 mg Documented by: Lidocaine HCl (Lidocaine 1% 50 Ml Mdv) 50 ml INJECT ONETIME PRN PRN Reason: Laceration repair Lisinopril (Lisinopril 5 Mg Tab) 5 mg PO DAILY [facility] Lorazepam (Lorazepam 2 Mg/Ml Sdv) 1 mg IVPUSH ONETIME ONE Stop: 03/01/21 11:15 Last Admin: 03/01/21 11:44 Dose: 1 mg Documented by: Lorazepam (Lorazepam 2 Mg/Ml Sdv) 2 mg IVPUSH ONETIME ONE Stop: 03/02/21 00:15 Last Admin: 03/02/21 00:25 Dose: 2 mg Documented by: Magnesium Oxide (Magnesium Oxide 400 Mg Tab) 800 mg PO ONETIME ONE Stop: 03/04/21 10:11 Last Admin: 03/04/21 10:30 Dose: 800 mg Documented by: Methylergonovine Maleate (Methylergonovine 0.2 Mg/1 Ml Amp) 0.2 mg IM ONETIME PRN PRN Reason: Excessive Vaginal Bleeding Metoprolol Tartrate (Metoprolol Tartrate 25 Mg Tab) 25 mg PO BID [facility] Miscellaneous Medication (Phenylephrine Hcl In 0.9% Nacl 1 Mg/10 Ml Syringe) Confirm Administered Dose 1 mg .ROUTE .STK-MED ONE Stop: 02/26/21 03:28 Misoprostol (Misoprostol 200 Mcg Tab) 200 mcg PO ONETIME PRN PRN Reason: Post Hemorrhage Misoprostol (Misoprostol 200 Mcg Tab) 1,000 mcg RECTAL ONETIME PRN PRN Reason: excessive bleeding Morphine Sulfate (Morphine Pf 10 Mg/10 Ml Sdv) Confirm Administered Dose 10 mg .ROUTE .STK-MED ONE Stop: 02/26/21 02:46 Morphine Sulfate (Morphine 4 Mg/Ml Syringe) 4 mg IVPUSH Q4H PRN PRN Reason: Pain (moderate 4-6) Last Admin: 03/01/21 23:24 Dose: 4 mg Documented by: Nalbuphine HCl (Nalbuphine 10 Mg/1 Ml Vial) 10 mg IVPUSH Q1H PRN PRN Reason: Pain (severe 7-10) Nalbuphine HCl (Nalbuphine 10 Mg/1 Ml Vial) 5 mg IVPUSH ASDIRECTED PRN PRN Reason: Itching Naloxone HCl (Naloxone 0.4 Mg/Ml Syringe) 0.1 mg IVPUSH ONETIME PRN PRN Reason: Respiratory Depression Stop: 02/27/21 04:19 Octyl Cyanoacrylate (Octyl 2-Cyanoacrylate 1 Tube) Confirm Administered Dose 1 applic .ROUTE .STK-MED ONE Stop: 02/26/21 05:03 Ondansetron HCl (Ondansetron 4 Mg/2 Ml Sdv) Confirm Administered Dose 4 mg .ROUTE .STK-MED ONE Stop: 02/26/21 03:28 Ondansetron HCl (Ondansetron 4 Mg/2 Ml Sdv) 4 mg IVPUSH Q6H PRN PRN Reason: Nausea Oxycodone/Acetaminophen (Acetaminophen/Oxycodone 325-5 Mg Tab) 2 tab PO Q4H PRN PRN Reason: Pain (severe 7-10) Last Admin: 03/02/21 21:07 Dose: 2 tab Documented by: Oxycodone/Acetaminophen (Acetaminophen/Oxycodone 325-5 Mg Tab) 2 tab PO Q6H PRN PRN Reason: Pain (moderate 4-6) Last Admin: 02/26/21 06:53 Dose: 2 tab Documented by: Oxytocin (Oxytocin 10 Units/1 Ml Sdv) Confirm Administered Dose 30 unit .ROUTE .STK-MED ONE Stop: 02/26/21 03:28 Oxytocin (Oxytocin 10 Units/1 Ml Sdv) 10 unit IM ASDIRECTED PRN PRN Reason: Excessive Vaginal Bleeding Polyethylene Glycol (Polyethylene Glycol 3350 Powder 17 Gm Packet) 17 gm PO ONETIME ONE Stop: 03/02/21 14:18 Last Admin: 03/02/21 14:53 Dose: 17 gm Documented by: Potassium Chloride (Potassium Chloride 20 Meq Tab.Er) 40 meq PO ONETIME ONE Stop: 03/03/21 08:48 Last Admin: 03/03/21 09:48 Dose: 40 meq Documented by: Sterile Water (Water For Irrigation,Sterile 1,000 Ml Container) 1,000 ml IRR ASDIRECTED PRN PRN Reason: delivery - Exam Central Line Total Time: 5Days 0Hours Urinary Catheter Total Time: 6Days 8Hours General: Alert, Oriented, Cooperative, Mild Distress, Other Lungs: Normal Respiratory Effort, Decreased Breath Sounds Cardiovascular: Regular Rate, Regular Rhythm GI/Abdominal Exam: Normal Bowel Sounds, Soft, Tender. No: Hepatomegaly, Splenomegaly Extremities: Normal Inspection, Normal Range of Motion Wound/Incisions: Healing Well (Discharge accommodations academic), Dressing Dry and Intact - Patient Data Lab Results Last 24 hrs: Laboratory Results - last 24 hr 03/04/21 03/04/21 03/04/21 Range/Units 04:57 04:57 04:57 WBC 20.23 H (4.0-11.0) K/uL RBC 3.47 L (4.30-5.90) M/uL Hgb 10.0 L (12.0-16.0) g/dL Hct 29.8 L (36.0-46.0) % MCV 85.9 (80.0-98.0) fL MCH 28.8 (27.0-32.0) pg MCHC 33.6 (31.0-37.0) g/dL RDW Std Deviation 45.4 (28.0-62.0) fl RDW Coeff of Idalmis 15 (11.0-15.0) % Plt Count 350 (150-400) K/uL MPV 8.90 (7.40-12.00) fL Add Manual Diff YES Neutrophils % (Manual) 79 (48.0-80.0) % Band Neutrophils % 1 % Lymphocytes % (Manual) 8 L (16.0-40.0) % Monocytes % (Manual) 10 (0.0-15.0) % Eosinophils % (Manual) 1 (0.0-7.0) % Metamyelocytes % 1 % Nucleated RBC % 0.0 /100WBC Absolute Seg Neuts 16.0 H (1.4-5.7) Band Neutrophils # 0.2 Lymphocytes # (Manual) 1.6 (0.6-2.4) Monocytes # (Manual) 2.0 H (0.0-0.8) Eosinophils # (Manual) 0.2 (0.0-0.7) Absolute Metamyelocyte 0.2 Nucleated RBCs # 0 K/uL Sodium 137 (136-145) mmol/L Potassium 3.1 L (3.5-5.1) mmol/L Chloride 97 L (98-107) mmol/L Carbon Dioxide 31.4 (21.0-32.0) mmol/L BUN 15 (7.0-18.0) mg/dL Creatinine 0.8 (0.6-1.0) mg/dL Est Cr Clr Drug Dosing 95.89 mL/min Estimated GFR (MDRD) > 60.0 ml/min Glucose 81 (74-106) mg/dL Calcium 8.3 L (8.5-10.1) mg/dL Phosphorus 3.7 (2.6-4.7) mg/dL Magnesium 1.9 (1.8-2.4) mg/dL B-Natriuretic Peptide 707 H (<100) PG/ML Result Diagrams: 03/04/21 04:57 03/04/21 04:57 Fabián Results Last 24 hrs: Microbiology 03/01/21 10:40 Aerobic Blood Culture - Preliminary Blood - Venous - Lab Draw NO GROWTH AFTER 3 DAYS Anaerobic Blood Culture - Preliminary NO GROWTH AFTER 3 DAYS 03/01/21 10:30 Aerobic Blood Culture - Preliminary Blood - Venous NO GROWTH AFTER 3 DAYS Anaerobic Blood Culture - Preliminary NO GROWTH AFTER 3 DAYS Sepsis Event Note - Evaluation Sepsis Screening Result: Sepsis Risk - Focused Exam Vital Signs: Vital Signs Temp Pulse Pulse Resp BP BP Pulse Ox 03/04/21 13:00 36.6 C 96 13 146/89 H 95 03/04/21 12:00 36.6 C 93 17 127/84 97 03/04/21 11:00 36.6 C 112 H 16 151/107 H 97 03/04/21 10:00 36.6 C 86 16 137/77 96 03/04/21 09:02 96 146/75 H 03/04/21 09:01 146/75 H 03/04/21 09:00 36.6 C 85 13 146/75 H 94 L 03/04/21 08:00 36.6 C 86 15 141/81 H 94 L 03/04/21 07:00 36.6 C 92 12 133/75 91 L 03/04/21 06:00 36.4 C 14 156/109 H 94 L 03/04/21 05:00 20 128/76 92 L 03/04/21 04:00 18 135/87 95 03/04/21 03:00 16 119/88 97 03/04/21 02:00 36.6 C 17 130/77 95 - Problem List & Annotations (1) Sepsis SNOMED Code(s): 71424050 Code(s): A41.9 - SEPSIS, UNSPECIFIED ORGANISM Status: Acute Current Visit: Yes (2) Prolonged rupture of membranes SNOMED Code(s): 59926067 Code(s): O42.90 - MIRIAN ROM, 7TH0 BETW RUPT & ONST LABR, UNSP WEEKS OF GEST Status: Acute Current Visit: Yes (3) Cardiomyopathy SNOMED Code(s): 62305182 Code(s): I42.9 - CARDIOMYOPATHY, UNSPECIFIED Status: Acute Current Visit: Yes (4) Drug abuse, amphetamine type SNOMED Code(s): 74562370 Code(s): F15.10 - OTHER STIMULANT ABUSE, UNCOMPLICATED Status: Acute Current Visit: Yes (5) Anxiety SNOMED Code(s): 89186419 Code(s): F41.9 - ANXIETY DISORDER, UNSPECIFIED Status: Acute Current Visit: Yes (6) Status post repeat low transverse section SNOMED Code(s): 780363102, 68434509, 338989109, 687883048, 337875738 Code(s): Z98.891 - HISTORY OF UTERINE SCAR FROM PREVIOUS SURGERY Status: Acute Priority: High Current Visit: Yes (7) Acute systolic heart failure SNOMED Code(s): 365498719 Code(s): I50.21 - ACUTE SYSTOLIC (CONGESTIVE) HEART FAILURE Status: Acute Current Visit: Yes (8) Acute respiratory failure with hypoxia SNOMED Code(s): 12412921, 959684962 Code(s): J96.01 - ACUTE RESPIRATORY FAILURE WITH HYPOXIA Status: Acute Current Visit: Yes (9) Hypomagnesemia SNOMED Code(s): 656071736 Code(s): E83.42 - HYPOMAGNESEMIA Status: Acute Current Visit: Yes (10) Hypokalemia SNOMED Code(s): 15911556 Code(s): E87.6 - HYPOKALEMIA Status: Acute Current Visit: Yes - Problem List Review Problem List Initiated/Reviewed/Updated: Yes - My Orders Last 24 Hours: My Active Orders 03/03/21 19:54 Consult to Physical Therapy [PT Evaluation and Treatment] [CONS] Routine - Assessment Assessment:: S/P C/section with prolong rapture of thev membranes complicated with Endometritis and Anemia. I am planinng to start her on antibiotic, have Anesthesia place a central line for blood transfusion. I am also given the Pt. Larix. 02/28/21 The patient condition is improving she is continued to be afebrile her heart rate is coming down she continued to diurese her leg and hand edema is decreasing. Her hemoglobin improved to 8.6 after 2 units of blood transfusion her white count is trending down. Abdominal examination is the abdomen is less tender, was present and the patient is passing day's and she is expressed her desire to have some food I'm planning to start her on liquid diet today. Her IV fluid intake is diminished to 50 mL per hour to keep the vein open to continue the IV antibiotic. Head endometritis is resolving her white count is trending down we will continue the IV antibiotic finding to keep her in the unit tomorrow. 03/01/21 The patient according to the echocardiograms and chest x-ray she is in pulmonary edema and most likely in a congestive heart failure due to her F amphetamine abuse I consulted with the hospitalist and the eICU assisted living home director and is to give her diuretic to diurese the patient and his her issue is the mostly is medical now I am going to 2 minutes the hospitalist and the EEG ICU assisted living home director compensation consultant to manage a patient at this time. - Plan Plan:: 25-year-old female currently admitted in ICU secondary to sepsis, acute systolic heart failure resulting in acute hypoxic respiratory failure Continue supportive care with oxygen to keep pulse ox more than 92%, currently on 1.5 Lts NC Patient is currently in acute CHF exacerbation, underlying cardiomyopathy could be secondary to patient's history of drug abuse versus cardiomyopathy?, Continue Lasix 40 mg q8h, patient is in net negative balance, has a good urinary output, anasarca is much better today, lung sounds are better as well, Will decrease the dose to every 12 by tomorrow if she continues to improve troponin was slightly elevated likely secondary to demand supply ischemia secondary to tachycardia, troponin elevation has resolved now, no concern of acute coronary syndrome. Has been started on lisinopril low-dose, as well as low-dose beta-rodriguez Continue broad-spectrum antibiotics with vancomycin, azithromycin and meropenem, white count is still high, but patient has no fevers is not septic anymore. We will follow up on blood cultures, so far negative CT chest and abdomen noted. CT chest significant for possible pneumonia as well as superimposed pulmonary edema and bilateral pleural effusions, right greater than the left, CTA of the chest noted as well, possible ongoing pneumonia on top of CHF, no PE Currently my suspicion for empyema is low given that patient does have acute systolic heart failure and likely the effusion is transudative due to fluid overload, continue diuresis to wean off oxygen, if unable to wean off the oxygen completely we will consider thoracentesis If patient's white count keeps getting worse or her sepsis does not resolve then will consider transfer to higher level of care for possible thoracentesis and further cardiac work-up CT abdomen findings including hematoma and gas discussed with the primary team, Dr. Anderson believes these are normal postop changes and are not of any immediate concern IV Ativan as needed for withdrawal symptoms, anxiety every 4 hours Continue IV Benadryl for itching Continue morphine and oral opioids for pain control, will wean off morphine as tolerated Will add MiraLAX as patient has not had a bowel movement yet Patient will need a close follow-up with cardiology upon discharge for further diagnostic work-up of her cardiomyopathy, will try to arrange a close follow-up upon discharge with cardiology Encourage incentive spirometry Continue duo nebs as needed Out of bed to chair as tolerated Monitor and replete electrolytes as needed keep mag more than 2 and potassium more than 4 Continue with inpatient route of care per primary team. Patient will need to see psychiatrist for her underlying depression and drug abuse outpatient basis
[2021-03-04] MEDS: Potassium Chloride 20 MEQ Tab.ER PO SCH (14:12)
--- NOTE | 2021-03-04 15:44 | PN ---
THC Physician - Brief Progress [id number]/23/2021 15:43[facility] Lonny Ramirez, KIRBY - MWN (WILDER) - MWN MULU MILLERIANZAHEER PayanDate of Service 03/04/2021 15:43HPI/Sharee nts of Note eICU Progress [id number] PMH amphetamine use, status post C section with PROM, complicated b y endometritis and development of fluid overloaded state admitted for respiratory failure and tachyca rdia post-. History obtained primarily from review of EMR.Camera exam: Laying in bed. Vitals mo nitor reviewed.eICU Recommendations:No new recommendations at this timeContinue antibioticsDiuresis t o target euvolemiaDVT and GI prophylaxis as appropriate.Thank you for allowing us to participate in t he care of this patient.Unless otherwise specified, defer implementation of above recommendations to discretion ofbedside provider. Please do not hesitate to contact the eICU service for questions, clar ification, or assistance with implementation.The above note transcribed with the assistance of Breathometer software. Please excuse any errors.Interventions Major-Infection - evaluation and management, Res piratory failure - evaluation and managementElectronically Signed by: TRUDI GIFFORD) on 15:44
[2021-03-05] MEDS: Acetaminophen/oxyCODONE 325-5 MG Tab PO PRN ×4 (05:57→22:09)
[2021-03-05 07:21] LABS: BLOOD UREA NITROGEN,BUN 17 mg/dL (7.0-18.0); CARBON DIOXIDE,CO2 28.3 mmol/L (21.0-32.0); CHLORIDE,CL 101 mmol/L (98-107); GLUCOSE RANDOM 89 mg/dL (74-106); POTASSIUM,K 3.5 mmol/L (3.5-5.1); SODIUM,NA 137 mmol/L (136-145)
[2021-03-05] MEDS: Lisinopril 5 MG Tab PO SCH (08:10)
[2021-03-05] MEDS: Carvedilol 3.125 MG Tab PO SCH ×2 (08:10→20:19)
[2021-03-05] MEDS: Meropenem Premix 1 GM in Premix Bag 1 BAG IV SCH ×3 (08:10→23:33)
[2021-03-05] MEDS: Furosemide 40 MG/4 ML VIAL IVPUSH SCH (08:10)
[2021-03-05] MEDS: Polyethylene Glycol 3350 Powder 17 GM Packet PO PRN (08:10)
[2021-03-05] MEDS: Docusate Sodium 100 MG Cap PO SCH ×2 (08:12→20:19)
[2021-03-05] MEDS: Potassium Chloride 20 MEQ Tab.ER PO SCH (09:11)
[2021-03-05] MEDS: Azithromycin 500 MG in Sodium Chloride 0.9% 250 ML IV SCH (09:11)
--- NOTE | 2021-03-05 10:10 | CR ---
INDICATION: Leukocytosis TECHNIQUE: Chest 1 view. COMPARISON: 03/01/2021 FINDINGS: Cardiovascular and mediastinum: Heart size and vasculature are normal in caliber and appearance. Mediastinum is within normal limits. Left internal jugular central venous catheter with tip at the distal SVC. Lungs and pleural space: Bilateral pulmonary opacities resolved. No evidence of residual edema. No pleural effusion. No pneumothorax. Bones and soft tissues: No acute findings. IMPRESSION: Resolved pulmonary opacities. Dictated by Misha Holbrook MD @ 03/05/2021 10:08:[address] Misha Holbrook @ Mar 05 2021 10:08AM
--- NOTE | 2021-03-05 12:25 | PCM.PN ---
- General Info Date of Service: 03/05/21 Admission Dx/Problem (Free Text): Patient Status Order with Admit Dx/Problem 02/26/21 01:05 Patient Status [ADT] Routine Admission Diagnosis/Problem Admission Diagnosis/Problem 02/26/21 02:15 Elisa is a 25 yo current PPD1 s/p repeat LTCS at ~ 37+3 weeks gestation ([facility]M(LMP) 03/16/2021) without care. A neg/ Rh pos; RhoGam declined by patient last night, "I have never needed that before...". RI, GBS neg. Ax: amoxicillin. Elevation of WBCs noted upon admission, prolonged ROM x 2 days noted. Blanche-operative antibiotics administered. Clindamycin 600 mg IV q [address] Stokes yesterday. Patient C/O severe pain 10/10 and irritability not alleviated with PO/IV analgesias. Severe itching and scratching behaviors noted upon exam, likely related to medication SEs and/or methamphetamine withdrawal. Continued C/O "really bad swelling to my leg and feet", 2-3+ pitting edema BLE and labia. Tachycardia and low urine output noted yesterday evening, EBL ~600 ml during LTCS yesterday; 1000 ml IV LR bolus completed yesterday followed by 12.5 mg HCTZ PO once for BLE pitting edema. Ample clear, yellow urine noted from mendez catheter. Tachycardia and mild hypertension noted, VSs otherwise stable. Plan to repeat CBC, CMP this am, collection pending. Pertinent hx includes: tachycardia and murmur treated with labetolol ([id number]), anxiety, THC use night (last used 1 night ago), methamphetamine use 2 days ago. Social/case work consulted, visited with patient last night, plan still pending. Early US completed in at [facility] as patient was considering at that time; procedure not completed. Otherwise no care this . Ax: amoxicillin. See medical, surgical, social, medication history. Subjective Update: Patient seen at bedside, resting in bed comfortably,, still has not had a bowel movement but is passing gas. Currently on room air, clinically improving, participated in PT Functional Status: Reports: Pain Controlled, Tolerating Diet, Ambulating, Urinating - Review of Systems General: Reports: Fatigue, Malaise. Denies: Fever, Weakness Pulmonary: Denies: Shortness of Breath, Pleuritic Chest Pain Cardiovascular: Denies: Chest Pain, Palpitations, Dyspnea on Exertion Gastrointestinal: Reports: Abdominal Pain, Constipation, Flatus. Denies: Decreased Appetite, Diarrhea, Nausea Genitourinary: Denies: Dysuria, Frequency, Burning Musculoskeletal: Denies: Neck Pain, Shoulder Pain, Arm Pain Skin: Denies: Cyanosis, Jaundice, Mottled Neurological: Denies: Confusion, Dizziness, Headache Psychiatric: Denies: Confusion, Depression, Mood Lability - Patient Data Vitals - Most Recent: Last Vital Signs Temp 36.3 C 03/05/21 08:00 Pulse 82 03/05/21 08:10 Resp 20 03/05/21 11:00 BP 107/53 L 03/05/21 11:00 Pulse Ox 99 03/05/21 11:00 Weight - Most Recent: 60.2 kg I&O - Last 24 Hours: Intake & Output 03/04/21 03/05/21 03/05/21 22:59 06:59 14:59 Intake Total 1600 490 250 Output Total 900 500 Balance 700 -10 250 Lab Results Last 24 Hours: Laboratory Results - last 24 hr 03/04/21 03/05/21 03/05/21 Range/Units 16:33 06:15 06:15 WBC 23.99 H (4.0-11.0) K/uL RBC 3.45 L (4.30-5.90) M/uL Hgb 10.0 L (12.0-16.0) g/dL Hct 29.8 L (36.0-46.0) % MCV 86.4 (80.0-98.0) fL MCH 29.0 (27.0-32.0) pg MCHC 33.6 (31.0-37.0) g/dL RDW Std Deviation 45.1 (28.0-62.0) fl RDW Coeff of Idalmis 14 (11.0-15.0) % Plt Count 420 H (150-400) K/uL MPV 8.80 (7.40-12.00) fL Add Manual Diff YES Neutrophils % (Manual) 85 H (48.0-80.0) % Band Neutrophils % 4 % Lymphocytes % (Manual) 6 L (16.0-40.0) % Monocytes % (Manual) 5 (0.0-15.0) % Nucleated RBC % 0.0 /100WBC Absolute Seg Neuts 20.4 H (1.4-5.7) Band Neutrophils # 1.0 Lymphocytes # (Manual) 1.4 (0.6-2.4) Monocytes # (Manual) 1.2 H (0.0-0.8) Nucleated RBCs # 0 K/uL Sodium 137 (136-145) mmol/L Potassium 3.5 (3.5-5.1) mmol/L Chloride 101 (98-107) mmol/L Carbon Dioxide 28.3 (21.0-32.0) mmol/L BUN 17 (7.0-18.0) mg/dL Creatinine 0.8 (0.6-1.0) mg/dL Est Cr Clr Drug Dosing 95.89 mL/min Estimated GFR (MDRD) > 60.0 ml/min Glucose 89 (74-106) mg/dL Calcium 8.0 L (8.5-10.1) mg/dL Phosphorus 3.4 (2.6-4.7) mg/dL Magnesium 1.8 (1.8-2.4) mg/dL Vancomycin Trough 13.6 H (5.0-10.0) ug/mL Fabián Results Last 24 Hours: Microbiology 03/01/21 10:40 Aerobic Blood Culture - Preliminary Blood - Venous - Lab Draw NO GROWTH AFTER 4 DAYS Anaerobic Blood Culture - Preliminary NO GROWTH AFTER 4 DAYS 03/01/21 10:30 Aerobic Blood Culture - Preliminary Blood - Venous NO GROWTH AFTER 4 DAYS Anaerobic Blood Culture - Preliminary NO GROWTH AFTER 4 DAYS Med Orders - Current: Current Medications Albuterol/Ipratropium (Albuterol/Ipratropium 3.0-0.5 Mg/3 Ml Neb Soln) 3 ml NEB Q4HRRT PRN PRN Reason: Wheezing Last Admin: 03/01/21 17:14 Dose: 3 ml Documented by: Carvedilol (Carvedilol 3.125 Mg Tab) 3.125 mg PO BID KATHERINE Last Admin: 03/05/21 08:10 Dose: 3.125 mg Documented by: Diphenhydramine HCl (Diphenhydramine 50 Mg/Ml Sdv) 25 mg IVPUSH Q6H PRN PRN Reason: Itching or Nausea Docusate Sodium (Docusate Sodium 100 Mg Cap) 100 mg PO BID [facility] Last Admin: 03/05/21 08:12 Dose: 100 mg Documented by: Furosemide (Furosemide 40 Mg/4 Ml Vial) 40 mg IVPUSH Q12H [facility] Last Admin: 03/05/21 08:10 Dose: 40 mg Documented by: Meropenem/Sodium Chloride 1 gm (/ Premix) 50 mls @ 100 mls/hr IV Q8H [facility] Last Admin: 03/05/21 08:10 Dose: 100 mls/hr Documented by: Vancomycin HCl 1.25 gm/ Sodium (Chloride) 250 mls @ 166.667 mls/hr IV Q12H [facility] Last Admin: 03/05/21 05:04 Dose: 166.667 mls/hr Documented by: Azithromycin 500 mg/ Sodium (Chloride) 250 mls @ 250 mls/hr IV DAILY [facility] Last Admin: 03/05/21 09:11 Dose: 250 mls/hr Documented by: Lisinopril (Lisinopril 5 Mg Tab) 5 mg PO DAILY [facility] Last Admin: 03/05/21 08:10 Dose: 5 mg Documented by: Lorazepam (Lorazepam 2 Mg/Ml Sdv) 1 mg IVPUSH Q4H PRN PRN Reason: Withdrawal Symptoms Last Admin: 03/03/21 22:33 Dose: 1 mg Documented by: Ondansetron HCl (Ondansetron 4 Mg/2 Ml Sdv) 4 mg IVPUSH Q4H PRN PRN Reason: Nausea/Vomiting Oxycodone/Acetaminophen (Acetaminophen/Oxycodone 325-5 Mg Tab) 1 tab PO Q4H PRN PRN Reason: Pain (severe 7-10) Last Admin: 03/05/21 10:57 Dose: 1 tab Documented by: Polyethylene Glycol (Polyethylene Glycol 3350 Powder 17 Gm Packet) 17 gm PO DAILY PRN PRN Reason: constipation Last Admin: 03/05/21 08:10 Dose: 17 gm Documented by: Sodium Chloride (Sodium Chloride 0.9% 10 Ml Syringe) 10 ml FLUSH ASDIRECTED PRN PRN Reason: Keep Vein Open Sodium Chloride (Sodium Chloride 0.9% 2.5 Ml Syringe) 2.5 ml FLUSH ASDIRECTED PRN PRN Reason: Keep Vein Open Vancomycin HCl (Pharmacy To Dose - Vancomycin) 0 dose .XX ASDIRECTED KATHERINE Discontinued Medications Bisacodyl (Bisacodyl 10 Mg Supp) 10 mg RECTAL ONETIME PRN PRN Reason: Constipation Butorphanol Tartrate (Butorphanol 1 Mg/Ml Sdv) 1 mg IVPUSH Q1H PRN PRN Reason: Pain (severe 7-10) Carboprost Tromethamine (Carboprost Tromethamine 250 Mcg/1 Ml Amp) 250 mcg IM ASDIRECTED PRN PRN Reason: Post Hemorrhage Cefazolin Sodium (Cefazolin 1 Gm Vial) Confirm Administered Dose 2 gm .ROUTE .ST-MED ONE Stop: 02/26/21 03:45 Citric Acid/Sodium Citrate (Citric Acid/Sodium Citrate Solution 30 Ml Cup) 30 ml PO ONETIME ONE Stop: 02/26/21 02:01 Last Admin: 02/26/21 05:17 Dose: Not Given Documented by: Diphenhydramine HCl (Diphenhydramine 50 Mg/Ml Sdv) 12.5 mg IVPUSH Q2H PRN PRN Reason: Itching Emollient Ointment (Lanolin 100% Cream 7 Gm Tube) 0 gm TOP ASDIRECTED PRN PRN Reason: Sore Nipples Ephedrine Sulfate (Ephedrine 50 Mg/Ml Sdv) 10 mg IVPUSH Q5M PRN PRN Reason: Hypotension Fentanyl (Fentanyl 100 Mcg/2 Ml Sdv) Confirm Administered Dose 100 mcg .ROUTE .STK-MED ONE Stop: 02/26/21 02:45 Fentanyl (Fentanyl 100 Mcg/2 Ml Sdv) 50 mcg IVPUSH Q1H PRN PRN Reason: Pain (severe 7-10) Furosemide (Furosemide 20 Mg/2 Ml Vial) 40 mg IVPUSH NOW ONE Stop: 02/27/21 09:02 Last Admin: 02/27/21 09:17 Dose: 40 mg Documented by: Furosemide (Furosemide 40 Mg/4 Ml Vial) 40 mg IVPUSH NOW ONE Stop: 03/01/21 15:43 Last Admin: 03/01/21 15:53 Dose: 40 mg Documented by: Furosemide (Furosemide 40 Mg/4 Ml Vial) 40 mg IVPUSH DAILY [facility] Last Admin: 03/02/21 09:36 Dose: 40 mg Documented by: Furosemide (Furosemide 20 Mg/2 Ml Vial) 20 mg IVPUSH NOW ONE Stop: 03/01/21 23:40 Last Admin: 03/01/21 23:50 Dose: 20 mg Documented by: Furosemide (Furosemide 40 Mg/4 Ml Vial) 40 mg IVPUSH Q8H [facility] Last Admin: 03/02/21 14:05 Dose: Not Given Documented by: Furosemide (Furosemide 40 Mg/4 Ml Vial) 40 mg IVPUSH Q8H KATHERINE Last Admin: 03/04/21 09:01 Dose: 40 mg Documented by: Hydrochlorothiazide (Hydrochlorothiazide 12.5 Mg Cap) 12.5 mg PO BEDTIME KATHERINE Last Admin: 02/28/21 20:00 Dose: 12.5 mg Documented by: Lactated Ringer's (Ringers, Lactated) 1,000 mls @ 500 mls/hr IV BOLUS [facility] Last Admin: 02/26/21 02:20 Dose: 500 mls/hr Documented by: Oxytocin/Sodium Chloride (Oxytocin 30 Unit/500 Ml-Ns) 30 unit in 500 mls @ 250 mls/hr IV TITRATE [facility] Lactated Ringer's (Ringers, Lactated) 1,000 mls @ 150 mls/hr IV ASDIRECTED [facility] Last Infusion: 02/28/21 08:50 Dose: 50 mls/hr Documented by: Tranexamic Acid 1,000 mg/ (Sodium Chloride) 110 mls @ 660 mls/hr IV ONETIME PRN PRN Reason: Bleeding Sodium Chloride (Normal Saline) Confirm Administered Dose 20 mls @ as directed .ROUTE .[facility]-MED ONE Stop: 02/26/21 03:45 Lactated Ringer's (Ringers, Lactated) 1,000 mls @ 125 mls/hr IV ASDIRECTED [facility] Last Infusion: 02/28/21 01:00 Dose: Infused Documented by: Tranexamic Acid 1,000 mg/ (Sodium Chloride) 110 mls @ 660 mls/hr IV ONETIME PRN PRN Reason: Bleeding Clindamycin Phosphate 600 mg/ (Sodium Chloride) 54 mls @ 100 mls/hr IV Q6H KATHERINE Clindamycin Phosphate 900 mg/ (Premix) 75 mls @ 150 mls/hr IV Q6H KATHERINE Clindamycin Phosphate 600 mg/ (Premix) 50 mls @ 100 mls/hr IV Q6H [facility] Last Admin: 03/01/21 15:53 Dose: 100 mls/hr Documented by: Cefazolin Sodium/Dextrose 1 gm (/ Premix) 50 mls @ 100 mls/hr IV Q8H [facility] Last Admin: 03/01/21 14:00 Dose: 100 mls/hr Documented by: Lactated Ringer's (Ringers, Lactated) 1,000 mls @ 50 mls/hr IV ASDIRECTED [facility] Last Infusion: 03/01/21 08:30 Dose: 10 mls/hr Documented by: Lactated Ringer's (Ringers, Lactated) 1,000 mls @ 10 mls/hr IV ASDIRECTED [facility] Magnesium Sulfate 2 gm/ Premix 50 mls @ 12.5 mls/hr IV ONETIME ONE Stop: 03/01/21 15:23 Last Admin: 03/01/21 11:43 Dose: 12.5 mls/hr Documented by: Furosemide 40 mg/ Sodium (Chloride) 54 mls @ 100 mls/hr IV Q12H [facility] Last Admin: 03/01/21 17:30 Dose: Not Given Documented by: Magnesium Sulfate 4 gm/ Premix 100 mls @ 50 mls/hr IV ONETIME ONE Stop: 03/03/21 10:46 Last Admin: 03/03/21 09:47 Dose: 50 mls/hr Documented by: Ibuprofen (Ibuprofen 800 Mg Tab) 800 mg PO Q8H PRN PRN Reason: mild pain or fever Iopamidol (Iopamidol 755 Mg/Ml 500 Ml Multipack Bottle) 75 ml IVPUSH ONETIME STA Stop: 03/02/21 13:47 Last Admin: 03/02/21 13:46 Dose: 75 ml Documented by: Ketorolac Tromethamine (Ketorolac 30 Mg/Ml Sdv) Confirm Administered Dose 30 mg .ROUTE .STK-MED ONE Stop: 02/26/21 03:28 Ketorolac Tromethamine (Ketorolac 30 Mg/Ml Sdv) 30 mg IVPUSH Q6H [facility] Stop: 02/27/21 04:01 Last Admin: 02/27/21 04:10 Dose: 30 mg Documented by: Labetalol HCl (Labetalol 100 Mg Tab) 200 mg PO DAILY [facility] Last Admin: 03/01/21 08:48 Dose: 200 mg Documented by: Lidocaine HCl (Lidocaine 1% 50 Ml Mdv) 50 ml INJECT ONETIME PRN PRN Reason: Laceration repair Lisinopril (Lisinopril 5 Mg Tab) 5 mg PO DAILY KATHERINE Lorazepam (Lorazepam 2 Mg/Ml Sdv) 1 mg IVPUSH ONETIME ONE Stop: 03/01/21 11:15 Last Admin: 03/01/21 11:44 Dose: 1 mg Documented by: Lorazepam (Lorazepam 2 Mg/Ml Sdv) 2 mg IVPUSH ONETIME ONE Stop: 03/02/21 00:15 Last Admin: 03/02/21 00:25 Dose: 2 mg Documented by: Magnesium Oxide (Magnesium Oxide 400 Mg Tab) 800 mg PO ONETIME ONE Stop: 03/04/21 10:11 Last Admin: 03/04/21 10:30 Dose: 800 mg Documented by: Methylergonovine Maleate (Methylergonovine 0.2 Mg/1 Ml Amp) 0.2 mg IM ONETIME PRN PRN Reason: Excessive Vaginal Bleeding Metoprolol Tartrate (Metoprolol Tartrate 25 Mg Tab) 25 mg PO BID KATHERINE Miscellaneous Medication (Phenylephrine Hcl In 0.9% Nacl 1 Mg/10 Ml Syringe) Confirm Administered Dose 1 mg .ROUTE .STK-MED ONE Stop: 02/26/21 03:28 Misoprostol (Misoprostol 200 Mcg Tab) 200 mcg PO ONETIME PRN PRN Reason: Post Hemorrhage Misoprostol (Misoprostol 200 Mcg Tab) 1,000 mcg RECTAL ONETIME PRN PRN Reason: excessive bleeding Morphine Sulfate (Morphine Pf 10 Mg/10 Ml Sdv) Confirm Administered Dose 10 mg .ROUTE .STK-MED ONE Stop: 02/26/21 02:46 Morphine Sulfate (Morphine 4 Mg/Ml Syringe) 4 mg IVPUSH Q4H PRN PRN Reason: Pain (moderate 4-6) Last Admin: 03/01/21 23:24 Dose: 4 mg Documented by: Morphine Sulfate (Morphine 2 Mg/Ml Syringe) 2 mg IVPUSH Q4H PRN PRN Reason: Pain (moderate 4-6) Last Admin: 03/04/21 06:20 Dose: 2 mg Documented by: Nalbuphine HCl (Nalbuphine 10 Mg/1 Ml Vial) 10 mg IVPUSH Q1H PRN PRN Reason: Pain (severe 7-10) Nalbuphine HCl (Nalbuphine 10 Mg/1 Ml Vial) 5 mg IVPUSH ASDIRECTED PRN PRN Reason: Itching Naloxone HCl (Naloxone 0.4 Mg/Ml Syringe) 0.1 mg IVPUSH ONETIME PRN PRN Reason: Respiratory Depression Stop: 02/27/21 04:19 Octyl Cyanoacrylate (Octyl 2-Cyanoacrylate 1 Tube) Confirm Administered Dose 1 applic .ROUTE .STK-MED ONE Stop: 02/26/21 05:03 Ondansetron HCl (Ondansetron 4 Mg/2 Ml Sdv) Confirm Administered Dose 4 mg .ROUTE .STK-MED ONE Stop: 02/26/21 03:28 Ondansetron HCl (Ondansetron 4 Mg/2 Ml Sdv) 4 mg IVPUSH Q6H PRN PRN Reason: Nausea Oxycodone/Acetaminophen (Acetaminophen/Oxycodone 325-5 Mg Tab) 2 tab PO Q4H PRN PRN Reason: Pain (severe 7-10) Last Admin: 03/02/21 21:07 Dose: 2 tab Documented by: Oxycodone/Acetaminophen (Acetaminophen/Oxycodone 325-5 Mg Tab) 2 tab PO Q6H PRN PRN Reason: Pain (moderate 4-6) Last Admin: 02/26/21 06:53 Dose: 2 tab Documented by: Oxytocin (Oxytocin 10 Units/1 Ml Sdv) Confirm Administered Dose 30 unit .ROUTE .STK-MED ONE Stop: 02/26/21 03:28 Oxytocin (Oxytocin 10 Units/1 Ml Sdv) 10 unit IM ASDIRECTED PRN PRN Reason: Excessive Vaginal Bleeding Polyethylene Glycol (Polyethylene Glycol 3350 Powder 17 Gm Packet) 17 gm PO ON ETIME ONE Stop: 03/02/21 14:18 Last Admin: 03/02/21 14:53 Dose: 17 gm Documented by: Potassium Chloride (Potassium Chloride 20 Meq Tab.Er) 40 meq PO ONETIME ONE Stop: 03/03/21 08:48 Last Admin: 03/03/21 09:48 Dose: 40 meq Documented by: Potassium Chloride (Potassium Chloride 20 Meq Tab.Er) 40 meq PO BID@1000,1400 KATHERINE Stop: 03/05/21 10:01 Last Admin: 03/05/21 09:11 Dose: 40 meq Documented by: Sterile Water (Water For Irrigation,Sterile 1,000 Ml Container) 1,000 ml IRR ASDIRECTED PRN PRN Reason: delivery - Exam Central Line Total Time: 5Days 20Hours Urinary Catheter Total Time: 6Days 8Hours General: Alert, Oriented, Cooperative, No Acute Distress Lungs: Clear to Auscultation, Normal Respiratory Effort Cardiovascular: Regular Rate, Regular Rhythm GI/Abdominal Exam: Normal Bowel Sounds, Soft, Tender. No: Hepatomegaly, Splenomegaly Extremities: Normal Inspection, Normal Range of Motion, Non-Tender Skin: Rash (Rash in the gluteal cleft ) Wound/Incisions: Dressing Dry and Intact, No Drainage, Other (Small gapping in the surgical wound with minimal drainage) - Patient Data Lab Results Last 24 hrs: Laboratory Results - last 24 hr 03/04/21 03/05/21 03/05/21 Range/Units 16:33 06:15 06:15 WBC 23.99 H (4.0-11.0) K/uL RBC 3.45 L (4.30-5.90) M/uL Hgb 10.0 L (12.0-16.0) g/dL Hct 29.8 L (36.0-46.0) % MCV 86.4 (80.0-98.0) fL MCH 29.0 (27.0-32.0) pg MCHC 33.6 (31.0-37.0) g/dL RDW Std Deviation 45.1 (28.0-62.0) fl RDW Coeff of Idalmis 14 (11.0-15.0) % Plt Count 420 H (150-400) K/uL MPV 8.80 (7.40-12.00) fL Add Manual Diff YES Neutrophils % (Manual) 85 H (48.0-80.0) % Band Neutrophils % 4 % Lymphocytes % (Manual) 6 L (16.0-40.0) % Monocytes % (Manual) 5 (0.0-15.0) % Nucleated RBC % 0.0 /100WBC Absolute Seg Neuts 20.4 H (1.4-5.7) Band Neutrophils # 1.0 Lymphocytes # (Manual) 1.4 (0.6-2.4) Monocytes # (Manual) 1.2 H (0.0-0.8) Nucleated RBCs # 0 K/uL Sodium 137 (136-145) mmol/L Potassium 3.5 (3.5-5.1) mmol/L Chloride 101 (98-107) mmol/L Carbon Dioxide 28.3 (21.0-32.0) mmol/L BUN 17 (7.0-18.0) mg/dL Creatinine 0.8 (0.6-1.0) mg/dL Est Cr Clr Drug Dosing 95.89 mL/min Estimated GFR (MDRD) > 60.0 ml/min Glucose 89 (74-106) mg/dL Calcium 8.0 L (8.5-10.1) mg/dL Phosphorus 3.4 (2.6-4.7) mg/dL Magnesium 1.8 (1.8-2.4) mg/dL Vancomycin Trough 13.6 H (5.0-10.0) ug/mL Result Diagrams: 03/05/21 06:15 03/05/21 06:15 Fabián Results Last 24 hrs: Microbiology 03/01/21 10:40 Aerobic Blood Culture - Preliminary Blood - Venous - Lab Draw NO GROWTH AFTER 4 DAYS Anaerobic Blood Culture - Preliminary NO GROWTH AFTER 4 DAYS 03/01/21 10:30 Aerobic Blood Culture - Preliminary Blood - Venous NO GROWTH AFTER 4 DAYS Anaerobic Blood Culture - Preliminary NO GROWTH AFTER 4 DAYS Sepsis Event Note - Evaluation Sepsis Screening Result: Sepsis Risk - Focused Exam Vital Signs: Vital Signs Temp Pulse Pulse Resp BP BP Pulse Ox 03/05/21 11:00 20 107/53 L 99 03/05/21 10:00 15 123/79 95 03/05/21 09:00 15 128/73 91 L 03/05/21 08:10 82 131/80 03/05/21 08:00 36.3 C 15 131/90 97 03/05/21 07:00 96 12 148/90 H 97 03/05/21 06:00 92 19 144/89 H 93 L 03/05/21 05:00 36.6 C 99 13 142/87 H 96 03/05/21 04:00 86 19 132/87 95 03/05/21 03:00 94 13 130/84 94 L 03/05/21 02:00 95 19 129/78 92 L 03/05/21 01:00 100 18 123/84 93 L - Problem List & Annotations (1) Sepsis SNOMED Code(s): 97606169 Code(s): A41.9 - SEPSIS, UNSPECIFIED ORGANISM Status: Acute Current Visit: Yes (2) Prolonged rupture of membranes SNOMED Code(s): 92949930 Code(s): O42.90 - MIRIAN ROM, 7TH0 BETW RUPT & ONST LABR, UNSP WEEKS OF GEST Status: Acute Current Visit: Yes (3) Cardiomyopathy SNOMED Code(s): 04540966 Code(s): I42.9 - CARDIOMYOPATHY, UNSPECIFIED Status: Acute Current Visit: Yes (4) Drug abuse, amphetamine type SNOMED Code(s): 89118726 Code(s): F15.10 - OTHER STIMULANT ABUSE, UNCOMPLICATED Status: Acute Current Visit: Yes (5) Anxiety SNOMED Code(s): 59255465 Code(s): F41.9 - ANXIETY DISORDER, UNSPECIFIED Status: Acute Current Vis it: Yes (6) Status post repeat low transverse section SNOMED Code(s): 504367590, 61041331, 053442110, 226993120, 488900164 Code(s): Z98.891 - HISTORY OF UTERINE SCAR FROM PREVIOUS SURGERY Status: Acute Priority: High Current Visit: Yes (7) Acute systolic heart failure SNOMED Code(s): 599298053 Code(s): I50.21 - ACUTE SYSTOLIC (CONGESTIVE) HEART FAILURE Status: Acute Current Visit: Yes (8) Acute respiratory failure with hypoxia SNOMED Code(s): 03668937, 675230198 Code(s): J96.01 - ACUTE RESPIRATORY FAILURE WITH HYPOXIA Status: Acute Current Visit: Yes (9) Hypomagnesemia SNOMED Code(s): 360155796 Code(s): E83.42 - HYPOMAGNESEMIA Status: Acute Current Visit: Yes (10) Hypokalemia SNOMED Code(s): 28299308 Code(s): E87.6 - HYPOKALEMIA Status: Acute Current Visit: Yes - Problem List Review Problem List Initiated/Reviewed/Updated: Yes - My Orders Last 24 Hours: My Active Orders 03/04/21 20:00 Furosemide [Lasix] 40 mg IVPUSH Q12H 03/05/21 09:02 UA W/FABINÁ RFLX IF INDICATED [URIN] Routine 03/05/21 11:51 Central Venous Line Discontinue [OM.PC] Routine - Plan Plan:: 25-year-old female currently admitted in ICU secondary to sepsis, acute systolic heart failure resulting in acute hypoxic respiratory failure From cardiac and respiratory stand point patient has clinically significantly improved, currently on room air tolerating ambulation and physical therapy well without needing oxygen support Hemodynamics are stable, patient has been started on appropriate cardiac regimen for her cardiomyopathy Continue IV Lasix will wean off to Lasix 40 mg IV once daily Repeat chest x-ray was ordered due to concern of refractory leukocytosis, patient's pleural effusions seem to have resolved as well as pulmonary infiltrates are resolving unlikely cardiopulmonary cause of infection Continue broad-spectrum antibiotics with vancomycin, azithromycin and meropenem, white count is still high, but patient has no fevers is not septic anymore. We will follow up on blood cultures, so far negative CT abdomen findings including hematoma and gas discussed with the primary team, Dr. Anderson believes these are normal postop changes and are not of any immediate concern, will consider repeating CT abdomen if white count is not resolved IV Ativan as needed for withdrawal symptoms, anxiety every 4 hours Continue IV Benadryl for itching Continue oral opiates for pain control, patient has been weaned off morphine Continue MiraLAX for constipation, will give milk of mag to help with bowel movement, patient is refusing any suppositories Patient will need a close follow-up with cardiology upon discharge for further diagnostic work-up of her cardiomyopathy, will try to arrange a close follow-up upon discharge with cardiology Encourage incentive spirometry Continue duo nebs as needed Out of bed to chair as tolerated Monitor and replete electrolytes as needed keep mag more than 2 and potassium more than 4 Continue with inpatient route of care per primary team. Patient will need to see psychiatrist for her underlying depression and drug abuse outpatient basis
[2021-03-05] MEDS ORDERED: Magnesium Hydroxide 400 MG/5 ML Susp 30 ML Cup PO ONE (12:29)
[2021-03-05] MEDS ORDERED: Enoxaparin 40 MG/0.4 ML Syringe SUBCUT SCH (12:30)
[2021-03-05] MEDS ORDERED: Magnesium Oxide 400 MG Tab PO ONE (12:32)
--- NOTE | 2021-03-05 14:02 | PN ---
THC Physician - Brief Progress [id number]/24/2021 13:16[facility] Lonny Ramirez, KIRBY - OANHN (WILDER) - OANHN SHERLYNLENA CUMMINSLisaDate of Service 03/05/2021 13:16HPI/Sharee nts of Note eICU Progress NotePt is a 25 yo F s/p with post- respiratory failure requ iring diuresis, BIPAP and ICU monitoring. Hgb has remained at 10 since transfusion after delivery and she is completing her course of antibiotics for her endometritis. She is on Lasix daily and no longe r requiring BiPAP or O2 via NC. She is resting comfortably in bed in NAD with stable VS. Case was dis cussed with her bedside nurse. CXR is now clear of pulmonary edema and she will follow up with Cardio as an outpatient for her reduced EF. eICU Recommendations:1) Continue daily diuresis with heart fail ure2) Complete course of antibiotics for endometritis3) O2 via NC if SpO2 < 94%4) Increase activity a s tolerated5) Anticipate transfer out of the ICU soon if she remains stableThank you for allowing us to participate in the care of your patient.Interventions Zdoslwcupnut-Urtp-hsnsphrp therapies (e.g. V TE, beta rodriguez, etc.), Bleeding - evaluation and treatment with blood products, Communication with other healthcare providers and/or family, Hypervolemia - evaluation and management, Infection - evalu ation and management
[2021-03-05] MEDS ORDERED: Iopamidol 755 MG/ML 500 ML Multipack Bottle IVPUSH STA (17:47)
--- NOTE | 2021-03-05 18:39 | CT ---
INDICATION: Refractory leukocytosis TECHNIQUE: Axial images were obtained from the diaphragm to the pubic symphysis. Reformats were obtained in the coronal and sagittal plane. IV Contrast: Initial noncontrast followed by 100 cc Isovue 370 Oral Contrast: None COMPARISON: Abdomen and pelvis CT 03/02/2021 FINDINGS: Lower chest: Basilar discoid atelectasis. Liver: Unremarkable. Normal in size and attenuation. No masses. Gallbladder and bile ducts: Cholelithiasis without gallbladder wall thickening. Spleen: Unremarkable. Normal in size without mass. Pancreas: Unremarkable. No mass or inflammation. Adrenal glands: Unremarkable. No nodules. Kidneys: Nonobstructing nephrolithiasis right kidney without evidence of ureteral stone or hydronephrosis. Vasculature: Unremarkable. GI tract: The stomach is decompressed. Small bowel loops are upper normal in caliber and fluid-filled with air-fluid levels noted throughout the colon. No pneumoperitoneum. Pelvis: Air is present within the bladder lumen. Uterus is enlarged and anteverted consistent with recent status. Hypodense defect at the anterior aspect of the uterus likely represents a section defect. There is fat stranding in the anterior subcutaneous tissues consistent with recent surgery with prominent expansion of the left rectus abdominus musculature. This measures up to 5.1 centimeters in maximal diameter (prior 4.1 cm). Left rectus abdominis musculature is of varying density with some fluid extending anteriorly to the left anterior extraperitoneal space. This fluid connects with the rectus abdominus musculature and shows some partial rim enhancement (series 301, image 136). Some air is re- demonstrated within the collection. Bones: Unremarkable for age. IMPRESSION: 1. Expansion of the left rectus abdominus musculature with heterogeneous but higher density consistent with intramuscular hematoma. This has mildly increased in size compared to the study 3 days prior. There is extension through to the left extraperitoneal space with some partial rim enhancing fluid. Air is noted within the musculature/collection as well. This can represent residual air from the patient`s recent section although with the given history, note that the differential diagnosis would include infected hematoma. 2. Upper normal diameter loops of small bowel with fluid-filled loops. Note is made of fluid throughout the colon which is nonspecific but can be seen in a diarrheal illness. 3. Air within the bladder. This can be due to recent instrumentation/manipulation although the differential diagnosis includes cystitis. 4. Cholelithiasis without CT evidence of cholecystitis. Please note that all CT scans at this facility use dose modulation, iterative reconstruction, and/or weight-based dosing when appropriate to reduce radiation dose to as low as reasonably achievable. Dictated by Jett Queen MD @ 03/05/2021 6:37:[address] Jett Queen @ Mar 05 2021 6:37PM
[2021-03-05] MEDS ORDERED: Bisacodyl 5 MG Tab PO ONE (19:09)
--- NOTE | 2021-03-05 20:29 | PCM.SN.2 ---
- Free Text/Narrative Note: CT abd noted, hematoma noted again, concern of possible infected hematoma in view of refractory leucocytosis, CXR is clear, UA not impressive, no other obvious source of infection, Patient is on optimum/appropriate regimen, called and case discussed with Dr. Kahn about the findings. He will follow up and decided about possible drainage of hematoma for source control when he examines the patient in AM. Per primary team Surgery doesn't need to be consulted at this time. Patient otherwise hemodynamically stable.
[2021-03-05] MEDS: LORazepam 2 MG/ML SDV IVPUSH PRN (22:23)
[2021-03-06 07:03] LABS: BLOOD UREA NITROGEN,BUN 15 mg/dL (7.0-18.0); CARBON DIOXIDE,CO2 26.6 mmol/L (21.0-32.0); CHLORIDE,CL 102 mmol/L (98-107); GLUCOSE RANDOM 87 mg/dL (74-106); POTASSIUM,K 4.5 mmol/L (3.5-5.1); SODIUM,NA 137 mmol/L (136-145)
[2021-03-06] MEDS: Lisinopril 5 MG Tab PO SCH (08:29)
[2021-03-06] MEDS: Docusate Sodium 100 MG Cap PO SCH ×2 (08:29→20:32)
[2021-03-06] MEDS: Furosemide 40 MG/4 ML VIAL IVPUSH SCH (08:29)
[2021-03-06] MEDS: Azithromycin 500 MG in Sodium Chloride 0.9% 250 ML IV SCH (08:30)
[2021-03-06] MEDS: Carvedilol 3.125 MG Tab PO SCH ×2 (08:30→20:32)
[2021-03-06] MEDS: Meropenem Premix 1 GM in Premix Bag 1 BAG IV SCH ×3 (09:33→23:32)
--- NOTE | 2021-03-06 11:16 | PN ---
THC Physician - Brief Progress [id number]/25/2021 11:06[facility] Lonny Ramirez, KIRBY - ROBIN (WILDER) - ROBIN PLATALENA CUMMINSLisaDate of Service 03/06/2021 11:06HPI/Sharee nts of Note eICU Progress NotePt is a 25 yo F s/p with post- respiratory failure requ iring diuresis, BIPAP and ICU monitoring. She continues to maintain her SpO2 on RA and today she is g oing to the OR for evacuation of her hematoma. Her hgb this am is 9.7 and she otherwise is on her ant ibiotics and diuresis as tolerated. She is laying in bed with family present receiving a blood draw. Her VS are stable and her case was discussed with her nurse Masood. eICU Recommendations:1) Continue d aily diuresis with heart failure2) Complete course of antibiotics for endometritis3) O2 via NC if SpO 2 < 94%4) Increase activity as tolerated5) OR today for evacuation of hematoma6) PRN electroltye repl acementThank you for allowing us to participate in the care of your patient.Interventions Intermediat n-Friv-fasegyln therapies (e.g. VTE, beta rodriguez, etc.), Bleeding - evaluation and treatment with bl ood products, Communication with other healthcare providers and/or family, Infection - evaluation and management
[2021-03-06] MEDS ORDERED: Lidocaine 2% 5 ML SDV ONE (11:28)
[2021-03-06] MEDS ORDERED: Midazolam 1 MG/ML 2 ML SDV ONE (11:28)
[2021-03-06] MEDS ORDERED: Ondansetron 4 MG/2 ML SDV ONE (11:28)
[2021-03-06] MEDS ORDERED: Propofol 200 MG/20 ML SDV ONE (11:28)
[2021-03-06] MEDS ORDERED: Dexamethasone 4 MG/ML 5 ML MDV ONE (11:28)
[2021-03-06] MEDS ORDERED: fentaNYL 100 MCG/2 ML SDV ONE (11:28)
[2021-03-06] MEDS ORDERED: Rocuronium Bromide 50 MG/5 ML Syringe ONE (11:33)
[2021-03-06] MEDS ORDERED: Sugammadex Sodium 200 MG/2 ML VIAL ONE (11:33)
--- NOTE | 2021-03-06 11:52 | PCM.PREANE ---
Preanesthetic Assessment - Anesthesia/Transfusion/Family Hx Anesthesia History: Prior Anesthesia Without Reaction Family History of Anesthesia Reaction: No Transfusion History: No Prior Transfusion(s) Type of Transfusion Reactions: Reports: Unknown - Review of Systems Other: Reports: None - Physical Assessment NPO Status Date: 02/26/21 NPO Status Time: 00:00 Vital Signs: Last Vital Signs Temp 97.1 F 03/06/21 08:00 Pulse 94 03/06/21 08:30 Resp 12 03/06/21 11:00 BP 110/74 03/06/21 10:00 Pulse Ox 96 03/06/21 11:00 Height: 5 ft 5 in Weight: 74.525 kg - Lab Values: Laboratory Last Values WBC 28.55 K/uL (4.0-11.0) H 03/06/21 06:00 RBC 3.30 M/uL (4.30-5.90) L 03/06/21 06:00 Hgb 9.7 g/dL (12.0-16.0) L 03/06/21 06:00 Hct 28.8 % (36.0-46.0) L 03/06/21 06:00 MCV 87.3 fL (80.0-98.0) 03/06/21 06:00 MCH 29.4 pg (27.0-32.0) 03/06/21 06:00 MCHC 33.7 g/dL (31.0-37.0) 03/06/21 06:00 RDW Std Deviation 46.1 fl (28.0-62.0) 03/06/21 06:00 RDW Coeff of Idalmis 14 % (11.0-15.0) 03/06/21 06:00 Plt Count 480 K/uL (150-400) H 03/06/21 06:00 MPV 8.70 fL (7.40-12.00) 03/06/21 06:00 Add Manual Diff YES 03/06/21 06:00 Neutrophils % (Manual) 84 % (48.0-80.0) H 03/06/21 06:00 Band Neutrophils % 5 % 03/06/21 06:00 Lymphocytes % (Manual) 8 % (16.0-40.0) L 03/06/21 06:00 Monocytes % (Manual) 3 % (0.0-15.0) 03/06/21 06:00 Eosinophils % (Manual) 1 % (0.0-7.0) 03/04/21 04:57 Metamyelocytes % 1 % 03/04/21 04:57 Myelocytes % 1 % 03/01/21 05:25 Nucleated RBC % 0.0 /100WBC 03/06/21 06:00 Absolute Seg Neuts 24.0 (1.4-5.7) H 03/06/21 06:00 Band Neutrophils # 1.4 03/06/21 06:00 Lymphocytes # (Manual) 2.3 (0.6-2.4) 03/06/21 06:00 Monocytes # (Manual) 0.9 (0.0-0.8) H 03/06/21 06:00 Eosinophils # (Manual) 0.2 (0.0-0.7) 03/04/21 04:57 Absolute Metamyelocyte 0.2 03/04/21 04:57 Absolute Myelocytes 0.2 03/01/21 05:25 Nucleated RBCs # 0 K/uL 03/06/21 06:00 Sodium 137 mmol/L (136-145) 03/06/21 06:00 Potassium 4.5 mmol/L (3.5-5.1) 03/06/21 06:00 Chloride 102 mmol/L (98-107) 03/06/21 06:00 Carbon Dioxide 26.6 mmol/L (21.0-32.0) 03/06/21 06:00 BUN 15 mg/dL (7.0-18.0) 03/06/21 06:00 Creatinine 0.8 mg/dL (0.6-1.0) 03/06/21 06:00 Est Cr Clr Drug Dosing 95.89 mL/min 03/06/21 06:00 Estimated GFR (MDRD) > 60.0 ml/min 03/06/21 06:00 Glucose 87 mg/dL (74-106) 03/06/21 06:00 Lactic Acid 0.7 mmol/L (0.4-2.0) 02/28/21 05:10 Calcium 8.4 mg/dL (8.5-10.1) L 03/06/21 06:00 Phosphorus 3.3 mg/dL (2.6-4.7) 03/06/21 06:00 Magnesium 2.2 mg/dL (1.8-2.4) 03/06/21 06:00 Total Bilirubin 0.6 mg/dL (0.2-1.0) 03/06/21 06:00 AST 39 IU/L (15-37) H 03/06/21 06:00 ALT 25 IU/L (14-63) 03/06/21 06:00 Alkaline Phosphatase 144 U/L (46-116) H 03/06/21 06:00 Troponin I < 0.050 ng/mL (0.000-0.056) 03/03/21 04:48 B-Natriuretic Peptide 707 PG/ML (<100) H 03/04/21 04:57 Total Protein 6.1 g/dL (6.4-8.2) L 03/06/21 06:00 Albumin 2.0 g/dL (3.4-5.0) L 03/06/21 06:00 Globulin 4.1 g/dL (2.6-4.0) H 03/06/21 06:00 Albumin/Globulin Ratio 0.5 (0.9-1.6) L 03/06/21 06:00 Urine Color YELLOW 03/05/21 12:35 Urine Appearance SLT CLOUDY 03/05/21 12:35 Urine pH 8.0 (5.0-8.0) 03/05/21 12:35 Ur Specific Godley 1.015 (1.001-1.035) 03/05/21 12:35 Urine Protein NEGATIVE mg/dL (NEGATIVE) 03/05/21 12:35 Urine Glucose (UA) NEGATIVE mg/dL (NEGATIVE) 03/05/21 12:35 Urine Ketones NEGATIVE mg/dL (NEGATIVE) 03/05/21 12:35 Urine Occult Blood LARGE (NEGATIVE) H 03/05/21 12:35 Urine Nitrite NEGATIVE (NEGATIVE) 03/05/21 12:35 Urine Bilirubin NEGATIVE (NEGATIVE) 03/05/21 12:35 Urine Urobilinogen 0.2 EU/dL (<2.0) 03/05/21 12:35 Ur Leukocyte Esterase SMALL (NEGATIVE) H 03/05/21 12:35 Urine RBC 5-10 (0-2/HPF) 03/05/21 12:35 Urine WBC 2-4 (0-5/HPF) 03/05/21 12:35 Ur Epithelial Cells FEW (NONE-FEW) 03/05/21 12:35 Urine Bacteria FEW (NEGATIVE) 03/05/21 12:35 Ur Random Creatinine 98.9 mg/dL 03/01/21 11:30 U Random Total Protein 129.2 mg/dL (<11.9) H 02/26/21 03:10 Ur Random Sodium 45.0 mmol/L (40.0-220.0) 03/01/21 11:30 Protein/Creatinin Ratio 0.4 02/26/21 03:10 Ur Urea Nitrogen Conc 389 mg/dL 03/01/21 11:30 Membrane Rupture POSITIVE 02/26/21 00:50 Vancomycin Trough 13.6 ug/mL (5.0-10.0) H 03/04/21 16:33 Urine Opiates Screen NEGATIVE (NEGATIVE) 02/26/21 03:10 Ur Oxycodone Screen NEGATIVE (NEGATIVE) 02/26/21 03:10 Urine Methadone Screen NEGATIVE (NEGATIVE) 02/26/21 03:10 Ur Barbiturates Screen NEGATIVE (NEGATIVE) 02/26/21 03:10 Ur Phencyclidine Scrn NEGATIVE (NEGATIVE) 02/26/21 03:10 Ur Amphetamine Screen POSITIVE (NEGATIVE) 02/26/21 03:10 U Methamphetamines Scrn POSITIVE (NEGATIVE) 02/26/21 03:10 U Benzodiazepines Scrn NEGATIVE (NEGATIVE) 02/26/21 03:10 U Cocaine Metab Screen NEGATIVE (NEGATIVE) 02/26/21 03:10 U Marijuana (THC) Screen POSITIVE (NEGATIVE) 02/26/21 03:10 RPR Non-Reac (Non-Reac) 02/26/21 02:20 Chlamydia/GC Source GENITAL 02/26/21 02:00 C.trachomatis RNA (TMA) Negative (Negative) 02/26/21 02:00 Hep Bs Antigen Index < 0.1 INDEX (<1.0) 02/26/21 02:20 Hep C Ab Index (BONNIE) 0.02 INDEX (<0.8) 02/26/21 02:20 HIV 1&2 Ag/Ab, 4th Gen < 0.1 INDEX (<1.0) 02/26/21 02:20 N.gonorrhoeae RNA (TMA) Negative (Negative) 02/26/21 02:00 Rubella IgG Ab Index 305.1 IU/mL 02/26/21 02:20 SARS-CoV-2 RNA (SUSAN) NEGATIVE (NEGATIVE) 02/26/21 02:08 Group B Strep (PCR) NEGATIVE (NEGATIVE) 02/26/21 02:00 Blood Type A NEGATIVE 02/26/21 02:20 Antibody Screen NEGATIVE 02/26/21 02:20 Screen NEGATIVE (NEGATIVE) 02/26/21 05:00 RhIG Candidate? YES 02/26/21 05:00 Rhogam Indicated YES, BABY RH POS H 02/26/21 05:00 Crossmatch See Detail 02/26/21 05:00 - Allergies Allergies/Adverse Reactions: Allergies Allergy/AdvReac Type Severity Reaction Status Date / Time amoxicillin Allergy Difficulty Verified 02/26/21 01:19 Breathing - Blood Blood Available: Yes Product(s) Available: PRBC PreAnesthesia Questionnaire - Past Health History Medical/Surgical History: Denies Medical/Surgical History HEENT History: Reports: None Cardiovascular History: Reports: Heart Murmur, Other (See Below) (Tachycardia) Respiratory History: Reports: None Gastrointestinal History: Reports: None Genitourinary History: Reports: None Other OB/BYN History: H/O PCS re: failure to descend with pushing Musculoskeletal History: Reports: None Neurological History: Reports: None Psychiatric History: Reports: Anxiety, Depression Endocrine/Metabolic History: Reports: None Hematologic History: Reports: None Immunologic History: Reports: None Oncologic (Cancer) History: Reports: None Dermatologic History: Reports: None - Infectious Disease History Infectious Disease History: Reports: Chicken Pox - Past Surgical History Female Surgical History: Reports: Section (Primary LTCS re: failure to descend with pushing) Other Musculoskeletal Surgeries/Procedures:: right bunionectomy - SUBSTANCE USE Tobacco Use Status *Q: Current Every Day Tobacco User Tobacco Use Within Last Twelve Months: Cigarettes Second Hand Smoke Exposure: Yes Recreational Drug Use History: Yes Recreational Drug Type: Reports: Marijuana/Hashish (THC daily) Recreational Drug Last Use: "Last night" - HOME MEDS Home Medications: Home Meds Pnv #30/Iron Carb&Aspg/Fa/Om3 [OB Complete with DHA Softgel] 02/26/21 [History] - CURRENT (IN HOUSE) MEDS Current Meds: Current Medications Albuterol/Ipratropium (Albuterol/Ipratropium 3.0-0.5 Mg/3 Ml Neb Soln) 3 ml NEB Q4HRRT PRN PRN Reason: Wheezing Last Admin: 03/01/21 17:14 Dose: 3 ml Documented by: Carvedilol (Carvedilol 3.125 Mg Tab) 3.125 mg PO BID [facility] Last Admin: 03/06/21 08:30 Dose: 3.125 mg Documented by: Diphenhydramine HCl (Diphenhydramine 50 Mg/Ml Sdv) 25 mg IVPUSH Q6H PRN PRN Reason: Itching or Nausea Docusate Sodium (Docusate Sodium 100 Mg Cap) 100 mg PO BID [facility] Last Admin: 03/06/21 08:29 Dose: 100 mg Documented by: Furosemide (Furosemide 40 Mg/4 Ml Vial) 40 mg IVPUSH DAILY [facility] Last Admin: 03/06/21 08:29 Dose: 40 mg Documented by: Meropenem/Sodium Chloride 1 gm (/ Premix) 50 mls @ 100 mls/hr IV Q8H [facility] Last Admin: 03/06/21 09:33 Dose: 100 mls/hr Documented by: Vancomycin HCl 1.25 gm/ Sodium (Chloride) 250 mls @ 166.667 mls/hr IV Q12H [facility] Last Infusion: 03/06/21 05:31 Dose: Infused Documented by: Lisinopril (Lisinopril 5 Mg Tab) 5 mg PO DAILY [facility] Last Admin: 03/06/21 08:29 Dose: 5 mg Documented by: Lorazepam (Lorazepam 2 Mg/Ml Sdv) 1 mg IVPUSH Q4H PRN PRN Reason: Withdrawal Symptoms Last Admin: 03/05/21 22:23 Dose: 1 mg Documented by: Ondansetron HCl (Ondansetron 4 Mg/2 Ml Sdv) 4 mg IVPUSH Q4H PRN PRN Reason: Nausea/Vomiting Oxycodone/Acetaminophen (Acetaminophen/Oxycodone 325-5 Mg Tab) 1 tab PO Q4H PRN PRN Reason: Pain (severe 7-10) Last Admin: 03/05/21 22:09 Dose: 1 tab Documented by: Polyethylene Glycol (Polyethylene Glycol 3350 Powder 17 Gm Packet) 17 gm PO DAILY PRN PRN Reason: constipation Last Admin: 03/05/21 08:10 Dose: 17 gm Documented by: Sodium Chloride (Sodium Chloride 0.9% 10 Ml Syringe) 10 ml FLUSH ASDIRECTED PRN PRN Reason: Keep Vein Open Sodium Chloride (Sodium Chloride 0.9% 2.5 Ml Syringe) 2.5 ml FLUSH ASDIRECTED PRN PRN Reason: Keep Vein Open Vancomycin HCl (Pharmacy To Dose - Vancomycin) 0 dose .XX ASDIRECTED KATHERINE Discontinued Medications Bisacodyl (Bisacodyl 10 Mg Supp) 10 mg RECTAL ONETIME PRN PRN Reason: Constipation Bisacodyl (Bisacodyl 5 Mg Tab) 10 mg PO ONETIME ONE Stop: 03/05/21 19:10 Last Admin: 03/05/21 20:19 Dose: 10 mg Documented by: Butorphanol Tartrate (Butorphanol 1 Mg/Ml Sdv) 1 mg IVPUSH Q1H PRN PRN Reason: Pain (severe 7-10) Carboprost Tromethamine (Carboprost Tromethamine 250 Mcg/1 Ml Amp) 250 mcg IM ASDIRECTED PRN PRN Reason: Post Hemorrhage Cefazolin Sodium (Cefazolin 1 Gm Vial) Confirm Administered Dose 2 gm .ROUTE .STK-MED ONE Stop: 02/26/21 03:45 Citric Acid/Sodium Citrate (Citric Acid/Sodium Citrate Solution 30 Ml Cup) 30 ml PO ONETIME ONE Stop: 02/26/21 02:01 Last Admin: 02/26/21 05:17 Dose: Not Given Documented by: Dexamethasone (Dexamethasone 4 Mg/Ml 5 Ml Mdv) Confirm Administered Dose 20 mg .ROUTE .STK-MED ONE Stop: 03/06/21 11:29 Diphenhydramine HCl (Diphenhydramine 50 Mg/Ml Sdv) 12.5 mg IVPUSH Q2H PRN PRN Reason: Itching Emollient Ointment (Lanolin 100% Cream 7 Gm Tube) 0 gm TOP ASDIRECTED PRN PRN Reason: Sore Nipples Enoxaparin Sodium (Enoxaparin 40 Mg/0.4 Ml Syringe) 40 mg SUBCUT Q24H [facility] Last Admin: 03/05/21 12:58 Dose: 40 mg Documented by: Ephedrine Sulfate (Ephedrine 50 Mg/Ml Sdv) 10 mg IVPUSH Q5M PRN PRN Reason: Hypotension Fentanyl (Fentanyl 100 Mcg/2 Ml Sdv) Confirm Administered Dose 100 mcg .ROUTE .STK-MED ONE Stop: 02/26/21 02:45 Fentanyl (Fentanyl 100 Mcg/2 Ml Sdv) 50 mcg IVPUSH Q1H PRN PRN Reason: Pain (severe 7-10) Fentanyl (Fentanyl 100 Mcg/2 Ml Sdv) Confirm Administered Dose 100 mcg .ROUTE .STK-MED ONE Stop: 03/06/21 11:29 Furosemide (Furosemide 20 Mg/2 Ml Vial) 40 mg IVPUSH NOW ONE Stop: 02/27/21 09:02 Last Admin: 02/27/21 09:17 Dose: 40 mg Documented by: Furosemide (Furosemide 40 Mg/4 Ml Vial) 40 mg IVPUSH NOW ONE Stop: 03/01/21 15:43 Last Admin: 03/01/21 15:53 Dose: 40 mg Documented by: Furosemide (Furosemide 40 Mg/4 Ml Vial) 40 mg IVPUSH DAILY [facility] Last Admin: 03/02/21 09:36 Dose: 40 mg Documented by: Furosemide (Furosemide 20 Mg/2 Ml Vial) 20 mg IVPUSH NOW ONE Stop: 03/01/21 23:40 Last Admin: 03/01/21 23:50 Dose: 20 mg Documented by: Furosemide (Furosemide 40 Mg/4 Ml Vial) 40 mg IVPUSH Q8H [facility] Last Admin: 03/02/21 14:05 Dose: Not Given Documented by: Furosemide (Furosemide 40 Mg/4 Ml Vial) 40 mg IVPUSH Q8H [facility] Last Admin: 03/04/21 09:01 Dose: 40 mg Documented by: Furosemide (Furosemide 40 Mg/4 Ml Vial) 40 mg IVPUSH Q12H [facility] Last Admin: 03/05/21 08:10 Dose: 40 mg Documented by: Hydrochlorothiazide (Hydrochlorothiazide 12.5 Mg Cap) 12.5 mg PO BEDTIME [facility] Last Admin: 02/28/21 20:00 Dose: 12.5 mg Documented by: Lactated Ringer's (Ringers, Lactated) 1,000 mls @ 500 mls/hr IV BOLUS [facility] Last Admin: 02/26/21 02:20 Dose: 500 mls/hr Documented by: Oxytocin/Sodium Chloride (Oxytocin 30 Unit/500 Ml-Ns) 30 unit in 500 mls @ 250 mls/hr IV TITRATE [facility] Lactated Ringer's (Ringers, Lactated) 1,000 mls @ 150 mls/hr IV ASDIRECTED KATHERINE Last Infusion: 02/28/21 08:50 Dose: 50 mls/hr Documented by: Tranexamic Acid 1,000 mg/ (Sodium Chloride) 110 mls @ 660 mls/hr IV ONETIME PRN PRN Reason: Bleeding Sodium Chloride (Normal Saline) Confirm Administered Dose 20 mls @ as directed .ROUTE .K-MED ONE Stop: 02/26/21 03:45 Lactated Ringer's (Ringers, Lactated) 1,000 mls @ 125 mls/hr IV ASDIRECTED KATHERINE Last Infusion: 02/28/21 01:00 Dose: Infused Documented by: Tranexamic Acid 1,000 mg/ (Sodium Chloride) 110 mls @ 660 mls/hr IV ONETIME PRN PRN Reason: Bleeding Clindamycin Phosphate 600 mg/ (Sodium Chloride) 54 mls @ 100 mls/hr IV Q6H KATHERINE Clindamycin Phosphate 900 mg/ (Premix) 75 mls @ 150 mls/hr IV Q6H KATHERINE Clindamycin Phosphate 600 mg/ (Premix) 50 mls @ 100 mls/hr IV Q6H [facility] Last Admin: 03/01/21 15:53 Dose: 100 mls/hr Documented by: Cefazolin Sodium/Dextrose 1 gm (/ Premix) 50 mls @ 100 mls/hr IV Q8H [facility] Last Admin: 03/01/21 14:00 Dose: 100 mls/hr Documented by: Lactated Ringer's (Ringers, Lactated) 1,000 mls @ 50 mls/hr IV ASDIRECTED KATHERINE Last Infusion: 03/01/21 08:30 Dose: 10 mls/hr Documented by: Lactated Ringer's (Ringers, Lactated) 1,000 mls @ 10 mls/hr IV ASDIRECTED [facility] Magnesium Sulfate 2 gm/ Premix 50 mls @ 12.5 mls/hr IV ONETIME ONE Stop: 03/01/21 15:23 Last Admin: 03/01/21 11:43 Dose: 12.5 mls/hr Documented by: Furosemide 40 mg/ Sodium (Chloride) 54 mls @ 100 mls/hr IV Q12H [facility] Last Admin: 03/01/21 17:30 Dose: Not Given Documented by: Azithromycin 500 mg/ Sodium (Chloride) 250 mls @ 250 mls/hr IV DAILY [facility] Last Admin: 03/06/21 08:30 Dose: 250 mls/hr Documented by: Magnesium Sulfate 4 gm/ Premix 100 mls @ 50 mls/hr IV ONETIME ONE Stop: 03/03/21 10:46 Last Admin: 03/03/21 09:47 Dose: 50 mls/hr Documented by: Ibuprofen (Ibuprofen 800 Mg Tab) 800 mg PO Q8H PRN PRN Reason: mild pain or fever Iopamidol (Iopamidol 755 Mg/Ml 500 Ml Multipack Bottle) 75 ml IVPUSH ONETIME STA Stop: 03/02/21 13:47 Last Admin: 03/02/21 13:46 Dose: 75 ml Documented by: Iopamidol (Iopamidol 755 Mg/Ml 500 Ml Multipack Bottle) 100 ml IVPUSH ONETIME STA Stop: 03/05/21 17:48 Last Admin: 03/05/21 17:48 Dose: 100 ml Documented by: Ketorolac Tromethamine (Ketorolac 30 Mg/Ml Sdv) Confirm Administered Dose 30 mg .ROUTE .STK-MED ONE Stop: 02/26/21 03:28 Ketorolac Tromethamine (Ketorolac 30 Mg/Ml Sdv) 30 mg IVPUSH Q6H [facility] Stop: 02/27/21 04:01 Last Admin: 02/27/21 04:10 Dose: 30 mg Documented by: Labetalol HCl (Labetalol 100 Mg Tab) 200 mg PO DAILY [facility] Last Admin: 03/01/21 08:48 Dose: 200 mg Documented by: Lidocaine (Lidocaine 2% 5 Ml Sdv) Confirm Administered Dose 5 ml .ROUTE .STK-MED ONE Stop: 03/06/21 11:29 Lidocaine HCl (Lidocaine 1% 50 Ml Mdv) 50 ml INJECT ONETIME PRN PRN Reason: Laceration repair Lisinopril (Lisinopril 5 Mg Tab) 5 mg PO DAILY [facility] Lorazepam (Lorazepam 2 Mg/Ml Sdv) 1 mg IVPUSH ONETIME ONE Stop: 03/01/21 11:15 Last Admin: 03/01/21 11:44 Dose: 1 mg Documented by: Lorazepam (Lorazepam 2 Mg/Ml Sdv) 2 mg IVPUSH ONETIME ONE Stop: 03/02/21 00:15 Last Admin: 03/02/21 00:25 Dose: 2 mg Documented by: Magnesium Hydroxide (Magnesium Hydroxide 400 Mg/5 Ml Susp 30 Ml Cup) 30 ml PO ONETIME ONE Stop: 03/05/21 12:30 Last Admin: 03/05/21 12:57 Dose: 30 ml Documented by: Magnesium Oxide (Magnesium Oxide 400 Mg Tab) 800 mg PO ONETIME ONE Stop: 03/04/21 10:11 Last Admin: 03/04/21 10:30 Dose: 800 mg Documented by: Magnesium Oxide (Magnesium Oxide 400 Mg Tab) 800 mg PO ONETIME ONE Stop: 03/05/21 12:33 Last Admin: 03/05/21 12:57 Dose: 800 mg Documented by: Methylergonovine Maleate (Methylergonovine 0.2 Mg/1 Ml Amp) 0.2 mg IM ONETIME PRN PRN Reason: Excessive Vaginal Bleeding Metoprolol Tartrate (Metoprolol Tartrate 25 Mg Tab) 25 mg PO BID KATHERINE Midazolam HCl (Midazolam 1 Mg/Ml 2 Ml Sdv) Confirm Administered Dose 2 mg .ROUTE .STK-MED ONE Stop: 03/06/21 11:29 Miscellaneous Medication (Phenylephrine Hcl In 0.9% Nacl 1 Mg/10 Ml Syringe) Confirm Administered Dose 1 mg .ROUTE .STK-MED ONE Stop: 02/26/21 03:28 Misoprostol (Misoprostol 200 Mcg Tab) 200 mcg PO ONETIME PRN PRN Reason: Post Hemorrhage Misoprostol (Misoprostol 200 Mcg Tab) 1,000 mcg RECTAL ONETIME PRN PRN Reason: excessive bleeding Morphine Sulfate (Morphine Pf 10 Mg/10 Ml Sdv) Confirm Administered Dose 10 mg .ROUTE .STK-MED ONE Stop: 02/26/21 02:46 Morphine Sulfate (Morphine 4 Mg/Ml Syringe) 4 mg IVPUSH Q4H PRN PRN Reason: Pain (moderate 4-6) Last Admin: 03/01/21 23:24 Dose: 4 mg Documented by: Morphine Sulfate (Morphine 2 Mg/Ml Syringe) 2 mg IVPUSH Q4H PRN PRN Reason: Pain (moderate 4-6) Last Admin: 03/04/21 06:20 Dose: 2 mg Documented by: Nalbuphine HCl (Nalbuphine 10 Mg/1 Ml Vial) 10 mg IVPUSH Q1H PRN PRN Reason: Pain (severe 7-10) Nalbuphine HCl (Nalbuphine 10 Mg/1 Ml Vial) 5 mg IVPUSH ASDIRECTED PRN PRN Reason: Itching Naloxone HCl (Naloxone 0.4 Mg/Ml Syringe) 0.1 mg IVPUSH ONETIME PRN PRN Reason: Respiratory Depression Stop: 02/27/21 04:19 Octyl Cyanoacrylate (Octyl 2-Cyanoacrylate 1 Tube) Confirm Administered Dose 1 applic .ROUTE .STK-MED ONE Stop: 02/26/21 05:03 Ondansetron HCl (Ondansetron 4 Mg/2 Ml Sdv) Confirm Administered Dose 4 mg .ROUTE .STK-MED ONE Stop: 02/26/21 03:28 Ondansetron HCl (Ondansetron 4 Mg/2 Ml Sdv) 4 mg IVPUSH Q6H PRN PRN Reason: Nausea Ondansetron HCl (Ondansetron 4 Mg/2 Ml Sdv) Confirm Administered Dose 4 mg .ROUTE .STK-MED ONE Stop: 03/06/21 11:29 Oxycodone/Acetaminophen (Acetaminophen/Oxycodone 325-5 Mg Tab) 2 tab PO Q4H PRN PRN Reason: Pain (severe 7-10) Last Admin: 03/02/21 21:07 Dose: 2 tab Documented by: Oxycodone/Acetaminophen (Acetaminophen/Oxycodone 325-5 Mg Tab) 2 tab PO Q6H PRN PRN Reason: Pain (moderate 4-6) Last Admin: 02/26/21 06:53 Dose: 2 tab Documented by: Oxytocin (Oxytocin 10 Units/1 Ml Sdv) Confirm Administered Dose 30 unit .ROUTE . STK-MED ONE Stop: 02/26/21 03:28 Oxytocin (Oxytocin 10 Units/1 Ml Sdv) 10 unit IM ASDIRECTED PRN PRN Reason: Excessive Vaginal Bleeding Polyethylene Glycol (Polyethylene Glycol 3350 Powder 17 Gm Packet) 17 gm PO ONETIME ONE Stop: 03/02/21 14:18 Last Admin: 03/02/21 14:53 Dose: 17 gm Documented by: Potassium Chloride (Potassium Chloride 20 Meq Tab.Er) 40 meq PO ONETIME ONE Stop: 03/03/21 08:48 Last Admin: 03/03/21 09:48 Dose: 40 meq Documented by: Potassium Chloride (Potassium Chloride 20 Meq Tab.Er) 40 meq PO BID@1000,1400 KATHERINE Stop: 03/05/21 10:01 Last Admin: 03/05/21 09:11 Dose: 40 meq Documented by: Propofol (Propofol 200 Mg/20 Ml Sdv) Confirm Administered Dose 400 mg .ROUTE .STK-MED ONE Stop: 03/06/21 11:29 Rocuronium Quincy (Rocuronium Quincy 50 Mg/5 Ml Syringe) Confirm Administered Dose 50 mg .ROUTE .STK-MED ONE Stop: 03/06/21 11:34 Sterile Water (Water For Irrigation,Sterile 1,000 Ml Container) 1,000 ml IRR ASDIRECTED PRN PRN Reason: delivery Sugammadex Sodium (Sugammadex Sodium 200 Mg/2 Ml Vial) Confirm Administered Dose 200 mg .ROUTE .STK-MED ONE Stop: 03/06/21 11:34
[2021-03-06] MEDS ORDERED: Sodium Chloride 0.9% 20 ML ONE (12:42)
--- NOTE | 2021-03-06 12:47 | PCM.PREANE ---
Preanesthetic Assessment - Anesthesia/Transfusion/Family Hx Anesthesia History: Prior Anesthesia Without Reaction Family History of Anesthesia Reaction: No Transfusion History: Prior Transfusion Without Reaction Type of Transfusion Reactions: Reports: Unknown - Review of Systems General: Fever Other: Reports: None, Anxiety - Physical Assessment NPO Status Date: 03/05/21 NPO Status Time: 00:00 Vital Signs: Last Vital Signs Temp 97.1 F 03/06/21 08:00 Pulse 94 03/06/21 08:30 Resp 12 03/06/21 11:00 BP 110/74 03/06/21 10:00 Pulse Ox 96 03/06/21 11:00 Height: 5 ft 5 in Weight: 74.525 kg ASA Class: 3E Airway Class: Mallampati = 3 Dentition: Reports: Missing Tooth/Teeth Thyro-Mental Finger Breadths: 2 Mouth Opening Finger Breadths: 2 Cardiovascular: Tachycardia - Lab Values: Laboratory Last Values WBC 28.55 K/uL (4.0-11.0) H 03/06/21 06:00 RBC 3.30 M/uL (4.30-5.90) L 03/06/21 06:00 Hgb 9.7 g/dL (12.0-16.0) L 03/06/21 06:00 Hct 28.8 % (36.0-46.0) L 03/06/21 06:00 MCV 87.3 fL (80.0-98.0) 03/06/21 06:00 MCH 29.4 pg (27.0-32.0) 03/06/21 06:00 MCHC 33.7 g/dL (31.0-37.0) 03/06/21 06:00 RDW Std Deviation 46.1 fl (28.0-62.0) 03/06/21 06:00 RDW Coeff of Idalmis 14 % (11.0-15.0) 03/06/21 06:00 Plt Count 480 K/uL (150-400) H 03/06/21 06:00 MPV 8.70 fL (7.40-12.00) 03/06/21 06:00 Add Manual Diff YES 03/06/21 06:00 Neutrophils % (Manual) 84 % (48.0-80.0) H 03/06/21 06:00 Band Neutrophils % 5 % 03/06/21 06:00 Lymphocytes % (Manual) 8 % (16.0-40.0) L 03/06/21 06:00 Monocytes % (Manual) 3 % (0.0-15.0) 03/06/21 06:00 Eosinophils % (Manual) 1 % (0.0-7.0) 03/04/21 04:57 Metamyelocytes % 1 % 03/04/21 04:57 Myelocytes % 1 % 03/01/21 05:25 Nucleated RBC % 0.0 /100WBC 03/06/21 06:00 Absolute Seg Neuts 24.0 (1.4-5.7) H 03/06/21 06:00 Band Neutrophils # 1.4 03/06/21 06:00 Lymphocytes # (Manual) 2.3 (0.6-2.4) 03/06/21 06:00 Monocytes # (Manual) 0.9 (0.0-0.8) H 03/06/21 06:00 Eosinophils # (Manual) 0.2 (0.0-0.7) 03/04/21 04:57 Absolute Metamyelocyte 0.2 03/04/21 04:57 Absolute Myelocytes 0.2 03/01/21 05:25 Nucleated RBCs # 0 K/uL 03/06/21 06:00 Sodium 137 mmol/L (136-145) 03/06/21 06:00 Potassium 4.5 mmol/L (3.5-5.1) 03/06/21 06:00 Chloride 102 mmol/L (98-107) 03/06/21 06:00 Carbon Dioxide 26.6 mmol/L (21.0-32.0) 03/06/21 06:00 BUN 15 mg/dL (7.0-18.0) 03/06/21 06:00 Creatinine 0.8 mg/dL (0.6-1.0) 03/06/21 06:00 Est Cr Clr Drug Dosing 95.89 mL/min 03/06/21 06:00 Estimated GFR (MDRD) > 60.0 ml/min 03/06/21 06:00 Glucose 87 mg/dL (74-106) 03/06/21 06:00 Lactic Acid 0.7 mmol/L (0.4-2.0) 02/28/21 05:10 Calcium 8.4 mg/dL (8.5-10.1) L 03/06/21 06:00 Phosphorus 3.3 mg/dL (2.6-4.7) 03/06/21 06:00 Magnesium 2.2 mg/dL (1.8-2.4) 03/06/21 06:00 Total Bilirubin 0.6 mg/dL (0.2-1.0) 03/06/21 06:00 AST 39 IU/L (15-37) H 03/06/21 06:00 ALT 25 IU/L (14-63) 03/06/21 06:00 Alkaline Phosphatase 144 U/L (46-116) H 03/06/21 06:00 Troponin I < 0.050 ng/mL (0.000-0.056) 03/03/21 04:48 B-Natriuretic Peptide 707 PG/ML (<100) H 03/04/21 04:57 Total Protein 6.1 g/dL (6.4-8.2) L 03/06/21 06:00 Albumin 2.0 g/dL (3.4-5.0) L 03/06/21 06:00 Globulin 4.1 g/dL (2.6-4.0) H 03/06/21 06:00 Albumin/Globulin Ratio 0.5 (0.9-1.6) L 03/06/21 06:00 Urine Color YELLOW 03/05/21 12:35 Urine Appearance SLT CLOUDY 03/05/21 12:35 Urine pH 8.0 (5.0-8.0) 03/05/21 12:35 Ur Specific [place] 1.015 (1.001-1.035) 03/05/21 12:35 Urine Protein NEGATIVE mg/dL (NEGATIVE) 03/05/21 12:35 Urine Glucose (UA) NEGATIVE mg/dL (NEGATIVE) 03/05/21 12:35 Urine Ketones NEGATIVE mg/dL (NEGATIVE) 03/05/21 12:35 Urine Occult Blood LARGE (NEGATIVE) H 03/05/21 12:35 Urine Nitrite NEGATIVE (NEGATIVE) 03/05/21 12:35 Urine Bilirubin NEGATIVE (NEGATIVE) 03/05/21 12:35 Urine Urobilinogen 0.2 EU/dL (<2.0) 03/05/21 12:35 Ur Leukocyte Esterase SMALL (NEGATIVE) H 03/05/21 12:35 Urine RBC 5-10 (0-2/HPF) 03/05/21 12:35 Urine WBC 2-4 (0-5/HPF) 03/05/21 12:35 Ur Epithelial Cells FEW (NONE-FEW) 03/05/21 12:35 Urine Bacteria FEW (NEGATIVE) 03/05/21 12:35 Ur Random Creatinine 98.9 mg/dL 03/01/21 11:30 U Random Total Protein 129.2 mg/dL (<11.9) H 02/26/21 03:10 Ur Random Sodium 45.0 mmol/L (40.0-220.0) 03/01/21 11:30 Protein/Creatinin Ratio 0.4 02/26/21 03:10 Ur Urea Nitrogen Conc 389 mg/dL 03/01/21 11:30 Membrane Rupture POSITIVE 02/26/21 00:50 Vancomycin Trough 13.6 ug/mL (5.0-10.0) H 03/04/21 16:33 Urine Opiates Screen NEGATIVE (NEGATIVE) 02/26/21 03:10 Ur Oxycodone Screen NEGATIVE (NEGATIVE) 02/26/21 03:10 Urine Methadone Screen NEGATIVE (NEGATIVE) 02/26/21 03:10 Ur Barbiturates Screen NEGATIVE (NEGATIVE) 02/26/21 03:10 Ur Phencyclidine Scrn NEGATIVE (NEGATIVE) 02/26/21 03:10 Ur Amphetamine Screen POSITIVE (NEGATIVE) 02/26/21 03:10 U Methamphetamines Scrn POSITIVE (NEGATIVE) 02/26/21 03:10 U Benzodiazepines Scrn NEGATIVE (NEGATIVE) 02/26/21 03:10 U Cocaine Metab Screen NEGATIVE (NEGATIVE) 02/26/21 03:10 U Marijuana (THC) Screen POSITIVE (NEGATIVE) 02/26/21 03:10 RPR Non-Reac (Non-Reac) 02/26/21 02:20 Chlamydia/GC Source GENITAL 02/26/21 02:00 C.trachomatis RNA (TMA) Negative (Negative) 02/26/21 02:00 Hep Bs Antigen Index < 0.1 INDEX (<1.0) 02/26/21 02:20 Hep C Ab Index (BONNIE) 0.02 INDEX (<0.8) 02/26/21 02:20 HIV 1&2 Ag/Ab, 4th Gen < 0.1 INDEX (<1.0) 02/26/21 02:20 N.gonorrhoeae RNA (TMA) Negative (Negative) 02/26/21 02:00 Rubella IgG Ab Index 305.1 IU/mL 02/26/21 02:20 SARS-CoV-2 RNA (SUSAN) NEGATIVE (NEGATIVE) 02/26/21 02:08 Group B Strep (PCR) NEGATIVE (NEGATIVE) 02/26/21 02:00 Blood Type A NEGATIVE 02/26/21 02:20 Antibody Screen NEGATIVE 02/26/21 02:20 Screen NEGATIVE (NEGATIVE) 02/26/21 05:00 RhIG Candidate? YES 02/26/21 05:00 Rhogam Indicated YES, BABY RH POS H 02/26/21 05:00 Crossmatch See Detail 02/26/21 05:00 - Allergies Allergies/Adverse Reactions: Allergies Allergy/AdvReac Type Severity Reaction Status Date / Time amoxicillin Allergy Difficulty Verified 02/26/21 01:19 Breathing - Blood Blood Available: Yes Product(s) Available: PRBC - Anesthesia Plan Beta Doreen: Carvedilol Med Last Dose Date: 03/06/21 Med Last Dose Time: 09:30 - Acknowledgements Anesthesia Type Planned: General Anesthesia Pt an Appropriate Candidate for the Planned Anesthesia: Yes Alternatives and Risks of Anesthesia Discussed w Pt/Guardian: Yes Pt/Guardian Understands and Agrees with Anesthesia Plan: Yes PreAnesthesia Questionnaire - Past Health History Medical/Surgical History: Denies Medical/Surgical History HEENT History: Reports: None Cardiovascular History: Reports: Heart Murmur, Other (See Below) (Tachycardia) Respiratory History: Reports: None Gastrointestinal History: Reports: None Genitourinary History: Reports: None Other OB/BYN History: H/O PCS re: failure to descend with pushing Musculoskeletal History: Reports: None Neurological History: Reports: None Psychiatric History: Reports: Anxiety, Depression Endocrine/Metabolic History: Reports: None Hematologic History: Reports: None Immunologic History: Reports: None Oncologic (Cancer) History: Reports: None Dermatologic History: Reports: None - Infectious Disease History Infectious Disease History: Reports: Chicken Pox - Past Surgical History Female Surgical History: Reports: Section (Primary LTCS re: failure to descend with pushing) Other Musculoskeletal Surgeries/Procedures:: right bunionectomy - SUBSTANCE USE Tobacco Use Status *Q: Current Every Day Tobacco User Tobacco Use Within Last Twelve Months: Cigarettes Second Hand Smoke Exposure: Yes Recreational Drug Use History: Yes Recreational Drug Type: Reports: Marijuana/Hashish (THC daily) Recreational Drug Last Use: "Last night" - HOME MEDS Home Medications: Home Meds Pnv #30/Iron Carb&Aspg/Fa/Om3 [OB Complete with DHA Softgel] 02/26/21 [History] - CURRENT (IN HOUSE) MEDS Current Meds: Current Medications Albuterol/Ipratropium (Albuterol/Ipratropium 3.0-0.5 Mg/3 Ml Neb Soln) 3 ml NEB Q4HRRT PRN PRN Reason: Wheezing Last Admin: 03/01/21 17:14 Dose: 3 ml Documented by: Carvedilol (Carvedilol 3.125 Mg Tab) 3.125 mg PO BID [facility] [place] Last Admin: 03/06/21 08:30 Dose: 3.125 mg Documented by: Diphenhydramine HCl (Diphenhydramine 50 Mg/Ml Sdv) 25 mg IVPUSH Q6H PRN PRN Reason: Itching or Nausea Docusate Sodium (Docusate Sodium 100 Mg Cap) 100 mg PO BID [facility] [place] Last Admin: 03/06/21 08:29 Dose: 100 mg Documented by: Furosemide (Furosemide 40 Mg/4 Ml Vial) 40 mg IVPUSH DAILY [facility] [place] Last Admin: 03/06/21 08:29 Dose: 40 mg Documented by: Meropenem/Sodium Chloride 1 gm (/ Premix) 50 mls @ 100 mls/hr IV Q8H [facility] [place] Last Admin: 03/06/21 09:33 Dose: 100 mls/hr Documented by: Vancomycin HCl 1.25 gm/ Sodium (Chloride) 250 mls @ 166.667 mls/hr IV Q12H [facility] [place] Last Infusion: 03/06/21 05:31 Dose: Infused Documented by: Lisinopril (Lisinopril 5 Mg Tab) 5 mg PO DAILY [facility] [place] Last Admin: 03/06/21 08:29 Dose: 5 mg Documented by: Lorazepam (Lorazepam 2 Mg/Ml Sdv) 1 mg IVPUSH Q4H PRN PRN Reason: Withdrawal Symptoms Last Admin: 03/05/21 22:23 Dose: 1 mg Documented by: Ondansetron HCl (Ondansetron 4 Mg/2 Ml Sdv) 4 mg IVPUSH Q4H PRN PRN Reason: Nausea/Vomiting Oxycodone/Acetaminophen (Acetaminophen/Oxycodone 325-5 Mg Tab) 1 tab PO Q4H PRN PRN Reason: Pain (severe 7-10) Last Admin: 03/05/21 22:09 Dose: 1 tab Documented by: Polyethylene Glycol (Polyethylene Glycol 3350 Powder 17 Gm Packet) 17 gm PO DAILY PRN PRN Reason: constipation Last Admin: 03/05/21 08:10 Dose: 17 gm Documented by: Sodium Chloride (Sodium Chloride 0.9% 10 Ml Syringe) 10 ml FLUSH ASDIRECTED PRN PRN Reason: Keep Vein Open Sodium Chloride (Sodium Chloride 0.9% 2.5 Ml Syringe) 2.5 ml FLUSH ASDIRECTED PRN PRN Reason: Keep Vein Open Vancomycin HCl (Pharmacy To Dose - Vancomycin) 0 dose .XX ASDIRECTED KATHERINE Discontinued Medications Bisacodyl (Bisacodyl 10 Mg Supp) 10 mg RECTAL ONETIME PRN PRN Reason: Constipation Bisacodyl (Bisacodyl 5 Mg Tab) 10 mg PO ONETIME ONE Stop: 03/05/21 19:10 Last Admin: 03/05/21 20:19 Dose: 10 mg Documented by: Butorphanol Tartrate (Butorphanol 1 Mg/Ml Sdv) 1 mg IVPUSH Q1H PRN PRN Reason: Pain (severe 7-10) Carboprost Tromethamine (Carboprost Tromethamine 250 Mcg/1 Ml Amp) 250 mcg IM ASDIRECTED PRN PRN Reason: Post Hemorrhage Cefazolin Sodium (Cefazolin 1 Gm Vial) Confirm Administered Dose 2 gm .ROUTE .STK-MED ONE Stop: 02/26/21 03:45 Citric Acid/Sodium Citrate (Citric Acid/Sodium Citrate Solution 30 Ml Cup) 30 ml PO ONETIME ONE Stop: 02/26/21 02:01 Last Admin: 02/26/21 05:17 Dose: Not Given Documented by: Dexamethasone (Dexamethasone 4 Mg/Ml 5 Ml Mdv) Confirm Administered Dose 20 mg .ROUTE .STK-MED ONE Stop: 03/06/21 11:29 Diphenhydramine HCl (Diphenhydramine 50 Mg/Ml Sdv) 12.5 mg IVPUSH Q2H PRN PRN Reason: Itching Emollient Ointment (Lanolin 100% Cream 7 Gm Tube) 0 gm TOP ASDIRECTED PRN PRN Reason: Sore Nipples Enoxaparin Sodium (Enoxaparin 40 Mg/0.4 Ml Syringe) 40 mg SUBCUT Q24H [facility] [place] Last Admin: 03/05/21 12:58 Dose: 40 mg Documented by: Ephedrine Sulfate (Ephedrine 50 Mg/Ml Sdv) 10 mg IVPUSH Q5M PRN PRN Reason: Hypotension Fentanyl (Fentanyl 100 Mcg/2 Ml Sdv) Confirm Administered Dose 100 mcg .ROUTE .STK-MED ONE Stop: 02/26/21 02:45 Fentanyl (Fentanyl 100 Mcg/2 Ml Sdv) 50 mcg IVPUSH Q1H PRN PRN Reason: Pain (severe 7-10) Fentanyl (Fentanyl 100 Mcg/2 Ml Sdv) Confirm Administered Dose 100 mcg .ROUTE .STK-MED ONE Stop: 03/06/21 11:29 Furosemide (Furosemide 20 Mg/2 Ml Vial) 40 mg IVPUSH NOW ONE Stop: 02/27/21 09:02 Last Admin: 02/27/21 09:17 Dose: 40 mg Documented by: Furosemide (Furosemide 40 Mg/4 Ml Vial) 40 mg IVPUSH NOW ONE Stop: 03/01/21 15:43 Last Admin: 03/01/21 15:53 Dose: 40 mg Documented by: Furosemide (Furosemide 40 Mg/4 Ml Vial) 40 mg IVPUSH DAILY [facility] [place] Last Admin: 03/02/21 09:36 Dose: 40 mg Documented by: Furosemide (Furosemide 20 Mg/2 Ml Vial) 20 mg IVPUSH NOW ONE Stop: 03/01/21 23:40 Last Admin: 03/01/21 23:50 Dose: 20 mg Documented by: Furosemide (Furosemide 40 Mg/4 Ml Vial) 40 mg IVPUSH Q8H [facility] [place] Last Admin: 03/02/21 14:05 Dose: Not Given Documented by: Furosemide (Furosemide 40 Mg/4 Ml Vial) 40 mg IVPUSH Q8H [facility] [place] Last Admin: 03/04/21 09:01 Dose: 40 mg Documented by: Furosemide (Furosemide 40 Mg/4 Ml Vial) 40 mg IVPUSH Q12H [facility] [place] Last Admin: 03/05/21 08:10 Dose: 40 mg Documented by: Hydrochlorothiazide (Hydrochlorothiazide 12.5 Mg Cap) 12.5 mg PO BEDTIME [facility] [place] Last Admin: 02/28/21 20:00 Dose: 12.5 mg Documented by: Lactated Ringer's (Ringers, Lactated) 1,000 mls @ 500 mls/hr IV BOLUS KATHERINE Last Admin: 02/26/21 02:20 Dose: 500 mls/hr Documented by: Oxytocin/Sodium Chloride (Oxytocin 30 Unit/500 Ml-Ns) 30 unit in 500 mls @ 250 mls/hr IV TITRATE KATHERINE Lactated Ringer's (Ringers, Lactated) 1,000 mls @ 150 mls/hr IV ASDIRECTED KATHERINE Last Infusion: 02/28/21 08:50 Dose: 50 mls/hr Documented by: Tranexamic Acid 1,000 mg/ (Sodium Chloride) 110 mls @ 660 mls/hr IV ONETIME PRN PRN Reason: Bleeding Sodium Chloride (Normal Saline) Confirm Administered Dose 20 mls @ as directed .ROUTE .[facility]-MED ONE Stop: 02/26/21 03:45 Lactated Ringer's (Ringers, Lactated) 1,000 mls @ 125 mls/hr IV ASDIRECTED KATHERINE Last Infusion: 02/28/21 01:00 Dose: Infused Documented by: Tranexamic Acid 1,000 mg/ (Sodium Chloride) 110 mls @ 660 mls/hr IV ONETIME PRN PRN Reason: Bleeding Clindamycin Phosphate 600 mg/ (Sodium Chloride) 54 mls @ 100 mls/hr IV Q6H KATHERINE Clindamycin Phosphate 900 mg/ (Premix) 75 mls @ 150 mls/hr IV Q6H KATHERINE Clindamycin Phosphate 600 mg/ (Premix) 50 mls @ 100 mls/hr IV Q6H KATHERINE Last Admin: 03/01/21 15:53 Dose: 100 mls/hr Documented by: Cefazolin Sodium/Dextrose 1 gm (/ Premix) 50 mls @ 100 mls/hr IV Q8H KATHERINE Last Admin: 03/01/21 14:00 Dose: 100 mls/hr Documented by: Lactated Ringer's (Ringers, Lactated) 1,000 mls @ 50 mls/hr IV ASDIRECTED KATHERINE Last Infusion: 03/01/21 08:30 Dose: 10 mls/hr Documented by: Lactated Ringer's (Ringers, Lactated) 1,000 mls @ 10 mls/hr IV ASDIRECTED [facility] [place] Magnesium Sulfate 2 gm/ Premix 50 mls @ 12.5 mls/hr IV ONETIME ONE Stop: 03/01/21 15:23 Last Admin: 03/01/21 11:43 Dose: 12.5 mls/hr Documented by: Furosemide 40 mg/ Sodium (Chloride) 54 mls @ 100 mls/hr IV Q12H [facility] [place] Last Admin: 03/01/21 17:30 Dose: Not Given Documented by: Azithromycin 500 mg/ Sodium (Chloride) 250 mls @ 250 mls/hr IV DAILY [facility] [place] Last Admin: 03/06/21 08:30 Dose: 250 mls/hr Documented by: Magnesium Sulfate 4 gm/ Premix 100 mls @ 50 mls/hr IV ONETIME ONE Stop: 03/03/21 10:46 Last Admin: 03/03/21 09:47 Dose: 50 mls/hr Documented by: Sodium Chloride (Normal Saline) Confirm Administered Dose 20 mls @ as directed .ROUTE .STK-MED ONE Stop: 03/06/21 12:43 Ibuprofen (Ibuprofen 800 Mg Tab) 800 mg PO Q8H PRN PRN Reason: mild pain or fever Iopamidol (Iopamidol 755 Mg/Ml 500 Ml Multipack Bottle) 75 ml IVPUSH ONETIME STA Stop: 03/02/21 13:47 Last Admin: 03/02/21 13:46 Dose: 75 ml Documented by: Iopamidol (Iopamidol 755 Mg/Ml 500 Ml Multipack Bottle) 100 ml IVPUSH ONETIME STA Stop: 03/05/21 17:48 Last Admin: 03/05/21 17:48 Dose: 100 ml Documented by: Ketorolac Tromethamine (Ketorolac 30 Mg/Ml Sdv) Confirm Administered Dose 30 mg .ROUTE .STK-MED ONE Stop: 02/26/21 03:28 Ketorolac Tromethamine (Ketorolac 30 Mg/Ml Sdv) 30 mg IVPUSH Q6H [facility] [place] Stop: 02/27/21 04:01 Last Admin: 02/27/21 04:10 Dose: 30 mg Documented by: Labetalol HCl (Labetalol 100 Mg Tab) 200 mg PO DAILY [facility] [place] Last Admin: 03/01/21 08:48 Dose: 200 mg Documented by: Lidocaine (Lidocaine 2% 5 Ml Sdv) Confirm Administered Dose 5 ml .ROUTE .STK-MED ONE Stop: 03/06/21 11:29 Lidocaine HCl (Lidocaine 1% 50 Ml Mdv) 50 ml INJECT ONETIME PRN PRN Reason: Laceration repair Lisinopril (Lisinopril 5 Mg Tab) 5 mg PO DAILY KATHERINE Lorazepam (Lorazepam 2 Mg/Ml Sdv) 1 mg IVPUSH ONETIME ONE Stop: 03/01/21 11:15 Last Admin: 03/01/21 11:44 Dose: 1 mg Documented by: Lorazepam (Lorazepam 2 Mg/Ml Sdv) 2 mg IVPUSH ONETIME ONE Stop: 03/02/21 00:15 Last Admin: 03/02/21 00:25 Dose: 2 mg Documented by: Magnesium Hydroxide (Magnesium Hydroxide 400 Mg/5 Ml Susp 30 Ml Cup) 30 ml PO ONETIME ONE Stop: 03/05/21 12:30 Last Admin: 03/05/21 12:57 Dose: 30 ml Documented by: Magnesium Oxide (Magnesium Oxide 400 Mg Tab) 800 mg PO ONETIME ONE Stop: 03/04/21 10:11 Last Admin: 03/04/21 10:30 Dose: 800 mg Documented by: Magnesium Oxide (Magnesium Oxide 400 Mg Tab) 800 mg PO ONETIME ONE Stop: 03/05/21 12:33 Last Admin: 03/05/21 12:57 Dose: 800 mg Documented by: Methylergonovine Maleate (Methylergonovine 0.2 Mg/1 Ml Amp) 0.2 mg IM ONETIME PRN PRN Reason: Excessive Vaginal Bleeding Metoprolol Tartrate (Metoprolol Tartrate 25 Mg Tab) 25 mg PO BID KATHERINE Midazolam HCl (Midazolam 1 Mg/Ml 2 Ml Sdv) Confirm Administered Dose 2 mg .ROUTE .STK-MED ONE Stop: 03/06/21 11:29 Miscellaneous Medication (Phenylephrine Hcl In 0.9% Nacl 1 Mg/10 Ml Syringe) Confirm Administered Dose 1 mg .ROUTE .STK-MED ONE Stop: 02/26/21 03:28 Misoprostol (Misoprostol 200 Mcg Tab) 200 mcg PO ONETIME PRN PRN Reason: Post Hemorrhage Misoprostol (Misoprostol 200 Mcg Tab) 1,000 mcg RECTAL ONETIME PRN PRN Reason: excessive bleeding Morphine Sulfate (Morphine Pf 10 Mg/10 Ml Sdv) Confirm Administered Dose 10 mg .ROUTE .STK-MED ONE Stop: 02/26/21 02:46 Morphine Sulfate (Morphine 4 Mg/Ml Syringe) 4 mg IVPUSH Q4H PRN PRN Reason: Pain (moderate 4-6) Last Admin: 03/01/21 23:24 Dose: 4 mg Documented by: Morphine Sulfate (Morphine 2 Mg/Ml Syringe) 2 mg IVPUSH Q4H PRN PRN Reason: Pain (moderate 4-6) Last Admin: 03/04/21 06:20 Dose: 2 mg Documented by: Nalbuphine HCl (Nalbuphine 10 Mg/1 Ml Vial) 10 mg IVPUSH Q1H PRN PRN Reason: Pain (severe 7-10) Nalbuphine HCl (Nalbuphine 10 Mg/1 Ml Vial) 5 mg IVPUSH ASDIRECTED PRN PRN Reason: Itching Naloxone HCl (Naloxone 0.4 Mg/Ml Syringe) 0.1 mg IVPUSH ONETIME PRN PRN Reason: Respiratory Depression Stop: 02/27/21 04:19 Octyl Cyanoacrylate (Octyl 2-Cyanoacrylate 1 Tube) Confirm Administered Dose 1 applic .ROUTE .STK-MED ONE Stop: 02/26/21 05:03 Ondansetron HCl (Ondansetron 4 Mg/2 Ml Sdv) Confirm Administered Dose 4 mg .ROUTE .STK-MED ONE Stop: 02/26/21 03:28 Ondansetron HCl (Ondansetron 4 Mg/2 Ml Sdv) 4 mg IVPUSH Q6H PRN PRN Reason: Nausea Ondansetron HCl (Ondansetron 4 Mg/2 Ml Sdv) Confirm Administered Dose 4 mg .ROUTE .STK-MED ONE Stop: 03/06/21 11:29 Oxycodone/Acetaminophen (Acetaminophen/Oxycodone 325-5 Mg Tab) 2 tab PO Q4H PRN PRN Reason: Pain (severe 7-10) Last Admin: 03/02/21 21:07 Dose: 2 tab Documented by: Oxycodone/Acetaminophen (Acetaminophen/Oxycodone 325-5 Mg Tab) 2 tab PO Q6H PRN PRN Reason: Pain (moderate 4-6) Last Admin: 02/26/21 06:53 Dose: 2 tab Documented by: Oxytocin (Oxytocin 10 Units/1 Ml Sdv) Confirm Administered Dose 30 unit .ROUTE .STK-MED ONE Stop: 02/26/21 03:28 Oxytocin (Oxytocin 10 Units/1 Ml Sdv) 10 unit IM ASDIRECTED PRN PRN Reason: Excessive Vaginal Bleeding Polyethylene Glycol (Polyethylene Glycol 3350 Powder 17 Gm Packet) 17 gm PO ONETIME ONE Stop: 03/02/21 14:18 Last Admin: 03/02/21 14:53 Dose: 17 gm Documented by: Potassium Chloride (Potassium Chloride 20 Meq Tab.Er) 40 meq PO ONETIME ONE Stop: 03/03/21 08:48 Last Admin: 03/03/21 09:48 Dose: 40 meq Documented by: Potassium Chloride (Potassium Chloride 20 Meq Tab.Er) 40 meq PO BID@1000,1400 KATHERINE Stop: 03/05/21 10:01 Last Admin: 03/05/21 09:11 Dose: 40 meq Documented by: Propofol (Propofol 200 Mg/20 Ml Sdv) Confirm Administered Dose 400 mg .ROUTE .STK-MED ONE Stop: 03/06/21 11:29 Rocuronium [place] (Rocuronium [place] 50 Mg/5 Ml Syringe) Confirm Administered Dose 50 mg .ROUTE .STK-MED ONE Stop: 03/06/21 11:34 Sterile Water (Water For Irrigation,Sterile 1,000 Ml Container) 1,000 ml IRR ASDIRECTED PRN PRN Reason: delivery Sugammadex Sodium (Sugammadex Sodium 200 Mg/2 Ml Vial) Confirm Administered Dose 200 mg .ROUTE .STK-MED ONE Stop: 03/06/21 11:34
--- NOTE | 2021-03-06 12:55 | PCM.PN ---
- General Info Date of Service: 03/06/21 Admission Dx/Problem (Free Text): Patient Status Order with Admit Dx/Problem 02/26/21 01:05 Patient Status [ADT] Routine Admission Diagnosis/Problem Admission Diagnosis/Problem 02/26/21 02:15 Elisa is a 25 yo current PPD1 s/p repeat LTCS at ~ 37+3 weeks gestation (UMM(LMP) 03/16/2021) without care. A neg/ Rh pos; RhoGam declined by patient last night, "I have never needed that before...". RI, GBS neg. Ax: amoxicillin. Elevation of WBCs noted upon admission, prolonged ROM x 2 days noted. Blanche-operative antibiotics administered. Clindamycin 600 mg IV q [address] Stokes yesterday. Patient C/O severe pain 10/10 and irritability not alleviated with PO/IV analgesias. Severe itching and scratching behaviors noted upon exam, likely related to medication SEs and/or methamphetamine withdrawal. Continued C/O "really bad swelling to my leg and feet", 2-3+ pitting edema BLE and labia. Tachycardia and low urine output noted yesterday evening, EBL ~600 ml during LTCS yesterday; 1000 ml IV LR bolus completed yesterday followed by 12.5 mg HCTZ PO once for BLE pitting edema. Ample clear, yellow urine noted from mendez catheter. Tachycardia and mild hypertension noted, VSs otherwise stable. Plan to repeat CBC, CMP this am, collection pending. Pertinent hx includes: tachycardia and murmur treated with labetolol ([id number]), anxiety, THC use night (last used 1 night ago), methamphetamine use 2 days ago. Social/case work consulted, visited with patient last night, plan still pending. Early US completed in at [facility] as patient was considering at that time; procedure not completed. Otherwise no care this . Ax: amoxicillin. See medical, surgical, social, medication history. Subjective Update: Patient seen at bedside, resting in bed comfortably, complaining of abdominal pain,, still has not had a bowel movement but is passing gas. Currently on room air, Functional Status: Reports: Tolerating Diet, Ambulating, Urinating. Denies: Pain Controlled - Review of Systems General: Reports: Weakness, Fatigue. Denies: Fever, Malaise, Chills, Night Sweats Pulmonary: Denies: Shortness of Breath, Pleuritic Chest Pain Cardiovascular: Denies: Chest Pain, Palpitations, Dyspnea on Exertion Gastrointestinal: Reports: Abdominal Pain, Constipation. Denies: Decreased Appetite, Diarrhea, Difficulty Swallowing, Nausea, Vomiting Genitourinary: Denies: Dysuria, Frequency, Burning Musculoskeletal: Denies: Neck Pain, Shoulder Pain, Arm Pain Skin: Denies: Cyanosis, Jaundice, Mottled, Pallor Neurological: Denies: Confusion, Dizziness, Headache - Patient Data Vitals - Most Recent: Last Vital Signs Temp 36.2 C 03/06/21 08:00 Pulse 94 03/06/21 08:30 Resp 12 03/06/21 11:00 BP 110/74 03/06/21 10:00 Pulse Ox 96 03/06/21 11:00 Weight - Most Recent: 74.525 kg I&O - Last 24 Hours: Intake & Output 03/05/21 03/06/21 03/06/21 22:59 06:59 14:59 Intake Total 600 240 300 Output Total 2100 1000 Balance -1500 -760 300 Lab Results Last 24 Hours: Laboratory Results - last 24 hr 03/05/21 03/06/21 03/06/21 Range/Units 12:35 06:00 06:00 WBC 28.55 H (4.0-11.0) K/uL RBC 3.30 L (4.30-5.90) M/uL Hgb 9.7 L (12.0-16.0) g/dL Hct 28.8 L (36.0-46.0) % MCV 87.3 (80.0-98.0) fL MCH 29.4 (27.0-32.0) pg MCHC 33.7 (31.0-37.0) g/dL RDW Std Deviation 46.1 (28.0-62.0) fl RDW Coeff of Idalmis 14 (11.0-15.0) % Plt Count 480 H (150-400) K/uL MPV 8.70 (7.40-12.00) fL Add Manual Diff YES Neutrophils % (Manual) 84 H (48.0-80.0) % Band Neutrophils % 5 % Lymphocytes % (Manual) 8 L (16.0-40.0) % Monocytes % (Manual) 3 (0.0-15.0) % Nucleated RBC % 0.0 /100WBC Absolute Seg Neuts 24.0 H (1.4-5.7) Band Neutrophils # 1.4 Lymphocytes # (Manual) 2.3 (0.6-2.4) Monocytes # (Manual) 0.9 H (0.0-0.8) Nucleated RBCs # 0 K/uL Sodium 137 (136-145) mmol/L Potassium 4.5 (3.5-5.1) mmol/L Chloride 102 (98-107) mmol/L Carbon Dioxide 26.6 (21.0-32.0) mmol/L BUN 15 (7.0-18.0) mg/dL Creatinine 0.8 (0.6-1.0) mg/dL Est Cr Clr Drug Dosing 95.89 mL/min Estimated GFR (MDRD) > 60.0 ml/min Glucose 87 (74-106) mg/dL Calcium 8.4 L (8.5-10.1) mg/dL Phosphorus 3.3 (2.6-4.7) mg/dL Magnesium 2.2 (1.8-2.4) mg/dL Total Bilirubin 0.6 (0.2-1.0) mg/dL AST 39 H (15-37) IU/L ALT 25 (14-63) IU/L Alkaline Phosphatase 144 H (46-116) U/L Total Protein 6.1 L (6.4-8.2) g/dL Albumin 2.0 L (3.4-5.0) g/dL Globulin 4.1 H (2.6-4.0) g/dL Albumin/Globulin Ratio 0.5 L (0.9-1.6) Urine Color YELLOW Urine Appearance SLT CLOUDY Urine pH 8.0 (5.0-8.0) Ur Specific Marcus 1.015 (1.001-1.035) Urine Protein NEGATIVE (NEGATIVE) mg/dL Urine Glucose (UA) NEGATIVE (NEGATIVE) mg/dL Urine Ketones NEGATIVE (NEGATIVE) mg/dL Urine Occult Blood LARGE H (NEGATIVE) Urine Nitrite NEGATIVE (NEGATIVE) Urine Bilirubin NEGATIVE (NEGATIVE) Urine Urobilinogen 0.2 (<2.0) EU/dL Ur Leukocyte Esterase SMALL H (NEGATIVE) Urine RBC 5-10 (0-2/HPF) Urine WBC 2-4 (0-5/HPF) Ur Epithelial Cells FEW (NONE-FEW) Urine Bacteria FEW (NEGATIVE) Fabián Results Last 24 Hours: Microbiology 03/01/21 10:40 Aerobic Blood Culture - Final Blood - Venous - Lab Draw NO GROWTH AFTER 5 DAYS Anaerobic Blood Culture - Final NO GROWTH AFTER 5 DAYS 03/01/21 10:30 Aerobic Blood Culture - Final Blood - Venous NO GROWTH AFTER 5 DAYS Anaerobic Blood Culture - Final NO GROWTH AFTER 5 DAYS Med Orders - Current: Current Medications Albuterol/Ipratropium (Albuterol/Ipratropium 3.0-0.5 Mg/3 Ml Neb Soln) 3 ml NEB Q4HRRT PRN PRN Reason: Wheezing Last Admin: 03/01/21 17:14 Dose: 3 ml Documented by: Carvedilol (Carvedilol 3.125 Mg Tab) 3.125 mg PO BID [facility] Last Admin: 03/06/21 08:30 Dose: 3.125 mg Documented by: Diphenhydramine HCl (Diphenhydramine 50 Mg/Ml Sdv) 25 mg IVPUSH Q6H PRN PRN Reason: Itching or Nausea Docusate Sodium (Docusate Sodium 100 Mg Cap) 100 mg PO BID [facility] Last Admin: 03/06/21 08:29 Dose: 100 mg Documented by: Furosemide (Furosemide 40 Mg/4 Ml Vial) 40 mg IVPUSH DAILY [facility] Last Admin: 03/06/21 08:29 Dose: 40 mg Documented by: Meropenem/Sodium Chloride 1 gm (/ Premix) 50 mls @ 100 mls/hr IV Q8H [facility] Last Admin: 03/06/21 09:33 Dose: 100 mls/hr Documented by: Vancomycin HCl 1.25 gm/ Sodium (Chloride) 250 mls @ 166.667 mls/hr IV Q12H [facility] Last Infusion: 03/06/21 05:31 Dose: Infused Documented by: Lisinopril (Lisinopril 5 Mg Tab) 5 mg PO DAILY [facility] Last Admin: 03/06/21 08:29 Dose: 5 mg Documented by: Lorazepam (Lorazepam 2 Mg/Ml Sdv) 1 mg IVPUSH Q4H PRN PRN Reason: Withdrawal Symptoms Last Admin: 03/05/21 22:23 Dose: 1 mg Documented by: Ondansetron HCl (Ondansetron 4 Mg/2 Ml Sdv) 4 mg IVPUSH Q4H PRN PRN Reason: Nausea/Vomiting Oxycodone/Acetaminophen (Acetaminophen/Oxycodone 325-5 Mg Tab) 1 tab PO Q4H PRN PRN Reason: Pain (severe 7-10) Last Admin: 03/05/21 22:09 Dose: 1 tab Documented by: Polyethylene Glycol (Polyethylene Glycol 3350 Powder 17 Gm Packet) 17 gm PO DAILY PRN PRN Reason: constipation Last Admin: 03/05/21 08:10 Dose: 17 gm Documented by: Sodium Chloride (Sodium Chloride 0.9% 10 Ml Syringe) 10 ml FLUSH ASDIRECTED PRN PRN Reason: Keep Vein Open Sodium Chloride (Sodium Chloride 0.9% 2.5 Ml Syringe) 2.5 ml FLUSH ASDIRECTED PRN PRN Reason: Keep Vein Open Vancomycin HCl (Pharmacy To Dose - Vancomycin) 0 dose .XX ASDIRECTED KATHERINE Discontinued Medications Bisacodyl (Bisacodyl 10 Mg Supp) 10 mg RECTAL ONETIME PRN PRN Reason: Constipation Bisacodyl (Bisacodyl 5 Mg Tab) 10 mg PO ONETIME ONE Stop: 03/05/21 19:10 Last Admin: 03/05/21 20:19 Dose: 10 mg Documented by: Butorphanol Tartrate (Butorphanol 1 Mg/Ml Sdv) 1 mg IVPUSH Q1H PRN PRN Reason: Pain (severe 7-10) Carboprost Tromethamine (Carboprost Tromethamine 250 Mcg/1 Ml Amp) 250 mcg IM ASDIRECTED PRN PRN Reason: Post Hemorrhage Cefazolin Sodium (Cefazolin 1 Gm Vial) Confirm Administered Dose 2 gm .ROUTE .STK-MED ONE Stop: 02/26/21 03:45 Citric Acid/Sodium Citrate (Citric Acid/Sodium Citrate Solution 30 Ml Cup) 30 ml PO ONETIME ONE Stop: 02/26/21 02:01 Last Admin: 02/26/21 05:17 Dose: Not Given Documented by: Dexamethasone (Dexamethasone 4 Mg/Ml 5 Ml Mdv) Confirm Administered Dose 20 mg .ROUTE .STK-MED ONE Stop: 03/06/21 11:29 Diphenhydramine HCl (Diphenhydramine 50 Mg/Ml Sdv) 12.5 mg IVPUSH Q2H PRN PRN Reason: Itching Emollient Ointment (Lanolin 100% Cream 7 Gm Tube) 0 gm TOP ASDIRECTED PRN PRN Reason: Sore Nipples Enoxaparin Sodium (Enoxaparin 40 Mg/0.4 Ml Syringe) 40 mg SUBCUT Q24H [facility] Last Admin: 03/05/21 12:58 Dose: 40 mg Documented by: Ephedrine Sulfate (Ephedrine 50 Mg/Ml Sdv) 10 mg IVPUSH Q5M PRN PRN Reason: Hypotension Fentanyl (Fentanyl 100 Mcg/2 Ml Sdv) Confirm Administered Dose 100 mcg .ROUTE .STK-MED ONE Stop: 02/26/21 02:45 Fentanyl (Fentanyl 100 Mcg/2 Ml Sdv) 50 mcg IVPUSH Q1H PRN PRN Reason: Pain (severe 7-10) Fentanyl (Fentanyl 100 Mcg/2 Ml Sdv) Confirm Administered Dose 100 mcg .ROUTE .STK-MED ONE Stop: 03/06/21 11:29 Furosemide (Furosemide 20 Mg/2 Ml Vial) 40 mg IVPUSH NOW ONE Stop: 02/27/21 09:02 Last Admin: 02/27/21 09:17 Dose: 40 mg Documented by: Furosemide (Furosemide 40 Mg/4 Ml Vial) 40 mg IVPUSH NOW ONE Stop: 03/01/21 15:43 Last Admin: 03/01/21 15:53 Dose: 40 mg Documented by: Furosemide (Furosemide 40 Mg/4 Ml Vial) 40 mg IVPUSH DAILY [facility] Last Admin: 03/02/21 09:36 Dose: 40 mg Documented by: Furosemide (Furosemide 20 Mg/2 Ml Vial) 20 mg IVPUSH NOW ONE Stop: 03/01/21 23:40 Last Admin: 03/01/21 23:50 Dose: 20 mg Documented by: Furosemide (Furosemide 40 Mg/4 Ml Vial) 40 mg IVPUSH Q8H [facility] Last Admin: 03/02/21 14:05 Dose: Not Given Documented by: Furosemide (Furosemide 40 Mg/4 Ml Vial) 40 mg IVPUSH Q8H [facility] Last Admin: 03/04/21 09:01 Dose: 40 mg Documented by: Furosemide (Furosemide 40 Mg/4 Ml Vial) 40 mg IVPUSH Q12H [facility] Last Admin: 03/05/21 08:10 Dose: 40 mg Documented by: Hydrochlorothiazide (Hydrochlorothiazide 12.5 Mg Cap) 12.5 mg PO BEDTIME KATHERINE Last Admin: 02/28/21 20:00 Dose: 12.5 mg Documented by: Lactated Ringer's (Ringers, Lactated) 1,000 mls @ 500 mls/hr IV BOLUS KATHERINE Last Admin: 02/26/21 02:20 Dose: 500 mls/hr Documented by: Oxytocin/Sodium Chloride (Oxytocin 30 Unit/500 Ml-Ns) 30 unit in 500 mls @ 250 mls/hr IV TITRATE KATHERINE Lactated Ringer's (Ringers, Lactated) 1,000 mls @ 150 mls/hr IV ASDIRECTED KATHERINE Last Infusion: 02/28/21 08:50 Dose: 50 mls/hr Documented by: Tranexamic Acid 1,000 mg/ (Sodium Chloride) 110 mls @ 660 mls/hr IV ONETIME PRN PRN Reason: Bleeding Sodium Chloride (Normal Saline) Confirm Administered Dose 20 mls @ as directed .ROUTE .[facility] ONE Stop: 02/26/21 03:45 Lactated Ringer's (Ringers, Lactated) 1,000 mls @ 125 mls/hr IV ASDIRECTED [facility] Last Infusion: 02/28/21 01:00 Dose: Infused Documented by: Tranexamic Acid 1,000 mg/ (Sodium Chloride) 110 mls @ 660 mls/hr IV ONETIME PRN PRN Reason: Bleeding Clindamycin Phosphate 600 mg/ (Sodium Chloride) 54 mls @ 100 mls/hr IV Q6H KATHERINE Clindamycin Phosphate 900 mg/ (Premix) 75 mls @ 150 mls/hr IV Q6H KATHERINE Clindamycin Phosphate 600 mg/ (Premix) 50 mls @ 100 mls/hr IV Q6H KATHERINE Last Admin: 03/01/21 15:53 Dose: 100 mls/hr Documented by: Cefazolin Sodium/Dextrose 1 gm (/ Premix) 50 mls @ 100 mls/hr IV Q8H KATHERINE Last Admin: 03/01/21 14:00 Dose: 100 mls/hr Documented by: Lactated Ringer's (Ringers, Lactated) 1,000 mls @ 50 mls/hr IV ASDIRECTED KATHERINE Last Infusion: 03/01/21 08:30 Dose: 10 mls/hr Documented by: Lactated Ringer's (Ringers, Lactated) 1,000 mls @ 10 mls/hr IV ASDIRECTED [facility] Magnesium Sulfate 2 gm/ Premix 50 mls @ 12.5 mls/hr IV ONETIME ONE Stop: 03/01/21 15:23 Last Admin: 03/01/21 11:43 Dose: 12.5 mls/hr Documented by: Furosemide 40 mg/ Sodium (Chloride) 54 mls @ 100 mls/hr IV Q12H [facility] Last Admin: 03/01/21 17:30 Dose: Not Given Documented by: Azithromycin 500 mg/ Sodium (Chloride) 250 mls @ 250 mls/hr IV DAILY [facility] Last Admin: 03/06/21 08:30 Dose: 250 mls/hr Documented by: Magnesium Sulfate 4 gm/ Premix 100 mls @ 50 mls/hr IV ONETIME ONE Stop: 03/03/21 10:46 Last Admin: 03/03/21 09:47 Dose: 50 mls/hr Documented by: Sodium Chloride (Normal Saline) Confirm Administered Dose 20 mls @ as directed .ROUTE .STK-MED ONE Stop: 03/06/21 12:43 Ibuprofen (Ibuprofen 800 Mg Tab) 800 mg PO Q8H PRN PRN Reason: mild pain or fever Iopamidol (Iopamidol 755 Mg/Ml 500 Ml Multipack Bottle) [address] A Stop: 03/02/21 13:47 Last Admin: 03/02/21 13:46 Dose: 75 ml Documented by: Iopamidol (Iopamidol 755 Mg/Ml 500 Ml Multipack Bottle) 100 ml IVPUSH ONETIME [facility] Stop: 03/05/21 17:48 Last Admin: 03/05/21 17:48 Dose: 100 ml Documented by: Ketorolac Tromethamine (Ketorolac 30 Mg/Ml Sdv) Confirm Administered Dose 30 mg .ROUTE .STK-MED ONE Stop: 02/26/21 03:28 Ketorolac Tromethamine (Ketorolac 30 Mg/Ml Sdv) 30 mg IVPUSH Q6H [facility] Stop: 02/27/21 04:01 Last Admin: 02/27/21 04:10 Dose: 30 mg Documented by: Labetalol HCl (Labetalol 100 Mg Tab) 200 mg PO DAILY [facility] Last Admin: 03/01/21 08:48 Dose: 200 mg Documented by: Lidocaine (Lidocaine 2% 5 Ml Sdv) Confirm Administered Dose 5 ml .ROUTE .STK-MED ONE Stop: 03/06/21 11:29 Lidocaine HCl (Lidocaine 1% 50 Ml Mdv) 50 ml INJECT ONETIME PRN PRN Reason: Laceration repair Lisinopril (Lisinopril 5 Mg Tab) 5 mg PO DAILY KATHERINE Lorazepam (Lorazepam 2 Mg/Ml Sdv) 1 mg IVPUSH ONETIME ONE Stop: 03/01/21 11:15 Last Admin: 03/01/21 11:44 Dose: 1 mg Documented by: Lorazepam (Lorazepam 2 Mg/Ml Sdv) 2 mg IVPUSH ONETIME ONE Stop: 03/02/21 00:15 Last Admin: 03/02/21 00:25 Dose: 2 mg Documented by: Magnesium Hydroxide (Magnesium Hydroxide 400 Mg/5 Ml Susp 30 Ml Cup) 30 ml PO ONETIME ONE Stop: 03/05/21 12:30 Last Admin: 03/05/21 12:57 Dose: 30 ml Documented by: Magnesium Oxide (Magnesium Oxide 400 Mg Tab) 800 mg PO ONETIME ONE Stop: 03/04/21 10:11 Last Admin: 03/04/21 10:30 Dose: 800 mg Documented by: Magnesium Oxide (Magnesium Oxide 400 Mg Tab) 800 mg PO ONETIME ONE Stop: 03/05/21 12:33 Last Admin: 03/05/21 12:57 Dose: 800 mg Documented by: Methylergonovine Maleate (Methylergonovine 0.2 Mg/1 Ml Amp) 0.2 mg IM ONETIME PRN PRN Reason: Excessive Vaginal Bleeding Metoprolol Tartrate (Metoprolol Tartrate 25 Mg Tab) 25 mg PO BID KATHERINE Midazolam HCl (Midazolam 1 Mg/Ml 2 Ml Sdv) Confirm Administered Dose 2 mg .ROUTE .STK-MED ONE Stop: 03/06/21 11:29 Miscellaneous Medication (Phenylephrine Hcl In 0.9% Nacl 1 Mg/10 Ml Syringe) Confirm Administered Dose 1 mg .ROUTE .STK-MED ONE Stop: 02/26/21 03:28 Misoprostol (Misoprostol 200 Mcg Tab) 200 mcg PO ONETIME PRN PRN Reason: Post Hemorrhage Misoprostol (Misoprostol 200 Mcg Tab) 1,000 mcg RECTAL ONETIME PRN PRN Reason: excessive bleeding Morphine Sulfate (Morphine Pf 10 Mg/10 Ml Sdv) Confirm Administered Dose 10 mg .ROUTE .STK-MED ONE Stop: 02/26/21 02:46 Morphine Sulfate (Morphine 4 Mg/Ml Syringe) 4 mg IVPUSH Q4H PRN PRN Reason: Pain (moderate 4-6) Last Admin: 03/01/21 23:24 Dose: 4 mg Documented by: Morphine Sulfate (Morphine 2 Mg/Ml Syringe) 2 mg IVPUSH Q4H PRN PRN Reason: Pain (moderate 4-6) Last Admin: 03/04/21 06:20 Dose: 2 mg Documented by: Nalbuphine HCl (Nalbuphine 10 Mg/1 Ml Vial) 10 mg IVPUSH Q1H PRN PRN Reason: Pain (severe 7-10) Nalbuphine HCl (Nalbuphine 10 Mg/1 Ml Vial) 5 mg IVPUSH ASDIRECTED PRN PRN Reason: Itching Naloxone HCl (Naloxone 0.4 Mg/Ml Syringe) 0.1 mg IVPUSH ONETIME PRN PRN Reason: Respiratory Depression Stop: 02/27/21 04:19 Octyl Cyanoacrylate (Octyl 2-Cyanoacrylate 1 Tube) Confirm Administered Dose 1 applic .ROUTE .STK-MED ONE Stop: 02/26/21 05:03 Ondansetron HCl (Ondansetron 4 Mg/2 Ml Sdv) Confirm Administered Dose 4 mg .ROUTE .STK-MED ONE Stop: 02/26/21 03:28 Ondansetron HCl (Ondansetron 4 Mg/2 Ml Sdv) 4 mg IVPUSH Q6H PRN PRN Reason: Nausea Ondansetron HCl (Ondansetron 4 Mg/2 Ml Sdv) Confirm Administered Dose 4 mg .ROUTE .STK-MED ONE Stop: 03/06/21 11:29 Oxycodone/Acetaminophen (Acetaminophen/Oxycodone 325-5 Mg Tab) 2 tab PO Q4H PRN PRN Reason: Pain (severe 7-10) Last Admin: 03/02/21 21:07 Dose: 2 tab Documented by: Oxycodone/Acetaminophen (Acetaminophen/Oxycodone 325-5 Mg Tab) 2 tab PO Q6H PRN PRN Reason: Pain (moderate 4-6) Last Admin: 02/26/21 06:53 Dose: 2 tab Documented by: Oxytocin (Oxytocin 10 Units/1 Ml Sdv) Confirm Administered Dose 30 unit .ROUTE .STK-MED ONE Stop: 02/26/21 03:28 Oxytocin (Oxytocin 10 Units/1 Ml Sdv) 10 unit IM ASDIRECTED PRN PRN Reason: Excessive Vaginal Bleeding Polyethylene Glycol (Polyethylene Glycol 3350 Powder 17 Gm Packet) 17 gm PO ONETIME ONE Stop: 03/02/21 14:18 Last Admin: 03/02/21 14:53 Dose: 17 gm Documented by: Potassium Chloride (Potassium Chloride 20 Meq Tab.Er) 40 meq PO ONETIME ONE Stop: 03/03/21 08:48 Last Admin: 03/03/21 09:48 Dose: 40 meq Documented by: Potassium Chloride (Potassium Chloride 20 Meq Tab.Er) 40 meq PO BID@1000,1400 KATHERINE Stop: 03/05/21 10:01 Last Admin: 03/05/21 09:11 Dose: 40 meq Documented by: Propofol (Propofol 200 Mg/20 Ml Sdv) Confirm Administered Dose 400 mg .ROUTE .STK-MED ONE Stop: 03/06/21 11:29 Rocuronium [place] (Rocuronium [place] 50 Mg/5 Ml Syringe) Confirm Administered Dose 50 mg .ROUTE .STK-MED ONE Stop: 03/06/21 11:34 Sterile Water (Water For Irrigation,Sterile 1,000 Ml Container) 1,000 ml IRR ASDIRECTED PRN PRN Reason: delivery Sugammadex Sodium (Sugammadex Sodium 200 Mg/2 Ml Vial) Confirm Administered Dose 200 mg .ROUTE .STK-MED ONE Stop: 03/06/21 11:34 - Exam Quality Assessment: Supplemental Oxygen Central Line Total Time: 6Days 0Hours Urinary Catheter Total Time: 6Days 8Hours General: Alert, Cooperative, Mild Distress Neck: Supple Lungs: Clear to Auscultation, Normal Respiratory Effort Cardiovascular: Regular Rate, Regular Rhythm, Murmurs GI/Abdominal Exam: Normal Bowel Sounds, Soft, Tender, Abnormal Bowel Sounds, Other ( section bandaging is soaked with some bloody drainage, no purulence noted). No: Non-Tender, Hepatomegaly, Splenomegaly Extremities: Normal Inspection, Normal Range of Motion - Patient Data Lab Results Last 24 hrs: Laboratory Results - last 24 hr 07/24/21 07/25/21 07/25/21 Range/Units 12:35 06:00 06:00 WBC 28.55 H (4.0-11.0) K/uL RBC 3.30 L (4.30-5.90) M/uL Hgb 9.7 L (12.0-16.0) g/dL Hct 28.8 L (36.0-46.0) % MCV 87.3 (80.0-98.0) fL MCH 29.4 (27.0-32.0) pg MCHC 33.7 (31.0-37.0) g/dL RDW Std Deviation 46.1 (28.0-62.0) fl RDW Coeff of Idalmis 14 (11.0-15.0) % Plt Count 480 H (150-400) K/uL MPV 8.70 (7.40-12.00) fL Add Manual Diff YES Neutrophils % (Manual) 84 H (48.0-80.0) % Band Neutrophils % 5 % Lymphocytes % (Manual) 8 L (16.0-40.0) % Monocytes % (Manual) 3 (0.0-15.0) % Nucleated RBC % 0.0 /100WBC Absolute Seg Neuts 24.0 H (1.4-5.7) Band Neutrophils # 1.4 Lymphocytes # (Manual) 2.3 (0.6-2.4) Monocytes # (Manual) 0.9 H (0.0-0.8) Nucleated RBCs # 0 K/uL Sodium 137 (136-145) mmol/L Potassium 4.5 (3.5-5.1) mmol/L Chloride 102 (98-107) mmol/L Carbon Dioxide 26.6 (21.0-32.0) mmol/L BUN 15 (7.0-18.0) mg/dL Creatinine 0.8 (0.6-1.0) mg/dL Est Cr Clr Drug Dosing 95.89 mL/min Estimated GFR (MDRD) > 60.0 ml/min Glucose 87 (74-106) mg/dL Calcium 8.4 L (8.5-10.1) mg/dL Phosphorus 3.3 (2.6-4.7) mg/dL Magnesium 2.2 (1.8-2.4) mg/dL Total Bilirubin 0.6 (0.2-1.0) mg/dL AST 39 H (15-37) IU/L ALT 25 (14-63) IU/L Alkaline Phosphatase 144 H (46-116) U/L Total Protein 6.1 L (6.4-8.2) g/dL Albumin 2.0 L (3.4-5.0) g/dL Globulin 4.1 H (2.6-4.0) g/dL Albumin/Globulin Ratio 0.5 L (0.9-1.6) Urine Color YELLOW Urine Appearance SLT CLOUDY Urine pH 8.0 (5.0-8.0) Ur Specific Marcus 1.015 (1.001-1.035) Urine Protein NEGATIVE (NEGATIVE) mg/dL Urine Glucose (UA) NEGATIVE (NEGATIVE) mg/dL Urine Ketones NEGATIVE (NEGATIVE) mg/dL Urine Occult Blood LARGE H (NEGATIVE) Urine Nitrite NEGATIVE (NEGATIVE) Urine Bilirubin NEGATIVE (NEGATIVE) Urine Urobilinogen 0.2 (<2.0) EU/dL Ur Leukocyte Esterase SMALL H (NEGATIVE) Urine RBC 5-10 (0-2/HPF) Urine WBC 2-4 (0-5/HPF) Ur Epithelial Cells FEW (NONE-FEW) Urine Bacteria FEW (NEGATIVE) Result Diagrams: 03/06/21 06:00 03/06/21 06:00 Fabián Results Last 24 hrs: Microbiology 03/01/21 10:40 Aerobic Blood Culture - Final Blood - Venous - Lab Draw NO GROWTH AFTER 5 DAYS Anaerobic Blood Culture - Final NO GROWTH AFTER 5 DAYS 03/01/21 10:30 Aerobic Blood Culture - Final Blood - Venous NO GROWTH AFTER 5 DAYS Anaerobic Blood Culture - Final NO GROWTH AFTER 5 DAYS Sepsis Event Note - Evaluation Sepsis Screening Result: Sepsis Risk - Focused Exam Vital Signs: Vital Signs Temp Pulse Resp BP BP Pulse Ox 03/06/21 11:00 12 96 03/06/21 10:00 18 110/74 98 03/06/21 09:00 22 H 111/70 95 03/06/21 08:30 94 118/71 03/06/21 08:29 118/71 03/06/21 08:00 36.2 C 22 H 118/71 92 L 03/06/21 07:00 17 127/76 95 03/06/21 06:00 14 126/79 94 L 03/06/21 05:00 18 113/56 L 94 L 03/06/21 04:00 36.6 C 20 111/61 95 03/06/21 03:00 18 121/73 94 L 03/06/21 02:00 16 116/58 L 94 L 03/06/21 01:00 16 114/59 L 94 L - Problem List & Annotations (1) Sepsis SNOMED Code(s): 60331143 Code(s): A41.9 - SEPSIS, UNSPECIFIED ORGANISM Status: Acute Current Visit: Yes (2) Prolonged rupture of membranes SNOMED Code(s): 22157913 Code(s): O42.90 - MIRIAN ROM, 7TH0 BETW RUPT & ONST LABR, UNSP WEEKS OF GEST Status: Acute Current Visit: Yes (3) Cardiomyopathy SNOMED Code(s): 52875631 Code(s): I42.9 - CARDIOMYOPATHY, UNSPECIFIED Status: Acute Current Visit: Yes (4) Drug abuse, amphetamine type SNOMED Code(s): 90283663 Code(s): F15.10 - OTHER STIMULANT ABUSE, UNCOMPLICATED Status: Acute Current Visit: Yes (5) Anxiety SNOMED Code(s): 54422715 Code(s): F41.9 - ANXIETY DISORDER, UNSPECIFIED Status: Acute Current Visit: Yes (6) Status post repeat low transverse section SNOMED Code(s): 504759175, 19970651, 859286420, 252477197, 724453416 Code(s): Z98.891 - HISTORY OF UTERINE SCAR FROM PREVIOUS SURGERY Status: Acute Priority: High Current Visit: Yes (7) Acute systolic heart failure SNOMED Code(s): 696440104 Code(s): I50.21 - ACUTE SYSTOLIC (CONGESTIVE) HEART FAILURE Status: Acute Current Visit: Yes (8) Acute respiratory failure with hypoxia SNOMED Code(s): 06951192, 835452861 Code(s): J96.01 - ACUTE RESPIRATORY FAILURE WITH HYPOXIA Status: Acute Current Visit: Yes (9) Hypomagnesemia SNOMED Code(s): 762530866 Code(s): E83.42 - HYPOMAGNESEMIA Status: Acute Current Visit: Yes (10) Hypokalemia SNOMED Code(s): 75665870 Code(s): E87.6 - HYPOKALEMIA Status: Acute Current Visit: Yes - Problem List Review Problem List Initiated/Reviewed/Updated: Yes - My Orders Last 24 Hours: My Active Orders 03/05/21 11:51 Central Venous Line Discontinue [OM.PC] Routine 03/05/21 12:35 CULTURE URINE [MREF] Routine 03/06/21 09:00 Furosemide [Lasix] 40 mg IVPUSH DAILY 03/06/21 11:38 RED BLOOD CELLS LP [BBK] Routine TYPE AND SCREEN [BBK] Routine - Assessment Assessment:: S/P C/section with prolong rapture of thev membranes complicated with Endometritis and Anemia. I am planinng to start her on antibiotic, have Anesthesia place a central line for blood transfusion. I am also given the Pt. Larix. 02/28/21 The patient condition is improving she is continued to be afebrile her heart rate is coming down she continued to diurese her leg and hand edema is decreasing. Her hemoglobin improved to 8.6 after 2 units of blood transfusion h er white count is trending down. Abdominal examination is the abdomen is less tender, was present and the patient is passing day's and she is expressed her desire to have some food I'm planning to start her on liquid diet today. Her IV fluid intake is diminished to 50 mL per hour to keep the vein open to continue the IV antibiotic. Head endometritis is resolving her white count is trending down we will continue the IV antibiotic finding to keep her in the unit tomorrow. 03/01/21 The patient according to the echocardiograms and chest x-ray she is in pulmonary edema and most likely in a congestive heart failure due to her F amphetamine abuse I consulted with the hospitalist and the eICU heat treater apprentice and is to give her diuretic to diurese the patient and his her issue is the mostly is medical now I am going to 2 minutes the hospitalist and the EEG ICU heat treater apprentice literacy consultant to manage a patient at this time. - Plan Plan:: 25-year-old female currently admitted in ICU secondary to sepsis, acute systolic heart failure resulting in acute hypoxic respiratory failure Sepsis-start, patient continues to have leukocytosis which has significantly trended up today. Concern of infected hematoma which the primary team is planning on training today in the OR From cardiac and respiratory stand point patient has clinically significantly improved, chest x-ray has significantly improved, pulmonary edema and pleural effusions have resolved, currently on room air tolerating ambulation and physical therapy well without needing oxygen support Hemodynamics are stable, patient has been started on appropriate cardiac regimen for her cardiomyopathy Continue IV Lasix 40 mg daily Continue broad-spectrum antibiotics with vancomycin, and meropenem, will stop a zithromycin as patient has finished the course Blood cultures have been negative IV Ativan as needed for withdrawal symptoms, anxiety every 4 hours Continue IV Benadryl for itching Continue oral opiates for pain control, patient has been weaned off morphine Patient will need a close follow-up with cardiology upon discharge for further diagnostic work-up of her cardiomyopathy, will try to arrange a close follow-up upon discharge with cardiology Encourage incentive spirometry Continue duo nebs as needed Out of bed to chair as tolerated Monitor and replete electrolytes as needed keep mag more than 2 and potassium more than 4 Continue with inpatient route of care per primary team. Patient will need to see psychiatrist for her underlying depression and drug abuse outpatient basis
[2021-03-06] MEDS ORDERED: Misoprostol 200 MCG Tab ONE (13:03)
[2021-03-06] MEDS ORDERED: Methylergonovine 0.2 MG/1 ML Amp ONE (13:03)
[2021-03-06] MEDS ORDERED: Morphine 2 MG/ML SYRINGE IVPUSH PRN (13:21)
[2021-03-06] MEDS ORDERED: Naloxone 0.4 MG/ML Syringe IVPUSH PRN (13:21)
[2021-03-06] MEDS ORDERED: Albuterol 0.083% 2.5 MG/3 ML Neb Soln NEB PRN (13:21)
[2021-03-06] MEDS ORDERED: fentaNYL 100 MCG/2 ML SDV IVPUSH PRN (13:21)
[2021-03-06] MEDS ORDERED: Ondansetron 4 MG/2 ML SDV IVPUSH PRN (13:21)
[2021-03-06] MEDS ORDERED: Metoclopramide 10 MG/2 ML SDV IVPUSH PRN (13:21)
--- NOTE | 2021-03-06 13:25 | PCM.POSTAN ---
POST ANESTHESIA ASSESSMENT - VITAL SIGNS Vital Signs: Last Vital Signs Temp 98.2 F 03/06/21 13:14 Pulse 90 03/06/21 13:18 Resp 10 L 03/06/21 13:18 BP 116/71 03/06/21 13:18 Pulse Ox 100 03/06/21 13:18
[2021-03-06] MEDS: HYDROmorphone 2 MG/ML Syringe IVPUSH PRN ×2 (13:38→13:50)
--- NOTE | 2021-03-06 13:41 | PCM48HPAN ---
Post Anesthesia Note - EVALUATION WITHIN 48HRS OF ANESTHETIC Vital Signs in Normal Range: Yes Patient Participated in Evaluation: Yes Respiratory Function Stable: Yes Airway Patent: Yes Cardiovascular Function Stable: Yes Hydration Status Stable: Yes Pain Control Satisfactory: Yes Nausea and Vomiting Control Satisfactory: Yes Mental Status Recovered: Yes Vital Signs: Last Vital Signs Temp 98.2 F 03/06/21 13:14 Pulse 84 03/06/21 13:33 Resp 11 L 03/06/21 13:33 BP 115/74 03/06/21 13:33 Pulse Ox 100 03/06/21 13:33
[2021-03-06] MEDS: Acetaminophen/oxyCODONE 325-5 MG Tab PO PRN ×2 (15:56→20:32)
[2021-03-06] MEDS: diphenhydrAMINE 50 MG/ML SDV IVPUSH PRN (21:53)
[2021-03-07 06:20] LABS: BLOOD UREA NITROGEN,BUN 23 mg/dL (7.0-18.0); CARBON DIOXIDE,CO2 26.4 mmol/L (21.0-32.0); CHLORIDE,CL 102 mmol/L (98-107); GLUCOSE RANDOM 91 mg/dL (74-106); POTASSIUM,K 4.5 mmol/L (3.5-5.1); SODIUM,NA 136 mmol/L (136-145)
[2021-03-07] MEDS: Meropenem Premix 1 GM in Premix Bag 1 BAG IV SCH ×2 (08:35→16:27)
[2021-03-07] MEDS: Carvedilol 3.125 MG Tab PO SCH ×2 (08:36→20:16)
[2021-03-07] MEDS: Lisinopril 5 MG Tab PO SCH (08:37)
[2021-03-07] MEDS: Docusate Sodium 100 MG Cap PO SCH ×2 (08:37→20:15)
[2021-03-07] MEDS: Furosemide 40 MG/4 ML VIAL IVPUSH SCH (08:37)
--- NOTE | 2021-03-07 10:09 | PCM.SURGPN ---
- General Info Date of Service: 03/07/21 Functional Status: Reports: Pain Controlled - Review of Systems General: Reports: No Symptoms HEENT: Reports: No Symptoms Pulmonary: Reports: No Symptoms Cardiovascular: Reports: No Symptoms Gastrointestinal: Reports: No Symptoms Genitourinary: Reports: No Symptoms Musculoskeletal: Reports: No Symptoms Skin: Reports: No Symptoms Neurological: Reports: No Symptoms Psychiatric: Reports: No Symptoms - Patient Data Vitals - Most Recent: Last Vital Signs Temp 36.6 C 03/07/21 09:00 Pulse 71 03/07/21 08:36 Resp 12 03/07/21 09:00 BP 106/65 03/07/21 09:00 Pulse Ox 99 03/07/21 09:00 Weight - Most Recent: 71.758 kg I&O - Last 24 Hours: Intake & Output 03/06/21 03/07/21 03/07/21 22:59 06:59 14:59 Intake Total 300 480 100 Output Total 30 515 1000 Balance 270 35 900 Lab Results Last 24 Hrs: Laboratory Results - last 24 hr 03/01/21 03/06/21 03/07/21 Range/Units 11:30 11:38 05:10 WBC 29.89 H (4.0-11.0) K/uL RBC 3.00 L (4.30-5.90) M/uL Hgb 8.6 L (12.0-16.0) g/dL Hct 26.4 L (36.0-46.0) % MCV 88.0 (80.0-98.0) fL MCH 28.7 (27.0-32.0) pg MCHC 32.6 (31.0-37.0) g/dL RDW Std Deviation 45.5 (28.0-62.0) fl RDW Coeff of Idalmis 14 (11.0-15.0) % Plt Count 572 H (150-400) K/uL MPV 8.80 (7.40-12.00) fL Neut % (Auto) 87.3 H (48.0-80.0) % Lymph % (Auto) 7.6 L (16.0-40.0) % [place] % (Auto) 4.8 (0.0-15.0) % Eos % (Auto) 0.2 (0.0-7.0) % Baso % (Auto) 0.1 (0.0-1.5) % Neut # (Auto) 26.1 H (1.4-5.7) K/uL Lymph # (Auto) 2.3 (0.6-2.4) K/uL [place] # (Auto) 1.4 H (0.0-0.8) K/uL Eos # (Auto) 0.1 (0.0-0.7) K/uL Baso # (Auto) 0.0 (0.0-0.1) K/uL Nucleated RBC % 0.0 /100WBC Nucleated RBCs # 0 K/uL Sodium (136-145) mmol/L Potassium (3.5-5.1) mmol/L Chloride (98-107) mmol/L Carbon Dioxide (21.0-32.0) mmol/L BUN (7.0-18.0) mg/dL Creatinine (0.6-1.0) mg/dL Est Cr Clr Drug Dosing mL/min Estimated GFR (MDRD) ml/min Glucose (74-106) mg/dL Calcium (8.5-10.1) mg/dL Phosphorus (2.6-4.7) mg/dL Magnesium (1.8-2.4) mg/dL Urine Total Volume RANDOM Ur Urea Nitrogen 24 Hr Not Reportable Blood Type A NEGATIVE Antibody Screen POSITIVE Antibody Identification Anti-D Crossmatch See Detail 03/07/21 Range/Units 05:10 WBC (4.0-11.0) K/uL RBC (4.30-5.90) M/uL Hgb (12.0-16.0) g/dL Hct (36.0-46.0) % MCV (80.0-98.0) fL MCH (27.0-32.0) pg MCHC (31.0-37.0) g/dL RDW Std Deviation (28.0-62.0) fl RDW Coeff of Idalmis (11.0-15.0) % Plt Count (150-400) K/uL MPV (7.40-12.00) fL Neut % (Auto) (48.0-80.0) % Lymph % (Auto) (16.0-40.0) % [place] % (Auto) (0.0-15.0) % Eos % (Auto) (0.0-7.0) % Baso % (Auto) (0.0-1.5) % Neut # (Auto) (1.4-5.7) K/uL Lymph # (Auto) (0.6-2.4) K/uL [place] # (Auto) (0.0-0.8) K/uL Eos # (Auto) (0.0-0.7) K/uL Baso # (Auto) (0.0-0.1) K/uL Nucleated RBC % /100WBC Nucleated RBCs # K/uL Sodium 136 (136-145) mmol/L Potassium 4.5 (3.5-5.1) mmol/L Chloride 102 (98-107) mmol/L Carbon Dioxide 26.4 (21.0-32.0) mmol/L BUN 23 H (7.0-18.0) mg/dL Creatinine 0.6 (0.6-1.0) mg/dL Est Cr Clr Drug Dosing 127.85 mL/min Estimated GFR (MDRD) > 60.0 ml/min Glucose 91 (74-106) mg/dL Calcium 8.1 L (8.5-10.1) mg/dL Phosphorus 4.4 (2.6-4.7) mg/dL Magnesium 2.3 (1.8-2.4) mg/dL Urine Total Volume Ur Urea Nitrogen 24 Hr Blood Type Antibody Screen Antibody Identification Crossmatch Fabián Results Last 24 Hrs: Microbiology 03/01/21 10:40 Aerobic Blood Culture - Final Blood - Venous - Lab Draw NO GROWTH AFTER 5 DAYS Anaerobic Blood Culture - Final NO GROWTH AFTER 5 DAYS 03/01/21 10:30 Aerobic Blood Culture - Final Blood - Venous NO GROWTH AFTER 5 DAYS Anaerobic Blood Culture - Final NO GROWTH AFTER 5 DAYS Med Orders - Current: Current Medications Albuterol/Ipratropium (Albuterol/Ipratropium 3.0-0.5 Mg/3 Ml Neb Soln) 3 ml NEB Q4HRRT PRN PRN Reason: Wheezing Last Admin: 03/01/21 17:14 Dose: 3 ml Documented by: Carvedilol (Carvedilol 3.125 Mg Tab) 3.125 mg PO BID KATHERINE Last Admin: 03/07/21 08:36 Dose: 3.125 mg Documented by: Diphenhydramine HCl (Diphenhydramine 50 Mg/Ml Sdv) 25 mg IVPUSH Q6H PRN PRN Reason: Itching or Nausea Last Admin: 03/06/21 21:53 Dose: 25 mg Documented by: Docusate Sodium (Docusate Sodium 100 Mg Cap) 100 mg PO BID [facility] Last Admin: 03/07/21 08:37 Dose: 100 mg Documented by: Furosemide (Furosemide 40 Mg/4 Ml Vial) 40 mg IVPUSH DAILY [facility] Last Admin: 03/07/21 08:37 Dose: 40 mg Documented by: Meropenem/Sodium Chloride 1 gm (/ Premix) 50 mls @ 100 mls/hr IV Q8H [facility] Last Admin: 03/07/21 08:35 Dose: 100 mls/hr Documented by: Vancomycin HCl 1.25 gm/ Sodium (Chloride) 250 mls @ 166.667 mls/hr IV Q12H [facility] Last Infusion: 03/07/21 07:12 Dose: Infused Documented by: Lisinopril (Lisinopril 5 Mg Tab) 5 mg PO DAILY [facility] Last Admin: 03/07/21 08:37 Dose: 5 mg Documented by: Lorazepam (Lorazepam 2 Mg/Ml Sdv) 1 mg IVPUSH Q4H PRN PRN Reason: Withdrawal Symptoms Last Admin: 03/05/21 22:23 Dose: 1 mg Documented by: Ondansetron HCl (Ondansetron 4 Mg/2 Ml Sdv) 4 mg IVPUSH Q4H PRN PRN Reason: Nausea/Vomiting Oxycodone/Acetaminophen (Acetaminophen/Oxycodone 325-5 Mg Tab) 1 tab PO Q4H PRN PRN Reason: Pain (severe 7-10) Last Admin: 03/06/21 20:32 Dose: 1 tab Documented by: Polyethylene Glycol (Polyethylene Glycol 3350 Powder 17 Gm Packet) 17 gm PO DAILY PRN PRN Reason: constipation Last Admin: 03/05/21 08:10 Dose: 17 gm Documented by: Sodium Chloride (Sodium Chloride 0.9% 10 Ml Syringe) 10 ml FLUSH ASDIRECTED PRN PRN Reason: Keep Vein Open Sodium Chloride (Sodium Chloride 0.9% 2.5 Ml Syringe) 2.5 ml FLUSH ASDIRECTED PRN PRN Reason: Keep Vein Open Vancomycin HCl (Pharmacy To Dose - Vancomycin) 0 dose .XX ASDIRECTED KATHERINE Discontinued Medications Albuterol (Albuterol 0.083% 2.5 Mg/3 Ml Neb Soln) 2.5 mg NEB ONETIME PRN PRN Reason: Wheezing Bisacodyl (Bisacodyl 10 Mg Supp) 10 mg RECTAL ONETIME PRN PRN Reason: Constipation Bisacodyl (Bisacodyl 5 Mg Tab) 10 mg PO ONETIME ONE Stop: 03/05/21 19:10 Last Admin: 03/05/21 20:19 Dose: 10 mg Documented by: Butorphanol Tartrate (Butorphanol 1 Mg/Ml Sdv) 1 mg IVPUSH Q1H PRN PRN Reason: Pain (severe 7-10) Carboprost Tromethamine (Carboprost Tromethamine 250 Mcg/1 Ml Amp) 250 mcg IM ASDIRECTED PRN PRN Reason: Post Hemorrhage Cefazolin Sodium (Cefazolin 1 Gm Vial) Confirm Administered Dose 2 gm .ROUTE .STK-MED ONE Stop: 02/26/21 03:45 Citric Acid/Sodium Citrate (Citric Acid/Sodium Citrate Solution 30 Ml Cup) 30 ml PO ONETIME ONE Stop: 02/26/21 02:01 Last Admin: 02/26/21 05:17 Dose: Not Given Documented by: Dexamethasone (Dexamethasone 4 Mg/Ml 5 Ml Mdv) Confirm Administered Dose 20 mg .ROUTE .STK-MED ONE Stop: 03/06/21 11:29 Diphenhydramine HCl (Diphenhydramine 50 Mg/Ml Sdv) 12.5 mg IVPUSH Q2H PRN PRN Reason: Itching Droperidol (Droperidol 5 Mg/2 Ml Sdv) 0.625 mg IVPUSH ONETIME PRN PRN Reason: Nausea/Vomiting Emollient Ointment (Lanolin 100% Cream 7 Gm Tube) 0 gm TOP ASDIRECTED PRN PRN Reason: Sore Nipples Enoxaparin Sodium (Enoxaparin 40 Mg/0.4 Ml Syringe) 40 mg SUBCUT Q24H [facility] Last Admin: 03/05/21 12:58 Dose: 40 mg Documented by: Ephedrine Sulfate (Ephedrine 50 Mg/Ml Sdv) 10 mg IVPUSH Q5M PRN PRN Reason: Hypotension Fentanyl (Fentanyl 100 Mcg/2 Ml Sdv) Confirm Administered Dose 100 mcg .ROUTE .STK-MED ONE Stop: 02/26/21 02:45 Fentanyl (Fentanyl 100 Mcg/2 Ml Sdv) 50 mcg IVPUSH Q1H PRN PRN Reason: Pain (severe 7-10) Fentanyl (Fentanyl 100 Mcg/2 Ml Sdv) Confirm Administered Dose 100 mcg .ROUTE .STK-MED ONE Stop: 03/06/21 11:29 Fentanyl (Fentanyl 100 Mcg/2 Ml Sdv) 50 mcg IVPUSH Q5M PRN PRN Reason: Pain (mild 1-3) Furosemide (Furosemide 20 Mg/2 Ml Vial) 40 mg IVPUSH NOW ONE Stop: 02/27/21 09:02 Last Admin: 02/27/21 09:17 Dose: 40 mg Documented by: Furosemide (Furosemide 40 Mg/4 Ml Vial) 40 mg IVPUSH NOW ONE Stop: 03/01/21 15:43 Last Admin: 03/01/21 15:53 Dose: 40 mg Documented by: Furosemide (Furosemide 40 Mg/4 Ml Vial) 40 mg IVPUSH DAILY [facility] Last Admin: 03/02/21 09:36 Dose: 40 mg Documented by: Furosemide (Furosemide 20 Mg/2 Ml Vial) 20 mg IVPUSH NOW ONE Stop: 03/01/21 23:40 Last Admin: 03/01/21 23:50 Dose: 20 mg Documented by: Furosemide (Furosemide 40 Mg/4 Ml Vial) 40 mg IVPUSH Q8H [facility] Last Admin: 03/02/21 14:05 Dose: Not Given Documented by: Furosemide (Furosemide 40 Mg/4 Ml Vial) 40 mg IVPUSH Q8H [facility] Last Admin: 03/04/21 09:01 Dose: 40 mg Documented by: Furosemide (Furosemide 40 Mg/4 Ml Vial) 40 mg IVPUSH Q12H [facility] Last Admin: 03/05/21 08:10 Dose: 40 mg Documented by: Hydrochlorothiazide (Hydrochlorothiazide 12.5 Mg Cap) 12.5 mg PO BEDTIME [facility] Last Admin: 02/28/21 20:00 Dose: 12.5 mg Documented by: Hydromorphone HCl (Hydromorphone 2 Mg/Ml Syringe) 1 mg IVPUSH Q10M PRN PRN Reason: Pain (moderate 4-6) Last Admin: 03/06/21 13:50 Dose: 1 mg Documented by: Lactated Ringer's (Ringers, Lactated) 1,000 mls @ 500 mls/hr IV BOLUS KATHERINE Last Admin: 02/26/21 02:20 Dose: 500 mls/hr Documented by: Oxytocin/Sodium Chloride (Oxytocin 30 Unit/500 Ml-Ns) 30 unit in 500 mls @ 250 mls/hr IV TITRATE KATHERINE Lactated Ringer's (Ringers, Lactated) 1,000 mls @ 150 mls/hr IV ASDIRECTED KATHERINE Last Infusion: 02/28/21 08:50 Dose: 50 mls/hr Documented by: Tranexamic Acid 1,000 mg/ (Sodium Chloride) 110 mls @ 660 mls/hr IV ONETIME PRN PRN Reason: Bleeding Sodium Chloride (Normal Saline) Confirm Administered Dose 20 mls @ as directed .ROUTE .[facility]-MED ONE Stop: 02/26/21 03:45 Lactated Ringer's (Ringers, Lactated) 1,000 mls @ 125 mls/hr IV ASDIRECTED KATHERINE Last Infusion: 02/28/21 01:00 Dose: Infused Documented by: Tranexamic Acid 1,000 mg/ (Sodium Chloride) 110 mls @ 660 mls/hr IV ONETIME PRN PRN Reason: Bleeding Clindamycin Phosphate 600 mg/ (Sodium Chloride) 54 mls @ 100 mls/hr IV Q6H KATHERINE Clindamycin Phosphate 900 mg/ (Premix) 75 mls @ 150 mls/hr IV Q6H KATHERINE Clindamycin Phosphate 600 mg/ (Premix) 50 mls @ 100 mls/hr IV Q6H KATHERINE Last Admin: 03/01/21 15:53 Dose: 100 mls/hr Documented by: Cefazolin Sodium/Dextrose 1 gm (/ Premix) 50 mls @ 100 mls/hr IV Q8H KATHERINE Last Admin: 03/01/21 14:00 Dose: 100 mls/hr Documented by: Lactated Ringer's (Ringers, Lactated) 1,000 mls @ 50 mls/hr IV ASDIRECTED KATHERINE Last Infusion: 03/01/21 08:30 Dose: 10 mls/hr Documented by: Lactated Ringer's (Ringers, Lactated) 1,000 mls @ 10 mls/hr IV ASDIRECTED [facility] Magnesium Sulfate 2 gm/ Premix 50 mls @ 12.5 mls/hr IV ONETIME ONE Stop: 03/01/21 15:23 Last Admin: 03/01/21 11:43 Dose: 12.5 mls/hr Documented by: Furosemide 40 mg/ Sodium (Chloride) 54 mls @ 100 mls/hr IV Q12H [facility] Last Admin: 03/01/21 17:30 Dose: Not Given Documented by: Azithromycin 500 mg/ Sodium (Chloride) 250 mls @ 250 mls/hr IV DAILY [facility] Last Admin: 03/06/21 08:30 Dose: 250 mls/hr Documented by: Magnesium Sulfate 4 gm/ Premix 100 mls @ 50 mls/hr IV ONETIME ONE Stop: 03/03/21 10:46 Last Admin: 03/03/21 09:47 Dose: 50 mls/hr Documented by: Sodium Chloride (Normal Saline) Confirm Administered Dose 20 mls @ as directed .ROUTE .STK-MED ONE Stop: 03/06/21 12:43 Ibuprofen (Ibuprofen 800 Mg Tab) 800 mg PO Q8H PRN PRN Reason: mild pain or fever Iopamidol (Iopamidol 755 Mg/Ml 500 Ml Multipack Bottle) 75 ml IVPUSH ONETIME STA Stop: 03/02/21 13:47 Last Admin: 03/02/21 13:46 Dose: 75 ml Documented by: Iopamidol (Iopamidol 755 Mg/Ml 500 Ml Multipack Bottle) 100 ml IVPUSH ONETIME STA Stop: 03/05/21 17:48 Last Admin: 03/05/21 17:48 Dose: 100 ml Documented by: Ketorolac Tromethamine (Ketorolac 30 Mg/Ml Sdv) Confirm Administered Dose 30 mg .ROUTE .STK-MED ONE Stop: 02/26/21 03:28 Ketorolac Tromethamine (Ketorolac 30 Mg/Ml Sdv) 30 mg IVPUSH Q6H [facility] Stop: 02/27/21 04:01 Last Admin: 02/27/21 04:10 Dose: 30 mg Documented by: Labetalol HCl (Labetalol 100 Mg Tab) 200 mg PO DAILY [facility] Last Admin: 03/01/21 08:48 Dose: 200 mg Documented by: Lidocaine (Lidocaine 2% 5 Ml Sdv) Confirm Administered Dose 5 ml .ROUTE .STK-MED ONE Stop: 03/06/21 11:29 Lidocaine HCl (Lidocaine 1% 50 Ml Mdv) 50 ml INJECT ONETIME PRN PRN Reason: Laceration repair Lisinopril (Lisinopril 5 Mg Tab) 5 mg PO DAILY KATHERINE Lorazepam (Lorazepam 2 Mg/Ml Sdv) 1 mg IVPUSH ONETIME ONE Stop: 03/01/21 11:15 Last Admin: 03/01/21 11:44 Dose: 1 mg Documented by: Lorazepam (Lorazepam 2 Mg/Ml Sdv) 2 mg IVPUSH ONETIME ONE Stop: 03/02/21 00:15 Last Admin: 03/02/21 00:25 Dose: 2 mg Documented by: Magnesium Hydroxide (Magnesium Hydroxide 400 Mg/5 Ml Susp 30 Ml Cup) 30 ml PO ONETIME ONE Stop: 03/05/21 12:30 Last Admin: 03/05/21 12:57 Dose: 30 ml Documented by: Magnesium Oxide (Magnesium Oxide 400 Mg Tab) 800 mg PO ONETIME ONE Stop: 03/04/21 10:11 Last Admin: 03/04/21 10:30 Dose: 800 mg Documented by: Magnesium Oxide (Magnesium Oxide 400 Mg Tab) 800 mg PO ONETIME ONE Stop: 03/05/21 12:33 Last Admin: 03/05/21 12:57 Dose: 800 mg Documented by: Methylergonovine Maleate (Methylergonovine 0.2 Mg/1 Ml Amp) 0.2 mg IM ONETIME PRN PRN Reason: Excessive Vaginal Bleeding Methylergonovine Maleate (Methylergonovine 0.2 Mg/1 Ml Amp) Confirm Administered Dose 0.2 mg .ROUTE .STK-MED ONE Stop: 03/06/21 13:04 Last Admin: 03/06/21 14:42 Dose: Not Given Documented by: Metoclopramide HCl (Metoclopramide 10 Mg/2 Ml Sdv) 10 mg IVPUSH ONETIME PRN PRN Reason: Nausea/Vomiting Metoprolol Tartrate (Metoprolol Tartrate 25 Mg Tab) 25 mg PO BID KATHERINE Midazolam HCl (Midazolam 1 Mg/Ml 2 Ml Sdv) Confirm Administered Dose 2 mg .ROUTE .STK-MED ONE Stop: 03/06/21 11:29 Miscellaneous Medication (Phenylephrine Hcl In 0.9% Nacl 1 Mg/10 Ml Syringe) Confirm Administered Dose 1 mg .ROUTE .STK-MED ONE Stop: 02/26/21 03:28 Misoprostol (Misoprostol 200 Mcg Tab) 200 mcg PO ONETIME PRN PRN Reason: Post Hemorrhage Misoprostol (Misoprostol 200 Mcg Tab) 1,000 mcg RECTAL ONETIME PRN PRN Reason: excessive bleeding Misoprostol (Misoprostol 200 Mcg Tab) Confirm Administered Dose 200 mcg .ROUTE .STK-MED ONE Stop: 03/06/21 13:04 Last Admin: 03/06/21 14:42 Dose: Not Given Documented by: Morphine Sulfate (Morphine Pf 10 Mg/10 Ml Sdv) Confirm Administered Dose 10 mg .ROUTE .STK-MED ONE Stop: 02/26/21 02:46 Morphine Sulfate (Morphine 4 Mg/Ml Syringe) 4 mg IVPUSH Q4H PRN PRN Reason: Pain (moderate 4-6) Last Admin: 03/01/21 23:24 Dose: 4 mg Documented by: Morphine Sulfate (Morphine 2 Mg/Ml Syringe) 2 mg IVPUSH Q4H PRN PRN Reason: Pain (moderate 4-6) Last Admin: 03/04/21 06:20 Dose: 2 mg Documented by: Morphine Sulfate (Morphine 2 Mg/Ml Syringe) 2 mg IVPUSH Q10M PRN PRN Reason: Pain (severe 7-10) Nalbuphine HCl (Nalbuphine 10 Mg/1 Ml Vial) 10 mg IVPUSH Q1H PRN PRN Reason: Pain (severe 7-10) Nalbuphine HCl (Nalbuphine 10 Mg/1 Ml Vial) 5 mg IVPUSH ASDIRECTED PRN PRN Reason: Itching Naloxone HCl (Naloxone 0.4 Mg/Ml Syringe) 0.1 mg IVPUSH ONETIME PRN PRN Reason: Respiratory Depression Stop: 02/27/21 04:19 Naloxone HCl (Naloxone 0.4 Mg/Ml Syringe) 0.1 mg IVPUSH ASDIRECTED PRN PRN Reason: Respiratory Depression Octyl Cyanoacrylate (Octyl 2-Cyanoacrylate 1 Tube) Confirm Administered Dose 1 applic .ROUTE .STK-MED ONE Stop: 02/26/21 05:03 Ondansetron HCl (Ondansetron 4 Mg/2 Ml Sdv) Confirm Administered Dose 4 mg .ROUTE .STK-MED ONE Stop: 02/26/21 03:28 Ondansetron HCl (Ondansetron 4 Mg/2 Ml Sdv) 4 mg IVPUSH Q6H PRN PRN Reason: Nausea Ondansetron HCl (Ondansetron 4 Mg/2 Ml Sdv) Confirm Administered Dose 4 mg .ROUTE .STK-MED ONE Stop: 03/06/21 11:29 Ondansetron HCl (Ondansetron 4 Mg/2 Ml Sdv) 4 mg IVPUSH ONETIME PRN PRN Reason: Nausea/Vomiting Oxycodone/Acetaminophen (Acetaminophen/Oxycodone 325-5 Mg Tab) 2 tab PO Q4H PRN PRN Reason: Pain (severe 7-10) Last Admin: 03/02/21 21:07 Dose: 2 tab Documented by: Oxycodone/Acetaminophen (Acetaminophen/Oxycodone 325-5 Mg Tab) 2 tab PO Q6H PRN PRN Reason: Pain (moderate 4-6) Last Admin: 02/26/21 06:53 Dose: 2 tab Documented by: Oxytocin (Oxytocin 10 Units/1 Ml Sdv) Confirm Administered Dose 30 unit .ROUTE .STK-MED ONE Stop: 02/26/21 03:28 Oxytocin (Oxytocin 10 Units/1 Ml Sdv) 10 unit IM ASDIRECTED PRN PRN Reason: Excessive Vaginal Bleeding Polyethylene Glycol (Polyethylene Glycol 3350 Powder 17 Gm Packet) 17 gm PO ONETIME ONE Stop: 03/02/21 14:18 Last Admin: 03/02/21 14:53 Dose: 17 gm Documented by: Potassium Chloride (Potassium Chloride 20 Meq Tab.Er) 40 meq PO ONETIME ONE Stop: 03/03/21 08:48 Last Admin: 03/03/21 09:48 Dose: 40 meq Documented by: Potassium Chloride (Potassium Chloride 20 Meq Tab.Er) 40 meq PO BID@1000,1400 KATHERINE Stop: 03/05/21 10:01 Last Admin: 03/05/21 09:11 Dose: 40 meq Documented by: Propofol (Propofol 200 Mg/20 Ml Sdv) Confirm Administered Dose 400 mg .ROUTE .STK-MED ONE Stop: 03/06/21 11:29 Rocuronium [place] (Rocuronium [place] 50 Mg/5 Ml Syringe) Confirm Administered Dose 50 mg .ROUTE .STK-MED ONE Stop: 03/06/21 11:34 Sterile Water (Water For Irrigation,Sterile 1,000 Ml Container) 1,000 ml IRR ASDIRECTED PRN PRN Reason: delivery Sugammadex Sodium (Sugammadex Sodium 200 Mg/2 Ml Vial) Confirm Administered Dose 200 mg .ROUTE .[facility]-MED ONE Stop: 03/06/21 11:34 - Exam Wound/Incisions: Healing Well General: Alert, Oriented HEENT: Pupils Equal Neck: Supple Lungs: Clear to Auscultation, Normal Respiratory Effort Cardiovascular: Regular Rate, Regular Rhythm GI/Abdominal Exam: Normal Bowel Sounds, Soft, Non-Tender, No Organomegaly, No Distention, No Abnormal Bruit, No Mass, Pelvis Stable Extremities: Normal Inspection, Normal Range of Motion, Non-Tender, No Pedal Edema, Normal Capillary Refill Skin: Warm, Dry, Intact Neurological: No New Focal Deficit Psy/Mental Status: Alert, Normal Affect, Normal Mood Sepsis Event Note - Evaluation Sepsis Screening Result: Sepsis Risk - Focused Exam Vital Signs: Vital Signs Temp Pulse Resp BP BP Pulse Ox Pulse Ox 03/07/21 09:00 36.6 C 12 106/65 99 03/07/21 08:37 104/63 03/07/21 08:36 71 104/63 03/07/21 08:00 36.6 C 16 104/63 99 100 03/07/21 07:00 36.3 C 12 94/56 L 97 03/07/21 06:00 12 100/50 L 97 03/07/21 05:00 16 97/58 L 97 03/07/21 04:00 36.3 C 11 L 98/57 L 96 03/07/21 03:00 12 101/47 L 97 03/07/21 02:00 12 92/43 L 97 03/07/21 01:00 11 L 93/42 L 97 03/07/21 00:00 36.3 C 13 96 03/06/21 23:00 14 112/51 L 95 - Problem List Review Problem List Initiated/Reviewed/Updated: Yes - My Orders Last 24 Hours: Active Orders 24 hr Category Date Time Status Blood Glucose Check, Bedside [RC] PRN Care 03/06/21 13:21 Active Communication Order [RC] ROUTINE Care 03/06/21 15:00 Active Notify Provider Vital Signs [RC] ASDIRECTED Care 03/06/21 13:21 Active Overnight Pulse Oximetry [RC] Click to Edit Care 03/06/21 13:21 Active Oxygen Therapy [RC] PRN Care 03/06/21 13:21 Active RT Aerosol Therapy [RC] ASDIRECTED Care 03/06/21 13:21 Active RT Aerosol Therapy [RC] ASDIRECTED Care 03/06/21 13:21 Active RT BiPAP/CPAP [RC] ASDIRECTED Care 03/06/21 13:21 Active Vital Signs [RC] Q1H Care 03/06/21 13:21 Active 2 Gram Sodium Diet [DIET] Diet 03/06/21 Lunch Active Fluid Restriction [DIET] Diet 03/06/21 Lunch Active ANTIBODY IDENTIFICATION [BBK] Routine Lab 03/06/21 11:38 Results RED BLOOD CELLS LP [BBK] Routine Lab 03/06/21 11:38 Results TYPE AND SCREEN [BBK] Routine Lab 03/06/21 11:38 Results Pulse Oximetry Continuous Monitoring [OM.PC] Routine Oth 03/06/21 13:21 Ordered Medication Orders Albuterol/Ipratropium (Albuterol/Ipratropium 3.0-0.5 Mg/3 Ml Neb Soln) 3 ml NEB Q4HRRT PRN PRN Reason: Wheezing Last Admin: 03/01/21 17:14 Dose: 3 ml Documented by: Admin: 03/01/21 09:27 Dose: 3 ml Documented by: URSULA Carvedilol (Carvedilol 3.125 Mg Tab) 3.125 mg PO BID [facility] Last Admin: 03/07/21 08:36 Dose: 3.125 mg Documented by: Admin: 03/06/21 20:32 Dose: 3.125 mg Documented by: Admin: 03/06/21 08:30 Dose: 3.125 mg Documented by: Admin: 03/05/21 20:19 Dose: 3.125 mg Documented by: Admin: 03/05/21 08:10 Dose: 3.125 mg Documented by: Admin: 03/04/21 20:41 Dose: 3.125 mg Documented by: Admin: 03/04/21 09:02 Dose: 3.125 mg Documented by: Admin: 03/03/21 20:37 Dose: 3.125 mg Documented by: Admin: 03/03/21 11:39 Dose: 3.125 mg Documented by: MANJIT Diphenhydramine HCl (Diphenhydramine 50 Mg/Ml Sdv) 25 mg IVPUSH Q6H PRN PRN Reason: Itching or Nausea Last Admin: 03/06/21 21:53 Dose: 25 mg Documented by: ROWDY Docusate Sodium (Docusate Sodium 100 Mg Cap) 100 mg PO BID [facility] Last Admin: 03/07/21 08:37 Dose: 100 mg Documented by: Admin: 03/06/21 20:32 Dose: 100 mg Documented by: Admin: 03/06/21 08:29 Dose: 100 mg Documented by: Admin: 03/05/21 20:19 Dose: 100 mg Documented by: Admin: 03/05/21 08:12 Dose: 100 mg Documented by: Admin: 03/04/21 20:41 Dose: 100 mg Documented by: Admin: 03/04/21 09:01 Dose: 100 mg Documented by: Admin: 03/03/21 20:37 Dose: 100 mg Documented by: Admin: 03/03/21 08:25 Dose: 100 mg Documented by: Admin: 03/02/21 20:23 Dose: 100 mg Documented by: Admin: 03/02/21 09:35 Dose: 100 mg Documented by: Admin: 03/01/21 20:00 Dose: 100 mg Documented by: Admin: 03/01/21 08:48 Dose: 100 mg Documented by: Admin: 02/28/21 20:47 Dose: 100 mg Documented by: Admin: 02/28/21 08:14 Dose: 100 mg Documented by: Admin: 02/27/21 20:15 Dose: 100 mg Documented by: Admin: 02/27/21 08:09 Dose: 100 mg Documented by: Admin: 02/26/21 22:41 Dose: 100 mg Documented by: Admin: 02/26/21 10:00 Dose: 100 mg Documented by: KLAUS Furosemide (Furosemide 40 Mg/4 Ml Vial) 40 mg IVPUSH DAILY [facility] Last Admin: 03/07/21 08:37 Dose: 40 mg Documented by: Admin: 03/06/21 08:29 Dose: 40 mg Documented by: THAI Meropenem/Sodium Chloride 1 gm (/ Premix) 50 mls @ 100 mls/hr IV Q8H [facility] Admin: 03/07/21 08:35 Dose: 100 mls/hr Documented by: Infusion: 03/07/21 03:58 Dose: 100 mls/hr Documented by: Admin: 03/06/21 23:32 Dose: 100 mls/hr Documented by: Infusion: 03/06/21 16:27 Dose: 100 mls/hr Documented by: Admin: 03/06/21 15:57 Dose: 100 mls/hr Documented by: Infusion: 03/06/21 10:03 Dose: 100 mls/hr Documented by: Admin: 03/06/21 09:33 Dose: 100 mls/hr Documented by: Infusion: 03/06/21 00:03 Dose: 100 mls/hr Documented by: Admin: 03/05/21 23:33 Dose: 100 mls/hr Documented by: Infusion: 03/05/21 16:11 Dose: 100 mls/hr Documented by: Admin: 03/05/21 15:41 Dose: 100 mls/hr Documented by: Infusion: 03/05/21 08:40 Dose: 100 mls/hr Documented by: Admin: 03/05/21 08:10 Dose: 100 mls/hr Documented by: Infusion: 03/05/21 00:26 Dose: 100 mls/hr Documented by: Admin: 03/04/21 23:56 Dose: 100 mls/hr Documented by: Infusion: 03/04/21 16:50 Dose: 100 mls/hr Documented by: Admin: 03/04/21 16:20 Dose: 100 mls/hr Documented by: Infusion: 03/04/21 09:28 Dose: 100 mls/hr Documented by: Admin: 03/04/21 08:58 Dose: 100 mls/hr Documented by: Infusion: 03/04/21 01:19 Dose: 100 mls/hr Documented by: Admin: 03/04/21 00:49 Dose: 100 mls/hr Documented by: Infusion: 03/03/21 16:35 Dose: 100 mls/hr Documented by: Admin: 03/03/21 16:05 Dose: 100 mls/hr Documented by: Infusion: 03/03/21 08:54 Dose: 100 mls/hr Documented by: Admin: 03/03/21 08:24 Dose: 100 mls/hr Documented by: Infusion: 03/03/21 00:38 Dose: 100 mls/hr Documented by: Admin: 03/03/21 00:08 Dose: 100 mls/hr Documented by: Infusion: 03/02/21 16:20 Dose: 100 mls/hr Documented by: Admin: 03/02/21 15:50 Dose: 100 mls/hr Documented by: Infusion: 03/02/21 08:59 Dose: 100 mls/hr Documented by: Admin: 03/02/21 08:29 Dose: 100 mls/hr Documented by: Infusion: 03/02/21 00:20 Dose: 100 mls/hr Documented by: Admin: 03/01/21 23:50 Dose: 100 mls/hr Documented by: Infusion: 03/01/21 17:18 Dose: 100 mls/hr Documented by: Admin: 03/01/21 16:48 Dose: 100 mls/hr Documented by: MEGAN Vancomycin HCl 1.25 gm/ Sodium (Chloride) 250 mls @ 166.667 mls/hr IV Q12H [facility] Infusion: 03/07/21 07:12 Dose: 166 mls/hr Documented by: Admin: 03/07/21 04:00 Dose: 166.6 mls/hr Documented by: Infusion: 03/06/21 19:00 Dose: 166.6 mls/hr Documented by: Admin: 03/06/21 17:26 Dose: 166.6 mls/hr Documented by: Infusion: 03/06/21 05:31 Dose: 166.6 mls/hr Documented by: Admin: 03/06/21 04:00 Dose: 166.6 mls/hr Documented by: Infusion: 03/05/21 19:30 Dose: 166.6 mls/hr Documented by: Admin: 03/05/21 18:00 Dose: 166.667 mls/hr Documented by: Infusion: 03/05/21 06:34 Dose: 166.667 mls/hr Documented by: Admin: 03/05/21 05:04 Dose: 166.667 mls/hr Documented by: Infusion: 03/04/21 18:30 Dose: 166.667 mls/hr Documented by: Admin: 03/04/21 17:00 Dose: 166.667 mls/hr Documented by: Infusion: 03/04/21 06:25 Dose: 166.667 mls/hr Documented by: Admin: 03/04/21 04:55 Dose: 166.667 mls/hr Documented by: Infusion: 03/03/21 17:36 Dose: 166.667 mls/hr Documented by: Admin: 03/03/21 16:06 Dose: 166.667 mls/hr Documented by: Infusion: 03/03/21 05:34 Dose: 166.667 mls/hr Documented by: Admin: 03/03/21 04:04 Dose: 166.667 mls/hr Documented by: Infusion: 03/02/21 18:23 Dose: 166.667 mls/hr Documented by: Admin: 03/02/21 16:53 Dose: 166.667 mls/hr Documented by: Infusion: 03/02/21 05:30 Dose: 166.667 mls/hr Documented by: Admin: 03/02/21 04:00 Dose: 166.667 mls/hr Documented by: Infusion: 03/01/21 19:06 Dose: 166.667 mls/hr Documented by: Admin: 03/01/21 17:36 Dose: 166.667 mls/hr Documented by: MEGAN Lisinopril (Lisinopril 5 Mg Tab) 5 mg PO DAILY [facility] Admin: 03/07/21 08:37 Dose: 5 mg Documented by: Admin: 03/06/21 08:29 Dose: 5 mg Documented by: Admin: 03/05/21 08:10 Dose: 5 mg Documented by: Admin: 03/04/21 09:01 Dose: 5 mg Documented by: Admin: 03/03/21 08:26 Dose: 5 mg Documented by: Admin: 03/02/21 19:58 Dose: 5 mg Documented by: ROWDY Lorazepam (Lorazepam 2 Mg/Ml Sdv) 1 mg IVPUSH Q4H PRN PRN Reason: Withdrawal Symptoms Last Admin: 03/05/21 22:23 Dose: 1 mg Documented by: Admin: 03/03/21 22:33 Dose: 1 mg Documented by: Admin: 03/03/21 03:31 Dose: 1 mg Documented by: Admin: 03/02/21 21:20 Dose: 1 mg Documented by: Admin: 03/02/21 17:10 Dose: 1 mg Documented by: Admin: 03/02/21 00:13 Dose: 1 mg Documented by: ROWDY Ondansetron HCl (Ondansetron 4 Mg/2 Ml Sdv) 4 mg IVPUSH Q4H PRN PRN Reason: Nausea/Vomiting Oxycodone/Acetaminophen (Acetaminophen/Oxycodone 325-5 Mg Tab) 1 tab PO Q4H PRN PRN Reason: Pain (severe 7-10) Last Admin: 03/06/21 20:32 Dose: 1 tab Documented by: Admin: 03/06/21 15:56 Dose: 1 tab Documented by: Admin: 03/05/21 22:09 Dose: 1 tab Documented by: Admin: 03/05/21 18:02 Dose: 1 tab Documented by: Admin: 03/05/21 10:57 Dose: 1 tab Documented by: Admin: 03/05/21 05:57 Dose: 1 tab Documented by: Admin: 03/04/21 21:16 Dose: 1 tab Documented by: Admin: 03/04/21 17:00 Dose: 1 tab Documented by: Admin: 07/23/21 05:36 Dose: 1 tab Documented by: Admin: 03/03/21 19:30 Dose: 1 tab Documented by: INDU Polyethylene Glycol (Polyethylene Glycol 3350 Powder 17 Gm Packet) 17 gm PO DAILY PRN PRN Reason: constipation Last Admin: 03/05/21 08:10 Dose: 17 gm Documented by: Admin: 03/03/21 11:40 Dose: 17 gm Documented by: MANJIT Sodium Chloride (Sodium Chloride 0.9% 10 Ml Syringe) 10 ml FLUSH ASDIRECTED PRN PRN Reason: Keep Vein Open Sodium Chloride (Sodium Chloride 0.9% 2.5 Ml Syringe) 2.5 ml FLUSH ASDIRECTED PRN PRN Reason: Keep Vein Open Vancomycin HCl (Pharmacy To Dose - Vancomycin) 0 dose .XX ASDIRECTED KATHERINE - Assessment Assessment (Free Text/Narrative):: Status post evacuation of her incision hematoma yesterday. The Yuval-Gonzalez draining minimally she reported diminished hair abdominal pain. Patient is to have elevated white count hoping that her white count start coming down tomorrow. I don't think she need an ICU bed at this time and I am suggesting for her to be moved to a regular MedSurg bed. - Plan Plan (Free Text/Narrative):: Tomorrow the patient to a MedSurg bed out of the ICU if it is agreed with the district medical examiner.
--- NOTE | 2021-03-07 12:42 | PCM.SN.2 ---
- Free Text/Narrative Note: Wbc count high, no fever, no other SIRS criteria,it has been less than 24 hours since DNE and clot drainage. Will cont same antibiotics and reasses tomorrow. Will repeat blood cultures and sent culture from [facility] drain. If WBC count doesn't improve, may need to consider Endocarditis given patients h/o IV drug abuse and cardiomyopathy.
--- NOTE | 2021-03-07 13:32 | PCM.PN ---
<Rosalee Chester - Last Filed: 03/07/21 13:27> - General Info Date of Service: 03/07/21 Subjective Update: 25-year-old female admitted for sepsis and acute systolic heart failure is doing well overnight. Patient had exploratory laparotomy for incisional hematoma evacuation yesterday which she tolerated well. Patient still has not had a bowel movement but is passing gas. She states that she usually has 1 bowel movement per week. No acute overnight events. - Review of Systems General: Reports: No Symptoms. Denies: Fever, Chills HEENT: Reports: No Symptoms Pulmonary: Reports: No Symptoms. Denies: Shortness of Breath Cardiovascular: Reports: No Symptoms. Denies: Chest Pain, Orthopnea, Edema Gastrointestinal: Reports: Constipation. Denies: Abdominal Pain, Nausea Genitourinary: Denies: Dysuria Musculoskeletal: Denies: Leg Pain, Joint Swelling Skin: Reports: No Symptoms Neurological: Reports: No Symptoms Psychiatric: Reports: No Symptoms (Subjective objective) - Patient Data Vitals - Most Recent: Last Vital Signs Temp 97.9 F 03/07/21 12:58 Pulse 71 03/07/21 08:36 Resp 12 03/07/21 12:58 BP 96/53 L 03/07/21 12:58 Pulse Ox 98 03/07/21 12:58 Weight - Most Recent: 71.758 kg I&O - Last 24 Hours: Intake & Output 03/06/21 03/07/21 03/07/21 22:59 06:59 14:59 Intake Total 300 480 400 Output Total 30 515 2200 Balance Lab Results Last 24 Hours: Laboratory Results - last 24 hr 03/01/21 03/06/21 03/07/21 Range/Units 11:30 11:38 05:10 WBC 29.89 H (4.0-11.0) K/uL RBC 3.00 L (4.30-5.90) M/uL Hgb 8.6 L (12.0-16.0) g/dL Hct 26.4 L (36.0-46.0) % MCV 88.0 (80.0-98.0) fL MCH 28.7 (27.0-32.0) pg MCHC 32.6 (31.0-37.0) g/dL RDW Std Deviation 45.5 (28.0-62.0) fl RDW Coeff of Idalmis 14 (11.0-15.0) % Plt Count 572 H (150-400) K/uL MPV 8.80 (7.40-12.00) fL Neut % (Auto) 87.3 H (48.0-80.0) % Lymph % (Auto) 7.6 L (16.0-40.0) % [place] % (Auto) 4.8 (0.0-15.0) % Eos % (Auto) 0.2 (0.0-7.0) % Baso % (Auto) 0.1 (0.0-1.5) % Neut # (Auto) 26.1 H (1.4-5.7) K/uL Lymph # (Auto) 2.3 (0.6-2.4) K/uL [place] # (Auto) 1.4 H (0.0-0.8) K/uL Eos # (Auto) 0.1 (0.0-0.7) K/uL Baso # (Auto) 0.0 (0.0-0.1) K/uL Nucleated RBC % 0.0 /100WBC Nucleated RBCs # 0 K/uL Sodium (136-145) mmol/L Potassium (3.5-5.1) mmol/L Chloride (98-107) mmol/L Carbon Dioxide (21.0-32.0) mmol/L BUN (7.0-18.0) mg/dL Creatinine (0.6-1.0) mg/dL Est Cr Clr Drug Dosing mL/min Estimated GFR (MDRD) ml/min Glucose (74-106) mg/dL Calcium (8.5-10.1) mg/dL Phosphorus (2.6-4.7) mg/dL Magnesium (1.8-2.4) mg/dL Urine Total Volume RANDOM Ur Urea Nitrogen 24 Hr Not Reportable Blood Type A NEGATIVE Antibody Screen POSITIVE Antibody Identification Anti-D Crossmatch See Detail 03/07/21 Range/Units 05:10 WBC (4.0-11.0) K/uL RBC (4.30-5.90) M/uL Hgb (12.0-16.0) g/dL Hct (36.0-46.0) % MCV (80.0-98.0) fL MCH (27.0-32.0) pg MCHC (31.0-37.0) g/dL RDW Std Deviation (28.0-62.0) fl RDW Coeff of Idalmis (11.0-15.0) % Plt Count (150-400) K/uL MPV (7.40-12.00) fL Neut % (Auto) (48.0-80.0) % Lymph % (Auto) (16.0-40.0) % [place] % (Auto) (0.0-15.0) % Eos % (Auto) (0.0-7.0) % Baso % (Auto) (0.0-1.5) % Neut # (Auto) (1.4-5.7) K/uL Lymph # (Auto) (0.6-2.4) K/uL [place] # (Auto) (0.0-0.8) K/uL Eos # (Auto) (0.0-0.7) K/uL Baso # (Auto) (0.0-0.1) K/uL Nucleated RBC % /100WBC Nucleated RBCs # K/uL Sodium 136 (136-145) mmol/L Potassium 4.5 (3.5-5.1) mmol/L Chloride 102 (98-107) mmol/L Carbon Dioxide 26.4 (21.0-32.0) mmol/L BUN 23 H (7.0-18.0) mg/dL Creatinine 0.6 (0.6-1.0) mg/dL Est Cr Clr Drug Dosing 127.85 mL/min Estimated GFR (MDRD) > 60.0 ml/min Glucose 91 (74-106) mg/dL Calcium 8.1 L (8.5-10.1) mg/dL Phosphorus 4.4 (2.6-4.7) mg/dL Magnesium 2.3 (1.8-2.4) mg/dL Urine Total Volume Ur Urea Nitrogen 24 Hr Blood Type Antibody Screen Antibody Identification Crossmatch Fabián Results Last 24 Hours: Microbiology 03/05/21 12:35 Urine Culture - Preliminary Urine 03/07/21 10:37 Anaerobic Blood Culture - Final Blood - Venous - Lab Draw 03/01/21 10:40 Aerobic Blood Culture - Final Blood - Venous - Lab Draw NO GROWTH AFTER 5 DAYS Anaerobic Blood Culture - Final NO GROWTH AFTER 5 DAYS 03/01/21 10:30 Aerobic Blood Culture - Final Blood - Venous NO GROWTH AFTER 5 DAYS Anaerobic Blood Culture - Final NO GROWTH AFTER 5 DAYS Med Orders - Current: Current Medications Albuterol/Ipratropium (Albuterol/Ipratropium 3.0-0.5 Mg/3 Ml Neb Soln) 3 ml NEB Q4HRRT PRN PRN Reason: Wheezing Last Admin: 03/01/21 17:14 Dose: 3 ml Documented by: Carvedilol (Carvedilol 3.125 Mg Tab) 3.125 mg PO BID [facility] Last Admin: 03/07/21 08:36 Dose: 3.125 mg Documented by: Diphenhydramine HCl (Diphenhydramine 50 Mg/Ml Sdv) 25 mg IVPUSH Q6H PRN PRN Reason: Itching or Nausea Last Admin: 03/06/21 21:53 Dose: 25 mg Documented by: Docusate Sodium (Docusate Sodium 100 Mg Cap) 100 mg PO BID [facility] Last Admin: 03/07/21 08:37 Dose: 100 mg Documented by: Furosemide (Furosemide 40 Mg/4 Ml Vial) 40 mg IVPUSH DAILY [facility] Last Admin: 03/07/21 08:37 Dose: 40 mg Documented by: Meropenem/Sodium Chloride 1 gm (/ Premix) 50 mls @ 100 mls/hr IV Q8H [facility] Last Admin: 03/07/21 08:35 Dose: 100 mls/hr Documented by: Vancomycin HCl 1.25 gm/ Sodium (Chloride) 250 mls @ 166.667 mls/hr IV Q12H [facility] Last Infusion: 03/07/21 07:12 Dose: Infused Documented by: Lisinopril (Lisinopril 5 Mg Tab) 5 mg PO DAILY [facility] Last Admin: 03/07/21 08:37 Dose: 5 mg Documented by: Lorazepam (Lorazepam 2 Mg/Ml Sdv) 1 mg IVPUSH Q4H PRN PRN Reason: Withdrawal Symptoms Last Admin: 03/05/21 22:23 Dose: 1 mg Documented by: Ondansetron HCl (Ondansetron 4 Mg/2 Ml Sdv) 4 mg IVPUSH Q4H PRN PRN Reason: Nausea/Vomiting Oxycodone/Acetaminophen (Acetaminophen/Oxycodone 325-5 Mg Tab) 1 tab PO Q4H PRN PRN Reason: Pain (severe 7-10) Last Admin: 03/06/21 20:32 Dose: 1 tab Documented by: Polyethylene Glycol (Polyethylene Glycol 3350 Powder 17 Gm Packet) 17 gm PO DAILY PRN PRN Reason: constipation Last Admin: 03/05/21 08:10 Dose: 17 gm Documented by: Sodium Chloride (Sodium Chloride 0.9% 10 Ml Syringe) 10 ml FLUSH ASDIRECTED PRN PRN Reason: Keep Vein Open Sodium Chloride (Sodium Chloride 0.9% 2.5 Ml Syringe) 2.5 ml FLUSH ASDIRECTED PRN PRN Reason: Keep Vein Open Vancomycin HCl (Pharmacy To Dose - Vancomycin) 0 dose .XX ASDIRECTED KATHERINE Discontinued Medications Albuterol (Albuterol 0.083% 2.5 Mg/3 Ml Neb Soln) 2.5 mg NEB ONETIME PRN PRN Reason: Wheezing Bisacodyl (Bisacodyl 10 Mg Supp) 10 mg RECTAL ONETIME PRN PRN Reason: Constipation Bisacodyl (Bisacodyl 5 Mg Tab) 10 mg PO ONETIME ONE Stop: 03/05/21 19:10 Last Admin: 03/05/21 20:19 Dose: 10 mg Documented by: Butorphanol Tartrate (Butorphanol 1 Mg/Ml Sdv) 1 mg IVPUSH Q1H PRN PRN Reason: Pain (severe 7-10) Carboprost Tromethamine (Carboprost Tromethamine 250 Mcg/1 Ml Amp) 250 mcg IM ASDIRECTED PRN PRN Reason: Post Hemorrhage Cefazolin Sodium (Cefazolin 1 Gm Vial) Confirm Administered Dose 2 gm .ROUTE .STK-MED ONE Stop: 02/26/21 03:45 Citric Acid/Sodium Citrate (Citric Acid/Sodium Citrate Solution 30 Ml Cup) 30 ml PO ONETIME ONE Stop: 02/26/21 02:01 Last Admin: 02/26/21 05:17 Dose: Not Given Documented by: Dexamethasone (Dexamethasone 4 Mg/Ml 5 Ml Mdv) Confirm Administered Dose 20 mg .ROUTE .STK-MED ONE Stop: 03/06/21 11:29 Diphenhydramine HCl (Diphenhydramine 50 Mg/Ml Sdv) 12.5 mg IVPUSH Q2H PRN PRN Reason: Itching Droperidol (Droperidol 5 Mg/2 Ml Sdv) 0.625 mg IVPUSH ONETIME PRN PRN Reason: Nausea/Vomiting Emollient Ointment (Lanolin 100% Cream 7 Gm Tube) 0 gm TOP ASDIRECTED PRN PRN Reason: Sore Nipples Enoxaparin Sodium (Enoxaparin 40 Mg/0.4 Ml Syringe) 40 mg SUBCUT Q24H [facility] Last Admin: 03/05/21 12:58 Dose: 40 mg Documented by: Ephedrine Sulfate (Ephedrine 50 Mg/Ml Sdv) 10 mg IVPUSH Q5M PRN PRN Reason: Hypotension Fentanyl (Fentanyl 100 Mcg/2 Ml Sdv) Confirm Administered Dose 100 mcg .ROUTE .STK-MED ONE Stop: 02/26/21 02:45 Fentanyl (Fentanyl 100 Mcg/2 Ml Sdv) 50 mcg IVPUSH Q1H PRN PRN Reason: Pain (severe 7-10) Fentanyl (Fentanyl 100 Mcg/2 Ml Sdv) Confirm Administered Dose 100 mcg .ROUTE .STK-MED ONE Stop: 03/06/21 11:29 Fentanyl (Fentanyl 100 Mcg/2 Ml Sdv) 50 mcg IVPUSH Q5M PRN PRN Reason: Pain (mild 1-3) Furosemide (Furosemide 20 Mg/2 Ml Vial) 40 mg IVPUSH NOW ONE Stop: 02/27/21 09:02 Last Admin: 02/27/21 09:17 Dose: 40 mg Documented by: Furosemide (Furosemide 40 Mg/4 Ml Vial) 40 mg IVPUSH NOW ONE Stop: 03/01/21 15:43 Last Admin: 03/01/21 15:53 Dose: 40 mg Documented by: Furosemide (Furosemide 40 Mg/4 Ml Vial) 40 mg IVPUSH DAILY [facility] Last Admin: 03/02/21 09:36 Dose: 40 mg Documented by: Furosemide (Furosemide 20 Mg/2 Ml Vial) 20 mg IVPUSH NOW ONE Stop: 03/01/21 23:40 Last Admin: 03/01/21 23:50 Dose: 20 mg Documented by: Furosemide (Furosemide 40 Mg/4 Ml Vial) 40 mg IVPUSH Q8H [facility] Last Admin: 03/02/21 14:05 Dose: Not Given Documented by: Furosemide (Furosemide 40 Mg/4 Ml Vial) 40 mg IVPUSH Q8H [facility] Last Admin: 03/04/21 09:01 Dose: 40 mg Documented by: Furosemide (Furosemide 40 Mg/4 Ml Vial) 40 mg IVPUSH Q12H [facility] Last Admin: 03/05/21 08:10 Dose: 40 mg Documented by: Hydrochlorothiazide (Hydrochlorothiazide 12.5 Mg Cap) 12.5 mg PO BEDTIME KATHERINE Last Admin: 02/28/21 20:00 Dose: 12.5 mg Documented by: Hydromorphone HCl (Hydromorphone 2 Mg/Ml Syringe) 1 mg IVPUSH Q10M PRN PRN Reason: Pain (moderate 4-6) Last Admin: 03/06/21 13:50 Dose: 1 mg Documented by: Lactated Ringer's (Ringers, Lactated) 1,000 mls @ 500 mls/hr IV BOLUS [facility] Last Admin: 02/26/21 02:20 Dose: 500 mls/hr Documented by: Oxytocin/Sodium Chloride (Oxytocin 30 Unit/500 Ml-Ns) 30 unit in 500 mls @ 250 mls/hr IV TITRATE [facility] Lactated Ringer's (Ringers, Lactated) 1,000 mls @ 150 mls/hr IV ASDIRECTED [facility] Last Infusion: 02/28/21 08:50 Dose: 50 mls/hr Documented by: Tranexamic Acid 1,000 mg/ (Sodium Chloride) 110 mls @ 660 mls/hr IV ONETIME PRN PRN Reason: Bleeding Sodium Chloride (Normal Saline) Confirm Administered Dose 20 mls @ as directed .ROUTE .[facility]-MED ONE Stop: 02/26/21 03:45 Lactated Ringer's (Ringers, Lactated) 1,000 mls @ 125 mls/hr IV ASDIRECTED [facility] Last Infusion: 02/28/21 01:00 Dose: Infused Documented by: Tranexamic Acid 1,000 mg/ (Sodium Chloride) 110 mls @ 660 mls/hr IV ONETIME PRN PRN Reason: Bleeding Clindamycin Phosphate 600 mg/ (Sodium Chloride) 54 mls @ 100 mls/hr IV Q6H [facility] Clindamycin Phosphate 900 mg/ (Premix) 75 mls @ 150 mls/hr IV Q6H [facility] Clindamycin Phosphate 600 mg/ (Premix) 50 mls @ 100 mls/hr IV Q6H [facility] Last Admin: 03/01/21 15:53 Dose: 100 mls/hr Documented by: Cefazolin Sodium/Dextrose 1 gm (/ Premix) 50 mls @ 100 mls/hr IV Q8H [facility] Last Admin: 03/01/21 14:00 Dose: 100 mls/hr Documented by: Lactated Ringer's (Ringers, Lactated) 1,000 mls @ 50 mls/hr IV ASDIRECTED [facility] Last Infusion: 03/01/21 08:30 Dose: 10 mls/hr Documented by: Lactated Ringer's (Ringers, Lactated) 1,000 mls @ 10 mls/hr IV ASDIRECTED [facility] Magnesium Sulfate 2 gm/ Premix 50 mls @ 12.5 mls/hr IV ONETIME ONE Stop: 03/01/21 15:23 Last Admin: 03/01/21 11:43 Dose: 12.5 mls/hr Documented by: Furosemide 40 mg/ Sodium (Chloride) 54 mls @ 100 mls/hr IV Q12H [facility] Last Admin: 03/01/21 17:30 Dose: Not Given Documented by: Azithromycin 500 mg/ Sodium (Chloride) 250 mls @ 250 mls/hr IV DAILY [facility] Last Admin: 03/06/21 08:30 Dose: 250 mls/hr Documented by: Magnesium Sulfate 4 gm/ Premix 100 mls @ 50 mls/hr IV ONETIME ONE Stop: 03/03/21 10:46 Last Admin: 03/03/21 09:47 Dose: 50 mls/hr Documented by: Sodium Chloride (Normal Saline) Confirm Administered Dose 20 mls @ as directed .ROUTE .STK-MED ONE Stop: 03/06/21 12:43 Ibuprofen (Ibuprofen 800 Mg Tab) 800 mg PO Q8H PRN PRN Reason: mild pain or fever Iopamidol (Iopamidol 755 Mg/Ml 500 Ml Multipack Bottle) 75 ml IVPUSH ONETIME STA Stop: 03/02/21 13:47 Last Admin: 03/02/21 13:46 Dose: 75 ml Documented by: Iopamidol (Iopamidol 755 Mg/Ml 500 Ml Multipack Bottle) 100 ml IVPUSH ONETIME STA Stop: 03/05/21 17:48 Last Admin: 03/05/21 17:48 Dose: 100 ml Documented by: Ketorolac Tromethamine (Ketorolac 30 Mg/Ml Sdv) Confirm Administered Dose 30 mg .ROUTE .STK-MED ONE Stop: 02/26/21 03:28 Ketorolac Tromethamine (Ketorolac 30 Mg/Ml Sdv) 30 mg IVPUSH Q6H [facility] Stop: 02/27/21 04:01 Last Admin: 02/27/21 04:10 Dose: 30 mg Documented by: Labetalol HCl (Labetalol 100 Mg Tab) 200 mg PO DAILY [facility] Last Admin: 03/01/21 08:48 Dose: 200 mg Documented by: Lidocaine (Lidocaine 2% 5 Ml Sdv) Confirm Administered Dose 5 ml .ROUTE .STK-MED ONE Stop: 03/06/21 11:29 Lidocaine HCl (Lidocaine 1% 50 Ml Mdv) 50 ml INJECT ONETIME PRN PRN Reason: Laceration repair Lisinopril (Lisinopril 5 Mg Tab) 5 mg PO DAILY [facility] Lorazepam (Lorazepam 2 Mg/Ml Sdv) 1 mg IVPUSH ONETIME ONE Stop: 03/01/21 11:15 Last Admin: 03/01/21 11:44 Dose: 1 mg Documented by: Lorazepam (Lorazepam 2 Mg/Ml Sdv) 2 mg IVPUSH ONETIME ONE Stop: 03/02/21 00:15 Last Admin: 03/02/21 00:25 Dose: 2 mg Documented by: Magnesium Hydroxide (Magnesium Hydroxide 400 Mg/5 Ml Susp 30 Ml Cup) 30 ml PO ONETIME ONE Stop: 03/05/21 12:30 Last Admin: 03/05/21 12:57 Dose: 30 ml Documented by: Magnesium Oxide (Magnesium Oxide 400 Mg Tab) 800 mg PO ONETIME ONE Stop: 03/04/21 10:11 Last Admin: 03/04/21 10:30 Dose: 800 mg Documented by: Magnesium Oxide (Magnesium Oxide 400 Mg Tab) 800 mg PO ONETIME ONE Stop: 03/05/21 12:33 Last Admin: 03/05/21 12:57 Dose: 800 mg Documented by: Methylergonovine Maleate (Methylergonovine 0.2 Mg/1 Ml Amp) 0.2 mg IM ONETIME PRN PRN Reason: Excessive Vaginal Bleeding Methylergonovine Maleate (Methylergonovine 0.2 Mg/1 Ml Amp) Confirm Administered Dose 0.2 mg .ROUTE .STK-MED ONE Stop: 03/06/21 13:04 Last Admin: 03/06/21 14:42 Dose: Not Given Documented by: Metoclopramide HCl (Metoclopramide 10 Mg/2 Ml Sdv) 10 mg IVPUSH ONETIME PRN PRN Reason: Nausea/Vomiting Metoprolol Tartrate (Metoprolol Tartrate 25 Mg Tab) 25 mg PO BID KATHERINE Midazolam HCl (Midazolam 1 Mg/Ml 2 Ml Sdv) Confirm Administered Dose 2 mg .ROUTE .STK-MED ONE Stop: 03/06/21 11:29 Miscellaneous Medication (Phenylephrine Hcl In 0.9% Nacl 1 Mg/10 Ml Syringe) Confirm Administered Dose 1 mg .ROUTE .STK-MED ONE Stop: 02/26/21 03:28 Misoprostol (Misoprostol 200 Mcg Tab) 200 mcg PO ONETIME PRN PRN Reason: Post Hemorrhage Misoprostol (Misoprostol 200 Mcg Tab) 1,000 mcg RECTAL ONETIME PRN PRN Reason: excessive bleeding Misoprostol (Misoprostol 200 Mcg Tab) Confirm Administered Dose 200 mcg .ROUTE .STK-MED ONE Stop: 03/06/21 13:04 Last Admin: 03/06/21 14:42 Dose: Not Given Documented by: Morphine Sulfate (Morphine Pf 10 Mg/10 Ml Sdv) Confirm Administered Dose 10 mg .ROUTE .STK-MED ONE Stop: 02/26/21 02:46 Morphine Sulfate (Morphine 4 Mg/Ml Syringe) 4 mg IVPUSH Q4H PRN PRN Reason: Pain (moderate 4-6) Last Admin: 03/01/21 23:24 Dose: 4 mg Documented by: Morphine Sulfate (Morphine 2 Mg/Ml Syringe) 2 mg IVPUSH Q4H PRN PRN Reason: Pain (moderate 4-6) Last Admin: 03/04/21 06:20 Dose: 2 mg Documented by: Morphine Sulfate (Morphine 2 Mg/Ml Syringe) 2 mg IVPUSH Q10M PRN PRN Reason: Pain (severe 7-10) Nalbuphine HCl (Nalbuphine 10 Mg/1 Ml Vial) 10 mg IVPUSH Q1H PRN PRN Reason: Pain (severe 7-10) Nalbuphine HCl (Nalbuphine 10 Mg/1 Ml Vial) 5 mg IVPUSH ASDIRECTED PRN PRN Reason: Itching Naloxone HCl (Naloxone 0.4 Mg/Ml Syringe) 0.1 mg IVPUSH ONETIME PRN PRN Reason: Respiratory Depression Stop: 02/27/21 04:19 Naloxone HCl (Naloxone 0.4 Mg/Ml Syringe) 0.1 mg IVPUSH ASDIRECTED PRN PRN Reason: Respiratory Depression Octyl Cyanoacrylate (Octyl 2-Cyanoacrylate 1 Tube) Confirm Administered Dose 1 applic .ROUTE .[employer]-MED ONE Stop: 02/26/21 05:03 Ondansetron HCl (Ondansetron 4 Mg/2 Ml Sdv) Confirm Administered Dose 4 mg .ROUTE .STK-MED ONE Stop: 02/26/21 03:28 Ondansetron HCl (Ondansetron 4 Mg/2 Ml Sdv) 4 mg IVPUSH Q6H PRN PRN Reason: Nausea Ondansetron HCl (Ondansetron 4 Mg/2 Ml Sdv) Confirm Administered Dose 4 mg .ROUTE .[employer]-MED ONE Stop: 03/06/21 11:29 Ondansetron HCl (Ondansetron 4 Mg/2 Ml Sdv) 4 mg IVPUSH ONETIME PRN PRN Reason: Nausea/Vomiting Oxycodone/Acetaminophen (Acetaminophen/Oxycodone 325-5 Mg Tab) 2 tab PO Q4H PRN PRN Reason: Pain (severe 7-10) Last Admin: 03/02/21 21:07 Dose: 2 tab Documented by: Oxycodone/Acetaminophen (Acetaminophen/Oxycodone 325-5 Mg Tab) 2 tab PO Q6H PRN PRN Reason: Pain (moderate 4-6) Last Admin: 02/26/21 06:53 Dose: 2 tab Documented by: Oxytocin (Oxytocin 10 Units/1 Ml Sdv) Confirm Administered Dose 30 unit .ROUTE .STK-MED ONE Stop: 02/26/21 03:28 Oxytocin (Oxytocin 10 Units/1 Ml Sdv) 10 unit IM ASDIRECTED PRN PRN Reason: Excessive Vaginal Bleeding Polyethylene Glycol (Polyethylene Glycol 3350 Powder 17 Gm Packet) 17 gm PO ONETIME ONE Stop: 03/02/21 14:18 Last Admin: 03/02/21 14:53 Dose: 17 gm Documented by: Potassium Chloride (Potassium Chloride 20 Meq Tab.Er) 40 meq PO ONETIME ONE Stop: 03/03/21 08:48 Last Admin: 03/03/21 09:48 Dose: 40 meq Documented by: Potassium Chloride (Potassium Chloride 20 Meq Tab.Er) 40 meq PO BID@1000,1400 KATHERINE Stop: 03/05/21 10:01 Last Admin: 03/05/21 09:11 Dose: 40 meq Documented by: Propofol (Propofol 200 Mg/20 Ml Sdv) Confirm Administered Dose 400 mg .ROUTE .STK-MED ONE Stop: 03/06/21 11:29 Rocuronium [place] (Rocuronium [place] 50 Mg/5 Ml Syringe) Confirm Administered Dose 50 mg .ROUTE .STK-MED ONE Stop: 03/06/21 11:34 Sterile Water (Water For Irrigation,Sterile 1,000 Ml Container) 1,000 ml IRR ASDIRECTED PRN PRN Reason: delivery Sugammadex Sodium (Sugammadex Sodium 200 Mg/2 Ml Vial) Confirm Administered Dose 200 mg .ROUTE .STK-MED ONE Stop: 03/06/21 11:34 - Exam Central Line Total Time: 6Days 0Hours Urinary Catheter Total Time: 6Days 8Hours General: Alert, Oriented, Cooperative, No Acute Distress Neck: Supple, Trachea Midline Lungs: Clear to Auscultation, Normal Respiratory Effort. No: Crackles, Rales Cardiovascular: Regular Rate, Regular Rhythm, No Murmurs GI/Abdominal Exam: Soft, Non-Tender, Other (ANAIS drain from exploratory laparotomy incision is draining small amounts of serosanguineous bloody fluid.). No: Guarding, Rebound Extremities: No Pedal Edema. No: Joint Swelling, Leg Pain Peripheral Pulses: 2+: Dorsalis Pedis (L), Dorsalis Pedis (R) Skin: Warm, Dry Wound/Incisions: Dressing Dry and Intact, Drainage Neurological: No New Focal Deficit Psy/Mental Status: Alert - Patient Data Lab Results Last 24 hrs: Laboratory Results - last 24 hr 03/01/21 03/06/21 03/07/21 Range/Units 11:30 11:38 05:10 WBC 29.89 H (4.0-11.0) K/uL RBC 3.00 L (4.30-5.90) M/uL Hgb 8.6 L (12.0-16.0) g/dL Hct 26.4 L (36.0-46.0) % MCV 88.0 (80.0-98.0) fL MCH 28.7 (27.0-32.0) pg MCHC 32.6 (31.0-37.0) g/dL RDW Std Deviation 45.5 (28.0-62.0) fl RDW Coeff of Idalmis 14 (11.0-15.0) % Plt Count 572 H (150-400) K/uL MPV 8.80 (7.40-12.00) fL Neut % (Auto) 87.3 H (48.0-80.0) % Lymph % (Auto) 7.6 L (16.0-40.0) % [place] % (Auto) 4.8 (0.0-15.0) % Eos % (Auto) 0.2 (0.0-7.0) % Baso % (Auto) 0.1 (0.0-1.5) % Neut # (Auto) 26.1 H (1.4-5.7) K/uL Lymph # (Auto) 2.3 (0.6-2.4) K/uL [place] # (Auto) 1.4 H (0.0-0.8) K/uL Eos # (Auto) 0.1 (0.0-0.7) K/uL Baso # (Auto) 0.0 (0.0-0.1) K/uL Nucleated RBC % 0.0 /100WBC Nucleated RBCs # 0 K/uL Sodium (136-145) mmol/L Potassium (3.5-5.1) mmol/L Chloride (98-107) mmol/L Carbon Dioxide (21.0-32.0) mmol/L BUN (7.0-18.0) mg/dL Creatinine (0.6-1.0) mg/dL Est Cr Clr Drug Dosing mL/min Estimated GFR (MDRD) ml/min Glucose (74-106) mg/dL Calcium (8.5-10.1) mg/dL Phosphorus (2.6-4.7) mg/dL Magnesium (1.8-2.4) mg/dL Urine Total Volume RANDOM Ur Urea Nitrogen 24 Hr Not Reportable Blood Type A NEGATIVE Antibody Screen POSITIVE Antibody Identification Anti-D Crossmatch See Detail 03/07/21 Range/Units 05:10 WBC (4.0-11.0) K/uL RBC (4.30-5.90) M/uL Hgb (12.0-16.0) g/dL Hct (36.0-46.0) % MCV (80.0-98.0) fL MCH (27.0-32.0) pg MCHC (31.0-37.0) g/dL RDW Std Deviation (28.0-62.0) fl RDW Coeff of Idalmis (11.0-15.0) % Plt Count (150-400) K/uL MPV (7.40-12.00) fL Neut % (Auto) (48.0-80.0) % Lymph % (Auto) (16.0-40.0) % [place] % (Auto) (0.0-15.0) % Eos % (Auto) (0.0-7.0) % Baso % (Auto) (0.0-1.5) % Neut # (Auto) (1.4-5.7) K/uL Lymph # (Auto) (0.6-2.4) K/uL [place] # (Auto) (0.0-0.8) K/uL Eos # (Auto) (0.0-0.7) K/uL Baso # (Auto) (0.0-0.1) K/uL Nucleated RBC % /100WBC Nucleated RBCs # K/uL Sodium 136 (136-145) mmol/L Potassium 4.5 (3.5-5.1) mmol/L Chloride 102 (98-107) mmol/L Carbon Dioxide 26.4 (21.0-32.0) mmol/L BUN 23 H (7.0-18.0) mg/dL Creatinine 0.6 (0.6-1.0) mg/dL Est Cr Clr Drug Dosing 127.85 mL/min Estimated GFR (MDRD) > 60.0 ml/min Glucose 91 (74-106) mg/dL Calcium 8.1 L (8.5-10.1) mg/dL Phosphorus 4.4 (2.6-4.7) mg/dL Magnesium 2.3 (1.8-2.4) mg/dL Urine Total Volume Ur Urea Nitrogen 24 Hr Blood Type Antibody Screen Antibody Identification Crossmatch Result Diagrams: 03/07/21 05:10 03/07/21 05:10 Fabián Results Last 24 hrs: Microbiology 03/05/21 12:35 Urine Culture - Preliminary Urine 03/07/21 10:37 Anaerobic Blood Culture - Final Blood - Venous - Lab Draw 03/01/21 10:40 Aerobic Blood Culture - Final Blood - Venous - Lab Draw NO GROWTH AFTER 5 DAYS Anaerobic Blood Culture - Final NO GROWTH AFTER 5 DAYS 03/01/21 10:30 Aerobic Blood Culture - Final Blood - Venous NO GROWTH AFTER 5 DAYS Anaerobic Blood Culture - Final NO GROWTH AFTER 5 DAYS Sepsis Event Note - Evaluation Sepsis Screening Result: No Definite Risk - Focused Exam Vital Signs: Vital Signs Temp Pulse Resp BP BP Pulse Ox Pulse Ox 03/07/21 12:58 97.9 F 12 96/53 L 98 03/07/21 11:59 97.9 F 13 100/54 L 100 03/07/21 11:00 97.9 F 12 98 03/07/21 10:00 97.9 F 13 96/62 99 03/07/21 09:00 97.9 F 12 106/65 99 03/07/21 08:37 104/63 03/07/21 08:36 71 104/63 03/07/21 08:00 97.9 F 16 104/63 99 100 03/07/21 07:00 97.3 F 12 94/56 L 97 03/07/21 06:00 12 100/50 L 97 03/07/21 05:00 16 97/58 L 97 03/07/21 04:00 97.3 F 11 L 98/57 L 96 03/07/21 03:00 12 101/47 L 97 03/07/21 02:00 12 92/43 L 97 - Problem List & Annotations (1) Acute respiratory failure with hypoxia SNOMED Code(s): 74843907, 167483698 Code(s): J96.01 - ACUTE RESPIRATORY FAILURE WITH HYPOXIA Status: Acute Current Visit: Yes (2) Acute systolic heart failure SNOMED Code(s): 041384432 Code(s): I50.21 - ACUTE SYSTOLIC (CONGESTIVE) HEART FAILURE Status: Acute Current Visit: Yes (3) Cardiomyopathy SNOMED Code(s): 10607277 Code(s): I42.9 - CARDIOMYOPATHY, UNSPECIFIED Status: Acute Current Visit: Yes (4) Drug abuse, amphetamine type SNOMED Code(s): 22959140 Code(s): F15.10 - OTHER STIMULANT ABUSE, UNCOMPLICATED Status: Acute Current Visit: Yes (5) Elevated WBC count SNOMED Code(s): 703237896, 399809754 Code(s): D72.829 - ELEVATED WHITE BLOOD CELL COUNT, UNSPECIFIED Status: Acute Priority: High Current Visit: Yes (6) Prolonged rupture of membranes SNOMED Code(s): 13079209 Code(s): O42.90 - MIRIAN ROM, 7TH0 BETW RUPT & ONST LABR, UNSP WEEKS OF GEST Status: Acute Current Visit: Yes (7) Status post repeat low transverse section SNOMED Code(s): 677818703, 72326004, 368932769, 813987506, 866152443 Code(s): Z98.891 - HISTORY OF UTERINE SCAR FROM PREVIOUS SURGERY Status: Acute Priority: High Current Visit: Yes - Problem List Review Problem List Initiated/Reviewed/Updated: Yes - My Orders Last 24 Hours: My Active Orders 03/07/21 13:13 Transfer Patient (Change bed) [ADT] Routine 03/08/21 05:11 CBC WITH AUTO DIFF [HEME] AM CMP [COMPREHENSIVE METABOLIC PN,CMP] [CHEM] AM - Plan Plan:: 25-year-old female currently admitted in ICU secondary to sepsis, acute systolic heart failure resulting in acute hypoxic respiratory failure Sepsis-start, patient continues to have leukocytosis which remains elevated today. WBC 29.89 Patient has status post exploratory laparotomy for evacuation of hematoma, ANAIS drain in place. From cardiac and respiratory stand point patient has clinically significantly improved, chest x-ray has significantly improved, pulmonary edema and pleural effusions have resolved, currently on room air tolerating ambulation and physical therapy well without needing oxygen support Hemodynamics are stable, patient has been started on appropriate cardiac regimen for her cardiomyopathy Continue IV Lasix 40 mg daily Continue broad-spectrum antibiotics with vancomycin, and meropenem, day 6. Blood cultures have been negative. We will repeat blood cultures today. Hemoglobin 8.6 today. We will continue to follow and transfuse if hemoglobin drops below 8. We will transfer the patient out of ICU today. IV Ativan as needed for withdrawal symptoms, anxiety every 4 hours Continue IV Benadryl for itching Continue oral opiates for pain control, patient has been weaned off morphine Patient will need a close follow-up with cardiology upon discharge for further diagnostic work-up of her cardiomyopathy, will try to arrange a close follow-up upon discharge with cardiology Encourage incentive spirometry Continue duo nebs as needed Out of bed to chair as tolerated Monitor and replete electrolytes as needed keep mag more than 2 and potassium more than 4 Continue with inpatient route of care per primary team. Patient will need to see psychiatrist for her underlying depression and drug abuse outpatient basis <Ramos Do - Last Filed: 03/07/21 20:19> - Patient Data Vitals - Most Recent: Last Vital Signs Temp 36.4 C 03/07/21 20:00 Pulse 86 03/07/21 20:16 Resp 16 03/07/21 20:00 BP 117/81 03/07/21 20:16 Pulse Ox 98 03/07/21 20:00 I&O - Last 24 Hours: Intake & Output 03/07/21 03/07/21 03/07/21 06:59 14:59 22:59 Intake Total 480 400 300 Output Total 515 2200 Balance -35 -1800 300 Lab Results Last 24 Hours: Laboratory Results - last 24 hr 03/01/21 03/07/21 03/07/21 Range/Units 11:30 05:10 05:10 WBC 29.89 H (4.0-11.0) K/uL RBC 3.00 L (4.30-5.90) M/uL Hgb 8.6 L (12.0-16.0) g/dL Hct 26.4 L (36.0-46.0) % MCV 88.0 (80.0-98.0) fL MCH 28.7 (27.0-32.0) pg MCHC 32.6 (31.0-37.0) g/dL RDW Std Deviation 45.5 (28.0-62.0) fl RDW Coeff of Idalmis 14 (11.0-15.0) % Plt Count 572 H (150-400) K/uL MPV 8.80 (7.40-12.00) fL Neut % (Auto) 87.3 H (48.0-80.0) % Lymph % (Auto) 7.6 L (16.0-40.0) % [place] % (Auto) 4.8 (0.0-15.0) % Eos % (Auto) 0.2 (0.0-7.0) % Baso % (Auto) 0.1 (0.0-1.5) % Neut # (Auto) 26.1 H (1.4-5.7) K/uL Lymph # (Auto) 2.3 (0.6-2.4) K/uL [place] # (Auto) 1.4 H (0.0-0.8) K/uL Eos # (Auto) 0.1 (0.0-0.7) K/uL Baso # (Auto) 0.0 (0.0-0.1) K/uL Nucleated RBC % 0.0 /100WBC Nucleated RBCs # 0 K/uL Sodium 136 (136-145) mmol/L Potassium 4.5 (3.5-5.1) mmol/L Chloride 102 (98-107) mmol/L Carbon Dioxide 26.4 (21.0-32.0) mmol/L BUN 23 H (7.0-18.0) mg/dL Creatinine 0.6 (0.6-1.0) mg/dL Est Cr Clr Drug Dosing 127.85 mL/min Estimated GFR (MDRD) > 60.0 ml/min Glucose 91 (74-106) mg/dL Calcium 8.1 L (8.5-10.1) mg/dL Phosphorus 4.4 (2.6-4.7) mg/dL Magnesium 2.3 (1.8-2.4) mg/dL Urine Total Volume RANDOM Ur Urea Nitrogen 24 Hr Not Reportable Vancomycin Trough (5.0-10.0) ug/mL 03/07/21 03/07/21 Range/Units 05:10 16:19 WBC (4.0-11.0) K/uL RBC (4.30-5.90) M/uL Hgb (12.0-16.0) g/dL Hct (36.0-46.0) % MCV (80.0-98.0) fL MCH (27.0-32.0) pg MCHC (31.0-37.0) g/dL RDW Std Deviation (28.0-62.0) fl RDW Coeff of Idalmis (11.0-15.0) % Plt Count (150-400) K/uL MPV (7.40-12.00) fL Neut % (Auto) (48.0-80.0) % Lymph % (Auto) (16.0-40.0) % [place] % (Auto) (0.0-15.0) % Eos % (Auto) (0.0-7.0) % Baso % (Auto) (0.0-1.5) % Neut # (Auto) (1.4-5.7) K/uL Lymph # (Auto) (0.6-2.4) K/uL [place] # (Auto) (0.0-0.8) K/uL Eos # (Auto) (0.0-0.7) K/uL Baso # (Auto) (0.0-0.1) K/uL Nucleated RBC % /100WBC Nucleated RBCs # K/uL Sodium (136-145) mmol/L Potassium (3.5-5.1) mmol/L Chloride (98-107) mmol/L Carbon Dioxide (21.0-32.0) mmol/L BUN (7.0-18.0) mg/dL Creatinine (0.6-1.0) mg/dL Est Cr Clr Drug Dosing mL/min Estimated GFR (MDRD) ml/min Glucose (74-106) mg/dL Calcium (8.5-10.1) mg/dL Phosphorus (2.6-4.7) mg/dL Magnesium (1.8-2.4) mg/dL Urine Total Volume Ur Urea Nitrogen 24 Hr Vancomycin Trough 63.6 H 17.8 H (5.0-10.0) ug/mL Fabián Results Last 24 Hours: Microbiology 03/05/21 12:35 Urine Culture - Preliminary Urine 03/07/21 10:37 Anaerobic Blood Culture - Final Blood - Venous - Lab Draw Med Orders - Current: Current Medications Albuterol/Ipratropium (Albuterol/Ipratropium 3.0-0.5 Mg/3 Ml Neb Soln) 3 ml NEB Q4HRRT PRN PRN Reason: Wheezing Last Admin: 03/01/21 17:14 Dose: 3 ml Documented by: Carvedilol (Carvedilol 3.125 Mg Tab) 3.125 mg PO BID KATHERINE Last Admin: 03/07/21 20:16 Dose: 3.125 mg Documented by: Diphenhydramine HCl (Diphenhydramine 50 Mg/Ml Sdv) 25 mg IVPUSH Q6H PRN PRN Reason: Itching or Nausea Last Admin: 03/06/21 21:53 Dose: 25 mg Documented by: Docusate Sodium (Docusate Sodium 100 Mg Cap) 100 mg PO BID [facility] Last Admin: 03/07/21 20:15 Dose: 100 mg Documented by: Furosemide (Furosemide 40 Mg/4 Ml Vial) 40 mg IVPUSH DAILY [facility] Last Admin: 03/07/21 08:37 Dose: 40 mg Documented by: Meropenem/Sodium Chloride 1 gm (/ Premix) 50 mls @ 100 mls/hr IV Q8H [facility] Last Admin: 03/07/21 16:27 Dose: 100 mls/hr Documented by: Vancomycin HCl 1.25 gm/ Sodium (Chloride) 250 mls @ 166.667 mls/hr IV Q12H [facility] Last Admin: 03/07/21 17:57 Dose: 166 mls/hr Documented by: Lisinopril (Lisinopril 5 Mg Tab) 5 mg PO DAILY [facility] Last Admin: 03/07/21 08:37 Dose: 5 mg Documented by: Lorazepam (Lorazepam 2 Mg/Ml Sdv) 1 mg IVPUSH Q4H PRN PRN Reason: Withdrawal Symptoms Last Admin: 03/05/21 22:23 Dose: 1 mg Documented by: Ondansetron HCl (Ondansetron 4 Mg/2 Ml Sdv) 4 mg IVPUSH Q4H PRN PRN Reason: Nausea/Vomiting Oxycodone/Acetaminophen (Acetaminophen/Oxycodone 325-5 Mg Tab) 1 tab PO Q4H PRN PRN Reason: Pain (severe 7-10) Last Admin: 03/07/21 15:08 Dose: 1 tab Documented by: Polyethylene Glycol (Polyethylene Glycol 3350 Powder 17 Gm Packet) 17 gm PO DAILY PRN PRN Reason: constipation Last Admin: 03/05/21 08:10 Dose: 17 gm Documented by: Sodium Chloride (Sodium Chloride 0.9% 10 Ml Syringe) 10 ml FLUSH ASDIRECTED PRN PRN Reason: Keep Vein Open Sodium Chloride (Sodium Chloride 0.9% 2.5 Ml Syringe) 2.5 ml FLUSH ASDIRECTED PRN PRN Reason: Keep Vein Open Vancomycin HCl (Pharmacy To Dose - Vancomycin) 0 dose .XX ASDIRECTED KATHERINE Discontinued Medications Albuterol (Albuterol 0.083% 2.5 Mg/3 Ml Neb Soln) 2.5 mg NEB ONETIME PRN PRN Reason: Wheezing Bisacodyl (Bisacodyl 10 Mg Supp) 10 mg RECTAL ONETIME PRN PRN Reason: Constipation Bisacodyl (Bisacodyl 5 Mg Tab) 10 mg PO ONETIME ONE Stop: 03/05/21 19:10 Last Admin: 03/05/21 20:19 Dose: 10 mg Documented by: Butorphanol Tartrate (Butorphanol 1 Mg/Ml Sdv) 1 mg IVPUSH Q1H PRN PRN Reason: Pain (severe 7-10) Carboprost Tromethamine (Carboprost Tromethamine 250 Mcg/1 Ml Amp) 250 mcg IM ASDIRECTED PRN PRN Reason: Post Hemorrhage Cefazolin Sodium (Cefazolin 1 Gm Vial) Confirm Administered Dose 2 gm .ROUTE .STK-MED ONE Stop: 02/26/21 03:45 Citric Acid/Sodium Citrate (Citric Acid/Sodium Citrate Solution 30 Ml Cup) 30 ml PO ONETIME ONE Stop: 02/26/21 02:01 Last Admin: 02/26/21 05:17 Dose: Not Given Documented by: Dexamethasone (Dexamethasone 4 Mg/Ml 5 Ml Mdv) Confirm Administered Dose 20 mg .ROUTE .STK-MED ONE Stop: 03/06/21 11:29 Diphenhydramine HCl (Diphenhydramine 50 Mg/Ml Sdv) 12.5 mg IVPUSH Q2H PRN PRN Reason: Itching Droperidol (Droperidol 5 Mg/2 Ml Sdv) 0.625 mg IVPUSH ONETIME PRN PRN Reason: Nausea/Vomiting Emollient Ointment (Lanolin 100% Cream 7 Gm Tube) 0 gm TOP ASDIRECTED PRN PRN Reason: Sore Nipples Enoxaparin Sodium (Enoxaparin 40 Mg/0.4 Ml Syringe) 40 mg SUBCUT Q24H [facility] Last Admin: 03/05/21 12:58 Dose: 40 mg Documented by: Ephedrine Sulfate (Ephedrine 50 Mg/Ml Sdv) 10 mg IVPUSH Q5M PRN PRN Reason: Hypotension Fentanyl (Fentanyl 100 Mcg/2 Ml Sdv) Confirm Administered Dose 100 mcg .ROUTE .STK-MED ONE Stop: 02/26/21 02:45 Fentanyl (Fentanyl 100 Mcg/2 Ml Sdv) 50 mcg IVPUSH Q1H PRN PRN Reason: Pain (severe 7-10) Fentanyl (Fentanyl 100 Mcg/2 Ml Sdv) Confirm Administered Dose 100 mcg .ROUTE .STK-MED ONE Stop: 03/06/21 11:29 Fentanyl (Fentanyl 100 Mcg/2 Ml Sdv) 50 mcg IVPUSH Q5M PRN PRN Reason: Pain (mild 1-3) Furosemide (Furosemide 20 Mg/2 Ml Vial) 40 mg IVPUSH NOW ONE Stop: 02/27/21 09:02 Last Admin: 02/27/21 09:17 Dose: 40 mg Documented by: Furosemide (Furosemide 40 Mg/4 Ml Vial) 40 mg IVPUSH NOW ONE Stop: 03/01/21 15:43 Last Admin: 03/01/21 15:53 Dose: 40 mg Documented by: Furosemide (Furosemide 40 Mg/4 Ml Vial) 40 mg IVPUSH DAILY [facility] Last Admin: 03/02/21 09:36 Dose: 40 mg Documented by: Furosemide (Furosemide 20 Mg/2 Ml Vial) 20 mg IVPUSH NOW ONE Stop: 03/01/21 23:40 Last Admin: 03/01/21 23:50 Dose: 20 mg Documented by: Furosemide (Furosemide 40 Mg/4 Ml Vial) 40 mg IVPUSH Q8H [facility] Last Admin: 03/02/21 14:05 Dose: Not Given Documented by: Furosemide (Furosemide 40 Mg/4 Ml Vial) 40 mg IVPUSH Q8H [facility] Last Admin: 03/04/21 09:01 Dose: 40 mg Documented by: Furosemide (Furosemide 40 Mg/4 Ml Vial) 40 mg IVPUSH Q12H [facility] Last Admin: 03/05/21 08:10 Dose: 40 mg Documented by: Hydrochlorothiazide (Hydrochlorothiazide 12.5 Mg Cap) 12.5 mg PO BEDTIME [facility] Last Admin: 02/28/21 20:00 Dose: 12.5 mg Documented by: Hydromorphone HCl (Hydromorphone 2 Mg/Ml Syringe) 1 mg IVPUSH Q10M PRN PRN Reason: Pain (moderate 4-6) Last Admin: 03/06/21 13:50 Dose: 1 mg Documented by: Lactated Ringer's (Ringers, Lactated) 1,000 mls @ 500 mls/hr IV BOLUS KATHERINE Last Admin: 02/26/21 02:20 Dose: 500 mls/hr Documented by: Oxytocin/Sodium Chloride (Oxytocin 30 Unit/500 Ml-Ns) 30 unit in 500 mls @ 250 mls/hr IV TITRATE KATHERINE Lactated Ringer's (Ringers, Lactated) 1,000 mls @ 150 mls/hr IV ASDIRECTED KATHERINE Last Infusion: 02/28/21 08:50 Dose: 50 mls/hr Documented by: Tranexamic Acid 1,000 mg/ (Sodium Chloride) 110 mls @ 660 mls/hr IV ONETIME PRN PRN Reason: Bleeding Sodium Chloride (Normal Saline) Confirm Administered Dose 20 mls @ as directed .ROUTE .[facility]-MED ONE Stop: 02/26/21 03:45 Lactated Ringer's (Ringers, Lactated) 1,000 mls @ 125 mls/hr IV ASDIRECTED KATHERINE Last Infusion: 02/28/21 01:00 Dose: Infused Documented by: Tranexamic Acid 1,000 mg/ (Sodium Chloride) 110 mls @ 660 mls/hr IV ONETIME PRN PRN Reason: Bleeding Clindamycin Phosphate 600 mg/ (Sodium Chloride) 54 mls @ 100 mls/hr IV Q6H KATHERINE Clindamycin Phosphate 900 mg/ (Premix) 75 mls @ 150 mls/hr IV Q6H KATHERINE Clindamycin Phosphate 600 mg/ (Premix) 50 mls @ 100 mls/hr IV Q6H KATHERINE Last Admin: 03/01/21 15:53 Dose: 100 mls/hr Documented by: Cefazolin Sodium/Dextrose 1 gm (/ Premix) 50 mls @ 100 mls/hr IV Q8H KATHERINE Last Admin: 03/01/21 14:00 Dose: 100 mls/hr Documented by: Lactated Ringer's (Ringers, Lactated) 1,000 mls @ 50 mls/hr IV ASDIRECTED KATHERINE Last Infusion: 03/01/21 08:30 Dose: 10 mls/hr Documented by: Lactated Ringer's (Ringers, Lactated) 1,000 mls @ 10 mls/hr IV ASDIRECTED KATHERINE Magnesium Sulfate 2 gm/ Premix 50 mls @ 12.5 mls/hr IV ONETIME ONE Stop: 03/01/21 15:23 Last Admin: 03/01/21 11:43 Dose: 12.5 mls/hr Documented by: Furosemide 40 mg/ Sodium (Chloride) 54 mls @ 100 mls/hr IV Q12H [facility] Last Admin: 03/01/21 17:30 Dose: Not Given Documented by: Azithromycin 500 mg/ Sodium (Chloride) 250 mls @ 250 mls/hr IV DAILY [facility] Last Admin: 03/06/21 08:30 Dose: 250 mls/hr Documented by: Magnesium Sulfate 4 gm/ Premix 100 mls @ 50 mls/hr IV ONETIME ONE Stop: 03/03/21 10:46 Last Admin: 03/03/21 09:47 Dose: 50 mls/hr Documented by: Sodium Chloride (Normal Saline) Confirm Administered Dose 20 mls @ as directed .ROUTE .STK-MED ONE Stop: 03/06/21 12:43 Ibuprofen (Ibuprofen 800 Mg Tab) 800 mg PO Q8H PRN PRN Reason: mild pain or fever Iopamidol (Iopamidol 755 Mg/Ml 500 Ml Multipack Bottle) 75 ml IVPUSH ONETIME STA Stop: 03/02/21 13:47 Last Admin: 03/02/21 13:46 Dose: 75 ml Documented by: Iopamidol (Iopamidol 755 Mg/Ml 500 Ml Multipack Bottle) 100 ml IVPUSH ONETIME STA Stop: 03/05/21 17:48 Last Admin: 03/05/21 17:48 Dose: 100 ml Documented by: Ketorolac Tromethamine (Ketorolac 30 Mg/Ml Sdv) Confirm Administered Dose 30 mg .ROUTE .STK-MED ONE Stop: 02/26/21 03:28 Ketorolac Tromethamine (Ketorolac 30 Mg/Ml Sdv) 30 mg IVPUSH Q6H [facility] Stop: 02/27/21 04:01 Last Admin: 02/27/21 04:10 Dose: 30 mg Documented by: Labetalol HCl (Labetalol 100 Mg Tab) 200 mg PO DAILY [facility] Last Admin: 03/01/21 08:48 Dose: 200 mg Documented by: Lidocaine (Lidocaine 2% 5 Ml Sdv) Confirm Administered Dose 5 ml .ROUTE .STK-MED ONE Stop: 03/06/21 11:29 Lidocaine HCl (Lidocaine 1% 50 Ml Mdv) 50 ml INJECT ONETIME PRN PRN Reason: Laceration repair Lisinopril (Lisinopril 5 Mg Tab) 5 mg PO DAILY KATHERINE Lorazepam (Lorazepam 2 Mg/Ml Sdv) 1 mg IVPUSH ONETIME ONE Stop: 03/01/21 11:15 Last Admin: 03/01/21 11:44 Dose: 1 mg Documented by: Lorazepam (Lorazepam 2 Mg/Ml Sdv) 2 mg IVPUSH ONETIME ONE Stop: 03/02/21 00:15 Last Admin: 03/02/21 00:25 Dose: 2 mg Documented by: Magnesium Hydroxide (Magnesium Hydroxide 400 Mg/5 Ml Susp 30 Ml Cup) 30 ml PO ONETIME ONE Stop: 03/05/21 12:30 Last Admin: 03/05/21 12:57 Dose: 30 ml Documented by: Magnesium Oxide (Magnesium Oxide 400 Mg Tab) 800 mg PO ONETIME ONE Stop: 03/04/21 10:11 Last Admin: 03/04/21 10:30 Dose: 800 mg Documented by: Magnesium Oxide (Magnesium Oxide 400 Mg Tab) 800 mg PO ONETIME ONE Stop: 03/05/21 12:33 Last Admin: 03/05/21 12:57 Dose: 800 mg Documented by: Methylergonovine Maleate (Methylergonovine 0.2 Mg/1 Ml Amp) 0.2 mg IM ONETIME PRN PRN Reason: Excessive Vaginal Bleeding Methylergonovine Maleate (Methylergonovine 0.2 Mg/1 Ml Amp) Confirm Administered Dose 0.2 mg .ROUTE .STK-MED ONE Stop: 03/06/21 13:04 Last Admin: 03/06/21 14:42 Dose: Not Given Documented by: Metoclopramide HCl (Metoclopramide 10 Mg/2 Ml Sdv) 10 mg IVPUSH ONETIME PRN PRN Reason: Nausea/Vomiting Metoprolol Tartrate (Metoprolol Tartrate 25 Mg Tab) 25 mg PO BID KATHERINE Midazolam HCl (Midazolam 1 Mg/Ml 2 Ml Sdv) Confirm Administered Dose 2 mg .ROUTE .STK-MED ONE Stop: 03/06/21 11:29 Miscellaneous Medication (Phenylephrine Hcl In 0.9% Nacl 1 Mg/10 Ml Syringe) Confirm Administered Dose 1 mg .ROUTE .STK-MED ONE Stop: 02/26/21 03:28 Misoprostol (Misoprostol 200 Mcg Tab) 200 mcg PO ONETIME PRN PRN Reason: Post Hemorrhage Misoprostol (Misoprostol 200 Mcg Tab) 1,000 mcg RECTAL ONETIME PRN PRN Reason: excessive bleeding Misoprostol (Misoprostol 200 Mcg Tab) Confirm Administered Dose 200 mcg .ROUTE .STK-MED ONE Stop: 03/06/21 13:04 Last Admin: 03/06/21 14:42 Dose: Not Given Documented by: Morphine Sulfate (Morphine Pf 10 Mg/10 Ml Sdv) Confirm Administered Dose 10 mg .ROUTE .STK-MED ONE Stop: 02/26/21 02:46 Morphine Sulfate (Morphine 4 Mg/Ml Syringe) 4 mg IVPUSH Q4H PRN PRN Reason: Pain (moderate 4-6) Last Admin: 03/01/21 23:24 Dose: 4 mg Documented by: Morphine Sulfate (Morphine 2 Mg/Ml Syringe) 2 mg IVPUSH Q4H PRN PRN Reason: Pain (moderate 4-6) Last Admin: 03/04/21 06:20 Dose: 2 mg Documented by: Morphine Sulfate (Morphine 2 Mg/Ml Syringe) 2 mg IVPUSH Q10M PRN PRN Reason: Pain (severe 7-10) Nalbuphine HCl (Nalbuphine 10 Mg/1 Ml Vial) 10 mg IVPUSH Q1H PRN PRN Reason: Pain (severe 7-10) Nalbuphine HCl (Nalbuphine 10 Mg/1 Ml Vial) 5 mg IVPUSH ASDIRECTED PRN PRN Reason: Itching Naloxone HCl (Naloxone 0.4 Mg/Ml Syringe) 0.1 mg IVPUSH ONETIME PRN PRN Reason: Respiratory Depression Stop: 02/27/21 04:19 Naloxone HCl (Naloxone 0.4 Mg/Ml Syringe) 0.1 mg IVPUSH ASDIRECTED PRN PRN Reason: Respiratory Depression Octyl Cyanoacrylate (Octyl 2-Cyanoacrylate 1 Tube) Confirm Administered Dose 1 applic .ROUTE .STK-MED ONE Stop: 02/26/21 05:03 Ondansetron HCl (Ondansetron 4 Mg/2 Ml Sdv) Confirm Administered Dose 4 mg .ROUTE .STK-MED ONE Stop: 02/26/21 03:28 Ondansetron HCl (Ondansetron 4 Mg/2 Ml Sdv) 4 mg IVPUSH Q6H PRN PRN Reason: Nausea Ondansetron HCl (Ondansetron 4 Mg/2 Ml Sdv) Confirm Administered Dose 4 mg .ROUTE .STK-MED ONE Stop: 03/06/21 11:29 Ondansetron HCl (Ondansetron 4 Mg/2 Ml Sdv) 4 mg IVPUSH ONETIME PRN PRN Reason: Nausea/Vomiting Oxycodone/Acetaminophen (Acetaminophen/Oxycodone 325-5 Mg Tab) 2 tab PO Q4H PRN PRN Reason: Pain (severe 7-10) Last Admin: 03/02/21 21:07 Dose: 2 tab Documented by: Oxycodone/Acetaminophen (Acetaminophen/Oxycodone 325-5 Mg Tab) 2 tab PO Q6H PRN PRN Reason: Pain (moderate 4-6) Last Admin: 02/26/21 06:53 Dose: 2 tab Documented by: Oxytocin (Oxytocin 10 Units/1 Ml Sdv) Confirm Administered Dose 30 unit .ROUTE .STK-MED ONE Stop: 02/26/21 03:28 Oxytocin (Oxytocin 10 Units/1 Ml Sdv) 10 unit IM ASDIRECTED PRN PRN Reason: Excessive Vaginal Bleeding Polyethylene Glycol (Polyethylene Glycol 3350 Powder 17 Gm Packet) 17 gm PO ONETIME ONE Stop: 03/02/21 14:18 Last Admin: 03/02/21 14:53 Dose: 17 gm Documented by: Potassium Chloride (Potassium Chloride 20 Meq Tab.Er) 40 meq PO ONETIME ONE Stop: 03/03/21 08:48 Last Admin: 03/03/21 09:48 Dose: 40 meq Documented by: Potassium Chloride (Potassium Chloride 20 Meq Tab.Er) 40 meq PO BID@1000,1400 KATHERINE Stop: 03/05/21 10:01 Last Admin: 03/05/21 09:11 Dose: 40 meq Documented by: Propofol (Propofol 200 Mg/20 Ml Sdv) Confirm Administered Dose 400 mg .ROUTE .STK-MED ONE Stop: 03/06/21 11:29 Rocuronium [place] (Rocuronium [place] 50 Mg/5 Ml Syringe) Confirm Administered Dose 50 mg .ROUTE .STK-MED ONE Stop: 03/06/21 11:34 Sterile Water (Water For Irrigation,Sterile 1,000 Ml Container) 1,000 ml IRR ASDIRECTED PRN PRN Reason: delivery Sugammadex Sodium (Sugammadex Sodium 200 Mg/2 Ml Vial) Confirm Administered Dose 200 mg .ROUTE .STK-MED ONE Stop: 03/06/21 11:34 - Patient Data Lab Results Last 24 hrs: Laboratory Results - last 24 hr 03/01/21 03/07/21 03/07/21 Range/Units 11:30 05:10 05:10 WBC 29.89 H (4.0-11.0) K/uL RBC 3.00 L (4.30-5.90) M/uL Hgb 8.6 L (12.0-16.0) g/dL Hct 26.4 L (36.0-46.0) % MCV 88.0 (80.0-98.0) fL MCH 28.7 (27.0-32.0) pg MCHC 32.6 (31.0-37.0) g/dL RDW Std Deviation 45.5 (28.0-62.0) fl RDW Coeff of Idalmis 14 (11.0-15.0) % Plt Count 572 H (150-400) K/uL MPV 8.80 (7.40-12.00) fL Neut % (Auto) 87.3 H (48.0-80.0) % Lymph % (Auto) 7.6 L (16.0-40.0) % [place] % (Auto) 4.8 (0.0-15.0) % Eos % (Auto) 0.2 (0.0-7.0) % Baso % (Auto) 0.1 (0.0-1.5) % Neut # (Auto) 26.1 H (1.4-5.7) K/uL Lymph # (Auto) 2.3 (0.6-2.4) K/uL [place] # (Auto) 1.4 H (0.0-0.8) K/uL Eos # (Auto) 0.1 (0.0-0.7) K/uL Baso # (Auto) 0.0 (0.0-0.1) K/uL Nucleated RBC % 0.0 /100WBC Nucleated RBCs # 0 K/uL Sodium 136 (136-145) mmol/L Potassium 4.5 (3.5-5.1) mmol/L Chloride 102 (98-107) mmol/L Carbon Dioxide 26.4 (21.0-32.0) mmol/L BUN 23 H (7.0-18.0) mg/dL Creatinine 0.6 (0.6-1.0) mg/dL Est Cr Clr Drug Dosing 127.85 mL/min Estimated GFR (MDRD) > 60.0 ml/min Glucose 91 (74-106) mg/dL Calcium 8.1 L (8.5-10.1) mg/dL Phosphorus 4.4 (2.6-4.7) mg/dL Magnesium 2.3 (1.8-2.4) mg/dL Urine Total Volume RANDOM Ur Urea Nitrogen 24 Hr Not Reportable Vancomycin Trough (5.0-10.0) ug/mL 03/07/21 03/07/21 Range/Units 05:10 16:19 WBC (4.0-11.0) K/uL RBC (4.30-5.90) M/uL Hgb (12.0-16.0) g/dL Hct (36.0-46.0) % MCV (80.0-98.0) fL MCH (27.0-32.0) pg MCHC (31.0-37.0) g/dL RDW Std Deviation (28.0-62.0) fl RDW Coeff of Idalmis (11.0-15.0) % Plt Count (150-400) K/uL MPV (7.40-12.00) fL Neut % (Auto) (48.0-80.0) % Lymph % (Auto) (16.0-40.0) % [place] % (Auto) (0.0-15.0) % Eos % (Auto) (0.0-7.0) % Baso % (Auto) (0.0-1.5) % Neut # (Auto) (1.4-5.7) K/uL Lymph # (Auto) (0.6-2.4) K/uL [place] # (Auto) (0.0-0.8) K/uL Eos # (Auto) (0.0-0.7) K/uL Baso # (Auto) (0.0-0.1) K/uL Nucleated RBC % /100WBC Nucleated RBCs # K/uL Sodium (136-145) mmol/L Potassium (3.5-5.1) mmol/L Chloride (98-107) mmol/L Carbon Dioxide (21.0-32.0) mmol/L BUN (7.0-18.0) mg/dL Creatinine (0.6-1.0) mg/dL Est Cr Clr Drug Dosing mL/min Estimated GFR (MDRD) ml/min Glucose (74-106) mg/dL Calcium (8.5-10.1) mg/dL Phosphorus (2.6-4.7) mg/dL Magnesium (1.8-2.4) mg/dL Urine Total Volume Ur Urea Nitrogen 24 Hr Vancomycin Trough 63.6 H 17.8 H (5.0-10.0) ug/mL Result Diagrams: 03/07/21 05:10 03/07/21 05:10 Fabián Results Last 24 hrs: Microbiology 03/05/21 12:35 Urine Culture - Preliminary Urine 03/07/21 10:37 Anaerobic Blood Culture - Final Blood - Venous - Lab Draw Sepsis Event Note - Focused Exam Vital Signs: Vital Signs Temp Pulse Pulse Resp BP BP Pulse Ox 03/07/21 20:16 86 117/81 03/07/21 20:00 36.4 C 86 16 117/81 98 03/07/21 18:08 36.2 C 82 15 112/60 98 03/07/21 13:59 36.6 C 13 113/79 98 03/07/21 13:21 03/07/21 12:58 36.6 C 12 96/53 L 98 03/07/21 11:59 36.6 C 13 100/54 L 100 03/07/21 11:00 36.6 C 12 98 03/07/21 10:00 36.6 C 13 96/62 99 03/07/21 09:00 36.6 C 12 106/65 99 03/07/21 08:37 104/63 03/07/21 08:36 71 104/63 Pulse Ox 03/07/21 20:16 03/07/21 20:00 03/07/21 18:08 03/07/21 13:59 03/07/21 13:21 100 03/07/21 12:58 03/07/21 11:59 03/07/21 11:00 03/07/21 10:00 03/07/21 09:00 03/07/21 08:37 03/07/21 08:36 - Problem List & Annotations (1) Sepsis SNOMED Code(s): 65885358 Code(s): A41.9 - SEPSIS, UNSPECIFIED ORGANISM Status: Acute Current Visit: Yes (2) Prolonged rupture of membranes SNOMED Code(s): 24028898 Code(s): O42.90 - MIRIAN ROM, 7TH0 BETW RUPT & ONST LABR, UNSP WEEKS OF GEST Status: Acute Current Visit: Yes (3) Cardiomyopathy SNOMED Code(s): 58775562 Code(s): I42.9 - CARDIOMYOPATHY, UNSPECIFIED Status: Acute Current Visit: Yes (4) Drug abuse, amphetamine type SNOMED Code(s): 38018034 Code(s): F15.10 - OTHER STIMULANT ABUSE, UNCOMPLICATED Status: Acute Current Visit: Yes (5) Anxiety SNOMED Code(s): 24634032 Code(s): F41.9 - ANXIETY DISORDER, UNSPECIFIED Status: Acute Current Visit: Yes (6) Status post repeat low transverse section SNOMED Code(s): 291460956, 16812030, 947805273, 024789936, 523477206 Code(s): Z98.891 - HISTORY OF UTERINE SCAR FROM PREVIOUS SURGERY Status: Acute Priority: High Current Visit: Yes (7) Acute systolic heart failure SNOMED Code(s): 562553829 Code(s): I50.21 - ACUTE SYSTOLIC (CONGESTIVE) HEART FAILURE Status: Acute Current Visit: Yes (8) Acute respiratory failure with hypoxia SNOMED Code(s): 75063024, 762997457 Code(s): J96.01 - ACUTE RESPIRATORY FAILURE WITH HYPOXIA Status: Acute Current Visit: Yes (9) Hypomagnesemia SNOMED Code(s): 800036041 Code(s): E83.42 - HYPOMAGNESEMIA Status: Acute Current Visit: Yes (10) Hypokalemia SNOMED Code(s): 13611874 Code(s): E87.6 - HYPOKALEMIA Status: Acute Current Visit: Yes - My Orders Last 24 Hours: My Active Orders 03/07/21 13:45 MISCELLANEOUS CULT [MREF] Routine - Plan Plan:: I have seen and evaluated the patient and agree with the residents note unless specified in my note
[2021-03-07] MEDS: Acetaminophen/oxyCODONE 325-5 MG Tab PO PRN ×2 (15:08→22:18)
--- NOTE | 2021-03-07 17:02 | ECHO ---
The echocardiogram report can be seen in this patient's EMR (Electronic Medical Record) in the Reports section. The report has also been scanned into PACS. [facility]
[2021-03-08] MEDS: Meropenem Premix 1 GM in Premix Bag 1 BAG IV SCH ×3 (00:46→16:33)
[2021-03-08 05:59] LABS: BLOOD UREA NITROGEN,BUN 22 mg/dL (7.0-18.0); CHLORIDE,CL 104 mmol/L (98-107); GLUCOSE RANDOM 99 mg/dL (74-106); POTASSIUM,K 4.3 mmol/L (3.5-5.1); SODIUM,NA 137 mmol/L (136-145)
[2021-03-08] MEDS: Carvedilol 3.125 MG Tab PO SCH ×2 (08:38→21:36)
[2021-03-08] MEDS: Docusate Sodium 100 MG Cap PO SCH ×2 (08:38→21:36)
[2021-03-08] MEDS: Lisinopril 5 MG Tab PO SCH (08:41)
[2021-03-08] MEDS: Furosemide 40 MG/4 ML VIAL IVPUSH SCH (08:43)
--- NOTE | 2021-03-08 12:06 | OR ---
SURGEON: Chuckie Stokes MD DATE OF PROCEDURE: 03/07/2021 PREOPERATIVE DIAGNOSES: Hematoma in the right side of the incision under the rectus sheath. POSTOPERATIVE DIAGNOSES: Hematoma in the right side of the incision under the rectus sheath. OPERATION PERFORMED: Evacuation of hematoma and washing of the incision with dilation and evacuation. PRIMARY SURGEON: Chuckie Stokes MD BOX FOLDING MACHINE OPERATOR: MARLEE townsend. ANESTHESIA: General endotracheal intubation. ESTIMATED BLOOD LOSS: Including the hematoma is about 200 mL. COMPLICATIONS: None. INDICATION FOR SURGERY: This patient is status post section 1 week ago. She is having medical complication in the sense from her methamphetamine use and she had congestive heart failure. However, she recovered reasonably from that. The patient continued to have elevated white count. CAT scan of the abdomen show a rather large hematoma in her incision, so because of consistent persistent white count, we decided to evacuate the hematoma and rule out incisional abscess. PROCEDURE IN DETAIL: The patient was brought to the OR, properly identified, and after adequate level of anesthesia, the patient was prepped and draped in sterile fashion as usual. The left side of the incision was opened. In the subcu area, there was minimum sign of infection. However, when I opened the rectus fascia, there was a rather large hematoma on the left side of the incision and that was evacuated completely, and I noted that the hematoma was not infected. There was no pus. However, after evacuation of the hematoma and washing the bed with normal saline, I placed a Yuval-Gonzalez incision in the area, and then I closed the rectus fascia with #1 PDS double-strand continuous and then the skin was closed with skin clips. After that, the patient was placed in lithotomy position and prepped and draped vaginally, and a 10 cannula was placed in the endometrial cavity, and the endometrial cavity evacuated and suctioned, just in case there was any products of conception or this just could be the source of her elevated white count. There was minimum amount of tissue obtained, and after that the patient received Methergine and then the procedure ended. The instrument and sponge counts were correct. The patient tolerated the procedure well, went to recovery room in stable general condition. LYNN / HEENA /[id number]
[2021-03-08] MEDS: oxyCODONE 5 MG Tab PO PRN ×2 (13:11→21:47)
--- NOTE | 2021-03-08 15:44 | PCM.PN ---
- General Info Date of Service: 03/08/21 Admission Dx/Problem (Free Text): Patient Status Order with Admit Dx/Problem 02/26/21 01:05 Patient Status [ADT] Routine Admission Diagnosis/Problem Admission Diagnosis/Problem 02/26/21 02:15 Elisa is a 25 yo current PPD1 s/p repeat LTCS at ~ 37+3 weeks gestation (UMM(LMP) 03/16/2021) without care. A neg/ Rh pos; RhoGam declined by patient last night, "I have never needed that before...". RI, GBS neg. Ax: amoxicillin. Elevation of WBCs noted upon admission, prolonged ROM x 2 days noted. Blanche-operative antibiotics administered. Clindamycin 600 mg IV q [address] Stokes yesterday. Patient C/O severe pain 10/10 and irritability not alleviated with PO/IV analgesias. Severe itching and scratching behaviors noted upon exam, likely related to medication SEs and/or methamphetamine withdrawal. Continued C/O "really bad swelling to my leg and feet", 2-3+ pitting edema BLE and labia. Tachycardia and low urine output noted yesterday evening, EBL ~600 ml during LTCS yesterday; 1000 ml IV LR bolus completed yesterday followed by 12.5 mg HCTZ PO once for BLE pitting edema. Ample clear, yellow urine noted from mendez catheter. Tachycardia and mild hypertension noted, VSs otherwise stable. Plan to repeat CBC, CMP this am, collection pending. Pertinent hx includes: tachycardia and murmur treated with labetolol ([id number]), anxiety, THC use night (last used 1 night ago), methamphetamine use 2 days ago. Social/case work consulted, visited with patient last night, plan still pending. Early US completed in at [facility] as patient was considering at that time; procedure not completed. Otherwise no care this . Ax: amoxicillin. See medical, surgical, social, medication history. Subjective Update: 25-year-old female is postop day 2 of exploratory laparotomy for clot evacuation of incision. Patient was admitted with endometritis and sepsis. Patient also had acute systolic heart failure and acute hypoxic respiratory failure. There was concern for infected hematoma which was drained via exploratory laparotomy. Patient still has ANAIS drain in place which is draining serosanguineous discharge. 100 mL drained overnight. Patient is on day 7 of meropenem and vancomycin. Her WBC count has down trended today to 20. This morning she denies discharge from her incision. She continues to have moderate abdominal pain over her incision. She is tolerating her diet. She is urinating. She denies fever or chills. - Review of Systems General: Denies: Fever, Chills HEENT: Reports: No Symptoms Pulmonary: Denies: Shortness of Breath, Pleuritic Chest Pain, Cough, Wheezing Cardiovascular: Denies: Chest Pain, Palpitations, Dyspnea on Exertion, Orthopnea, PND, Edema Gastrointestinal: Reports: Abdominal Pain. Denies: Decreased Appetite, Diarrhea, Hematochezia, Melena, Nausea, Vomiting Genitourinary: Denies: Dysuria, Burning Musculoskeletal: Denies: Back Pain, Joint Pain, Joint Swelling Skin: Reports: No Symptoms Neurological: Reports: No Symptoms - Patient Data Vitals - Most Recent: Last Vital Signs Temp 98.3 F 03/08/21 12:00 Pulse 86 03/08/21 12:00 Resp 16 03/08/21 12:00 BP 120/70 03/08/21 12:00 Pulse Ox 97 03/08/21 12:00 Weight - Most Recent: 143 lb 7 oz I&O - Last 24 Hours: Intake & Output 03/08/21 03/08/21 03/08/21 06:59 14:59 22:59 Intake Total 300 Output Total 300 Balance 0 Lab Results Last 24 Hours: Laboratory Results - last 24 hr 03/07/21 03/08/21 03/08/21 Range/Units 16:19 05:25 05:25 WBC 20.08 H (4.0-11.0) K/uL RBC 3.08 L (4.30-5.90) M/uL Hgb 8.9 L (12.0-16.0) g/dL Hct 27.1 L (36.0-46.0) % MCV 88.0 (80.0-98.0) fL MCH 28.9 (27.0-32.0) pg MCHC 32.8 (31.0-37.0) g/dL RDW Std Deviation 45.8 (28.0-62.0) fl RDW Coeff of Idalmis 14 (11.0-15.0) % Plt Count 637 H (150-400) K/uL MPV 8.30 (7.40-12.00) fL Add Manual Diff YES Neutrophils % (Manual) 72 (48.0-80.0) % Band Neutrophils % 1 % Lymphocytes % (Manual) 23 (16.0-40.0) % Monocytes % (Manual) 3 (0.0-15.0) % Metamyelocytes % 1 % Nucleated RBC % 0.0 /100WBC Absolute Seg Neuts 14.5 H (1.4-5.7) Band Neutrophils # 0.2 Lymphocytes # (Manual) 4.6 H (0.6-2.4) Monocytes # (Manual) 0.6 (0.0-0.8) Absolute Metamyelocyte 0.2 Nucleated RBCs # 0 K/uL Sodium 137 (136-145) mmol/L Potassium 4.3 (3.5-5.1) mmol/L Chloride 104 (98-107) mmol/L Carbon Dioxide 26.0 (21.0-32.0) mmol/L BUN 22 H (7.0-18.0) mg/dL Creatinine 0.9 (0.6-1.0) mg/dL Est Cr Clr Drug Dosing 85.24 mL/min Estimated GFR (MDRD) > 60.0 ml/min Glucose 99 (74-106) mg/dL Calcium 7.8 L (8.5-10.1) mg/dL Total Bilirubin 0.3 (0.2-1.0) mg/dL AST 72 H (15-37) IU/L ALT 68 H (14-63) IU/L Alkaline Phosphatase 130 H (46-116) U/L Total Protein 5.8 L (6.4-8.2) g/dL Albumin 2.0 L (3.4-5.0) g/dL Globulin 3.8 (2.6-4.0) g/dL Albumin/Globulin Ratio 0.5 L (0.9-1.6) Vancomycin Trough 17.8 H (5.0-10.0) ug/mL Fabián Results Last 24 Hours: Microbiology 03/05/21 12:35 Urine Culture - Final Urine 03/07/21 10:37 Aerobic Blood Culture - Preliminary Blood - Venous - Lab Draw NO GROWTH AFTER 1 DAY Anaerobic Blood Culture - Final 03/07/21 10:30 Aerobic Blood Culture - Preliminary Blood - Venous NO GROWTH AFTER 1 DAY Anaerobic Blood Culture - Preliminary NO GROWTH AFTER 1 DAY Med Orders - Current: Current Medications Albuterol/Ipratropium (Albuterol/Ipratropium 3.0-0.5 Mg/3 Ml Neb Soln) 3 ml NEB Q4HRRT PRN PRN Reason: Wheezing Last Admin: 03/01/21 17:14 Dose: 3 ml Documented by: Carvedilol (Carvedilol 3.125 Mg Tab) 3.125 mg PO BID [facility] Last Admin: 03/08/21 08:38 Dose: 3.125 mg Documented by: Diphenhydramine HCl (Diphenhydramine 50 Mg/Ml Sdv) 25 mg IVPUSH Q6H PRN PRN Reason: Itching or Nausea Last Admin: 03/06/21 21:53 Dose: 25 mg Documented by: Docusate Sodium (Docusate Sodium 100 Mg Cap) 100 mg PO BID [facility] Last Admin: 03/08/21 08:38 Dose: Not Given Documented by: Furosemide (Furosemide 40 Mg/4 Ml Vial) 40 mg IVPUSH DAILY [facility] Last Admin: 03/08/21 08:43 Dose: 40 mg Documented by: Meropenem/Sodium Chloride 1 gm (/ Premix) 50 mls @ 100 mls/hr IV Q8H [facility] Last Admin: 03/08/21 08:34 Dose: 100 mls/hr Documented by: Vancomycin HCl 1.25 gm/ Sodium (Chloride) 250 mls @ 166.667 mls/hr IV Q12H [facility] Last Admin: 03/08/21 04:37 Dose: 166 mls/hr Documented by: Lisinopril (Lisinopril 5 Mg Tab) 5 mg PO DAILY [facility] Last Admin: 03/08/21 08:41 Dose: 5 mg Documented by: Lorazepam (Lorazepam 2 Mg/Ml Sdv) 1 mg IVPUSH Q4H PRN PRN Reason: Withdrawal Symptoms Last Admin: 03/05/21 22:23 Dose: 1 mg Documented by: Ondansetron HCl (Ondansetron 4 Mg/2 Ml Sdv) 4 mg IVPUSH Q4H PRN PRN Reason: Nausea/Vomiting Oxycodone HCl (Oxycodone 5 Mg Tab) 5 mg PO Q8H PRN PRN Reason: Pain (severe 7-10) Last Admin: 03/08/21 13:11 Dose: 5 mg Documented by: Polyethylene Glycol (Polyethylene Glycol 3350 Powder 17 Gm Packet) 17 gm PO DAILY PRN PRN Reason: constipation Last Admin: 03/05/21 08:10 Dose: 17 gm Documented by: Sodium Chloride (Sodium Chloride 0.9% 10 Ml Syringe) 10 ml FLUSH ASDIRECTED PRN PRN Reason: Keep Vein Open Sodium Chloride (Sodium Chloride 0.9% 2.5 Ml Syringe) 2.5 ml FLUSH ASDIRECTED PRN PRN Reason: Keep Vein Open Vancomycin HCl (Pharmacy To Dose - Vancomycin) 0 dose .XX ASDIRECTED KATHERINE Discontinued Medications Albuterol (Albuterol 0.083% 2.5 Mg/3 Ml Neb Soln) 2.5 mg NEB ONETIME PRN PRN Reason: Wheezing Bisacodyl (Bisacodyl 10 Mg Supp) 10 mg RECTAL ONETIME PRN PRN Reason: Constipation Bisacodyl (Bisacodyl 5 Mg Tab) 10 mg PO ONETIME ONE Stop: 03/05/21 19:10 Last Admin: 03/05/21 20:19 Dose: 10 mg Documented by: Butorphanol Tartrate (Butorphanol 1 Mg/Ml Sdv) 1 mg IVPUSH Q1H PRN PRN Reason: Pain (severe 7-10) Carboprost Tromethamine (Carboprost Tromethamine 250 Mcg/1 Ml Amp) 250 mcg IM ASDIRECTED PRN PRN Reason: Post Hemorrhage Cefazolin Sodium (Cefazolin 1 Gm Vial) Confirm Administered Dose 2 gm .ROUTE .STK-MED ONE Stop: 02/26/21 03:45 Citric Acid/Sodium Citrate (Citric Acid/Sodium Citrate Solution 30 Ml Cup) 30 ml PO ONETIME ONE Stop: 02/26/21 02:01 Last Admin: 02/26/21 05:17 Dose: Not Given Documented by: Dexamethasone (Dexamethasone 4 Mg/Ml 5 Ml Mdv) Confirm Administered Dose 20 mg .ROUTE .STK-MED ONE Stop: 03/06/21 11:29 Diphenhydramine HCl (Diphenhydramine 50 Mg/Ml Sdv) 12.5 mg IVPUSH Q2H PRN PRN Reason: Itching Droperidol (Droperidol 5 Mg/2 Ml Sdv) 0.625 mg IVPUSH ONETIME PRN PRN Reason: Nausea/Vomiting Emollient Ointment (Lanolin 100% Cream 7 Gm Tube) 0 gm TOP ASDIRECTED PRN PRN Reason: Sore Nipples Enoxaparin Sodium (Enoxaparin 40 Mg/0.4 Ml Syringe) 40 mg SUBCUT Q24H [facility] Last Admin: 03/05/21 12:58 Dose: 40 mg Documented by: Ephedrine Sulfate (Ephedrine 50 Mg/Ml Sdv) 10 mg IVPUSH Q5M PRN PRN Reason: Hypotension Fentanyl (Fentanyl 100 Mcg/2 Ml Sdv) Confirm Administered Dose 100 mcg .ROUTE .STK-[place] ONE Stop: 02/26/21 02:45 Fentanyl (Fentanyl 100 Mcg/2 Ml Sdv) 50 mcg IVPUSH Q1H PRN PRN Reason: Pain (severe 7-10) Fentanyl (Fentanyl 100 Mcg/2 Ml Sdv) Confirm Administered Dose 100 mcg .ROUTE .STK-MED ONE Stop: 03/06/21 11:29 Fentanyl (Fentanyl 100 Mcg/2 Ml Sdv) 50 mcg IVPUSH Q5M PRN PRN Reason: Pain (mild 1-3) Furosemide (Furosemide 20 Mg/2 Ml Vial) 40 mg IVPUSH NOW ONE Stop: 02/27/21 09:02 Last Admin: 02/27/21 09:17 Dose: 40 mg Documented by: Furosemide (Furosemide 40 Mg/4 Ml Vial) 40 mg IVPUSH NOW ONE Stop: 03/01/21 15:43 Last Admin: 03/01/21 15:53 Dose: 40 mg Documented by: Furosemide (Furosemide 40 Mg/4 Ml Vial) 40 mg IVPUSH DAILY [facility] Last Admin: 03/02/21 09:36 Dose: 40 mg Documented by: Furosemide (Furosemide 20 Mg/2 Ml Vial) 20 mg IVPUSH NOW ONE Stop: 03/01/21 23:40 Last Admin: 03/01/21 23:50 Dose: 20 mg Documented by: Furosemide (Furosemide 40 Mg/4 Ml Vial) 40 mg IVPUSH Q8H [facility] Last Admin: 03/02/21 14:05 Dose: Not Given Documented by: Furosemide (Furosemide 40 Mg/4 Ml Vial) 40 mg IVPUSH Q8H [facility] Last Admin: 03/04/21 09:01 Dose: 40 mg Documented by: Furosemide (Furosemide 40 Mg/4 Ml Vial) 40 mg IVPUSH Q12H KATHERINE Last Admin: 03/05/21 08:10 Dose: 40 mg Documented by: Hydrochlorothiazide (Hydrochlorothiazide 12.5 Mg Cap) 12.5 mg PO BEDTIME KATHERINE Last Admin: 02/28/21 20:00 Dose: 12.5 mg Documented by: Hydromorphone HCl (Hydromorphone 2 Mg/Ml Syringe) 1 mg IVPUSH Q10M PRN PRN Reason: Pain (moderate 4-6) Last Admin: 03/06/21 13:50 Dose: 1 mg Documented by: Lactated Ringer's (Ringers, Lactated) 1,000 mls @ 500 mls/hr IV BOLUS [facility] Last Admin: 02/26/21 02:20 Dose: 500 mls/hr Documented by: Oxytocin/Sodium Chloride (Oxytocin 30 Unit/500 Ml-Ns) 30 unit in 500 mls @ 250 mls/hr IV TITRATE [facility] Lactated Ringer's (Ringers, Lactated) 1,000 mls @ 150 mls/hr IV ASDIRECTED [facility] Last Infusion: 02/28/21 08:50 Dose: 50 mls/hr Documented by: Tranexamic Acid 1,000 mg/ (Sodium Chloride) 110 mls @ 660 mls/hr IV ONETIME PRN PRN Reason: Bleeding Sodium Chloride (Normal Saline) Confirm Administered Dose 20 mls @ as directed .ROUTE .K-MED ONE Stop: 02/26/21 03:45 Lactated Ringer's (Ringers, Lactated) 1,000 mls @ 125 mls/hr IV ASDIRECTED [facility] Last Infusion: 02/28/21 01:00 Dose: Infused Documented by: Tranexamic Acid 1,000 mg/ (Sodium Chloride) 110 mls @ 660 mls/hr IV ONETIME PRN PRN Reason: Bleeding Clindamycin Phosphate 600 mg/ (Sodium Chloride) 54 mls @ 100 mls/hr IV Q6H KATHERINE Clindamycin Phosphate 900 mg/ (Premix) 75 mls @ 150 mls/hr IV Q6H KATHERINE Clindamycin Phosphate 600 mg/ (Premix) 50 mls @ 100 mls/hr IV Q6H KATHERINE Last Admin: 03/01/21 15:53 Dose: 100 mls/hr Documented by: Cefazolin Sodium/Dextrose 1 gm (/ Premix) 50 mls @ 100 mls/hr IV Q8H [facility] Last Admin: 03/01/21 14:00 Dose: 100 mls/hr Documented by: Lactated Ringer's (Ringers, Lactated) 1,000 mls @ 50 mls/hr IV ASDIRECTED [facility] Last Infusion: 03/01/21 08:30 Dose: 10 mls/hr Documented by: Lactated Ringer's (Ringers, Lactated) 1,000 mls @ 10 mls/hr IV ASDIRECTED [facility] Magnesium Sulfate 2 gm/ Premix 50 mls @ 12.5 mls/hr IV ONETIME ONE Stop: 03/01/21 15:23 Last Admin: 03/01/21 11:43 Dose: 12.5 mls/hr Documented by: Furosemide 40 mg/ Sodium (Chloride) 54 mls @ 100 mls/hr IV Q12H [facility] Last Admin: 03/01/21 17:30 Dose: Not Given Documented by: Azithromycin 500 mg/ Sodium (Chloride) 250 mls @ 250 mls/hr IV DAILY [facility] Last Admin: 03/06/21 08:30 Dose: 250 mls/hr Documented by: Magnesium Sulfate 4 gm/ Premix 100 mls @ 50 mls/hr IV ONETIME ONE Stop: 03/03/21 10:46 Last Admin: 03/03/21 09:47 Dose: 50 mls/hr Documented by: Sodium Chloride (Normal Saline) Confirm Administered Dose 20 mls @ as directed .ROUTE .STK-MED ONE Stop: 03/06/21 12:43 Ibuprofen (Ibuprofen 800 Mg Tab) 800 mg PO Q8H PRN PRN Reason: mild pain or fever Iopamidol (Iopamidol 755 Mg/Ml 500 Ml Multipack Bottle) 75 ml IVPUSH ONETIME STA Stop: 03/02/21 13:47 Last Admin: 03/02/21 13:46 Dose: 75 ml Documented by: Iopamidol (Iopamidol 755 Mg/Ml 500 Ml Multipack Bottle) 100 ml IVPUSH ONETIME STA Stop: 03/05/21 17:48 Last Admin: 03/05/21 17:48 Dose: 100 ml Documented by: Ketorolac Tromethamine (Ketorolac 30 Mg/Ml Sdv) Confirm Administered Dose 30 mg .ROUTE .STK-MED ONE Stop: 02/26/21 03:28 Ketorolac Tromethamine (Ketorolac 30 Mg/Ml Sdv) 30 mg IVPUSH Q6H [facility] Stop: 02/27/21 04:01 Last Admin: 02/27/21 04:10 Dose: 30 mg Documented by: Labetalol HCl (Labetalol 100 Mg Tab) 200 mg PO DAILY [facility] Last Admin: 03/01/21 08:48 Dose: 200 mg Documented by: Lidocaine (Lidocaine 2% 5 Ml Sdv) Confirm Administered Dose 5 ml .ROUTE .STK-MED ONE Stop: 03/06/21 11:29 Lidocaine HCl (Lidocaine 1% 50 Ml Mdv) 50 ml INJECT ONETIME PRN PRN Reason: Laceration repair Lisinopril (Lisinopril 5 Mg Tab) 5 mg PO DAILY [facility] Lorazepam (Lorazepam 2 Mg/Ml Sdv) 1 mg IVPUSH ONETIME ONE Stop: 03/01/21 11:15 Last Admin: 03/01/21 11:44 Dose: 1 mg Documented by: Lorazepam (Lorazepam 2 Mg/Ml Sdv) 2 mg IVPUSH ONETIME ONE Stop: 03/02/21 00:15 Last Admin: 03/02/21 00:25 Dose: 2 mg Documented by: Magnesium Hydroxide (Magnesium Hydroxide 400 Mg/5 Ml Susp 30 Ml Cup) 30 ml PO ONETIME ONE Stop: 03/05/21 12:30 Last Admin: 03/05/21 12:57 Dose: 30 ml Documented by: Magnesium Oxide (Magnesium Oxide 400 Mg Tab) 800 mg PO ONETIME ONE Stop: 03/04/21 10:11 Last Admin: 03/04/21 10:30 Dose: 800 mg Documented by: Magnesium Oxide (Magnesium Oxide 400 Mg Tab) 800 mg PO ONETIME ONE Stop: 03/05/21 12:33 Last Admin: 03/05/21 12:57 Dose: 800 mg Documented by: Methylergonovine Maleate (Methylergonovine 0.2 Mg/1 Ml Amp) 0.2 mg IM ONETIME PRN PRN Reason: Excessive Vaginal Bleeding Methylergonovine Maleate (Methylergonovine 0.2 Mg/1 Ml Amp) Confirm Administered Dose 0.2 mg .ROUTE .STK-MED ONE Stop: 03/06/21 13:04 Last Admin: 03/06/21 14:42 Dose: Not Given Documented by: Metoclopramide HCl (Metoclopramide 10 Mg/2 Ml Sdv) 10 mg IVPUSH ONETIME PRN PRN Reason: Nausea/Vomiting Metoprolol Tartrate (Metoprolol Tartrate 25 Mg Tab) 25 mg PO BID KATHERINE Midazolam HCl (Midazolam 1 Mg/Ml 2 Ml Sdv) Confirm Administered Dose 2 mg .ROUTE .STK-MED ONE Stop: 03/06/21 11:29 Miscellaneous Medication (Phenylephrine Hcl In 0.9% Nacl 1 Mg/10 Ml Syringe) Confirm Administered Dose 1 mg .ROUTE .STK-MED ONE Stop: 02/26/21 03:28 Misoprostol (Misoprostol 200 Mcg Tab) 200 mcg PO ONETIME PRN PRN Reason: Post Hemorrhage Misoprostol (Misoprostol 200 Mcg Tab) 1,000 mcg RECTAL ONETIME PRN PRN Reason: excessive bleeding Misoprostol (Misoprostol 200 Mcg Tab) Confirm Administered Dose 200 mcg .ROUTE .STK-MED ONE Stop: 03/06/21 13:04 Last Admin: 03/06/21 14:42 Dose: Not Given Documented by: Morphine Sulfate (Morphine Pf 10 Mg/10 Ml Sdv) Confirm Administered Dose 10 mg .ROUTE .STK-MED ONE Stop: 02/26/21 02:46 Morphine Sulfate (Morphine 4 Mg/Ml Syringe) 4 mg IVPUSH Q4H PRN PRN Reason: Pain (moderate 4-6) Last Admin: 03/01/21 23:24 Dose: 4 mg Documented by: Morphine Sulfate (Morphine 2 Mg/Ml Syringe) 2 mg IVPUSH Q4H PRN PRN Reason: Pain (moderate 4-6) Last Admin: 03/04/21 06:20 Dose: 2 mg Documented by: Morphine Sulfate (Morphine 2 Mg/Ml Syringe) 2 mg IVPUSH Q10M PRN PRN Reason: Pain (severe 7-10) Nalbuphine HCl (Nalbuphine 10 Mg/1 Ml Vial) 10 mg IVPUSH Q1H PRN PRN Reason: Pain (severe 7-10) Nalbuphine HCl (Nalbuphine 10 Mg/1 Ml Vial) 5 mg IVPUSH ASDIRECTED PRN PRN Reason: Itching Naloxone HCl (Naloxone 0.4 Mg/Ml Syringe) 0.1 mg IVPUSH ONETIME PRN PRN Reason: Respiratory Depression Stop: 02/27/21 04:19 Naloxone HCl (Naloxone 0.4 Mg/Ml Syringe) 0.1 mg IVPUSH ASDIRECTED PRN PRN Reason: Respiratory Depression Octyl Cyanoacrylate (Octyl 2-Cyanoacrylate 1 Tube) Confirm Administered Dose 1 applic .ROUTE .STK-MED ONE Stop: 02/26/21 05:03 Ondansetron HCl (Ondansetron 4 Mg/2 Ml Sdv) Confirm Administered Dose 4 mg .ROUTE .STK-MED ONE Stop: 02/26/21 03:28 Ondansetron HCl (Ondansetron 4 Mg/2 Ml Sdv) 4 mg IVPUSH Q6H PRN PRN Reason: Nausea Ondansetron HCl (Ondansetron 4 Mg/2 Ml Sdv) Confirm Administered Dose 4 mg .ROUTE .STApartment List-MED ONE Stop: 03/06/21 11:29 Ondansetron HCl (Ondansetron 4 Mg/2 Ml Sdv) 4 mg IVPUSH ONETIME PRN PRN Reason: Nausea/Vomiting Oxycodone/Acetaminophen (Acetaminophen/Oxycodone 325-5 Mg Tab) 1 tab PO Q4H PRN PRN Reason: Pain (severe 7-10) Last Admin: 03/07/21 22:18 Dose: 1 tab Documented by: Oxycodone/Acetaminophen (Acetaminophen/Oxycodone 325-5 Mg Tab) 2 tab PO Q4H PRN PRN Reason: Pain (severe 7-10) Last Admin: 03/02/21 21:07 Dose: 2 tab Documented by: Oxycodone/Acetaminophen (Acetaminophen/Oxycodone 325-5 Mg Tab) 2 tab PO Q6H PRN PRN Reason: Pain (moderate 4-6) Last Admin: 02/26/21 06:53 Dose: 2 tab Documented by: Oxytocin (Oxytocin 10 Units/1 Ml Sdv) Confirm Administered Dose 30 unit .ROUTE .STK-MED ONE Stop: 02/26/21 03:28 Oxytocin (Oxytocin 10 Units/1 Ml Sdv) 10 unit IM ASDIRECTED PRN PRN Reason: Excessive Vaginal Bleeding Polyethylene Glycol (Polyethylene Glycol 3350 Powder 17 Gm Packet) 17 gm PO ONETIME ONE Stop: 03/02/21 14:18 Last Admin: 03/02/21 14:53 Dose: 17 gm Documented by: Potassium Chloride (Potassium Chloride 20 Meq Tab.Er) 40 meq PO ONETIME ONE Stop: 03/03/21 08:48 Last Admin: 03/03/21 09:48 Dose: 40 meq Documented by: Potassium Chloride (Potassium Chloride 20 Meq Tab.Er) 40 meq PO BID@1000,1400 KATHERINE Stop: 03/05/21 10:01 Last Admin: 03/05/21 09:11 Dose: 40 meq Documented by: Propofol (Propofol 200 Mg/20 Ml Sdv) Confirm Administered Dose 400 mg .ROUTE .STK-MED ONE Stop: 03/06/21 11:29 Rocuronium [place] (Rocuronium [place] 50 Mg/5 Ml Syringe) Confirm Administered Dose 50 mg .ROUTE .STK-MED ONE Stop: 03/06/21 11:34 Sterile Water (Water For Irrigation,Sterile 1,000 Ml Container) 1,000 ml IRR ASDIRECTED PRN PRN Reason: delivery Sugammadex Sodium (Sugammadex Sodium 200 Mg/2 Ml Vial) Confirm Administered Dose 200 mg .ROUTE .STK-MED ONE Stop: 03/06/21 11:34 - Exam Central Line Total Time: 6Days 0Hours Urinary Catheter Total Time: 6Days 8Hours General: Alert, Oriented, Cooperative, No Acute Distress Neck: Supple Lungs: Clear to Auscultation. No: Crackles, Rales Cardiovascular: Regular Rate, Regular Rhythm, No Murmurs GI/Abdominal Exam: Soft, No Distention, Other (ANAIS drain has serosanguineous discharge. Surgical incision intact. No drainage.). No: Distended, Guarding Extremities: Normal Inspection Peripheral Pulses: 2+: Dorsalis Pedis (L), Dorsalis Pedis (R) Skin: Warm, Dry, Intact - Patient Data Lab Results Last 24 hrs: Laboratory Results - last 24 hr 03/07/21 03/08/21 03/08/21 Range/Units 16:19 05:25 05:25 WBC 20.08 H (4.0-11.0) K/uL RBC 3.08 L (4.30-5.90) M/uL Hgb 8.9 L (12.0-16.0) g/dL Hct 27.1 L (36.0-46.0) % MCV 88.0 (80.0-98.0) fL MCH 28.9 (27.0-32.0) pg MCHC 32.8 (31.0-37.0) g/dL RDW Std Deviation 45.8 (28.0-62.0) fl RDW Coeff of Idalmis 14 (11.0-15.0) % Plt Count 637 H (150-400) K/uL MPV 8.30 (7.40-12.00) fL Add Manual Diff YES Neutrophils % (Manual) 72 (48.0-80.0) % Band Neutrophils % 1 % Lymphocytes % (Manual) 23 (16.0-40.0) % Monocytes % (Manual) 3 (0.0-15.0) % Metamyelocytes % 1 % Nucleated RBC % 0.0 /100WBC Absolute Seg Neuts 14.5 H (1.4-5.7) Band Neutrophils # 0.2 Lymphocytes # (Manual) 4.6 H (0.6-2.4) Monocytes # (Manual) 0.6 (0.0-0.8) Absolute Metamyelocyte 0.2 Nucleated RBCs # 0 K/uL Sodium 137 (136-145) mmol/L Potassium 4.3 (3.5-5.1) mmol/L Chloride 104 (98-107) mmol/L Carbon Dioxide 26.0 (21.0-32.0) mmol/L BUN 22 H (7.0-18.0) mg/dL Creatinine 0.9 (0.6-1.0) mg/dL Est Cr Clr Drug Dosing 85.24 mL/min Estimated GFR (MDRD) > 60.0 ml/min Glucose 99 (74-106) mg/dL Calcium 7.8 L (8.5-10.1) mg/dL Total Bilirubin 0.3 (0.2-1.0) mg/dL AST 72 H (15-37) IU/L ALT 68 H (14-63) IU/L Alkaline Phosphatase 130 H (46-116) U/L Total Protein 5.8 L (6.4-8.2) g/dL Albumin 2.0 L (3.4-5.0) g/dL Globulin 3.8 (2.6-4.0) g/dL Albumin/Globulin Ratio 0.5 L (0.9-1.6) Vancomycin Trough 17.8 H (5.0-10.0) ug/mL Result Diagrams: 03/08/21 05:25 03/08/21 05:25 Fabián Results Last 24 hrs: Microbiology 03/05/21 12:35 Urine Culture - Final Urine 03/07/21 10:37 Aerobic Blood Culture - Preliminary Blood - Venous - Lab Draw NO GROWTH AFTER 1 DAY Anaerobic Blood Culture - Final 03/07/21 10:30 Aerobic Blood Culture - Preliminary Blood - Venous NO GROWTH AFTER 1 DAY Anaerobic Blood Culture - Preliminary NO GROWTH AFTER 1 DAY Sepsis Event Note - Evaluation Sepsis Screening Result: No Definite Risk - Focused Exam Vital Signs: Vital Signs Temp Pulse Pulse Resp BP BP Pulse Ox 03/08/21 12:00 98.3 F 86 16 120/70 97 03/08/21 08:41 118/58 L 03/08/21 08:38 79 118/58 L 03/08/21 08:00 96.4 F L 104 H 16 122/77 100 03/08/21 04:45 97.7 F 75 17 113/70 97 - Problem List & Annotations (1) Acute respiratory failure with hypoxia SNOMED Code(s): 17459348, 150357725 Code(s): J96.01 - ACUTE RESPIRATORY FAILURE WITH HYPOXIA Status: Acute Current Visit: Yes (2) Acute systolic heart failure SNOMED Code(s): 941237345 Code(s): I50.21 - ACUTE SYSTOLIC (CONGESTIVE) HEART FAILURE Status: Acute Current Visit: Yes (3) Cardiomyopathy SNOMED Code(s): 10571051 Code(s): I42.9 - CARDIOMYOPATHY, UNSPECIFIED Status: Acute Current Visit: Yes (4) Drug abuse, amphetamine type SNOMED Code(s): 42337909 Code(s): F15.10 - OTHER STIMULANT ABUSE, UNCOMPLICATED Status: Acute Current Visit: Yes (5) Elevated WBC count SNOMED Code(s): 266033000, 793530884 Code(s): D72.829 - ELEVATED WHITE BLOOD CELL COUNT, UNSPECIFIED Status: Acute Priority: High Current Visit: Yes (6) Prolonged rupture of membranes SNOMED Code(s): 31777286 Code(s): O42.90 - MIRIAN ROM, 7TH0 BETW RUPT & ONST LABR, UNSP WEEKS OF GEST Status: Acute Current Visit: Yes (7) Status post repeat low transverse section SNOMED Code(s): 399833753, 49854070, 202106134, 334130811, 919600667 Code(s): Z98.891 - HISTORY OF UTERINE SCAR FROM PREVIOUS SURGERY Status: Acute Priority: High Current Visit: Yes - Problem List Review Problem List Initiated/Reviewed/Updated: Yes - My Orders Last 24 Hours: My Active Orders 03/08/21 12:30 oxyCODONE 5 mg PO Q8H PRN 03/09/21 05:11 CBC WITH AUTO DIFF [HEME] AM CMP [COMPREHENSIVE METABOLIC PN,CMP] [CHEM] AM - Plan Plan:: 25-year-old female admitted for sepsis, acute systolic heart failure resulting in acute hypoxic respiratory failure. Patient is on day 7 of vancomycin and meropenem. Her WBC count has down trended today to 20. She remains afebrile. She is status post exploratory laparotomy for evacuation of hematoma with a ANAIS d rain in place. Its draining serosanguineous fluid. We will continue antibiotics. Patient continues to remain stable from a cardiac standpoint. Her lungs are clear and she does not have pedal edema. She is on room air and tolerating ambulation and physical therapy. We will continue IV Lasix 40 mg daily. Repeat blood cultures are negative so far. ANAIS drain fluid culture pending. Hemoglobin is 8.9 today. Will transfuse if hemoglobin drops below 8. We will change her pain regimen to hydrocodone 5 mg every 8 hours as needed for severe pain. Continue IV Benadryl for itching Patient will need a close follow-up with cardiology upon discharge for further diagnostic work-up of her cardiomyopathy, will try to arrange a close follow-up upon discharge with cardiology Encourage incentive spirometry Continue duo nebs as needed Out of bed to chair as tolerated Continue with inpatient route of care per primary team. Patient will need to see psychiatrist for her underlying depression and drug abuse outpatient basis
--- NOTE | 2021-03-08 18:53 | PCM.SURGPN ---
- General Info Date of Service: 03/08/21 Functional Status: Reports: Pain Controlled - Review of Systems General: Reports: No Symptoms HEENT: Reports: No Symptoms Pulmonary: Reports: No Symptoms Cardiovascular: Reports: No Symptoms Gastrointestinal: Reports: No Symptoms Genitourinary: Reports: No Symptoms Musculoskeletal: Reports: No Symptoms Skin: Reports: No Symptoms Neurological: Reports: No Symptoms Psychiatric: Reports: No Symptoms - Patient Data Vitals - Most Recent: Last Vital Signs Temp 36.3 C 03/08/21 16:00 Pulse 87 03/08/21 16:00 Resp 16 03/08/21 16:00 BP 105/62 03/08/21 16:00 Pulse Ox 100 03/08/21 16:00 Weight - Most Recent: 65.062 kg I&O - Last 24 Hours: Intake & Output 03/08/21 03/08/21 03/08/21 06:59 14:59 22:59 Intake Total 300 Output Total 300 Balance 0 Lab Results Last 24 Hrs: Laboratory Results - last 24 hr 03/08/21 03/08/21 Range/Units 05:25 05:25 WBC 20.08 H (4.0-11.0) K/uL RBC 3.08 L (4.30-5.90) M/uL Hgb 8.9 L (12.0-16.0) g/dL Hct 27.1 L (36.0-46.0) % MCV 88.0 (80.0-98.0) fL MCH 28.9 (27.0-32.0) pg MCHC 32.8 (31.0-37.0) g/dL RDW Std Deviation 45.8 (28.0-62.0) fl RDW Coeff of Idalmis 14 (11.0-15.0) % Plt Count 637 H (150-400) K/uL MPV 8.30 (7.40-12.00) fL Add Manual Diff YES Neutrophils % (Manual) 72 (48.0-80.0) % Band Neutrophils % 1 % Lymphocytes % (Manual) 23 (16.0-40.0) % Monocytes % (Manual) 3 (0.0-15.0) % Metamyelocytes % 1 % Nucleated RBC % 0.0 /100WBC Absolute Seg Neuts 14.5 H (1.4-5.7) Band Neutrophils # 0.2 Lymphocytes # (Manual) 4.6 H (0.6-2.4) Monocytes # (Manual) 0.6 (0.0-0.8) Absolute Metamyelocyte 0.2 Nucleated RBCs # 0 K/uL Sodium 137 (136-145) mmol/L Potassium 4.3 (3.5-5.1) mmol/L Chloride 104 (98-107) mmol/L Carbon Dioxide 26.0 (21.0-32.0) mmol/L BUN 22 H (7.0-18.0) mg/dL Creatinine 0.9 (0.6-1.0) mg/dL Est Cr Clr Drug Dosing 85.24 mL/min Estimated GFR (MDRD) > 60.0 ml/min Glucose 99 (74-106) mg/dL Calcium 7.8 L (8.5-10.1) mg/dL Total Bilirubin 0.3 (0.2-1.0) mg/dL AST 72 H (15-37) IU/L ALT 68 H (14-63) IU/L Alkaline Phosphatase 130 H (46-116) U/L Total Protein 5.8 L (6.4-8.2) g/dL Albumin 2.0 L (3.4-5.0) g/dL Globulin 3.8 (2.6-4.0) g/dL Albumin/Globulin Ratio 0.5 L (0.9-1.6) Fabián Results Last 24 Hrs: Microbiology 03/05/21 12:35 Urine Culture - Final Urine 03/07/21 10:37 Aerobic Blood Culture - Preliminary Blood - Venous - Lab Draw NO GROWTH AFTER 1 DAY Anaerobic Blood Culture - Final 03/07/21 10:30 Aerobic Blood Culture - Preliminary Blood - Venous NO GROWTH AFTER 1 DAY Anaerobic Blood Culture - Preliminary NO GROWTH AFTER 1 DAY Med Orders - Current: Current Medications Albuterol/Ipratropium (Albuterol/Ipratropium 3.0-0.5 Mg/3 Ml Neb Soln) 3 ml NEB Q4HRRT PRN PRN Reason: Wheezing Last Admin: 03/01/21 17:14 Dose: 3 ml Documented by: Carvedilol (Carvedilol 3.125 Mg Tab) 3.125 mg PO BID KATHERINE Last Admin: 03/08/21 08:38 Dose: 3.125 mg Documented by: Diphenhydramine HCl (Diphenhydramine 50 Mg/Ml Sdv) 25 mg IVPUSH Q6H PRN PRN Reason: Itching or Nausea Last Admin: 03/06/21 21:53 Dose: 25 mg Documented by: Docusate Sodium (Docusate Sodium 100 Mg Cap) 100 mg PO BID [facility] Last Admin: 03/08/21 08:38 Dose: Not Given Documented by: Furosemide (Furosemide 40 Mg/4 Ml Vial) 40 mg IVPUSH DAILY [facility] Last Admin: 03/08/21 08:43 Dose: 40 mg Documented by: Meropenem/Sodium Chloride 1 gm (/ Premix) 50 mls @ 100 mls/hr IV Q8H [facility] Last Admin: 03/08/21 16:33 Dose: 100 mls/hr Documented by: Vancomycin HCl 1.25 gm/ Sodium (Chloride) 250 mls @ 166.667 mls/hr IV Q12H [facility] Last Admin: 03/08/21 17:52 Dose: 166 mls/hr Documented by: Lisinopril (Lisinopril 5 Mg Tab) 5 mg PO DAILY [facility] Last Admin: 03/08/21 08:41 Dose: 5 mg Documented by: Lorazepam (Lorazepam 2 Mg/Ml Sdv) 1 mg IVPUSH Q4H PRN PRN Reason: Withdrawal Symptoms Last Admin: 03/05/21 22:23 Dose: 1 mg Documented by: Ondansetron HCl (Ondansetron 4 Mg/2 Ml Sdv) 4 mg IVPUSH Q4H PRN PRN Reason: Nausea/Vomiting Oxycodone HCl (Oxycodone 5 Mg Tab) 5 mg PO Q8H PRN PRN Reason: Pain (severe 7-10) Last Admin: 03/08/21 13:11 Dose: 5 mg Documented by: Polyethylene Glycol (Polyethylene Glycol 3350 Powder 17 Gm Packet) 17 gm PO DAILY PRN PRN Reason: constipation Last Admin: 03/05/21 08:10 Dose: 17 gm Documented by: Sodium Chloride (Sodium Chloride 0.9% 10 Ml Syringe) 10 ml FLUSH ASDIRECTED PRN PRN Reason: Keep Vein Open Sodium Chloride (Sodium Chloride 0.9% 2.5 Ml Syringe) 2.5 ml FLUSH ASDIRECTED PRN PRN Reason: Keep Vein Open Vancomycin HCl (Pharmacy To Dose - Vancomycin) 0 dose .XX ASDIRECTED KATHERINE Discontinued Medications Albuterol (Albuterol 0.083% 2.5 Mg/3 Ml Neb Soln) 2.5 mg NEB ONETIME PRN PRN Reason: Wheezing Bisacodyl (Bisacodyl 10 Mg Supp) 10 mg RECTAL ONETIME PRN PRN Reason: Constipation Bisacodyl (Bisacodyl 5 Mg Tab) 10 mg PO ONETIME ONE Stop: 03/05/21 19:10 Last Admin: 03/05/21 20:19 Dose: 10 mg Documented by: Butorphanol Tartrate (Butorphanol 1 Mg/Ml Sdv) 1 mg IVPUSH Q1H PRN PRN Reason: Pain (severe 7-10) Carboprost Tromethamine (Carboprost Tromethamine 250 Mcg/1 Ml Amp) 250 mcg IM ASDIRECTED PRN PRN Reason: Post Hemorrhage Cefazolin Sodium (Cefazolin 1 Gm Vial) Confirm Administered Dose 2 gm .ROUTE .STK-MED ONE Stop: 02/26/21 03:45 Citric Acid/Sodium Citrate (Citric Acid/Sodium Citrate Solution 30 Ml Cup) 30 ml PO ONETIME ONE Stop: 02/26/21 02:01 Last Admin: 02/26/21 05:17 Dose: Not Given Documented by: Dexamethasone (Dexamethasone 4 Mg/Ml 5 Ml Mdv) Confirm Administered Dose 20 mg .ROUTE .STK-MED ONE Stop: 03/06/21 11:29 Diphenhydramine HCl (Diphenhydramine 50 Mg/Ml Sdv) 12.5 mg IVPUSH Q2H PRN PRN Reason: Itching Droperidol (Droperidol 5 Mg/2 Ml Sdv) 0.625 mg IVPUSH ONETIME PRN PRN Reason: Nausea/Vomiting Emollient Ointment (Lanolin 100% Cream 7 Gm Tube) 0 gm TOP ASDIRECTED PRN PRN Reason: Sore Nipples Enoxaparin Sodium (Enoxaparin 40 Mg/0.4 Ml Syringe) 40 mg SUBCUT Q24H [facility] Last Admin: 03/05/21 12:58 Dose: 40 mg Documented by: Ephedrine Sulfate (Ephedrine 50 Mg/Ml Sdv) 10 mg IVPUSH Q5M PRN PRN Reason: Hypotension Fentanyl (Fentanyl 100 Mcg/2 Ml Sdv) Confirm Administered Dose 100 mcg .ROUTE .STK-MED ONE Stop: 02/26/21 02:45 Fentanyl (Fentanyl 100 Mcg/2 Ml Sdv) 50 mcg IVPUSH Q1H PRN PRN Reason: Pain (severe 7-10) Fentanyl (Fentanyl 100 Mcg/2 Ml Sdv) Confirm Administered Dose 100 mcg .ROUTE .STK-MED ONE Stop: 03/06/21 11:29 Fentanyl (Fentanyl 100 Mcg/2 Ml Sdv) 50 mcg IVPUSH Q5M PRN PRN Reason: Pain (mild 1-3) Furosemide (Furosemide 20 Mg/2 Ml Vial) 40 mg IVPUSH NOW ONE Stop: 02/27/21 09:02 Last Admin: 02/27/21 09:17 Dose: 40 mg Documented by: Furosemide (Furosemide 40 Mg/4 Ml Vial) 40 mg IVPUSH NOW ONE Stop: 03/01/21 15:43 Last Admin: 03/01/21 15:53 Dose: 40 mg Documented by: Furosemide (Furosemide 40 Mg/4 Ml Vial) 40 mg IVPUSH DAILY [facility] Last Admin: 03/02/21 09:36 Dose: 40 mg Documented by: Furosemide (Furosemide 20 Mg/2 Ml Vial) 20 mg IVPUSH NOW ONE Stop: 03/01/21 23:40 Last Admin: 03/01/21 23:50 Dose: 20 mg Documented by: Furosemide (Furosemide 40 Mg/4 Ml Vial) 40 mg IVPUSH Q8H [facility] Last Admin: 03/02/21 14:05 Dose: Not Given Documented by: Furosemide (Furosemide 40 Mg/4 Ml Vial) 40 mg IVPUSH Q8H [facility] Last Admin: 03/04/21 09:01 Dose: 40 mg Documented by: Furosemide (Furosemide 40 Mg/4 Ml Vial) 40 mg IVPUSH Q12H [facility] Last Admin: 03/05/21 08:10 Dose: 40 mg Documented by: Hydrochlorothiazide (Hydrochlorothiazide 12.5 Mg Cap) 12.5 mg PO BEDTIME [facility] Last Admin: 02/28/21 20:00 Dose: 12.5 mg Documented by: Hydromorphone HCl (Hydromorphone 2 Mg/Ml Syringe) 1 mg IVPUSH Q10M PRN PRN Reason: Pain (moderate 4-6) Last Admin: 03/06/21 13:50 Dose: 1 mg Documented by: Lactated Ringer's (Ringers, Lactated) 1,000 mls @ 500 mls/hr IV BOLUS KATHERINE Last Admin: 02/26/21 02:20 Dose: 500 mls/hr Documented by: Oxytocin/Sodium Chloride (Oxytocin 30 Unit/500 Ml-Ns) 30 unit in 500 mls @ 250 mls/hr IV TITRATE KATHERINE Lactated Ringer's (Ringers, Lactated) 1,000 mls @ 150 mls/hr IV ASDIRECTED KATHERINE Last Infusion: 02/28/21 08:50 Dose: 50 mls/hr Documented by: Tranexamic Acid 1,000 mg/ (Sodium Chloride) 110 mls @ 660 mls/hr IV ONETIME PRN PRN Reason: Bleeding Sodium Chloride (Normal Saline) Confirm Administered Dose 20 mls @ as directed .ROUTE .[facility]-MED ONE Stop: 02/26/21 03:45 Lactated Ringer's (Ringers, Lactated) 1,000 mls @ 125 mls/hr IV ASDIRECTED KATHERINE Last Infusion: 02/28/21 01:00 Dose: Infused Documented by: Tranexamic Acid 1,000 mg/ (Sodium Chloride) 110 mls @ 660 mls/hr IV ONETIME PRN PRN Reason: Bleeding Clindamycin Phosphate 600 mg/ (Sodium Chloride) 54 mls @ 100 mls/hr IV Q6H KATHERINE Clindamycin Phosphate 900 mg/ (Premix) 75 mls @ 150 mls/hr IV Q6H KATHERINE Clindamycin Phosphate 600 mg/ (Premix) 50 mls @ 100 mls/hr IV Q6H KATHERINE Last Admin: 03/01/21 15:53 Dose: 100 mls/hr Documented by: Cefazolin Sodium/Dextrose 1 gm (/ Premix) 50 mls @ 100 mls/hr IV Q8H KATHERINE Last Admin: 03/01/21 14:00 Dose: 100 mls/hr Documented by: Lactated Ringer's (Ringers, Lactated) 1,000 mls @ 50 mls/hr IV ASDIRECTED KATHERINE Last Infusion: 03/01/21 08:30 Dose: 10 mls/hr Documented by: Lactated Ringer's (Ringers, Lactated) 1,000 mls @ 10 mls/hr IV ASDIRECTED KATHERINE Magnesium Sulfate 2 gm/ Premix 50 mls @ 12.5 mls/hr IV ONETIME ONE Stop: 03/01/21 15:23 Last Admin: 03/01/21 11:43 Dose: 12.5 mls/hr Documented by: Furosemide 40 mg/ Sodium (Chloride) 54 mls @ 100 mls/hr IV Q12H [facility] Last Admin: 03/01/21 17:30 Dose: Not Given Documented by: Azithromycin 500 mg/ Sodium (Chloride) 250 mls @ 250 mls/hr IV DAILY [facility] Last Admin: 03/06/21 08:30 Dose: 250 mls/hr Documented by: Magnesium Sulfate 4 gm/ Premix 100 mls @ 50 mls/hr IV ONETIME ONE Stop: 03/03/21 10:46 Last Admin: 03/03/21 09:47 Dose: 50 mls/hr Documented by: Sodium Chloride (Normal Saline) Confirm Administered Dose 20 mls @ as directed .ROUTE .STK-MED ONE Stop: 03/06/21 12:43 Ibuprofen (Ibuprofen 800 Mg Tab) 800 mg PO Q8H PRN PRN Reason: mild pain or fever Iopamidol (Iopamidol 755 Mg/Ml 500 Ml Multipack Bottle) 75 ml IVPUSH ONETIME STA Stop: 03/02/21 13:47 Last Admin: 03/02/21 13:46 Dose: 75 ml Documented by: Iopamidol (Iopamidol 755 Mg/Ml 500 Ml Multipack Bottle) 100 ml IVPUSH ONETIME STA Stop: 03/05/21 17:48 Last Admin: 03/05/21 17:48 Dose: 100 ml Documented by: Ketorolac Tromethamine (Ketorolac 30 Mg/Ml Sdv) Confirm Administered Dose 30 mg .ROUTE .STK-MED ONE Stop: 02/26/21 03:28 Ketorolac Tromethamine (Ketorolac 30 Mg/Ml Sdv) 30 mg IVPUSH Q6H KATHERINE Stop: 02/27/21 04:01 Last Admin: 02/27/21 04:10 Dose: 30 mg Documented by: Labetalol HCl (Labetalol 100 Mg Tab) 200 mg PO DAILY [facility] Last Admin: 03/01/21 08:48 Dose: 200 mg Documented by: Lidocaine (Lidocaine 2% 5 Ml Sdv) Confirm Administered Dose 5 ml .ROUTE .STK-MED ONE Stop: 03/06/21 11:29 Lidocaine HCl (Lidocaine 1% 50 Ml Mdv) 50 ml INJECT ONETIME PRN PRN Reason: Laceration repair Lisinopril (Lisinopril 5 Mg Tab) 5 mg PO DAILY KATHERINE Lorazepam (Lorazepam 2 Mg/Ml Sdv) 1 mg IVPUSH ONETIME ONE Stop: 03/01/21 11:15 Last Admin: 03/01/21 11:44 Dose: 1 mg Documented by: Lorazepam (Lorazepam 2 Mg/Ml Sdv) 2 mg IVPUSH ONETIME ONE Stop: 03/02/21 00:15 Last Admin: 03/02/21 00:25 Dose: 2 mg Documented by: Magnesium Hydroxide (Magnesium Hydroxide 400 Mg/5 Ml Susp 30 Ml Cup) 30 ml PO ONETIME ONE Stop: 03/05/21 12:30 Last Admin: 03/05/21 12:57 Dose: 30 ml Documented by: Magnesium Oxide (Magnesium Oxide 400 Mg Tab) 800 mg PO ONETIME ONE Stop: 03/04/21 10:11 Last Admin: 03/04/21 10:30 Dose: 800 mg Documented by: Magnesium Oxide (Magnesium Oxide 400 Mg Tab) 800 mg PO ONETIME ONE Stop: 03/05/21 12:33 Last Admin: 03/05/21 12:57 Dose: 800 mg Documented by: Methylergonovine Maleate (Methylergonovine 0.2 Mg/1 Ml Amp) 0.2 mg IM ONETIME PRN PRN Reason: Excessive Vaginal Bleeding Methylergonovine Maleate (Methylergonovine 0.2 Mg/1 Ml Amp) Confirm Administered Dose 0.2 mg .ROUTE .STK-MED ONE Stop: 03/06/21 13:04 Last Admin: 03/06/21 14:42 Dose: Not Given Documented by: Metoclopramide HCl (Metoclopramide 10 Mg/2 Ml Sdv) 10 mg IVPUSH ONETIME PRN PRN Reason: Nausea/Vomiting Metoprolol Tartrate (Metoprolol Tartrate 25 Mg Tab) 25 mg PO BID KATHERINE Midazolam HCl (Midazolam 1 Mg/Ml 2 Ml Sdv) Confirm Administered Dose 2 mg .ROUTE .STK-MED ONE Stop: 03/06/21 11:29 Miscellaneous Medication (Phenylephrine Hcl In 0.9% Nacl 1 Mg/10 Ml Syringe) Confirm Administered Dose 1 mg .ROUTE .STK-MED ONE Stop: 02/26/21 03:28 Misoprostol (Misoprostol 200 Mcg Tab) 200 mcg PO ONETIME PRN PRN Reason: Post Hemorrhage Misoprostol (Misoprostol 200 Mcg Tab) 1,000 mcg RECTAL ONETIME PRN PRN Reason: excessive bleeding Misoprostol (Misoprostol 200 Mcg Tab) Confirm Administered Dose 200 mcg .ROUTE .STK-MED ONE Stop: 03/06/21 13:04 Last Admin: 03/06/21 14:42 Dose: Not Given Documented by: Morphine Sulfate (Morphine Pf 10 Mg/10 Ml Sdv) Confirm Administered Dose 10 mg .ROUTE .STK-MED ONE Stop: 02/26/21 02:46 Morphine Sulfate (Morphine 4 Mg/Ml Syringe) 4 mg IVPUSH Q4H PRN PRN Reason: Pain (moderate 4-6) Last Admin: 03/01/21 23:24 Dose: 4 mg Documented by: Morphine Sulfate (Morphine 2 Mg/Ml Syringe) 2 mg IVPUSH Q4H PRN PRN Reason: Pain (moderate 4-6) Last Admin: 03/04/21 06:20 Dose: 2 mg Documented by: Morphine Sulfate (Morphine 2 Mg/Ml Syringe) 2 mg IVPUSH Q10M PRN PRN Reason: Pain (severe 7-10) Nalbuphine HCl (Nalbuphine 10 Mg/1 Ml Vial) 10 mg IVPUSH Q1H PRN PRN Reason: Pain (severe 7-10) Nalbuphine HCl (Nalbuphine 10 Mg/1 Ml Vial) 5 mg IVPUSH ASDIRECTED PRN PRN Reason: Itching Naloxone HCl (Naloxone 0.4 Mg/Ml Syringe) 0.1 mg IVPUSH ONETIME PRN PRN Reason: Respiratory Depression Stop: 02/27/21 04:19 Naloxone HCl (Naloxone 0.4 Mg/Ml Syringe) 0.1 mg IVPUSH ASDIRECTED PRN PRN Reason: Respiratory Depression Octyl Cyanoacrylate (Octyl 2-Cyanoacrylate 1 Tube) Confirm Administered Dose 1 applic .ROUTE .STK-MED ONE Stop: 02/26/21 05:03 Ondansetron HCl (Ondansetron 4 Mg/2 Ml Sdv) Confirm Administered Dose 4 mg .ROUTE .STK-MED ONE Stop: 02/26/21 03:28 Ondansetron HCl (Ondansetron 4 Mg/2 Ml Sdv) 4 mg IVPUSH Q6H PRN PRN Reason: Nausea Ondansetron HCl (Ondansetron 4 Mg/2 Ml Sdv) Confirm Administered Dose 4 mg .ROUTE .STK-MED ONE Stop: 03/06/21 11:29 Ondansetron HCl (Ondansetron 4 Mg/2 Ml Sdv) 4 mg IVPUSH ONETIME PRN PRN Reason: Nausea/Vomiting Oxycodone/Acetaminophen (Acetaminophen/Oxycodone 325-5 Mg Tab) 1 tab PO Q4H PRN PRN Reason: Pain (severe 7-10) Last Admin: 03/07/21 22:18 Dose: 1 tab Documented by: Oxycodone/Acetaminophen (Acetaminophen/Oxycodone 325-5 Mg Tab) 2 tab PO Q4H PRN PRN Reason: Pain (severe 7-10) Last Admin: 03/02/21 21:07 Dose: 2 tab Documented by: Oxycodone/Acetaminophen (Acetaminophen/Oxycodone 325-5 Mg Tab) 2 tab PO Q6H PRN PRN Reason: Pain (moderate 4-6) Last Admin: 02/26/21 06:53 Dose: 2 tab Documented by: Oxytocin (Oxytocin 10 Units/1 Ml Sdv) Confirm Administered Dose 30 unit .ROUTE .STK-MED ONE Stop: 02/26/21 03:28 Oxytocin (Oxytocin 10 Units/1 Ml Sdv) 10 unit IM ASDIRECTED PRN PRN Reason: Excessive Vaginal Bleeding Polyethylene Glycol (Polyethylene Glycol 3350 Powder 17 Gm Packet) 17 gm PO ONETIME ONE Stop: 03/02/21 14:18 Last Admin: 03/02/21 14:53 Dose: 17 gm Documented by: Potassium Chloride (Potassium Chloride 20 Meq Tab.Er) 40 meq PO ONETIME ONE Stop: 03/03/21 08:48 Last Admin: 03/03/21 09:48 Dose: 40 meq Documented by: Potassium Chloride (Potassium Chloride 20 Meq Tab.Er) 40 meq PO BID@1000,1400 KATHERINE Stop: 03/05/21 10:01 Last Admin: 03/05/21 09:11 Dose: 40 meq Documented by: Propofol (Propofol 200 Mg/20 Ml Sdv) Confirm Administered Dose 400 mg .ROUTE .STK-MED ONE Stop: 03/06/21 11:29 Rocuronium Pindall (Rocuronium Pindall 50 Mg/5 Ml Syringe) Confirm Administered Dose 50 mg .ROUTE .STK-MED ONE Stop: 03/06/21 11:34 Sterile Water (Water For Irrigation,Sterile 1,000 Ml Container) 1,000 ml IRR ASDIRECTED PRN PRN Reason: delivery Sugammadex Sodium (Sugammadex Sodium 200 Mg/2 Ml Vial) Confirm Administered Dose 200 mg .ROUTE .STK-MED ONE Stop: 03/06/21 11:34 - Exam Wound/Incisions: Healing Well General: Alert, Oriented HEENT: Pupils Equal Neck: Supple Lungs: Clear to Auscultation, Normal Respiratory Effort Cardiovascular: Regular Rate, Regular Rhythm GI/Abdominal Exam: Normal Bowel Sounds, Soft, Non-Tender, No Organomegaly, No Distention, No Abnormal Bruit, No Mass, Pelvis Stable Extremities: Normal Inspection, Normal Range of Motion, Non-Tender, No Pedal Edema, Normal Capillary Refill Skin: Warm, Dry, Intact Neurological: No New Focal Deficit Psy/Mental Status: Alert, Normal Affect, Normal Mood Sepsis Event Note - Evaluation Sepsis Screening Result: No Definite Risk - Focused Exam Vital Signs: Vital Signs Temp Pulse Pulse Resp BP BP Pulse Ox 03/08/21 16:00 36.3 C 87 16 105/62 100 03/08/21 12:00 36.8 C 86 16 120/70 97 03/08/21 08:41 118/58 L 03/08/21 08:38 79 118/58 L 03/08/21 08:00 35.8 C L 104 H 16 122/77 100 - Problem List Review Problem List Initiated/Reviewed/Updated: Yes - My Orders Last 24 Hours: Active Orders 24 hr Category Date Time Status CBC WITH AUTO DIFF [HEME] AM Lab 03/09/21 05:11 Ordered CMP [COMPREHENSIVE METABOLIC PN,CMP] [CHEM] AM Lab 03/09/21 05:11 Ordered VANCOMYCIN TROUGH [CHEM] Routine Lab 03/09/21 16:00 Ordered oxyCODONE Med 03/08/21 12:30 Active 5 mg PO Q8H PRN Medication Orders Albuterol/Ipratropium (Albuterol/Ipratropium 3.0-0.5 Mg/3 Ml Neb Soln) 3 ml NEB Q4HRRT PRN PRN Reason: Wheezing Last Admin: 03/01/21 17:14 Dose: 3 ml Documented by: Admin: 03/01/21 09:27 Dose: 3 ml Documented by: URSULA Carvedilol (Carvedilol 3.125 Mg Tab) 3.125 mg PO BID [facility] Admin: 03/08/21 08:38 Dose: 3.125 mg Documented by: Admin: 03/07/21 20:16 Dose: 3.125 mg Documented by: Admin: 03/07/21 08:36 Dose: 3.125 mg Documented by: Admin: 03/06/21 20:32 Dose: 3.125 mg Documented by: Admin: 03/06/21 08:30 Dose: 3.125 mg Documented by: Admin: 03/05/21 20:19 Dose: 3.125 mg Documented by: Admin: 03/05/21 08:10 Dose: 3.125 mg Documented by: Admin: 03/04/21 20:41 Dose: 3.125 mg Documented by: Admin: 03/04/21 09:02 Dose: 3.125 mg Documented by: Admin: 03/03/21 20:37 Dose: 3.125 mg Documented by: Admin: 03/03/21 11:39 Dose: 3.125 mg Documented by: MANJIT Diphenhydramine HCl (Diphenhydramine 50 Mg/Ml Sdv) 25 mg IVPUSH Q6H PRN PRN Reason: Itching or Nausea Last Admin: 03/06/21 21:53 Dose: 25 mg Documented by: ROWDY Docusate Sodium (Docusate Sodium 100 Mg Cap) 100 mg PO BID [facility] Last Admin: 03/08/21 08:38 Dose: Not Given Documented by: Admin: 03/07/21 20:15 Dose: 100 mg Documented by: Admin: 03/07/21 08:37 Dose: 100 mg Documented by: Admin: 03/06/21 20:32 Dose: 100 mg Documented by: Admin: 03/06/21 08:29 Dose: 100 mg Documented by: Admin: 03/05/21 20:19 Dose: 100 mg Documented by: Admin: 03/05/21 08:12 Dose: 100 mg Documented by: Admin: 03/04/21 20:41 Dose: 100 mg Documented by: Admin: 03/04/21 09:01 Dose: 100 mg Documented by: Admin: 03/03/21 20:37 Dose: 100 mg Documented by: Admin: 03/03/21 08:25 Dose: 100 mg Documented by: Admin: 03/02/21 20:23 Dose: 100 mg Documented by: Admin: 03/02/21 09:35 Dose: 100 mg Documented by: Admin: 03/01/21 20:00 Dose: 100 mg Documented by: Admin: 03/01/21 08:48 Dose: 100 mg Documented by: Admin: 02/28/21 20:47 Dose: 100 mg Documented by: Admin: 02/28/21 08:14 Dose: 100 mg Documented by: Admin: 02/27/21 20:15 Dose: 100 mg Documented by: Admin: 02/27/21 08:09 Dose: 100 mg Documented by: Admin: 02/26/21 22:41 Dose: 100 mg Documented by: Admin: 02/26/21 10:00 Dose: 100 mg Documented by: KLAUS Furosemide (Furosemide 40 Mg/4 Ml Vial) 40 mg IVPUSH DAILY [facility] Last Admin: 03/08/21 08:43 Dose: 40 mg Documented by: Admin: 03/07/21 08:37 Dose: 40 mg Documented by: Admin: 03/06/21 08:29 Dose: 40 mg Documented by: THAI Meropenem/Sodium Chloride 1 gm (/ Premix) 50 mls @ 100 mls/hr IV Q8H [facility] Last Admin: 03/08/21 16:33 Dose: 100 mls/hr Documented by: Infusion: 03/08/21 09:04 Dose: 100 mls/hr Documented by: Admin: 03/08/21 08:34 Dose: 100 mls/hr Documented by: Infusion: 03/08/21 01:16 Dose: 100 mls/hr Documented by: Admin: 03/08/21 00:46 Dose: 100 mls/hr Documented by: Infusion: 03/07/21 16:57 Dose: 100 mls/hr Documented by: Admin: 03/07/21 16:27 Dose: 100 mls/hr Documented by: Infusion: 03/07/21 09:05 Dose: 100 mls/hr Documented by: Admin: 03/07/21 08:35 Dose: 100 mls/hr Documented by: Infusion: 03/07/21 03:58 Dose: 100 mls/hr Documented by: Admin: 03/06/21 23:32 Dose: 100 mls/hr Documented by: Infusion: 03/06/21 16:27 Dose: 100 mls/hr Documented by: Admin: 03/06/21 15:57 Dose: 100 mls/hr Documented by: Infusion: 03/06/21 10:03 Dose: 100 mls/hr Documented by: Admin: 03/06/21 09:33 Dose: 100 mls/hr Documented by: Infusion: 03/06/21 00:03 Dose: 100 mls/hr Documented by: Admin: 03/05/21 23:33 Dose: 100 mls/hr Documented by: Infusion: 03/05/21 16:11 Dose: 100 mls/hr Documented by: Admin: 03/05/21 15:41 Dose: 100 mls/hr Documented by: Infusion: 03/05/21 08:40 Dose: 100 mls/hr Documented by: Admin: 03/05/21 08:10 Dose: 100 mls/hr Documented by: Infusion: 03/05/21 00:26 Dose: 100 mls/hr Documented by: Admin: 03/04/21 23:56 Dose: 100 mls/hr Documented by: Infusion: 03/04/21 16:50 Dose: 100 mls/hr Documented by: Admin: 03/04/21 16:20 Dose: 100 mls/hr Documented by: Infusion: 03/04/21 09:28 Dose: 100 mls/hr Documented by: Admin: 03/04/21 08:58 Dose: 100 mls/hr Documented by: Infusion: 03/04/21 01:19 Dose: 100 mls/hr Documented by: Admin: 03/04/21 00:49 Dose: 100 mls/hr Documented by: Infusion: 03/03/21 16:35 Dose: 100 mls/hr Documented by: Admin: 03/03/21 16:05 Dose: 100 mls/hr Documented by: Infusion: 03/03/21 08:54 Dose: 100 mls/hr Documented by: Admin: 03/03/21 08:24 Dose: 100 mls/hr Documented by: Infusion: 03/03/21 00:38 Dose: 100 mls/hr Documented by: Admin: 03/03/21 00:08 Dose: 100 mls/hr Documented by: Infusion: 03/02/21 16:20 Dose: 100 mls/hr Documented by: Admin: 03/02/21 15:50 Dose: 100 mls/hr Documented by: Infusion: 03/02/21 08:59 Dose: 100 mls/hr Documented by: Admin: 03/02/21 08:29 Dose: 100 mls/hr Documented by: Infusion: 03/02/21 00:20 Dose: 100 mls/hr Documented by: Admin: 03/01/21 23:50 Dose: 100 mls/hr Documented by: Infusion: 03/01/21 17:18 Dose: 100 mls/hr Documented by: Admin: 03/01/21 16:48 Dose: 100 mls/hr Documented by: MEGAN Vancomycin HCl 1.25 gm/ Sodium (Chloride) 250 mls @ 166.667 mls/hr IV Q12H KATHERINE Tang Admin: 03/08/21 17:52 Dose: 166 mls/hr Documented by: Infusion: 03/08/21 06:08 Dose: 166 mls/hr Documented by: Admin: 03/08/21 04:37 Dose: 166 mls/hr Documented by: Infusion: 03/07/21 19:28 Dose: 166 mls/hr Documented by: Admin: 03/07/21 17:57 Dose: 166 mls/hr Documented by: Infusion: 03/07/21 07:12 Dose: 166 mls/hr Documented by: Admin: 03/07/21 04:00 Dose: 166.6 mls/hr Documented by: Infusion: 03/06/21 19:00 Dose: 166.6 mls/hr Documented by: Admin: 03/06/21 17:26 Dose: 166.6 mls/hr Documented by: Infusion: 03/06/21 05:31 Dose: 166.6 mls/hr Documented by: Admin: 03/06/21 04:00 Dose: 166.6 mls/hr Documented by: Infusion: 03/05/21 19:30 Dose: 166.6 mls/hr Documented by: Admin: 03/05/21 18:00 Dose: 166.667 mls/hr Documented by: Infusion: 03/05/21 06:34 Dose: 166.667 mls/hr Documented by: Admin: 03/05/21 05:04 Dose: 166.667 mls/hr Documented by: Infusion: 03/04/21 18:30 Dose: 166.667 mls/hr Documented by: Admin: 03/04/21 17:00 Dose: 166.667 mls/hr Documented by: Infusion: 03/04/21 06:25 Dose: 166.667 mls/hr Documented by: Admin: 03/04/21 04:55 Dose: 166.667 mls/hr Documented by: Infusion: 03/03/21 17:36 Dose: 166.667 mls/hr Documented by: Admin: 03/03/21 16:06 Dose: 166.667 mls/hr Documented by: Infusion: 03/03/21 05:34 Dose: 166.667 mls/hr Documented by: Admin: 03/03/21 04:04 Dose: 166.667 mls/hr Documented by: Infusion: 03/02/21 18:23 Dose: 166.667 mls/hr Documented by: Admin: 03/02/21 16:53 Dose: 166.667 mls/hr Documented by: Infusion: 03/02/21 05:30 Dose: 166.667 mls/hr Documented by: Admin: 03/02/21 04:00 Dose: 166.667 mls/hr Documented by: Infusion: 03/01/21 19:06 Dose: 166.667 mls/hr Documented by: Admin: 03/01/21 17:36 Dose: 166.667 mls/hr Documented by: MEGAN Lisinopril (Lisinopril 5 Mg Tab) 5 mg PO DAILY KATHERINE Last Admin: 03/08/21 08:41 Dose: 5 mg Documented by: Admin: 03/07/21 08:37 Dose: 5 mg Documented by: Admin: 03/06/21 08:29 Dose: 5 mg Documented by: Admin: 03/05/21 08:10 Dose: 5 mg Documented by: Admin: 03/04/21 09:01 Dose: 5 mg Documented by: Admin: 03/03/21 08:26 Dose: 5 mg Documented by: Admin: 03/02/21 19:58 Dose: 5 mg Documented by: ROWDY Lorazepam (Lorazepam 2 Mg/Ml Sdv) 1 mg IVPUSH Q4H PRN PRN Reason: Withdrawal Symptoms Last Admin: 03/05/21 22:23 Dose: 1 mg Documented by: Admin: 03/03/21 22:33 Dose: 1 mg Documented by: Admin: 03/03/21 03:31 Dose: 1 mg Documented by: Admin: 03/02/21 21:20 Dose: 1 mg Documented by: Admin: 03/02/21 17:10 Dose: 1 mg Documented by: Admin: 03/02/21 00:13 Dose: 1 mg Documented by: ROWDY Ondansetron HCl (Ondansetron 4 Mg/2 Ml Sdv) 4 mg IVPUSH Q4H PRN PRN Reason: Nausea/Vomiting Oxycodone HCl (Oxycodone 5 Mg Tab) 5 mg PO Q8H PRN PRN Reason: Pain (severe 7-10) Last Admin: 03/08/21 13:11 Dose: 5 mg Documented by: CHANTEL Polyethylene Glycol (Polyethylene Glycol 3350 Powder 17 Gm Packet) 17 gm PO DAILY PRN PRN Reason: constipation Last Admin: 03/05/21 08:10 Dose: 17 gm Documented by: Admin: 03/03/21 11:40 Dose: 17 gm Documented by: MANJIT Sodium Chloride (Sodium Chloride 0.9% 10 Ml Syringe) 10 ml FLUSH ASDIRECTED PRN PRN Reason: Keep Vein Open Sodium Chloride (Sodium Chloride 0.9% 2.5 Ml Syringe) 2.5 ml FLUSH ASDIRECTED PRN PRN Reason: Keep Vein Open Vancomycin HCl (Pharmacy To Dose - Vancomycin) 0 dose .XX ASDIRECTED KATHERINE - Assessment Assessment (Free Text/Narrative):: Pt improving. Afeb WBC is down she is out of the ICU, - Plan Plan (Free Text/Narrative):: Plan to discharge in am.
[2021-03-08] MEDS: diphenhydrAMINE 50 MG/ML SDV IVPUSH PRN (21:51)
[2021-03-09] MEDS: Meropenem Premix 1 GM in Premix Bag 1 BAG IV SCH ×3 (00:40→09:18)
[2021-03-09 06:29] LABS: BLOOD UREA NITROGEN,BUN 18 mg/dL (7.0-18.0); CARBON DIOXIDE,CO2 26.4 mmol/L (21.0-32.0); CHLORIDE,CL 103 mmol/L (98-107); GLUCOSE RANDOM 82 mg/dL (74-106); POTASSIUM,K 4.4 mmol/L (3.5-5.1); SODIUM,NA 138 mmol/L (136-145)
[2021-03-09] MEDS: Lisinopril 5 MG Tab PO SCH (09:13)
[2021-03-09] MEDS: Carvedilol 3.125 MG Tab PO SCH (09:13)
[2021-03-09] MEDS: Furosemide 40 MG/4 ML VIAL IVPUSH SCH (09:13)
[2021-03-09] MEDS: Docusate Sodium 100 MG Cap PO SCH (09:13)
[2021-03-09] MEDS: oxyCODONE 5 MG Tab PO PRN (09:22)
--- NOTE | 2021-03-09 09:29 | PCM.SURGPN ---
- General Info Date of Service: 03/09/21 Functional Status: Reports: Pain Controlled - Review of Systems General: Reports: No Symptoms HEENT: Reports: No Symptoms Pulmonary: Reports: No Symptoms Cardiovascular: Reports: No Symptoms Gastrointestinal: Reports: No Symptoms Genitourinary: Reports: No Symptoms Musculoskeletal: Reports: No Symptoms Skin: Reports: No Symptoms Neurological: Reports: No Symptoms Psychiatric: Reports: No Symptoms - Patient Data Vitals - Most Recent: Last Vital Signs Temp 37.3 C 03/09/21 04:00 Pulse 67 03/09/21 09:13 Resp 17 03/09/21 04:00 BP 125/70 03/09/21 09:13 Pulse Ox 98 03/09/21 04:00 Weight - Most Recent: 63.458 kg I&O - Last 24 Hours: Intake & Output 03/08/21 03/09/21 03/09/21 22:59 06:59 14:59 Intake Total 600 Output Total 400 Balance 200 Lab Results Last 24 Hrs: Laboratory Results - last 24 hr 03/09/21 03/09/21 Range/Units 05:05 05:05 WBC 16.24 H (4.0-11.0) K/uL RBC 3.28 L (4.30-5.90) M/uL Hgb 9.4 L (12.0-16.0) g/dL Hct 28.9 L (36.0-46.0) % MCV 88.1 (80.0-98.0) fL MCH 28.7 (27.0-32.0) pg MCHC 32.5 (31.0-37.0) g/dL RDW Std Deviation 45.9 (28.0-62.0) fl RDW Coeff of Idalmis 14 (11.0-15.0) % Plt Count 753 H (150-400) K/uL MPV 8.50 (7.40-12.00) fL Add Manual Diff YES Neutrophils % (Manual) 70 (48.0-80.0) % Band Neutrophils % 2 % Lymphocytes % (Manual) 18 (16.0-40.0) % Monocytes % (Manual) 8 (0.0-15.0) % Eosinophils % (Manual) 2 (0.0-7.0) % Nucleated RBC % 0.0 /100WBC Absolute Seg Neuts 11.4 H (1.4-5.7) Band Neutrophils # 0.3 Lymphocytes # (Manual) 2.9 H (0.6-2.4) Monocytes # (Manual) 1.3 H (0.0-0.8) Eosinophils # (Manual) 0.3 (0.0-0.7) Nucleated RBCs # 0 K/uL Sodium 138 (136-145) mmol/L Potassium 4.4 (3.5-5.1) mmol/L Chloride 103 (98-107) mmol/L Carbon Dioxide 26.4 (21.0-32.0) mmol/L BUN 18 (7.0-18.0) mg/dL Creatinine 0.8 (0.6-1.0) mg/dL Est Cr Clr Drug Dosing 95.89 mL/min Estimated GFR (MDRD) > 60.0 ml/min Glucose 82 (74-106) mg/dL Calcium 8.3 L (8.5-10.1) mg/dL Total Bilirubin 0.3 (0.2-1.0) mg/dL AST 70 H (15-37) IU/L ALT 89 H (14-63) IU/L Alkaline Phosphatase 142 H (46-116) U/L Total Protein 6.1 L (6.4-8.2) g/dL Albumin 2.2 L (3.4-5.0) g/dL Globulin 3.9 (2.6-4.0) g/dL Albumin/Globulin Ratio 0.6 L (0.9-1.6) Fabián Results Last 24 Hrs: Microbiology 03/05/21 12:35 Urine Culture - Final Urine 03/07/21 10:37 Aerobic Blood Culture - Preliminary Blood - Venous - Lab Draw NO GROWTH AFTER 1 DAY Anaerobic Blood Culture - Final 03/07/21 10:30 Aerobic Blood Culture - Preliminary Blood - Venous NO GROWTH AFTER 1 DAY Anaerobic Blood Culture - Preliminary NO GROWTH AFTER 1 DAY Med Orders - Current: Current Medications Albuterol/Ipratropium (Albuterol/Ipratropium 3.0-0.5 Mg/3 Ml Neb Soln) 3 ml NEB Q4HRRT PRN PRN Reason: Wheezing Last Admin: 03/01/21 17:14 Dose: 3 ml Documented by: Carvedilol (Carvedilol 3.125 Mg Tab) 3.125 mg PO BID KATHERINE Last Admin: 03/09/21 09:13 Dose: 3.125 mg Documented by: Diphenhydramine HCl (Diphenhydramine 50 Mg/Ml Sdv) 25 mg IVPUSH Q6H PRN PRN Reason: Itching or Nausea Last Admin: 03/08/21 21:51 Dose: 25 mg Documented by: Docusate Sodium (Docusate Sodium 100 Mg Cap) 100 mg PO BID [facility] Last Admin: 03/09/21 09:13 Dose: Not Given Documented by: Furosemide (Furosemide 40 Mg/4 Ml Vial) 40 mg IVPUSH DAILY [facility] Last Admin: 03/09/21 09:13 Dose: 40 mg Documented by: Meropenem/Sodium Chloride 1 gm (/ Premix) 50 mls @ 100 mls/hr IV Q8H [facility] Last Admin: 03/09/21 09:18 Dose: Not Given Documented by: Vancomycin HCl 1.25 gm/ Sodium (Chloride) 250 mls @ 166.667 mls/hr IV Q12H [facility] Last Admin: 03/09/21 04:35 Dose: 166 mls/hr Documented by: Lisinopril (Lisinopril 5 Mg Tab) 5 mg PO DAILY [facility] Last Admin: 03/09/21 09:13 Dose: 5 mg Documented by: Lorazepam (Lorazepam 2 Mg/Ml Sdv) 1 mg IVPUSH Q4H PRN PRN Reason: Withdrawal Symptoms Last Admin: 03/05/21 22:23 Dose: 1 mg Documented by: Ondansetron HCl (Ondansetron 4 Mg/2 Ml Sdv) 4 mg IVPUSH Q4H PRN PRN Reason: Nausea/Vomiting Oxycodone HCl (Oxycodone 5 Mg Tab) 5 mg PO Q8H PRN PRN Reason: Pain (severe 7-10) Last Admin: 03/09/21 09:22 Dose: 5 mg Documented by: Polyethylene Glycol (Polyethylene Glycol 3350 Powder 17 Gm Packet) 17 gm PO DAILY PRN PRN Reason: constipation Last Admin: 03/05/21 08:10 Dose: 17 gm Documented by: Sodium Chloride (Sodium Chloride 0.9% 10 Ml Syringe) 10 ml FLUSH ASDIRECTED PRN PRN Reason: Keep Vein Open Sodium Chloride (Sodium Chloride 0.9% 2.5 Ml Syringe) 2.5 ml FLUSH ASDIRECTED PRN PRN Reason: Keep Vein Open Vancomycin HCl (Pharmacy To Dose - Vancomycin) 0 dose .XX ASDIRECTED KATHERINE Discontinued Medications Albuterol (Albuterol 0.083% 2.5 Mg/3 Ml Neb Soln) 2.5 mg NEB ONETIME PRN PRN Reason: Wheezing Bisacodyl (Bisacodyl 10 Mg Supp) 10 mg RECTAL ONETIME PRN PRN Reason: Constipation Bisacodyl (Bisacodyl 5 Mg Tab) 10 mg PO ONETIME ONE Stop: 03/05/21 19:10 Last Admin: 03/05/21 20:19 Dose: 10 mg Documented by: Butorphanol Tartrate (Butorphanol 1 Mg/Ml Sdv) 1 mg IVPUSH Q1H PRN PRN Reason: Pain (severe 7-10) Carboprost Tromethamine (Carboprost Tromethamine 250 Mcg/1 Ml Amp) 250 mcg IM ASDIRECTED PRN PRN Reason: Post Hemorrhage Cefazolin Sodium (Cefazolin 1 Gm Vial) Confirm Administered Dose 2 gm .ROUTE .STK-MED ONE Stop: 02/26/21 03:45 Citric Acid/Sodium Citrate (Citric Acid/Sodium Citrate Solution 30 Ml Cup) 30 ml PO ONETIME ONE Stop: 02/26/21 02:01 Last Admin: 02/26/21 05:17 Dose: Not Given Documented by: Dexamethasone (Dexamethasone 4 Mg/Ml 5 Ml Mdv) Confirm Administered Dose 20 mg .ROUTE .STK-MED ONE Stop: 03/06/21 11:29 Diphenhydramine HCl (Diphenhydramine 50 Mg/Ml Sdv) 12.5 mg IVPUSH Q2H PRN PRN Reason: Itching Droperidol (Droperidol 5 Mg/2 Ml Sdv) 0.625 mg IVPUSH ONETIME PRN PRN Reason: Nausea/Vomiting Emollient Ointment (Lanolin 100% Cream 7 Gm Tube) 0 gm TOP ASDIRECTED PRN PRN Reason: Sore Nipples Enoxaparin Sodium (Enoxaparin 40 Mg/0.4 Ml Syringe) 40 mg SUBCUT Q24H [facility] Last Admin: 03/05/21 12:58 Dose: 40 mg Documented by: Ephedrine Sulfate (Ephedrine 50 Mg/Ml Sdv) 10 mg IVPUSH Q5M PRN PRN Reason: Hypotension Fentanyl (Fentanyl 100 Mcg/2 Ml Sdv) Confirm Administered Dose 100 mcg .ROUTE .STK-[facility] ONE Stop: 02/26/21 02:45 Fentanyl (Fentanyl 100 Mcg/2 Ml Sdv) 50 mcg IVPUSH Q1H PRN PRN Reason: Pain (severe 7-10) Fentanyl (Fentanyl 100 Mcg/2 Ml Sdv) Confirm Administered Dose 100 mcg .ROUTE .[facility] ONE Stop: 03/06/21 11:29 Fentanyl (Fentanyl 100 Mcg/2 Ml Sdv) 50 mcg IVPUSH Q5M PRN PRN Reason: Pain (mild 1-3) Furosemide (Furosemide 20 Mg/2 Ml Vial) 40 mg IVPUSH NOW ONE Stop: 02/27/21 09:02 Last Admin: 02/27/21 09:17 Dose: 40 mg Documented by: Furosemide (Furosemide 40 Mg/4 Ml Vial) 40 mg IVPUSH NOW ONE Stop: 03/01/21 15:43 Last Admin: 03/01/21 15:53 Dose: 40 mg Documented by: Furosemide (Furosemide 40 Mg/4 Ml Vial) 40 mg IVPUSH DAILY [facility] Last Admin: 03/02/21 09:36 Dose: 40 mg Documented by: Furosemide (Furosemide 20 Mg/2 Ml Vial) 20 mg IVPUSH NOW ONE Stop: 03/01/21 23:40 Last Admin: 03/01/21 23:50 Dose: 20 mg Documented by: Furosemide (Furosemide 40 Mg/4 Ml Vial) 40 mg IVPUSH Q8H [facility] Last Admin: 03/02/21 14:05 Dose: Not Given Documented by: Furosemide (Furosemide 40 Mg/4 Ml Vial) 40 mg IVPUSH Q8H [facility] Last Admin: 03/04/21 09:01 Dose: 40 mg Documented by: Furosemide (Furosemide 40 Mg/4 Ml Vial) 40 mg IVPUSH Q12H [facility] Last Admin: 03/05/21 08:10 Dose: 40 mg Documented by: Hydrochlorothiazide (Hydrochlorothiazide 12.5 Mg Cap) 12.5 mg PO BEDTIME [facility] Last Admin: 02/28/21 20:00 Dose: 12.5 mg Documented by: Hydromorphone HCl (Hydromorphone 2 Mg/Ml Syringe) 1 mg IVPUSH Q10M PRN PRN Reason: Pain (moderate 4-6) Last Admin: 03/06/21 13:50 Dose: 1 mg Documented by: Lactated Ringer's (Ringers, Lactated) 1,000 mls @ 500 mls/hr IV BOLUS KATHERINE Last Admin: 02/26/21 02:20 Dose: 500 mls/hr Documented by: Oxytocin/Sodium Chloride (Oxytocin 30 Unit/500 Ml-Ns) 30 unit in 500 mls @ 250 mls/hr IV TITRATE KATHERINE Lactated Ringer's (Ringers, Lactated) 1,000 mls @ 150 mls/hr IV ASDIRECTED KATHERINE Last Infusion: 02/28/21 08:50 Dose: 50 mls/hr Documented by: Tranexamic Acid 1,000 mg/ (Sodium Chloride) 110 mls @ 660 mls/hr IV ONETIME PRN PRN Reason: Bleeding Sodium Chloride (Normal Saline) Confirm Administered Dose 20 mls @ as directed .ROUTE .[facility] ONE Stop: 02/26/21 03:45 Lactated Ringer's (Ringers, Lactated) 1,000 mls @ 125 mls/hr IV ASDIRECTED KATHERINE Last Infusion: 02/28/21 01:00 Dose: Infused Documented by: Tranexamic Acid 1,000 mg/ (Sodium Chloride) 110 mls @ 660 mls/hr IV ONETIME PRN PRN Reason: Bleeding Clindamycin Phosphate 600 mg/ (Sodium Chloride) 54 mls @ 100 mls/hr IV Q6H KATHERINE Clindamycin Phosphate 900 mg/ (Premix) 75 mls @ 150 mls/hr IV Q6H KATHERINE Clindamycin Phosphate 600 mg/ (Premix) 50 mls @ 100 mls/hr IV Q6H KATHERINE Last Admin: 03/01/21 15:53 Dose: 100 mls/hr Documented by: Cefazolin Sodium/Dextrose 1 gm (/ Premix) 50 mls @ 100 mls/hr IV Q8H KATHERINE Last Admin: 03/01/21 14:00 Dose: 100 mls/hr Documented by: Lactated Ringer's (Ringers, Lactated) 1,000 mls @ 50 mls/hr IV ASDIRECTED KATHERINE Last Infusion: 03/01/21 08:30 Dose: 10 mls/hr Documented by: Lactated Ringer's (Ringers, Lactated) 1,000 mls @ 10 mls/hr IV ASDIRECTED [facility] Magnesium Sulfate 2 gm/ Premix 50 mls @ 12.5 mls/hr IV ONETIME ONE Stop: 03/01/21 15:23 Last Admin: 03/01/21 11:43 Dose: 12.5 mls/hr Documented by: Furosemide 40 mg/ Sodium (Chloride) 54 mls @ 100 mls/hr IV Q12H [facility] Last Admin: 03/01/21 17:30 Dose: Not Given Documented by: Azithromycin 500 mg/ Sodium (Chloride) 250 mls @ 250 mls/hr IV DAILY [facility] Last Admin: 03/06/21 08:30 Dose: 250 mls/hr Documented by: Magnesium Sulfate 4 gm/ Premix 100 mls @ 50 mls/hr IV ONETIME ONE Stop: 03/03/21 10:46 Last Admin: 03/03/21 09:47 Dose: 50 mls/hr Documented by: Sodium Chloride (Normal Saline) Confirm Administered Dose 20 mls @ as directed .ROUTE .STK-MED ONE Stop: 03/06/21 12:43 Ibuprofen (Ibuprofen 800 Mg Tab) 800 mg PO Q8H PRN PRN Reason: mild pain or fever Iopamidol (Iopamidol 755 Mg/Ml 500 Ml Multipack Bottle) 75 ml IVPUSH ONETIME STA Stop: 03/02/21 13:47 Last Admin: 03/02/21 13:46 Dose: 75 ml Documented by: Iopamidol (Iopamidol 755 Mg/Ml 500 Ml Multipack Bottle) 100 ml IVPUSH ONETIME STA Stop: 03/05/21 17:48 Last Admin: 03/05/21 17:48 Dose: 100 ml Documented by: Ketorolac Tromethamine (Ketorolac 30 Mg/Ml Sdv) Confirm Administered Dose 30 mg .ROUTE .STK-MED ONE Stop: 02/26/21 03:28 Ketorolac Tromethamine (Ketorolac 30 Mg/Ml Sdv) 30 mg IVPUSH Q6H [facility] Stop: 02/27/21 04:01 Last Admin: 02/27/21 04:10 Dose: 30 mg Documented by: Labetalol HCl (Labetalol 100 Mg Tab) 200 mg PO DAILY [facility] Last Admin: 03/01/21 08:48 Dose: 200 mg Documented by: Lidocaine (Lidocaine 2% 5 Ml Sdv) Confirm Administered Dose 5 ml .ROUTE .STK-MED ONE Stop: 03/06/21 11:29 Lidocaine HCl (Lidocaine 1% 50 Ml Mdv) 50 ml INJECT ONETIME PRN PRN Reason: Laceration repair Lisinopril (Lisinopril 5 Mg Tab) 5 mg PO DAILY KATHERINE Lorazepam (Lorazepam 2 Mg/Ml Sdv) 1 mg IVPUSH ONETIME ONE Stop: 03/01/21 11:15 Last Admin: 03/01/21 11:44 Dose: 1 mg Documented by: Lorazepam (Lorazepam 2 Mg/Ml Sdv) 2 mg IVPUSH ONETIME ONE Stop: 03/02/21 00:15 Last Admin: 03/02/21 00:25 Dose: 2 mg Documented by: Magnesium Hydroxide (Magnesium Hydroxide 400 Mg/5 Ml Susp 30 Ml Cup) 30 ml PO ONETIME ONE Stop: 03/05/21 12:30 Last Admin: 03/05/21 12:57 Dose: 30 ml Documented by: Magnesium Oxide (Magnesium Oxide 400 Mg Tab) 800 mg PO ONETIME ONE Stop: 03/04/21 10:11 Last Admin: 03/04/21 10:30 Dose: 800 mg Documented by: Magnesium Oxide (Magnesium Oxide 400 Mg Tab) 800 mg PO ONETIME ONE Stop: 03/05/21 12:33 Last Admin: 03/05/21 12:57 Dose: 800 mg Documented by: Methylergonovine Maleate (Methylergonovine 0.2 Mg/1 Ml Amp) 0.2 mg IM ONETIME PRN PRN Reason: Excessive Vaginal Bleeding Methylergonovine Maleate (Methylergonovine 0.2 Mg/1 Ml Amp) Confirm Administered Dose 0.2 mg .ROUTE .STK-MED ONE Stop: 03/06/21 13:04 Last Admin: 03/06/21 14:42 Dose: Not Given Documented by: Metoclopramide HCl (Metoclopramide 10 Mg/2 Ml Sdv) 10 mg IVPUSH ONETIME PRN PRN Reason: Nausea/Vomiting Metoprolol Tartrate (Metoprolol Tartrate 25 Mg Tab) 25 mg PO BID KATHERINE Midazolam HCl (Midazolam 1 Mg/Ml 2 Ml Sdv) Confirm Administered Dose 2 mg .ROUTE .STK-MED ONE Stop: 03/06/21 11:29 Miscellaneous Medication (Phenylephrine Hcl In 0.9% Nacl 1 Mg/10 Ml Syringe) Confirm Administered Dose 1 mg .ROUTE .STK-MED ONE Stop: 02/26/21 03:28 Misoprostol (Misoprostol 200 Mcg Tab) 200 mcg PO ONETIME PRN PRN Reason: Post Hemorrhage Misoprostol (Misoprostol 200 Mcg Tab) 1,000 mcg RECTAL ONETIME PRN PRN Reason: excessive bleeding Misoprostol (Misoprostol 200 Mcg Tab) Confirm Administered Dose 200 mcg .ROUTE .STK-MED ONE Stop: 03/06/21 13:04 Last Admin: 03/06/21 14:42 Dose: Not Given Documented by: Morphine Sulfate (Morphine Pf 10 Mg/10 Ml Sdv) Confirm Administered Dose 10 mg .ROUTE .STK-MED ONE Stop: 02/26/21 02:46 Morphine Sulfate (Morphine 4 Mg/Ml Syringe) 4 mg IVPUSH Q4H PRN PRN Reason: Pain (moderate 4-6) Last Admin: 03/01/21 23:24 Dose: 4 mg Documented by: Morphine Sulfate (Morphine 2 Mg/Ml Syringe) 2 mg IVPUSH Q4H PRN PRN Reason: Pain (moderate 4-6) Last Admin: 03/04/21 06:20 Dose: 2 mg Documented by: Morphine Sulfate (Morphine 2 Mg/Ml Syringe) 2 mg IVPUSH Q10M PRN PRN Reason: Pain (severe 7-10) Nalbuphine HCl (Nalbuphine 10 Mg/1 Ml Vial) 10 mg IVPUSH Q1H PRN PRN Reason: Pain (severe 7-10) Nalbuphine HCl (Nalbuphine 10 Mg/1 Ml Vial) 5 mg IVPUSH ASDIRECTED PRN PRN Reason: Itching Naloxone HCl (Naloxone 0.4 Mg/Ml Syringe) 0.1 mg IVPUSH ONETIME PRN PRN Reason: Respiratory Depression Stop: 02/27/21 04:19 Naloxone HCl (Naloxone 0.4 Mg/Ml Syringe) 0.1 mg IVPUSH ASDIRECTED PRN PRN Reason: Respiratory Depression Octyl Cyanoacrylate (Octyl 2-Cyanoacrylate 1 Tube) Confirm Administered Dose 1 applic .ROUTE .STK-MED ONE Stop: 02/26/21 05:03 Ondansetron HCl (Ondansetron 4 Mg/2 Ml Sdv) Confirm Administered Dose 4 mg .ROUTE .STK-MED ONE Stop: 02/26/21 03:28 Ondansetron HCl (Ondansetron 4 Mg/2 Ml Sdv) 4 mg IVPUSH Q6H PRN PRN Reason: Nausea Ondansetron HCl (Ondansetron 4 Mg/2 Ml Sdv) Confirm Administered Dose 4 mg .ROUTE .STK-MED ONE Stop: 03/06/21 11:29 Ondansetron HCl (Ondansetron 4 Mg/2 Ml Sdv) 4 mg IVPUSH ONETIME PRN PRN Reason: Nausea/Vomiting Oxycodone/Acetaminophen (Acetaminophen/Oxycodone 325-5 Mg Tab) 1 tab PO Q4H PRN PRN Reason: Pain (severe 7-10) Last Admin: 03/07/21 22:18 Dose: 1 tab Documented by: Oxycodone/Acetaminophen (Acetaminophen/Oxycodone 325-5 Mg Tab) 2 tab PO Q4H PRN PRN Reason: Pain (severe 7-10) Last Admin: 03/02/21 21:07 Dose: 2 tab Documented by: Oxycodone/Acetaminophen (Acetaminophen/Oxycodone 325-5 Mg Tab) 2 tab PO Q6H PRN PRN Reason: Pain (moderate 4-6) Last Admin: 02/26/21 06:53 Dose: 2 tab Documented by: Oxytocin (Oxytocin 10 Units/1 Ml Sdv) Confirm Administered Dose 30 unit .ROUTE .STK-MED ONE Stop: 02/26/21 03:28 Oxytocin (Oxytocin 10 Units/1 Ml Sdv) 10 unit IM ASDIRECTED PRN PRN Reason: Excessive Vaginal Bleeding Polyethylene Glycol (Polyethylene Glycol 3350 Powder 17 Gm Packet) 17 gm PO ONETIME ONE Stop: 03/02/21 14:18 Last Admin: 03/02/21 14:53 Dose: 17 gm Documented by: Potassium Chloride (Potassium Chloride 20 Meq Tab.Er) 40 meq PO ONETIME ONE Stop: 03/03/21 08:48 Last Admin: 03/03/21 09:48 Dose: 40 meq Documented by: Potassium Chloride (Potassium Chloride 20 Meq Tab.Er) 40 meq PO BID@1000,1400 KATHERINE Stop: 03/05/21 10:01 Last Admin: 03/05/21 09:11 Dose: 40 meq Documented by: Propofol (Propofol 200 Mg/20 Ml Sdv) Confirm Administered Dose 400 mg .ROUTE .STK-MED ONE Stop: 03/06/21 11:29 Rocuronium [place] (Rocuronium [place] 50 Mg/5 Ml Syringe) Confirm Administered Dose 50 mg .ROUTE .STK-MED ONE Stop: 03/06/21 11:34 Sterile Water (Water For Irrigation,Sterile 1,000 Ml Container) 1,000 ml IRR ASDIRECTED PRN PRN Reason: delivery Sugammadex Sodium (Sugammadex Sodium 200 Mg/2 Ml Vial) Confirm Administered Dose 200 mg .ROUTE .STK-MED ONE Stop: 03/06/21 11:34 - Exam Wound/Incisions: Healing Well General: Alert, Oriented HEENT: Pupils Equal Neck: Supple Lungs: Clear to Auscultation, Normal Respiratory Effort Cardiovascular: Regular Rate, Regular Rhythm GI/Abdominal Exam: Normal Bowel Sounds, Soft, Non-Tender, No Organomegaly, No Distention, No Abnormal Bruit, No Mass, Pelvis Stable Extremities: Normal Inspection, Normal Range of Motion, Non-Tender, No Pedal Edema, Normal Capillary Refill Skin: Warm, Dry, Intact Neurological: No New Focal Deficit Psy/Mental Status: Alert, Normal Affect, Normal Mood Sepsis Event Note - Evaluation Sepsis Screening Result: No Definite Risk - Focused Exam Vital Signs: Vital Signs Temp Pulse Pulse Resp BP BP Pulse Ox 03/09/21 09:13 67 125/70 03/09/21 04:00 37.3 C 67 17 125/70 98 03/09/21 00:00 36.7 C 67 17 106/43 L 100 03/08/21 21:36 85 128/63 - Problem List Review Problem List Initiated/Reviewed/Updated: Yes - My Orders Last 24 Hours: Active Orders 24 hr Category Date Time Status VANCOMYCIN TROUGH [CHEM] Routine Lab 03/09/21 16:00 Ordered oxyCODONE Med 03/08/21 12:30 Active 5 mg PO Q8H PRN Medication Orders Albuterol/Ipratropium (Albuterol/Ipratropium 3.0-0.5 Mg/3 Ml Neb Soln) 3 ml NEB Q4HRRT PRN PRN Reason: Wheezing Last Admin: 03/01/21 17:14 Dose: 3 ml Documented by: Admin: 03/01/21 09:27 Dose: 3 ml Documented by: URSULA Carvedilol (Carvedilol 3.125 Mg Tab) 3.125 mg PO BID [facility] Last Admin: 03/09/21 09:13 Dose: 3.125 mg Documented by: Admin: 03/08/21 21:36 Dose: 3.125 mg Documented by: Admin: 03/08/21 08:38 Dose: 3.125 mg Documented by: Admin: 03/07/21 20:16 Dose: 3.125 mg Documented by: Admin: 03/07/21 08:36 Dose: 3.125 mg Documented by: Admin: 03/06/21 20:32 Dose: 3.125 mg Documented by: Admin: 03/06/21 08:30 Dose: 3.125 mg Documented by: Admin: 03/05/21 20:19 Dose: 3.125 mg Documented by: Admin: 03/05/21 08:10 Dose: 3.125 mg Documented by: Admin: 03/04/21 20:41 Dose: 3.125 mg Documented by: Admin: 03/04/21 09:02 Dose: 3.125 mg Documented by: Admin: 03/03/21 20:37 Dose: 3.125 mg Documented by: Admin: 03/03/21 11:39 Dose: 3.125 mg Documented by: MANJIT Diphenhydramine HCl (Diphenhydramine 50 Mg/Ml Sdv) 25 mg IVPUSH Q6H PRN PRN Reason: Itching or Nausea Last Admin: 03/08/21 21:51 Dose: 25 mg Documented by: Admin: 03/06/21 21:53 Dose: 25 mg Documented by: ROWDY Docusate Sodium (Docusate Sodium 100 Mg Cap) 100 mg PO BID [facility] Last Admin: 03/09/21 09:13 Dose: Not Given Documented by: Admin: 03/08/21 21:36 Dose: Not Given Documented by: Admin: 03/08/21 08:38 Dose: Not Given Documented by: Admin: 03/07/21 20:15 Dose: 100 mg Documented by: Admin: 03/07/21 08:37 Dose: 100 mg Documented by: Admin: 03/06/21 20:32 Dose: 100 mg Documented by: Admin: 03/06/21 08:29 Dose: 100 mg Documented by: Admin: 03/05/21 20:19 Dose: 100 mg Documented by: Admin: 03/05/21 08:12 Dose: 100 mg Documented by: Admin: 03/04/21 20:41 Dose: 100 mg Documented by: Admin: 03/04/21 09:01 Dose: 100 mg Documented by: Admin: 03/03/21 20:37 Dose: 100 mg Documented by: Admin: 03/03/21 08:25 Dose: 100 mg Documented by: Admin: 03/02/21 20:23 Dose: 100 mg Documented by: Admin: 03/02/21 09:35 Dose: 100 mg Documented by: Admin: 03/01/21 20:00 Dose: 100 mg Documented by: Admin: 03/01/21 08:48 Dose: 100 mg Documented by: Admin: 02/28/21 20:47 Dose: 100 mg Documented by: Admin: 02/28/21 08:14 Dose: 100 mg Documented by: Admin: 02/27/21 20:15 Dose: 100 mg Documented by: Admin: 02/27/21 08:09 Dose: 100 mg Documented by: Admin: 02/26/21 22:41 Dose: 100 mg Documented by: Admin: 02/26/21 10:00 Dose: 100 mg Documented by: KLAUS Furosemide (Furosemide 40 Mg/4 Ml Vial) 40 mg IVPUSH DAILY [facility] Last Admin: 03/09/21 09:13 Dose: 40 mg Documented by: Admin: 03/08/21 08:43 Dose: 40 mg Documented by: Admin: 03/07/21 08:37 Dose: 40 mg Documented by: Admin: 03/06/21 08:29 Dose: 40 mg Documented by: THAI Meropenem/Sodium Chloride 1 gm (/ Premix) 50 mls @ 100 mls/hr IV Q8H [facility] Last Admin: 03/09/21 09:18 Dose: Not Given Documented by: Infusion: 03/09/21 01:10 Dose: 100 mls/hr Documented by: Admin: 03/09/21 00:40 Dose: 100 mls/hr Documented by: Infusion: 03/08/21 17:03 Dose: 100 mls/hr Documented by: Admin: 03/08/21 16:33 Dose: 100 mls/hr Documented by: Infusion: 03/08/21 09:04 Dose: 100 mls/hr Documented by: Admin: 03/08/21 08:34 Dose: 100 mls/hr Documented by: Infusion: 03/08/21 01:16 Dose: 100 mls/hr Documented by: Admin: 03/08/21 00:46 Dose: 100 mls/hr Documented by: Infusion: 03/07/21 16:57 Dose: 100 mls/hr Documented by: Admin: 03/07/21 16:27 Dose: 100 mls/hr Documented by: Infusion: 03/07/21 09:05 Dose: 100 mls/hr Documented by: Admin: 03/07/21 08:35 Dose: 100 mls/hr Documented by: Infusion: 03/07/21 03:58 Dose: 100 mls/hr Documented by: Admin: 03/06/21 23:32 Dose: 100 mls/hr Documented by: Infusion: 03/06/21 16:27 Dose: 100 mls/hr Documented by: Admin: 03/06/21 15:57 Dose: 100 mls/hr Documented by: Infusion: 03/06/21 10:03 Dose: 100 mls/hr Documented by: Admin: 03/06/21 09:33 Dose: 100 mls/hr Documented by: Infusion: 03/06/21 00:03 Dose: 100 mls/hr Documented by: Admin: 03/05/21 23:33 Dose: 100 mls/hr Documented by: Infusion: 03/05/21 16:11 Dose: 100 mls/hr Documented by: Admin: 03/05/21 15:41 Dose: 100 mls/hr Documented by: Infusion: 03/05/21 08:40 Dose: 100 mls/hr Documented by: Admin: 03/05/21 08:10 Dose: 100 mls/hr Documented by: Infusion: 03/05/21 00:26 Dose: 100 mls/hr Documented by: Admin: 03/04/21 23:56 Dose: 100 mls/hr Documented by: Infusion: 03/04/21 16:50 Dose: 100 mls/hr Documented by: Admin: 03/04/21 16:20 Dose: 100 mls/hr Documented by: Infusion: 03/04/21 09:28 Dose: 100 mls/hr Documented by: Admin: 03/04/21 08:58 Dose: 100 mls/hr Documented by: Infusion: 03/04/21 01:19 Dose: 100 mls/hr Documented by: Admin: 03/04/21 00:49 Dose: 100 mls/hr Documented by: Infusion: 03/03/21 16:35 Dose: 100 mls/hr Documented by: Admin: 03/03/21 16:05 Dose: 100 mls/hr Documented by: Infusion: 03/03/21 08:54 Dose: 100 mls/hr Documented by: Admin: 03/03/21 08:24 Dose: 100 mls/hr Documented by: Infusion: 03/03/21 00:38 Dose: 100 mls/hr Documented by: Admin: 03/03/21 00:08 Dose: 100 mls/hr Documented by: Infusion: 03/02/21 16:20 Dose: 100 mls/hr Documented by: Admin: 03/02/21 15:50 Dose: 100 mls/hr Documented by: Infusion: 03/02/21 08:59 Dose: 100 mls/hr Documented by: Admin: 03/02/21 08:29 Dose: 100 mls/hr Documented by: Infusion: 03/02/21 00:20 Dose: 100 mls/hr Documented by: Admin: 03/01/21 23:50 Dose: 100 mls/hr Documented by: Infusion: 03/01/21 17:18 Dose: 100 mls/hr Documented by: Admin: 03/01/21 16:48 Dose: 100 mls/hr Documented by: MEGAN Vancomycin HCl 1.25 gm/ Sodium (Chloride) 250 mls @ 166.667 mls/hr IV Q12H KATHERINE [facility] Admin: 03/09/21 04:35 Dose: 166 mls/hr Documented by: Infusion: 03/08/21 19:23 Dose: 166 mls/hr Documented by: Admin: 03/08/21 17:52 Dose: 166 mls/hr Documented by: Infusion: 03/08/21 06:08 Dose: 166 mls/hr Documented by: Admin: 03/08/21 04:37 Dose: 166 mls/hr Documented by: Infusion: 03/07/21 19:28 Dose: 166 mls/hr Documented by: Admin: 03/07/21 17:57 Dose: 166 mls/hr Documented by: Infusion: 03/07/21 07:12 Dose: 166 mls/hr Documented by: Admin: 03/07/21 04:00 Dose: 166.6 mls/hr Documented by: Infusion: 03/06/21 19:00 Dose: 166.6 mls/hr Documented by: Admin: 03/06/21 17:26 Dose: 166.6 mls/hr Documented by: Infusion: 03/06/21 05:31 Dose: 166.6 mls/hr Documented by: Admin: 03/06/21 04:00 Dose: 166.6 mls/hr Documented by: Infusion: 03/05/21 19:30 Dose: 166.6 mls/hr Documented by: Admin: 03/05/21 18:00 Dose: 166.667 mls/hr Documented by: Infusion: 03/05/21 06:34 Dose: 166.667 mls/hr Documented by: Admin: 03/05/21 05:04 Dose: 166.667 mls/hr Documented by: Infusion: 03/04/21 18:30 Dose: 166.667 mls/hr Documented by: Admin: 03/04/21 17:00 Dose: 166.667 mls/hr Documented by: Infusion: 03/04/21 06:25 Dose: 166.667 mls/hr Documented by: Admin: 03/04/21 04:55 Dose: 166.667 mls/hr Documented by: Infusion: 03/03/21 17:36 Dose: 166.667 mls/hr Documented by: Admin: 03/03/21 16:06 Dose: 166.667 mls/hr Documented by: Infusion: 03/03/21 05:34 Dose: 166.667 mls/hr Documented by: Admin: 03/03/21 04:04 Dose: 166.667 mls/hr Documented by: Infusion: 03/02/21 18:23 Dose: 166.667 mls/hr Documented by: Admin: 03/02/21 16:53 Dose: 166.667 mls/hr Documented by: Infusion: 03/02/21 05:30 Dose: 166.667 mls/hr Documented by: Admin: 03/02/21 04:00 Dose: 166.667 mls/hr Documented by: Infusion: 03/01/21 19:06 Dose: 166.667 mls/hr Documented by: Admin: 03/01/21 17:36 Dose: 166.667 mls/hr Documented by: MEGAN Lisinopril (Lisinopril 5 Mg Tab) 5 mg PO DAILY [facility] Admin: 03/09/21 09:13 Dose: 5 mg Documented by: Admin: 03/08/21 08:41 Dose: 5 mg Documented by: Admin: 03/07/21 08:37 Dose: 5 mg Documented by: Admin: 03/06/21 08:29 Dose: 5 mg Documented by: Admin: 03/05/21 08:10 Dose: 5 mg Documented by: Admin: 03/04/21 09:01 Dose: 5 mg Documented by: Admin: 03/03/21 08:26 Dose: 5 mg Documented by: Admin: 03/02/21 19:58 Dose: 5 mg Documented by: ROWDY Lorazepam (Lorazepam 2 Mg/Ml Sdv) 1 mg IVPUSH Q4H PRN PRN Reason: Withdrawal Symptoms Last Admin: 03/05/21 22:23 Dose: 1 mg Documented by: Admin: 03/03/21 22:33 Dose: 1 mg Documented by: Admin: 03/03/21 03:31 Dose: 1 mg Documented by: Admin: 03/02/21 21:20 Dose: 1 mg Documented by: Admin: 03/02/21 17:10 Dose: 1 mg Documented by: Admin: 03/02/21 00:13 Dose: 1 mg Documented by: ROWDY Ondansetron HCl (Ondansetron 4 Mg/2 Ml Sdv) 4 mg IVPUSH Q4H PRN PRN Reason: Nausea/Vomiting Oxycodone HCl (Oxycodone 5 Mg Tab) 5 mg PO Q8H PRN PRN Reason: Pain (severe 7-10) Last Admin: 03/09/21 09:22 Dose: 5 mg Documented by: Admin: 03/08/21 21:47 Dose: 5 mg Documented by: Admin: 03/08/21 13:11 Dose: 5 mg Documented by: CHANTEL Polyethylene Glycol (Polyethylene Glycol 3350 Powder 17 Gm Packet) 17 gm PO DAILY PRN PRN Reason: constipation Last Admin: 03/05/21 08:10 Dose: 17 gm Documented by: Admin: 03/03/21 11:40 Dose: 17 gm Documented by: MANJIT Sodium Chloride (Sodium Chloride 0.9% 10 Ml Syringe) 10 ml FLUSH ASDIRECTED PRN PRN Reason: Keep Vein Open Sodium Chloride (Sodium Chloride 0.9% 2.5 Ml Syringe) 2.5 ml FLUSH ASDIRECTED PRN PRN Reason: Keep Vein Open Vancomycin HCl (Pharmacy To Dose - Vancomycin) 0 dose .XX ASDIRECTED KATHERINE - Assessment Assessment (Free Text/Narrative):: Condition is doing well she is trending down with her white count she is ambulatory she had regular diet her incision is clean and dry the ANAIS drain is removed today - Plan Plan (Free Text/Narrative):: Sending her home today on a prescription of Keflex 500 mg by mouth 3 times a day the patient given the poor surgery instruction and she is to come to the office 1 week 4 day of her discharge
[2021-03-09 11:07] VITALS: BP 105/62; PULSE 91
--- NOTE | 2021-03-09 14:20 | PCM.PN ---
- General Info Date of Service: 03/09/21 Admission Dx/Problem (Free Text): Patient Status Order with Admit Dx/Problem 02/26/21 01:05 Patient Status [ADT] Routine Admission Diagnosis/Problem Admission Diagnosis/Problem 02/26/21 02:15 Elisa is a 25 yo current PPD1 s/p repeat LTCS at ~ 37+3 weeks gestation (UMM(LMP) 03/16/2021) without care. A neg/ Rh pos; RhoGam declined by patient last night, "I have never needed that before...". RI, GBS neg. Ax: amoxicillin. Elevation of WBCs noted upon admission, prolonged ROM x 2 days noted. Blanche-operative antibiotics administered. Clindamycin 600 mg IV q [address] Stokes yesterday. Patient C/O severe pain 10/10 and irritability not alleviated with PO/IV analgesias. Severe itching and scratching behaviors noted upon exam, likely related to medication SEs and/or methamphetamine withdrawal. Continued C/O "really bad swelling to my leg and feet", 2-3+ pitting edema BLE and labia. Tachycardia and low urine output noted yesterday evening, EBL ~600 ml during LTCS yesterday; 1000 ml IV LR bolus completed yesterday followed by 12.5 mg HCTZ PO once for BLE pitting edema. Ample clear, yellow urine noted from mendez catheter. Tachycardia and mild hypertension noted, VSs otherwise stable. Plan to repeat CBC, CMP this am, collection pending. Pertinent hx includes: tachycardia and murmur treated with labetolol ([id number]), anxiety, THC use night (last used 1 night ago), methamphetamine use 2 days ago. Social/case work consulted, visited with patient last night, plan still pending. Early US completed in at [facility] as patient was considering at that time; procedure not completed. Otherwise no care this . Ax: amoxicillin. See medical, surgical, social, medication history. Subjective Update: 25-year-old female admitted for sepsis, acute systolic heart failure is status post exploratory laparotomy for evacuation of infected clot from her incision. Patient states she feels better and had a bowel movement yesterday. Her WBC count is downtrending. Her ANAIS drain was removed today. She is tolerating diet well. She is urinating. She is on vancomycin and meropenem. Blood cultures are negative. She denies shortness of breath, chest pain, pedal edema. She denies fever or chills. - Review of Systems General: Denies: Fever, Chills, Night Sweats HEENT: Reports: No Symptoms Pulmonary: Denies: Shortness of Breath, Pleuritic Chest Pain, Cough, Hemoptysis, Wheezing Cardiovascular: Denies: Chest Pain, Palpitations, Dyspnea on Exertion, Orthopnea, PND, Edema, Lightheadedness Gastrointestinal: Denies: Abdominal Pain, Constipation, Diarrhea, Hematochezia, Melena, Nausea, Vomiting Genitourinary: Denies: Dysuria Musculoskeletal: Denies: Leg Pain Skin: Reports: No Symptoms Neurological: Reports: No Symptoms - Patient Data Vitals - Most Recent: Last Vital Signs Temp 98.1 F 03/09/21 08:00 Pulse 67 03/09/21 09:13 Resp 16 03/09/21 08:00 BP 125/70 03/09/21 09:13 Pulse Ox 98 03/09/21 08:00 Weight - Most Recent: 139 lb 14.4 oz I&O - Last 24 Hours: Intake & Output 03/08/21 03/09/21 03/09/21 22:59 06:59 14:59 Intake Total 600 Output Total 400 Balance 200 Lab Results Last 24 Hours: Laboratory Results - last 24 hr 03/09/21 03/09/21 Range/Units 05:05 05:05 WBC 16.24 H (4.0-11.0) K/uL RBC 3.28 L (4.30-5.90) M/uL Hgb 9.4 L (12.0-16.0) g/dL Hct 28.9 L (36.0-46.0) % MCV 88.1 (80.0-98.0) fL MCH 28.7 (27.0-32.0) pg MCHC 32.5 (31.0-37.0) g/dL RDW Std Deviation 45.9 (28.0-62.0) fl RDW Coeff of Idalmis 14 (11.0-15.0) % Plt Count 753 H (150-400) K/uL MPV 8.50 (7.40-12.00) fL Add Manual Diff YES Neutrophils % (Manual) 70 (48.0-80.0) % Band Neutrophils % 2 % Lymphocytes % (Manual) 18 (16.0-40.0) % Monocytes % (Manual) 8 (0.0-15.0) % Eosinophils % (Manual) 2 (0.0-7.0) % Nucleated RBC % 0.0 /100WBC Absolute Seg Neuts 11.4 H (1.4-5.7) Band Neutrophils # 0.3 Lymphocytes # (Manual) 2.9 H (0.6-2.4) Monocytes # (Manual) 1.3 H (0.0-0.8) Eosinophils # (Manual) 0.3 (0.0-0.7) Nucleated RBCs # 0 K/uL Sodium 138 (136-145) mmol/L Potassium 4.4 (3.5-5.1) mmol/L Chloride 103 (98-107) mmol/L Carbon Dioxide 26.4 (21.0-32.0) mmol/L BUN 18 (7.0-18.0) mg/dL Creatinine 0.8 (0.6-1.0) mg/dL Est Cr Clr Drug Dosing 95.89 mL/min Estimated GFR (MDRD) > 60.0 ml/min Glucose 82 (74-106) mg/dL Calcium 8.3 L (8.5-10.1) mg/dL Total Bilirubin 0.3 (0.2-1.0) mg/dL AST 70 H (15-37) IU/L ALT 89 H (14-63) IU/L Alkaline Phosphatase 142 H (46-116) U/L Total Protein 6.1 L (6.4-8.2) g/dL Albumin 2.2 L (3.4-5.0) g/dL Globulin 3.9 (2.6-4.0) g/dL Albumin/Globulin Ratio 0.6 L (0.9-1.6) Fabián Results Last 24 Hours: Microbiology 03/07/21 10:37 Aerobic Blood Culture - Preliminary Blood - Venous - Lab Draw NO GROWTH AFTER 2 DAYS Anaerobic Blood Culture - Final 03/07/21 10:30 Aerobic Blood Culture - Preliminary Blood - Venous NO GROWTH AFTER 2 DAYS Anaerobic Blood Culture - Preliminary NO GROWTH AFTER 2 DAYS 03/05/21 12:35 Urine Culture - Final Urine Med Orders - Current: Current Medications Albuterol/Ipratropium (Albuterol/Ipratropium 3.0-0.5 Mg/3 Ml Neb Soln) 3 ml NEB Q4HRRT PRN PRN Reason: Wheezing Last Admin: 03/01/21 17:14 Dose: 3 ml Documented by: Carvedilol (Carvedilol 3.125 Mg Tab) 3.125 mg PO BID [facility] Last Admin: 03/09/21 09:13 Dose: 3.125 mg Documented by: Diphenhydramine HCl (Diphenhydramine 50 Mg/Ml Sdv) 25 mg IVPUSH Q6H PRN PRN Reason: Itching or Nausea Last Admin: 03/08/21 21:51 Dose: 25 mg Documented by: Docusate Sodium (Docusate Sodium 100 Mg Cap) 100 mg PO BID [facility] Last Admin: 03/09/21 09:13 Dose: Not Given Documented by: Furosemide (Furosemide 40 Mg/4 Ml Vial) 40 mg IVPUSH DAILY [facility] Last Admin: 03/09/21 09:13 Dose: 40 mg Documented by: Meropenem/Sodium Chloride 1 gm (/ Premix) 50 mls @ 100 mls/hr IV Q8H [facility] Last Admin: 03/09/21 09:18 Dose: Not Given Documented by: Vancomycin HCl 1.25 gm/ Sodium (Chloride) 250 mls @ 166.667 mls/hr IV Q12H [facility] Last Admin: 03/09/21 04:35 Dose: 166 mls/hr Documented by: Lisinopril (Lisinopril 5 Mg Tab) 5 mg PO DAILY [facility] Last Admin: 03/09/21 09:13 Dose: 5 mg Documented by: Lorazepam (Lorazepam 2 Mg/Ml Sdv) 1 mg IVPUSH Q4H PRN PRN Reason: Withdrawal Symptoms Last Admin: 03/05/21 22:23 Dose: 1 mg Documented by: Ondansetron HCl (Ondansetron 4 Mg/2 Ml Sdv) 4 mg IVPUSH Q4H PRN PRN Reason: Nausea/Vomiting Oxycodone HCl (Oxycodone 5 Mg Tab) 5 mg PO Q8H PRN PRN Reason: Pain (severe 7-10) Last Admin: 03/09/21 09:22 Dose: 5 mg Documented by: Polyethylene Glycol (Polyethylene Glycol 3350 Powder 17 Gm Packet) 17 gm PO DAILY PRN PRN Reason: constipation Last Admin: 03/05/21 08:10 Dose: 17 gm Documented by: Sodium Chloride (Sodium Chloride 0.9% 10 Ml Syringe) 10 ml FLUSH ASDIRECTED PRN PRN Reason: Keep Vein Open Sodium Chloride (Sodium Chloride 0.9% 2.5 Ml Syringe) 2.5 ml FLUSH ASDIRECTED PRN PRN Reason: Keep Vein Open Vancomycin HCl (Pharmacy To Dose - Vancomycin) 0 dose .XX ASDIRECTED KATHERINE Discontinued Medications Albuterol (Albuterol 0.083% 2.5 Mg/3 Ml Neb Soln) 2.5 mg NEB ONETIME PRN PRN Reason: Wheezing Bisacodyl (Bisacodyl 10 Mg Supp) 10 mg RECTAL ONETIME PRN PRN Reason: Constipation Bisacodyl (Bisacodyl 5 Mg Tab) 10 mg PO ONETIME ONE Stop: 03/05/21 19:10 Last Admin: 03/05/21 20:19 Dose: 10 mg Documented by: Butorphanol Tartrate (Butorphanol 1 Mg/Ml Sdv) 1 mg IVPUSH Q1H PRN PRN Reason: Pain (severe 7-10) Carboprost Tromethamine (Carboprost Tromethamine 250 Mcg/1 Ml Amp) 250 mcg IM ASDIRECTED PRN PRN Reason: Post Hemorrhage Cefazolin Sodium (Cefazolin 1 Gm Vial) Confirm Administered Dose 2 gm .ROUTE .STK-MED ONE Stop: 02/26/21 03:45 Citric Acid/Sodium Citrate (Citric Acid/Sodium Citrate Solution 30 Ml Cup) 30 ml PO ONETIME ONE Stop: 02/26/21 02:01 Last Admin: 02/26/21 05:17 Dose: Not Given Documented by: Dexamethasone (Dexamethasone 4 Mg/Ml 5 Ml Mdv) Confirm Administered Dose 20 mg .ROUTE .STK-MED ONE Stop: 03/06/21 11:29 Diphenhydramine HCl (Diphenhydramine 50 Mg/Ml Sdv) 12.5 mg IVPUSH Q2H PRN PRN Reason: Itching Droperidol (Droperidol 5 Mg/2 Ml Sdv) 0.625 mg IVPUSH ONETIME PRN PRN Reason: Nausea/Vomiting Emollient Ointment (Lanolin 100% Cream 7 Gm Tube) 0 gm TOP ASDIRECTED PRN PRN Reason: Sore Nipples Enoxaparin Sodium (Enoxaparin 40 Mg/0.4 Ml Syringe) 40 mg SUBCUT Q24H [facility] Last Admin: 03/05/21 12:58 Dose: 40 mg Documented by: Ephedrine Sulfate (Ephedrine 50 Mg/Ml Sdv) 10 mg IVPUSH Q5M PRN PRN Reason: Hypotension Fentanyl (Fentanyl 100 Mcg/2 Ml Sdv) Confirm Administered Dose 100 mcg .ROUTE .STK-MED ONE Stop: 02/26/21 02:45 Fentanyl (Fentanyl 100 Mcg/2 Ml Sdv) 50 mcg IVPUSH Q1H PRN PRN Reason: Pain (severe 7-10) Fentanyl (Fentanyl 100 Mcg/2 Ml Sdv) Confirm Administered Dose 100 mcg .ROUTE .STK-MED ONE Stop: 03/06/21 11:29 Fentanyl (Fentanyl 100 Mcg/2 Ml Sdv) 50 mcg IVPUSH Q5M PRN PRN Reason: Pain (mild 1-3) Furosemide (Furosemide 20 Mg/2 Ml Vial) 40 mg IVPUSH NOW ONE Stop: 02/27/21 09:02 Last Admin: 02/27/21 09:17 Dose: 40 mg Documented by: Furosemide (Furosemide 40 Mg/4 Ml Vial) 40 mg IVPUSH NOW ONE Stop: 03/01/21 15:43 Last Admin: 03/01/21 15:53 Dose: 40 mg Documented by: Furosemide (Furosemide 40 Mg/4 Ml Vial) 40 mg IVPUSH DAILY [facility] Last Admin: 03/02/21 09:36 Dose: 40 mg Documented by: Furosemide (Furosemide 20 Mg/2 Ml Vial) 20 mg IVPUSH NOW ONE Stop: 03/01/21 23:40 Last Admin: 03/01/21 23:50 Dose: 20 mg Documented by: Furosemide (Furosemide 40 Mg/4 Ml Vial) 40 mg IVPUSH Q8H [facility] Last Admin: 03/02/21 14:05 Dose: Not Given Documented by: Furosemide (Furosemide 40 Mg/4 Ml Vial) 40 mg IVPUSH Q8H [facility] Last Admin: 03/04/21 09:01 Dose: 40 mg Documented by: Furosemide (Furosemide 40 Mg/4 Ml Vial) 40 mg IVPUSH Q12H [facility] Last Admin: 03/05/21 08:10 Dose: 40 mg Documented by: Hydrochlorothiazide (Hydrochlorothiazide 12.5 Mg Cap) 12.5 mg PO BEDTIME KATHERINE Last Admin: 02/28/21 20:00 Dose: 12.5 mg Documented by: Hydromorphone HCl (Hydromorphone 2 Mg/Ml Syringe) 1 mg IVPUSH Q10M PRN PRN Reason: Pain (moderate 4-6) Last Admin: 03/06/21 13:50 Dose: 1 mg Documented by: Lactated Ringer's (Ringers, Lactated) 1,000 mls @ 500 mls/hr IV BOLUS KATHERINE Last Admin: 02/26/21 02:20 Dose: 500 mls/hr Documented by: Oxytocin/Sodium Chloride (Oxytocin 30 Unit/500 Ml-Ns) 30 unit in 500 mls @ 250 mls/hr IV TITRATE [facility] Lactated Ringer's (Ringers, Lactated) 1,000 mls @ 150 mls/hr IV ASDIRECTED [facility] Last Infusion: 02/28/21 08:50 Dose: 50 mls/hr Documented by: Tranexamic Acid 1,000 mg/ (Sodium Chloride) 110 mls @ 660 mls/hr IV ONETIME PRN PRN Reason: Bleeding Sodium Chloride (Normal Saline) Confirm Administered Dose 20 mls @ as directed .ROUTE .[facility]-MED ONE Stop: 02/26/21 03:45 Lactated Ringer's (Ringers, Lactated) 1,000 mls @ 125 mls/hr IV ASDIRECTED [facility] Last Infusion: 02/28/21 01:00 Dose: Infused Documented by: Tranexamic Acid 1,000 mg/ (Sodium Chloride) 110 mls @ 660 mls/hr IV ONETIME PRN PRN Reason: Bleeding Clindamycin Phosphate 600 mg/ (Sodium Chloride) 54 mls @ 100 mls/hr IV Q6H KATHERINE Clindamycin Phosphate 900 mg/ (Premix) 75 mls @ 150 mls/hr IV Q6H KATHERINE Clindamycin Phosphate 600 mg/ (Premix) 50 mls @ 100 mls/hr IV Q6H [facility] Last Admin: 03/01/21 15:53 Dose: 100 mls/hr Documented by: Cefazolin Sodium/Dextrose 1 gm (/ Premix) 50 mls @ 100 mls/hr IV Q8H [facility] Last Admin: 03/01/21 14:00 Dose: 100 mls/hr Documented by: Lactated Ringer's (Ringers, Lactated) 1,000 mls @ 50 mls/hr IV ASDIRECTED KATHERINE Last Infusion: 03/01/21 08:30 Dose: 10 mls/hr Documented by: Lactated Ringer's (Ringers, Lactated) 1,000 mls @ 10 mls/hr IV ASDIRECTED [facility] Magnesium Sulfate 2 gm/ Premix 50 mls @ 12.5 mls/hr IV ONETIME ONE Stop: 03/01/21 15:23 Last Admin: 03/01/21 11:43 Dose: 12.5 mls/hr Documented by: Furosemide 40 mg/ Sodium (Chloride) 54 mls @ 100 mls/hr IV Q12H [facility] Last Admin: 03/01/21 17:30 Dose: Not Given Documented by: Azithromycin 500 mg/ Sodium (Chloride) 250 mls @ 250 mls/hr IV DAILY [facility] Last Admin: 03/06/21 08:30 Dose: 250 mls/hr Documented by: Magnesium Sulfate 4 gm/ Premix 100 mls @ 50 mls/hr IV ONETIME ONE Stop: 03/03/21 10:46 Last Admin: 03/03/21 09:47 Dose: 50 mls/hr Documented by: Sodium Chloride (Normal Saline) Confirm Administered Dose 20 mls @ as directed .ROUTE .STK-MED ONE Stop: 03/06/21 12:43 Ibuprofen (Ibuprofen 800 Mg Tab) 800 mg PO Q8H PRN PRN Reason: mild pain or fever Iopamidol (Iopamidol 755 Mg/Ml 500 Ml Multipack Bottle) 75 ml IVPUSH ONETIME STA Stop: 03/02/21 13:47 Last Admin: 03/02/21 13:46 Dose: 75 ml Documented by: Iopamidol (Iopamidol 755 Mg/Ml 500 Ml Multipack Bottle) 100 ml IVPUSH ONETIME STA Stop: 03/05/21 17:48 Last Admin: 03/05/21 17:48 Dose: 100 ml Documented by: Ketorolac Tromethamine (Ketorolac 30 Mg/Ml Sdv) Confirm Administered Dose 30 mg .ROUTE .STK-MED ONE Stop: 02/26/21 03:28 Ketorolac Tromethamine (Ketorolac 30 Mg/Ml Sdv) 30 mg IVPUSH Q6H [facility] Stop: 02/27/21 04:01 Last Admin: 02/27/21 04:10 Dose: 30 mg Documented by: Labetalol HCl (Labetalol 100 Mg Tab) 200 mg PO DAILY [facility] Last Admin: 03/01/21 08:48 Dose: 200 mg Documented by: Lidocaine (Lidocaine 2% 5 Ml Sdv) Confirm Administered Dose 5 ml .ROUTE .STK-MED ONE Stop: 03/06/21 11:29 Lidocaine HCl (Lidocaine 1% 50 Ml Mdv) 50 ml INJECT ONETIME PRN PRN Reason: Laceration repair Lisinopril (Lisinopril 5 Mg Tab) 5 mg PO DAILY [facility] Lorazepam (Lorazepam 2 Mg/Ml Sdv) 1 mg IVPUSH ONETIME ONE Stop: 03/01/21 11:15 Last Admin: 03/01/21 11:44 Dose: 1 mg Documented by: Lorazepam (Lorazepam 2 Mg/Ml Sdv) 2 mg IVPUSH ONETIME ONE Stop: 03/02/21 00:15 Last Admin: 03/02/21 00:25 Dose: 2 mg Documented by: Magnesium Hydroxide (Magnesium Hydroxide 400 Mg/5 Ml Susp 30 Ml Cup) 30 ml PO ONETIME ONE Stop: 03/05/21 12:30 Last Admin: 03/05/21 12:57 Dose: 30 ml Documented by: Magnesium Oxide (Magnesium Oxide 400 Mg Tab) 800 mg PO ONETIME ONE Stop: 03/04/21 10:11 Last Admin: 03/04/21 10:30 Dose: 800 mg Documented by: Magnesium Oxide (Magnesium Oxide 400 Mg Tab) 800 mg PO ONETIME ONE Stop: 03/05/21 12:33 Last Admin: 03/05/21 12:57 Dose: 800 mg Documented by: Methylergonovine Maleate (Methylergonovine 0.2 Mg/1 Ml Amp) 0.2 mg IM ONETIME PRN PRN Reason: Excessive Vaginal Bleeding Methylergonovine Maleate (Methylergonovine 0.2 Mg/1 Ml Amp) Confirm Administered Dose 0.2 mg .ROUTE .STK-MED ONE Stop: 03/06/21 13:04 Last Admin: 03/06/21 14:42 Dose: Not Given Documented by: Metoclopramide HCl (Metoclopramide 10 Mg/2 Ml Sdv) 10 mg IVPUSH ONETIME PRN PRN Reason: Nausea/Vomiting Metoprolol Tartrate (Metoprolol Tartrate 25 Mg Tab) 25 mg PO BID KATHERINE Midazolam HCl (Midazolam 1 Mg/Ml 2 Ml Sdv) Confirm Administered Dose 2 mg .ROUTE .STK-MED ONE Stop: 03/06/21 11:29 Miscellaneous Medication (Phenylephrine Hcl In 0.9% Nacl 1 Mg/10 Ml Syringe) Confirm Administered Dose 1 mg .ROUTE .STK-MED ONE Stop: 02/26/21 03:28 Misoprostol (Misoprostol 200 Mcg Tab) 200 mcg PO ONETIME PRN PRN Reason: Post Hemorrhage Misoprostol (Misoprostol 200 Mcg Tab) 1,000 mcg RECTAL ONETIME PRN PRN Reason: excessive bleeding Misoprostol (Misoprostol 200 Mcg Tab) Confirm Administered Dose 200 mcg .ROUTE .STK-MED ONE Stop: 03/06/21 13:04 Last Admin: 03/06/21 14:42 Dose: Not Given Documented by: Morphine Sulfate (Morphine Pf 10 Mg/10 Ml Sdv) Confirm Administered Dose 10 mg .ROUTE .STK-MED ONE Stop: 02/26/21 02:46 Morphine Sulfate (Morphine 4 Mg/Ml Syringe) 4 mg IVPUSH Q4H PRN PRN Reason: Pain (moderate 4-6) Last Admin: 03/01/21 23:24 Dose: 4 mg Documented by: Morphine Sulfate (Morphine 2 Mg/Ml Syringe) 2 mg IVPUSH Q4H PRN PRN Reason: Pain (moderate 4-6) Last Admin: 03/04/21 06:20 Dose: 2 mg Documented by: Morphine Sulfate (Morphine 2 Mg/Ml Syringe) 2 mg IVPUSH Q10M PRN PRN Reason: Pain (severe 7-10) Nalbuphine HCl (Nalbuphine 10 Mg/1 Ml Vial) 10 mg IVPUSH Q1H PRN PRN Reason: Pain (severe 7-10) Nalbuphine HCl (Nalbuphine 10 Mg/1 Ml Vial) 5 mg IVPUSH ASDIRECTED PRN PRN Reason: Itching Naloxone HCl (Naloxone 0.4 Mg/Ml Syringe) 0.1 mg IVPUSH ONETIME PRN PRN Reason: Respiratory Depression Stop: 02/27/21 04:19 Naloxone HCl (Naloxone 0.4 Mg/Ml Syringe) 0.1 mg IVPUSH ASDIRECTED PRN PRN Reason: Respiratory Depression Octyl Cyanoacrylate (Octyl 2-Cyanoacrylate 1 Tube) Confirm Administered Dose 1 applic .ROUTE .STK-MED ONE Stop: 02/26/21 05:03 Ondansetron HCl (Ondansetron 4 Mg/2 Ml Sdv) Confirm Administered Dose 4 mg .ROUTE .STK-MED ONE Stop: 02/26/21 03:28 Ondansetron HCl (Ondansetron 4 Mg/2 Ml Sdv) 4 mg IVPUSH Q6H PRN PRN Reason: Nausea Ondansetron HCl (Ondansetron 4 Mg/2 Ml Sdv) Confirm Administered Dose 4 mg .ROUTE .STK-MED ONE Stop: 03/06/21 11:29 Ondansetron HCl (Ondansetron 4 Mg/2 Ml Sdv) 4 mg IVPUSH ONETIME PRN PRN Reason: Nausea/Vomiting Oxycodone/Acetaminophen (Acetaminophen/Oxycodone 325-5 Mg Tab) 1 tab PO Q4H PRN PRN Reason: Pain (severe 7-10) Last Admin: 03/07/21 22:18 Dose: 1 tab Documented by: Oxycodone/Acetaminophen (Acetaminophen/Oxycodone 325-5 Mg Tab) 2 tab PO Q4H PRN PRN Reason: Pain (severe 7-10) Last Admin: 03/02/21 21:07 Dose: 2 tab Documented by: Oxycodone/Acetaminophen (Acetaminophen/Oxycodone 325-5 Mg Tab) 2 tab PO Q6H PRN PRN Reason: Pain (moderate 4-6) Last Admin: 02/26/21 06:53 Dose: 2 tab Documented by: Oxytocin (Oxytocin 10 Units/1 Ml Sdv) Confirm Administered Dose 30 unit .ROUTE .STK-MED ONE Stop: 02/26/21 03:28 Oxytocin (Oxytocin 10 Units/1 Ml Sdv) 10 unit IM ASDIRECTED PRN PRN Reason: Excessive Vaginal Bleeding Polyethylene Glycol (Polyethylene Glycol 3350 Powder 17 Gm Packet) 17 gm PO ONETIME ONE Stop: 03/02/21 14:18 Last Admin: 03/02/21 14:53 Dose: 17 gm Documented by: Potassium Chloride (Potassium Chloride 20 Meq Tab.Er) 40 meq PO ONETIME ONE Stop: 03/03/21 08:48 Last Admin: 03/03/21 09:48 Dose: 40 meq Documented by: Potassium Chloride (Potassium Chloride 20 Meq Tab.Er) 40 meq PO BID@1000,1400 KATHERINE Stop: 03/05/21 10:01 Last Admin: 03/05/21 09:11 Dose: 40 meq Documented by: Propofol (Propofol 200 Mg/20 Ml Sdv) Confirm Administered Dose 400 mg .ROUTE .STK-MED ONE Stop: 03/06/21 11:29 Rocuronium [place] (Rocuronium [place] 50 Mg/5 Ml Syringe) Confirm Administered Dose 50 mg .ROUTE .STK-MED ONE Stop: 03/06/21 11:34 Sterile Water (Water For Irrigation,Sterile 1,000 Ml Container) 1,000 ml IRR ASDIRECTED PRN PRN Reason: delivery Sugammadex Sodium (Sugammadex Sodium 200 Mg/2 Ml Vial) Confirm Administered Dose 200 mg .ROUTE .STK-MED ONE Stop: 03/06/21 11:34 - Exam Central Line Total Time: 6Days 0Hours Urinary Catheter Total Time: 6Days 8Hours General: Alert, Oriented, Cooperative, No Acute Distress HEENT: Pupils Equal Neck: Supple Lungs: Clear to Auscultation Cardiovascular: Regular Rate, Regular Rhythm, No Murmurs. No: Gallops GI/Abdominal Exam: Normal Bowel Sounds, Soft, Non-Tender, No Distention, Other (Incision is clean dry and intact.) Extremities: Normal Inspection, Normal Range of Motion, No Pedal Edema. No: Tristian's Sign Peripheral Pulses: 2+: Dorsalis Pedis (L), Dorsalis Pedis (R) Skin: Warm, Dry, Intact Wound/Incisions: Healing Well, Dressing Dry and Intact Neurological: No New Focal Deficit Psy/Mental Status: Alert, Normal Affect - Patient Data Lab Results Last 24 hrs: Laboratory Results - last 24 hr 03/09/21 03/09/21 Range/Units 05:05 05:05 WBC 16.24 H (4.0-11.0) K/uL RBC 3.28 L (4.30-5.90) M/uL Hgb 9.4 L (12.0-16.0) g/dL Hct 28.9 L (36.0-46.0) % MCV 88.1 (80.0-98.0) fL MCH 28.7 (27.0-32.0) pg MCHC 32.5 (31.0-37.0) g/dL RDW Std Deviation 45.9 (28.0-62.0) fl RDW Coeff of Idalmis 14 (11.0-15.0) % Plt Count 753 H (150-400) K/uL MPV 8.50 (7.40-12.00) fL Add Manual Diff YES Neutrophils % (Manual) 70 (48.0-80.0) % Band Neutrophils % 2 % Lymphocytes % (Manual) 18 (16.0-40.0) % Monocytes % (Manual) 8 (0.0-15.0) % Eosinophils % (Manual) 2 (0.0-7.0) % Nucleated RBC % 0.0 /100WBC Absolute Seg Neuts 11.4 H (1.4-5.7) Band Neutrophils # 0.3 Lymphocytes # (Manual) 2.9 H (0.6-2.4) Monocytes # (Manual) 1.3 H (0.0-0.8) Eosinophils # (Manual) 0.3 (0.0-0.7) Nucleated RBCs # 0 K/uL Sodium 138 (136-145) mmol/L Potassium 4.4 (3.5-5.1) mmol/L Chloride 103 (98-107) mmol/L Carbon Dioxide 26.4 (21.0-32.0) mmol/L BUN 18 (7.0-18.0) mg/dL Creatinine 0.8 (0.6-1.0) mg/dL Est Cr Clr Drug Dosing 95.89 mL/min Estimated GFR (MDRD) > 60.0 ml/min Glucose 82 (74-106) mg/dL Calcium 8.3 L (8.5-10.1) mg/dL Total Bilirubin 0.3 (0.2-1.0) mg/dL AST 70 H (15-37) IU/L ALT 89 H (14-63) IU/L Alkaline Phosphatase 142 H (46-116) U/L Total Protein 6.1 L (6.4-8.2) g/dL Albumin 2.2 L (3.4-5.0) g/dL Globulin 3.9 (2.6-4.0) g/dL Albumin/Globulin Ratio 0.6 L (0.9-1.6) Result Diagrams: 03/09/21 05:05 03/09/21 05:05 Fabián Results Last 24 hrs: Microbiology 03/07/21 10:37 Aerobic Blood Culture - Preliminary Blood - Venous - Lab Draw NO GROWTH AFTER 2 DAYS Anaerobic Blood Culture - Final 03/07/21 10:30 Aerobic Blood Culture - Preliminary Blood - Venous NO GROWTH AFTER 2 DAYS Anaerobic Blood Culture - Preliminary NO GROWTH AFTER 2 DAYS 03/05/21 12:35 Urine Culture - Final Urine Sepsis Event Note - Evaluation Sepsis Screening Result: No Definite Risk - Focused Exam Vital Signs: Vital Signs Temp Pulse Pulse Resp BP BP Pulse Ox 03/09/21 09:13 67 125/70 03/09/21 08:00 98.1 F 91 16 105/62 98 03/09/21 04:00 99.2 F 67 17 125/70 98 - Problem List & Annotations (1) Acute respiratory failure with hypoxia SNOMED Code(s): 42999795, 820513480 Code(s): J96.01 - ACUTE RESPIRATORY FAILURE WITH HYPOXIA Status: Acute Current Visit: Yes (2) Acute systolic heart failure SNOMED Code(s): 507735213 Code(s): I50.21 - ACUTE SYSTOLIC (CONGESTIVE) HEART FAILURE Status: Acute Current Visit: Yes (3) Cardiomyopathy SNOMED Code(s): 72774605 Code(s): I42.9 - CARDIOMYOPATHY, UNSPECIFIED Status: Acute Current Visit: Yes (4) Drug abuse, amphetamine type SNOMED Code(s): 97622338 Code(s): F15.10 - OTHER STIMULANT ABUSE, UNCOMPLICATED Status: Acute Current Visit: Yes (5) Elevated WBC count SNOMED Code(s): 153819300, 560029631 Code(s): D72.829 - ELEVATED WHITE BLOOD CELL COUNT, UNSPECIFIED Status: Acute Priority: High Current Visit: Yes (6) Prolonged rupture of membranes SNOMED Code(s): 79228379 Code(s): O42.90 - MIRIAN ROM, 7TH0 BETW RUPT & ONST LABR, UNSP WEEKS OF GEST Status: Acute Current Visit: Yes (7) Status post repeat low transverse section SNOMED Code(s): 709296024, 20981615, 988956246, 008250908, 454152770 Code(s): Z98.891 - HISTORY OF UTERINE SCAR FROM PREVIOUS SURGERY Status: Acute Priority: High Current Visit: Yes - Problem List Review Problem List Initiated/Reviewed/Updated: Yes - Plan Plan:: 25-year-old female admitted for sepsis, acute systolic heart failure resulting in acute hypoxic respiratory failure. Patient is on day 9 of vancomycin and meropenem. Her WBC count has down trended today to 16. She remains afebrile. She is status post exploratory laparotomy for evacuation of hematoma. ANAIS drain removed by Dr. Stokes. Repeat blood cultures are negative. Continue patient on antibiotics. Patient will need close follow-up with Dr. Stokes for management of her infection. Patient is stable from a cardiac standpoint. Patient given prescription for Lasix 20 mg daily, lisinopril 5 mg daily and Coreg 3.125 mg twice daily, for when the patient is discharged. Patient educated on importance of daily weights and low-sodium diet. Patient educated on risks, benefits and alternatives for medications. Patient has a cardiology appointment scheduled outpatient for 03/21/2021 and will need close follow-up to manage her cardiomyopathy. Patient will need to see psychiatrist for her underlying depression and drug abuse outpatient basis
== END 2021-03-09 10:58 | disposition home or self-care (01) | DRG 786 ==
LOC: MW.OBCHECK 00:23 → MW.OB 02:32 → OBSVTOIN 03:41 → MW.OB 03:41 → MW.ICU 02-27 11:29 → MW.MS 03-07 15:39
PROVIDERS: ADMIT Obstetrics & Gynecology; ATTEND Obstetrics & Gynecology
PROC: 10D00Z1 Extraction of Products of Conception, Low, Open Approach (ICD-10-PCS; 2021-02-26)
PROC: 02HV33Z Insertion of Infusion Device into Superior Vena Cava, Percutaneous Approach (ICD-10-PCS; 2021-02-27)
PROC: 3E0234Z Introduction of Serum, Toxoid and Vaccine into Muscle, Percutaneous Approach (ICD-10-PCS; 2021-02-27)
PROC: 30233N1 Transfusion of Nonautologous Red Blood Cells into Peripheral Vein, Percutaneous Approach (ICD-10-PCS; principal; 2021-02-28)
PROC: XW033N5 Introduction of Meropenem-vaborbactam Anti-infective into Peripheral Vein, Percutaneous Approach, New Technology Group 5 (ICD-10-PCS; 2021-03-01)
PROC: 0J980ZZ Drainage of Abdomen Subcutaneous Tissue and Fascia, Open Approach (ICD-10-PCS; 2021-03-07)
PROC: 0UC Female Reproductive System, Extirpation (ICD-10-PCS; 2021-03-07)
DX: O34.211 Maternal care for low transverse scar from previous cesarean delivery (principal); O75.3 Other infection during labor; I50.21 Acute systolic (congestive) heart failure; J96.01 Acute respiratory failure with hypoxia; A41.9 Sepsis, unspecified organism; O99.42 Diseases of the circulatory system complicating childbirth; N71.0 Acute inflammatory disease of uterus; O99.324 Drug use complicating childbirth; I42.9 Cardiomyopathy, unspecified; Z20.822 Contact with and (suspected) exposure to COVID-19; O99.52 Diseases of the respiratory system complicating childbirth; O99.334 Smoking (tobacco) complicating childbirth; F17.210 Nicotine dependence, cigarettes, uncomplicated; F15.10 Other stimulant abuse, uncomplicated; Z37.0 Single live birth; O99.344 Other mental disorders complicating childbirth; F41.9 Anxiety disorder, unspecified; O42.12 Full-term premature rupture of membranes, onset of labor more than 24 hours following rupture; O99.284 Endocrine, nutritional and metabolic diseases complicating childbirth; E87.6 Hypokalemia; E83.42 Hypomagnesemia; O26.893 Other specified pregnancy related conditions, third trimester; M79.89 Other specified soft tissue disorders; O99.892 Other specified diseases and conditions complicating childbirth; Z67.11 Type A blood, Rh negative; Z3A.37 37 weeks gestation of pregnancy
CPT/HCPCS: 00400; 36415; 36430; 59025; 71045; 71045-26; 71250; 71250-26; 71275; 71275-26; 74150; 74150-26; 74178; 74178-26; 80048; 80053; 80202; 80305-QW; 81001; 82570; 83605; 83735; 83880; 84100; 84112; 84156; 84300; 84484; 84540; 85025; 85027; 85460; 86592; 86762; 86803; 86850; 86870; 86900; 86901; 86920; 86921; 86922; 87040; 87070; 87086; 87205; 87340; 87389; 87491; 87591; 87653; 88307; 93005; 93306; 94640; 94660; 94667; 97110-GP; 97163-GP; A9270-GY; J0456; J0690; J1100; J1170; J1200; J1650; J1885; J1940; J2060; J2185; J2250; J2270; J2370; J2405; J2590; J2704; J2790; J3010; J3370; J3475; J3490; J7050; J7120; J7620-GY; P9016; Q9967; U0002

== ENCOUNTER 2022-10-11 20:05 | Emergency (ER) | payer SELFPAY | END 2022-10-11 20:11 | disposition left against medical advice (07) | LOC: MW.ED 20:05 | DX: Z53.21 Procedure and treatment not carried out due to patient leaving prior to being seen by health care provider (principal) ==

== ENCOUNTER 2023-06-19 09:56 | Emergency (ER) | payer SELFPAY | END 2023-06-19 10:05 | disposition left against medical advice (07) | LOC: MW.ED 09:56 | DX: Z53.21 Procedure and treatment not carried out due to patient leaving prior to being seen by health care provider (principal) ==

== ENCOUNTER 2023-07-27 20:03 | Inpatient (IN) | payer MEDICAID ==
[2023-07-27] MEDS ORDERED: Citric Acid/Sodium Citrate Solution 30 ML Cup PO ONE (20:55)
[2023-07-27] MEDS ORDERED: Sodium Chloride 0.9% 10 ML Syringe FLUSH PRN (20:55)
[2023-07-27] MEDS ORDERED: Sodium Chloride 0.9% 20 ML SDV IV PRN (20:55)
[2023-07-27] MEDS ORDERED: Sodium Chloride 0.9% 2.5 ML Syringe FLUSH PRN (20:55)
[2023-07-27] MEDS ORDERED: NIFEdipine 30 MG Tab.ER PO ONE (20:59)
[2023-07-27] MEDS ORDERED: Lactated Ringers 2,000 ML IV SCH (21:00)
[2023-07-27] MEDS ORDERED: Oxytocin/0.9 % Sodium Chloride 30 UNIT/500 ML BAG IV SCH (21:00)
[2023-07-27] MEDS ORDERED: NIFEdipine 10 MG Cap ONE (21:04)
[2023-07-27 21:38] LABS: HEMATOCRIT 29.7 % (37.0-47.0); HEMOGLOBIN 10.3 g/dL (12.0-16.0); MEAN CORPUSCULAR HEMOGLOBIN 27.4 pg (28.0-32.0); MEAN CORPUSCULAR HGB CONC 34.7 g/dL (32.0-36.0); MEAN PLATELET VOLUME 9.1 fL (9.4-12.3); NRBC ABSOLUTE 0.03 K/uL (0.00-0.02); NRBC PERCENT 0.2 /100WBC (0.0-0.2); PLATELET COUNT,PLT 252 K/uL (150-400); RED BLOOD CELL COUNT 3.76 M/uL (4.10-5.30); WHITE BLOOD CELL COUNT,WBC 15.73 K/uL (3.9-11.3)
[2023-07-27] MEDS ORDERED: Azithromycin 500 MG Vial ONE (21:55)
[2023-07-27] MEDS ORDERED: Sodium Chloride 0.9% 250 ML ONE (21:56)
[2023-07-27 22:02] LABS: ALANINE AMINOTRANSFERASE,ALT 19 IU/L (14-63); ALBUMIN 2.4 g/dL (3.4-5.0); ALKALINE PHOSPHATASE 227 U/L (46-116); ASPARTATE AMNIOTRANSFERASE,AST 29 IU/L (15-37); BILIRUBIN TOTAL 0.2 mg/dL (0.2-1.0); BLOOD UREA NITROGEN,BUN 10 mg/dL (7.0-18.0); CALCIUM 8.6 mg/dL (8.5-10.1); CARBON DIOXIDE,CO2 19.9 mmol/L (21.0-32.0); CHLORIDE,CL 104 mmol/L (98-107); CREATININE 0.9 mg/dL (0.6-1.0); EST CRCL DRUG DOSING (CG) 76.98 mL/min; GLUCOSE RANDOM 66 mg/dL (74-106); POTASSIUM,K 4.2 mmol/L (3.5-5.1); PROTEIN TOTAL,TP 6.8 g/dL (6.4-8.2); SODIUM,NA 137 mmol/L (136-145)
[2023-07-27] MEDS ORDERED: fentaNYL 100 MCG/2 ML SDV ONE ×2 (22:02→23:38)
[2023-07-27] MEDS ORDERED: EPINEPHrine 1 MG/1 ML Amp ONE (22:04)
[2023-07-27 22:05] LABS: A/G RATIO 0.6 (0.9-1.6); ESTIMATED GFR 89 mL/min (>60)
[2023-07-27] MEDS ORDERED: Ropivacaine 0.5% 5 MG/ML 30 ML SDV ONE (22:13)
[2023-07-27] MEDS ORDERED: Famotidine 20 MG/2 ML SDV ONE (22:13)
[2023-07-27] MEDS ORDERED: Ketamine 500 mg/10 ML MDV ONE (22:52)
[2023-07-27] MEDS ORDERED: Midazolam 1 MG/ML 2 ML SDV ONE (22:54)
[2023-07-27] MEDS ORDERED: Tranexamic Acid 1,000 MG/10 ML Vial ONE (23:08)
[2023-07-27] MEDS ORDERED: Water For Injection, Sterile 60 ML ONE (23:44)
[2023-07-27] MEDS ORDERED: Phenylephrine 1% 10 MG/ML SDV ONE (23:44)
[2023-07-27] MEDS ORDERED: ePHEDrine 50 MG/ML SDV ONE (23:44)
[2023-07-27] MEDS ORDERED: Dexamethasone 4 MG/ML 5 ML MDV ONE (23:44)
[2023-07-27] MEDS ORDERED: dexmedeTOMIDine HCl 200 MCG/2 ML SDV ONE (23:44)
[2023-07-27] MEDS ORDERED: Ondansetron 4 MG/2 ML SDV ONE (23:44)
[2023-07-27] MEDS ORDERED: Oxytocin 10 Units/1 ML SDV ONE (23:44)
[2023-07-27] MEDS ORDERED: Phenylephrine HCl 0.5 MG/5 ML AMP ONE (23:44)
[2023-07-27] MEDS ORDERED: ceFAZolin 2 GM Vial ONE (23:44)
[2023-07-28 00:08] LABS: APPEARANCE,URINE CLEAR; BILIRUBIN,URINE NEGATIVE (NEGATIVE); COLOR,URINE YELLOW; GLUCOSE,URINE NEGATIVE (NEGATIVE); KETONES,URINE NEGATIVE (NEGATIVE); LEUKOCYTE ESTERASE,URINE NEGATIVE (NEGATIVE); NITRITE,URINE NEGATIVE (NEGATIVE); OCCULT BLOOD,URINE TRACE-INTACT (NEGATIVE); PROTEIN,URINE TRACE mg/dL (NEGATIVE); UROBILINOGEN,URINE 0.2 EU/dL (<2.0)
[2023-07-28 00:15] LABS: BACTERIA,URINE RARE (NEGATIVE); EPITHELIAL CELLS,URINE FEW (NONE-FEW); MUCUS,URINE LIGHT (NONE-MOD); RBC,URINE 0-2 (0-2/HPF)
[2023-07-28 00:17] LABS: AMPHETAMINES SCREEN, URINE PRESUMPTIVE POSITIVE (CUTOFF=500); BARBITURATE SCREEN,URINE NEGATIVE (CUTOFF=200); BENZODIAZEPINES SCREEN,URINE NEGATIVE (CUTOFF=150); BUPRENORPHINE SCREEN,URINE NEGATIVE (CUTOFF=10); METHADONE SCREEN, URINE NEGATIVE (CUTOFF=200); METHAMPHETAMINES SCREEN, URINE PRESUMPTIVE POSITIVE (CUTOFF=500); OXYCODONE SCREEN,URINE NEGATIVE (CUT0FF=100); PCP SCREEN,URINE NEGATIVE (CUTOFF=25); THC SCREEN,URINE 20 NG/ML PRESUMPTIVE POSITIVE (CUTOFF=50)
[2023-07-28] MEDS ORDERED: Lanolin 100% Cream 7 GM Tube TOP PRN (00:19)
[2023-07-28] MEDS ORDERED: diphenhydrAMINE 50 MG/ML SDV IVPUSH PRN (00:19)
[2023-07-28] MEDS ORDERED: Methylergonovine 0.2 MG/1 ML Amp IM PRN (00:19)
[2023-07-28] MEDS ORDERED: Oxytocin 10 Units/1 ML SDV IM PRN (00:19)
[2023-07-28] MEDS ORDERED: Ondansetron 4 MG/2 ML SDV IVPUSH PRN (00:19)
[2023-07-28] MEDS ORDERED: Bisacodyl 10 MG Supp RECTAL PRN (00:19)
[2023-07-28] MEDS ORDERED: Misoprostol 200 MCG Tab RECTAL PRN (00:19)
[2023-07-28 00:30] LABS: PH,UMBILICAL ARTERIAL 7.237 (7.18-7.38); PH,UMBILICAL VENOUS 7.252 (7.25-7.45)
[2023-07-28 00:59] LABS: HEMATOCRIT 26.3 % (37.0-47.0)
[2023-07-28] MEDS: Lactated Ringers 1,000 ML IV SCH ×2 (01:08→13:34)
[2023-07-28 01:26] LABS: INR 0.98 (0.86-1.11)
[2023-07-28] MEDS: Ketorolac 30 MG/ML SDV IVPUSH SCH ×4 (04:30→22:46)
[2023-07-28] MEDS ORDERED: HYDROmorphone 1 MG/ML Syringe IVPUSH ONE ×2 (05:46→07:50)
[2023-07-28] MEDS: Acetaminophen 1,000 MG in Premix Bag 1 BAG IV SCH ×3 (05:52→23:13)
[2023-07-28] MEDS: Simethicone 80 MG Tab.Chew PO SCH ×3 (05:53→19:00)
[2023-07-28] MEDS ORDERED: HYDROmorphone 2 MG/ML Syringe IVPUSH ONE (08:15)
[2023-07-28] MEDS: ALPRAZolam 0.5 MG Tab PO PRN ×2 (11:17→23:46)
[2023-07-28] MEDS: Docusate Sodium 100 MG Cap PO SCH ×2 (11:20→22:00)
[2023-07-28 15:27] LABS: HEMATOCRIT 17.7 % (37.0-47.0); HEMOGLOBIN 6.1 g/dL (12.0-16.0); IMMATURE GRAN ABSOLUTE AUTO 0.26 K/uL (0.00-0.05); IMMATURE GRAN PERCENT AUTO 0.8 % (0.0-0.4); MEAN CORPUSCULAR HEMOGLOBIN 27.5 pg (28.0-32.0); MEAN CORPUSCULAR HGB CONC 34.5 g/dL (32.0-36.0); MEAN CORPUSCULAR VOLUME 79.7 fL (83.0-99.0); MEAN PLATELET VOLUME 10.2 fL (9.4-12.3); NRBC ABSOLUTE 0.02 K/uL (0.00-0.02); NRBC PERCENT 0.1 /100WBC (0.0-0.2); PLATELET COUNT,PLT 224 K/uL (150-400); RED BLOOD CELL COUNT 2.22 M/uL (4.10-5.30)
[2023-07-28 15:30] LABS: WHITE BLOOD CELL COUNT,WBC 30.65 K/uL (3.9-11.3)
[2023-07-28 15:42] LABS: A/G RATIO 0.6 (0.9-1.6); ALBUMIN 1.8 g/dL (3.4-5.0); BILIRUBIN TOTAL 0.1 mg/dL (0.2-1.0); CALCIUM 7.8 mg/dL (8.5-10.1); CARBON DIOXIDE,CO2 22.3 mmol/L (21.0-32.0); CREATININE 1.2 mg/dL (0.6-1.0); EST CRCL DRUG DOSING (CG) 57.74 mL/min; POTASSIUM,K 4.9 mmol/L (3.5-5.1)
[2023-07-28 19:14] LABS: GROUP B STREP BY PCR NEGATIVE (NEGATIVE)
[2023-07-28] MEDS ORDERED: Acetaminophen 1,000 MG in Premix Bag 1 BAG IV SCH (23:00)
[2023-07-29] MEDS: Simethicone 80 MG Tab.Chew PO SCH ×3 (00:50→12:00)
[2023-07-29] MEDS: Acetaminophen/oxyCODONE 325-5 MG Tab PO PRN ×4 (03:18→23:44)
[2023-07-29] MEDS ORDERED: Ketorolac 30 MG/ML SDV IVPUSH SCH (04:30)
[2023-07-29 05:53] LABS: HEMATOCRIT 23.7 % (37.0-47.0); HEMOGLOBIN 8.3 g/dL (12.0-16.0); MEAN CORPUSCULAR HEMOGLOBIN 28.2 pg (28.0-32.0); MEAN CORPUSCULAR VOLUME 80.6 fL (83.0-99.0); MEAN PLATELET VOLUME 9.7 fL (9.4-12.3); PLATELET COUNT,PLT 246 K/uL (150-400); RED BLOOD CELL COUNT 2.94 M/uL (4.10-5.30); WHITE BLOOD CELL COUNT,WBC 23.16 K/uL (3.9-11.3)
[2023-07-29 06:16] LABS: LYMPHOCYTES ABSOLUTE MAN 3.47 K/uL (1.00-4.80); LYMPHOCYTES PERCENT MAN 15 % (24-44); MONOCYTES ABSOLUTE MAN 1.16 K/uL (0.00-0.80); MONOCYTES PERCENT MAN 5 % (0-8); SEG NEUTROPHILS ABSOLUTE MAN 18.53 K/uL (1.80-7.70); SEG NEUTROPHILS PERCENT MAN 80 % (41-71)
[2023-07-29 06:24] LABS: A/G RATIO 0.5 (0.9-1.6); ALBUMIN 1.9 g/dL (3.4-5.0); BILIRUBIN TOTAL 0.2 mg/dL (0.2-1.0); CALCIUM 8.1 mg/dL (8.5-10.1); CARBON DIOXIDE,CO2 25.3 mmol/L (21.0-32.0); CREATININE 1.3 mg/dL (0.6-1.0); EST CRCL DRUG DOSING (CG) 53.3 mL/min; POTASSIUM,K 4.1 mmol/L (3.5-5.1); PROTEIN TOTAL,TP 5.5 g/dL (6.4-8.2)
[2023-07-29] MEDS: Docusate Sodium 100 MG Cap PO SCH ×2 (09:02→21:00)
[2023-07-29] MEDS: ALPRAZolam 0.5 MG Tab PO PRN ×2 (09:06→23:45)
[2023-07-29] MEDS ORDERED: HYDROmorphone 2 MG Tab PO PRN (11:41)
[2023-07-29 12:29] LABS: C. TRACHOMATIS BY PCR DETECTED; N. GONORRHOEAE BY PCR NOT DETECTED
[2023-07-30] MEDS: Simethicone 80 MG Tab.Chew PO SCH ×4 (06:33→18:00)
[2023-07-30 06:47] LABS: HEMOGLOBIN 8.4 g/dL (12.0-16.0); MEAN CORPUSCULAR HEMOGLOBIN 28.3 pg (28.0-32.0); MEAN CORPUSCULAR VOLUME 80.8 fL (83.0-99.0); MEAN PLATELET VOLUME 9.1 fL (9.4-12.3); NRBC ABSOLUTE 0.03 K/uL (0.00-0.02); NRBC PERCENT 0.1 /100WBC (0.0-0.2); PLATELET COUNT,PLT 261 K/uL (150-400); RED BLOOD CELL COUNT 2.97 M/uL (4.10-5.30); WHITE BLOOD CELL COUNT,WBC 24.93 K/uL (3.9-11.3)
[2023-07-30 07:08] LABS: A/G RATIO 0.5 (0.9-1.6); ALBUMIN 1.8 g/dL (3.4-5.0); BILIRUBIN TOTAL 0.2 mg/dL (0.2-1.0); CALCIUM 8.1 mg/dL (8.5-10.1); CARBON DIOXIDE,CO2 24.9 mmol/L (21.0-32.0); CREATININE 0.9 mg/dL (0.6-1.0); EST CRCL DRUG DOSING (CG) 76.98 mL/min; POTASSIUM,K 4.2 mmol/L (3.5-5.1); PROTEIN TOTAL,TP 5.8 g/dL (6.4-8.2)
[2023-07-30 07:11] LABS: SEG NEUTROPHILS ABSOLUTE MAN 22.19 K/uL (1.80-7.70); SEG NEUTROPHILS PERCENT MAN 89 % (41-71)
[2023-07-30 07:12] LABS: LYMPHOCYTES ABSOLUTE MAN 1.99 K/uL (1.00-4.80); LYMPHOCYTES PERCENT MAN 8 % (24-44); MONOCYTES ABSOLUTE MAN 0.75 K/uL (0.00-0.80); MONOCYTES PERCENT MAN 3 % (0-8)
[2023-07-30] MEDS: Acetaminophen/oxyCODONE 325-5 MG Tab PO PRN ×3 (08:50→23:15)
[2023-07-30] MEDS ORDERED: cefTRIAXone 500 MG in Sodium Chloride 0.9% 50 ML IV ONE (09:08)
[2023-07-30] MEDS: Doxycycline 100 MG Cap PO SCH ×2 (09:15→21:54)
[2023-07-30] MEDS ORDERED: Labetalol 100 MG Tab PO SCH (09:15)
[2023-07-30] MEDS ORDERED: cefTRIAXone 500 MG in Lidocaine 1% 1 ML IM ONE (09:20)
[2023-07-30] MEDS: Docusate Sodium 100 MG Cap PO SCH ×2 (10:52→21:44)
[2023-07-30] MEDS: Labetalol 100 MG Tab PO SCH ×2 (10:54→22:04)
[2023-07-30] MEDS: Ibuprofen 800 MG Tab PO PRN (13:52)
[2023-07-31] MEDS: Simethicone 80 MG Tab.Chew PO SCH ×3 (00:50→13:09)
[2023-07-31] MEDS: Acetaminophen/oxyCODONE 325-5 MG Tab PO PRN ×3 (06:06→21:27)
[2023-07-31 06:26] LABS: HEMATOCRIT 27.9 % (37.0-47.0); HEMOGLOBIN 9.5 g/dL (12.0-16.0); MEAN CORPUSCULAR HEMOGLOBIN 27.9 pg (28.0-32.0); MEAN CORPUSCULAR HGB CONC 34.1 g/dL (32.0-36.0); MEAN CORPUSCULAR VOLUME 81.8 fL (83.0-99.0); MEAN PLATELET VOLUME 8.7 fL (9.4-12.3); PLATELET COUNT,PLT 310 K/uL (150-400); RED BLOOD CELL COUNT 3.41 M/uL (4.10-5.30)
[2023-07-31 07:09] LABS: LYMPHOCYTES ABSOLUTE MAN 1.77 K/uL (1.00-4.80); LYMPHOCYTES PERCENT MAN 8 % (24-44); MONOCYTES ABSOLUTE MAN 0.88 K/uL (0.00-0.80); MONOCYTES PERCENT MAN 4 % (0-8); SEG NEUTROPHILS ABSOLUTE MAN 19.45 K/uL (1.80-7.70); SEG NEUTROPHILS PERCENT MAN 88 % (41-71)
[2023-07-31] MEDS: Doxycycline 100 MG Cap PO SCH ×2 (09:00→21:29)
[2023-07-31] MEDS: Docusate Sodium 100 MG Cap PO SCH ×2 (09:00→21:28)
[2023-07-31] MEDS: Labetalol 100 MG Tab PO SCH ×2 (10:06→21:29)
[2023-07-31] MEDS ORDERED: Thiamine 100 MG Tab PO ONE (19:46)
[2023-07-31] MEDS ORDERED: Haloperidol 1 MG Tab PO SCH (21:00)
[2023-07-31] MEDS: Topiramate 50 MG Tab PO SCH (21:28)
[2023-08-01] MEDS: Simethicone 80 MG Tab.Chew PO SCH ×3 (00:14→06:28)
[2023-08-01] MEDS: NIFEdipine 30 MG Tab.ER PO SCH ×2 (00:33→09:37)
[2023-08-01 06:39] LABS: BASOPHILS ABSOLUTE AUTO 0.03 K/uL (0.00-0.20); BASOPHILS PERCENT AUTO 0.2 % (0.0-1.0); EOSINOPHILS PERCENT AUTO 1.3 % (0.0-6.0); HEMOGLOBIN 8.2 g/dL (12.0-16.0); IMMATURE GRAN ABSOLUTE AUTO 0.22 K/uL (0.00-0.05); IMMATURE GRAN PERCENT AUTO 1.5 % (0.0-0.4); LYMPHOCYTES ABSOLUTE AUTO 1.66 K/uL (1.00-4.80); MEAN CORPUSCULAR HEMOGLOBIN 28.3 pg (28.0-32.0); MEAN CORPUSCULAR HGB CONC 34.2 g/dL (32.0-36.0); MEAN CORPUSCULAR VOLUME 82.8 fL (83.0-99.0); MEAN PLATELET VOLUME 8.8 fL (9.4-12.3); MONOCYTES ABSOLUTE AUTO 0.84 K/uL (0.00-0.80); MONOCYTES PERCENT AUTO 5.5 % (0.0-8.0); NEUTROPHILS PERCENT AUTO 80.5 % (41.0-71.0); PLATELET COUNT,PLT 326 K/uL (150-400); WHITE BLOOD CELL COUNT,WBC 15.15 K/uL (3.9-11.3)
[2023-08-01] MEDS: Topiramate 50 MG Tab PO SCH (06:40)
[2023-08-01] MEDS ORDERED: Folic Acid 1 MG Tab PO SCH (09:00)
[2023-08-01] MEDS ORDERED: Vitamin B6-pyridOXINE 50 MG Tab PO SCH (09:00)
[2023-08-01] MEDS: Ibuprofen 800 MG Tab PO PRN (09:33)
[2023-08-01] MEDS: Labetalol 100 MG Tab PO SCH (09:35)
[2023-08-01 09:38] VITALS: BP 143/84; PULSE 120
[2023-08-01] MEDS: Docusate Sodium 100 MG Cap PO SCH (09:38)
[2023-08-01] MEDS ORDERED: Doxycycline 100 MG Cap ONE (10:46)
[2023-08-01] MEDS: Doxycycline 100 MG Cap PO SCH (10:53)
[2023-08-01] MEDS: ALPRAZolam 0.5 MG Tab PO PRN (11:34)
[2023-08-01] MEDS ORDERED: Cyanocobalamin (Vitamin B12) 500 MCG Tab PO SCH (19:00)
[2023-08-01] MEDS ORDERED: Thiamine 100 MG Tab PO SCH (21:00)
== END 2023-08-01 12:45 | disposition home or self-care (01) | DRG 787 ==
LOC: MW.OBCHECK 20:03 → MW.OB 20:04 → MW.OBCHECK 20:10 → MW.OB 20:10 → OBSVTOIN 20:55 → MW.OB 07-28 02:42
PROVIDERS: ADMIT Obstetrics & Gynecology; ATTEND Obstetrics & Gynecology
PROC: 10D00Z1 Extraction of Products of Conception, Low, Open Approach (ICD-10-PCS; principal; 2023-07-27 22:30)
PROC: 30233N1 Transfusion of Nonautologous Red Blood Cells into Peripheral Vein, Percutaneous Approach (ICD-10-PCS; 2023-07-28)
PROC: 3E0334Z Introduction of Serum, Toxoid and Vaccine into Peripheral Vein, Percutaneous Approach (ICD-10-PCS; 2023-07-29)
DX: O34.211 Maternal care for low transverse scar from previous cesarean delivery (principal); F15.20 Other stimulant dependence, uncomplicated; O99.324 Drug use complicating childbirth; F31.60 Bipolar disorder, current episode mixed, unspecified; O26.893 Other specified pregnancy related conditions, third trimester; O99.02 Anemia complicating childbirth; D64.9 Anemia, unspecified; O99.334 Smoking (tobacco) complicating childbirth; F17.210 Nicotine dependence, cigarettes, uncomplicated; O42.02 Full-term premature rupture of membranes, onset of labor within 24 hours of rupture; F12.20 Cannabis dependence, uncomplicated; F11.10 Opioid abuse, uncomplicated; F29 Unspecified psychosis not due to a substance or known physiological condition; G47.00 Insomnia, unspecified; O99.344 Other mental disorders complicating childbirth; O16.4 Unspecified maternal hypertension, complicating childbirth; Z3A.38 38 weeks gestation of pregnancy; Z37.0 Single live birth; Z67.11 Type A blood, Rh negative; Z88.0 Allergy status to penicillin
CPT/HCPCS: 36415; 36430; 59025; 76815; 76815-26; 80053; 80305-QW; 81001; 82803; 84112; 85014; 85018; 85025; 85027; 85384; 85460; 85610; 86592; 86762; 86803; 86850; 86900; 86901; 86920; 87340; 87389; 87491; 87591; 87653; A9270-GY; J0131; J0171; J0456; J0690; J0696; J1100; J1170; J1885; J2250; J2371; J2405; J2590; J2790; J2795; J3010; J3490; J7050; J7120; P9016

== ENCOUNTER 2023-11-01 14:48 | Emergency (ER) | payer MEDICAID | END 2023-11-01 15:08 | disposition left against medical advice (07) | LOC: MW.ED 14:48 | DX: Z53.21 Procedure and treatment not carried out due to patient leaving prior to being seen by health care provider (principal) ==

== ENCOUNTER 2024-03-19 18:51 | Emergency (ER) | payer MEDICAID ==
[2024-03-19 19:13] LABS: APPEARANCE,URINE CLEAR; BILIRUBIN,URINE NEGATIVE (NEGATIVE); COLOR,URINE YELLOW; GLUCOSE,URINE NEGATIVE (NEGATIVE); KETONES,URINE NEGATIVE (NEGATIVE); LEUKOCYTE ESTERASE,URINE NEGATIVE (NEGATIVE); NITRITE,URINE NEGATIVE (NEGATIVE); OCCULT BLOOD,URINE NEGATIVE (NEGATIVE); PH,URINE 6.5 (5.0-8.0); PROTEIN,URINE NEGATIVE (NEGATIVE); UROBILINOGEN,URINE 0.2 EU/dL (<2.0)
[2024-03-19] MEDS: Sodium Chloride 0.9% 2.5 ML Syringe FLUSH PRN (19:15)
[2024-03-19] MEDS: Morphine 4 MG/ML Syringe IVPUSH ONE (19:15)
[2024-03-19] MEDS: Sodium Chloride 0.9% 10 ML Syringe FLUSH PRN (19:15)
[2024-03-19 20:09] LABS: BASOPHILS ABSOLUTE AUTO 0.05 K/uL (0.00-0.20); BASOPHILS PERCENT AUTO 0.4 % (0.0-1.0); EOSINOPHILS ABSOLUTE AUTO 0.15 K/uL (0.00-0.45); EOSINOPHILS PERCENT AUTO 1.3 % (0.0-6.0); HEMATOCRIT 34.4 % (37.0-47.0); HEMOGLOBIN 11.8 g/dL (12.0-16.0); IMMATURE GRAN ABSOLUTE AUTO 0.03 K/uL (0.00-0.05); IMMATURE GRAN PERCENT AUTO 0.3 % (0.0-0.4); LYMPHOCYTES ABSOLUTE AUTO 2.34 K/uL (1.00-4.80); LYMPHOCYTES PERCENT AUTO 20.8 % (24.0-44.0); MEAN CORPUSCULAR HEMOGLOBIN 29.7 pg (28.0-32.0); MEAN CORPUSCULAR HGB CONC 34.3 g/dL (32.0-36.0); MEAN CORPUSCULAR VOLUME 86.6 fL (83.0-99.0); MEAN PLATELET VOLUME 8.7 fL (9.4-12.3); MONOCYTES ABSOLUTE AUTO 0.75 K/uL (0.00-0.80); MONOCYTES PERCENT AUTO 6.7 % (0.0-8.0); NEUTROPHILS ABSOLUTE AUTO 7.91 K/uL (1.80-7.70); NEUTROPHILS PERCENT AUTO 70.5 % (41.0-71.0); PLATELET COUNT,PLT 309 K/uL (150-400); RED BLOOD CELL COUNT 3.97 M/uL (4.10-5.30); WHITE BLOOD CELL COUNT,WBC 11.23 K/uL (3.9-11.3)
[2024-03-19] MEDS: Iopamidol 755 MG/ML 500 ML Multipack Bottle IVPUSH ONE (20:24)
[2024-03-19 20:28] LABS: A/G RATIO 1.2 (0.9-1.6); ALBUMIN 3.8 g/dL (3.4-5.0); BILIRUBIN TOTAL 0.3 mg/dL (0.2-1.0); CALCIUM 8.8 mg/dL (8.5-10.1); CARBON DIOXIDE,CO2 27.7 mmol/L (21.0-32.0); CREATININE 1.1 mg/dL (0.6-1.0); EST CRCL DRUG DOSING (CG) 62.42 mL/min; POTASSIUM,K 4.3 mmol/L (3.5-5.1); PROTEIN TOTAL,TP 6.9 g/dL (6.4-8.2)
[2024-03-19] MEDS: droPERidol 5 MG/2 ML SDV IVPUSH ONE (20:57)
[2024-03-19] MEDS: Aluminum Hydroxide/Magnesium Hydroxide/Simethicone XS Susp 30 ML Cup PO ONE (23:52)
[2024-03-19 23:59] VITALS: BP 148/89; PULSE 73
== END 2024-03-20 | disposition home or self-care (01) ==
LOC: MW.ED 18:51
DX: K80.20 Calculus of gallbladder without cholecystitis without obstruction (principal); I10 Essential (primary) hypertension; Z75.8 Other problems related to medical facilities and other health care
CPT/HCPCS: 36415; 74177; 76705; 80053; 81003; 81025; 83690; 85025; 96374; 96375; 99284; J1790; J2270; J3490; Q9967